=== PATIENT | female | born 1935 | race Caucasian/White ===

== ENCOUNTER → 2017-11-18 13:31 | Outpatient (REF) | payer MEDICARE, SELFPAY ==
[2017-11-18 14:19] LABS: Add Manual Diff / Slide Review NO; Basophils Percent Auto 0.7 % (0-2); Eosinophils Percent Auto 0.6 % (2-4); Hematocrit 21.8 % (36-46); Hemoglobin 7.2 g/dL (12.0-16.0); Lymphocytes Percent Auto 26.5 % (25-40); Mean Corpuscular HGB Conc 32.8 % (30-36); Mean Corpuscular Hemoglobin 29.2 PG (26-34); Mean Corpuscular Volume 88.9 fL (80-100); Monocytes Percent Auto 6.4 % (3-14); Neutrophils Absolute Auto 4500 /uL (3000-5900); Neutrophils Percent Auto 65.8 % (50-75); Platelet Count 77 X10^3/uL (150-400); Red Blood Cell Count 2.45 X10^6/uL (4.0-5.2); Red Cell Distribution Width 20.8 % (11.6-14.8); White Blood Cell Count 6.9 X10^3/uL (4.5-11.0)
[2017-11-18 14:30] LABS: Alanine Aminotransferase 24 IU/L (9-52); Albumin 3.4 g/dL (3.5-5.0); Albumin Globulin Ratio 0.8 (1.0-2.8); Alkaline Phosphatase 89 U/L (38-126); Aspartate Aminotransferase 26 IU/L (14-36); BUN Creatinine Ratio 32.9 (6-22); Bilirubin Total 0.5 mg/dL (0.2-1.3); Calcium 8.7 mg/dL (8.4-10.2); Cholesterol 60 mg/dL (140-199); Estimated Glomerular Filt Rate > 60.0 mL/min (>60); Globulin 4.1 g/dL (1.7-4.1); Glucose 119 mg/dL (80-110); HDL Cholesterol 20 mg/dL (40-60); HEMOLYSIS < 15 (0-50); LDL Cholesterol Calculated 14 mg/dL (<100); Potassium 3.7 mmol/L (3.4-5.1); Sodium 137 mmol/L (137-145); Total Protein 7.5 g/dL (6.3-8.2); Triglycerides 132 mg/dL (35-150)
[2017-11-18 14:59] LABS: Thyroid Stimulating Hormone 0.46 uIU/mL (0.47-4.68)
[2017-11-18 15:54] LABS: Anisocytosis 3+; Macrocytosis 1+; Polychromasia 1+
[2017-11-18 15:55] LABS: Stomatocytes 1+
[2017-11-18 16:17] LABS: Vitamin D 25 Hydroxy (D3) 15.2 ng/mL (30.0-100.0)
== END ==
LOC: LAB 13:31
PROVIDERS: PCP Nurse Practitioner Family; Visit Provider Physician Assistant
DX: R42 Dizziness and giddiness (principal); E03.9 Hypothyroidism, unspecified; R53.83 Other fatigue
CPT/HCPCS: 80053; 80061; 82306; 84443; 85025

== ENCOUNTER → 2017-11-24 13:42 | Outpatient (CLI) | payer MEDICARE, SELFPAY | PROVIDERS: Visit Provider Physician Assistant | DX: R29.6 Repeated falls (principal) | CPT/HCPCS: 87077; 87086; 87186 ==

== ENCOUNTER 2017-11-25 12:10 | Observation (INO) | payer MEDICARE, SELFPAY ==
[2017-11-25] VITALS (13 sets, daily range): BP systolic 125–171; BP diastolic 58–73; PULSE 70–88; RESP 14–20; TEMP 36.8–37.5; O2SAT 97–100; BMI 144.3
--- NOTE | 2017-11-25 12:56 | ED.RECABL ---
HPI - Recheck/Abnormal Lab/Rx <Marjan Alanis PA-C - Last Filed: 11/25/17 16:11> General Chief Complaint: Recheck/Abnormal Lab/Rx Stated Complaint: 'BLOOD TRANSFUSION' Time Seen by Provider: 11/25/17 12:13 Source: patient and family Mode of arrival: ambulatory Limitations: no limitations History of Present Illness HPI narrative: This 82-year-old female states that she was sent in by her PCP and home health for blood transfusion. She states ?I feel fine?, however apparently she had progressive anemia which had worsened on her 11/18 labs and she was messaged today that she should come to the ED. She states that she has had no increased weakness or fatigue over daughter notes that she does have significant ongoing weakness which she believes is worsening. She denies any chest pain or dyspnea. She denies any new bleeding such as hematuria or rectal bleeding. She states that she has had guaiac x3 done at the office which were negative (apparently she had been taking a fair amount of [id number] NSAIDs prior to this and there was concern for GI bleed). She has discontinued those since. In speaking with her PCP, states that patient has a history of positive occult blood tests and 1/3 were positive when tested recently. All the NSAIDs were stopped and she has been on PPI. She was referred to GI but has not been yet. She also had been referred to Hematology some time ago for her chronic anemia, which did not appear to be related to iron deficiency, and states she did not go to that appointment. Related Data Home Medications Medication Instructions Recorded Confirmed hydrochlorothiazide 25 mg PO QAM #0 05/10/12 11/25/17 hydrocodone-acetaminophen 1 tab PO Q12H PRN #0 05/10/12 11/25/17 albuterol sulfate 2 puff INHALATION Q4H 11/25/17 11/25/17 bimatoprost [Lumigan] 1 drp OPHTHALMIC (EYE) QPM 11/25/17 11/25/17 brimonidine-timolol [Combigan] 1 drp OPHTHALMIC (EYE) BID 11/25/17 11/25/17 calcium phosphate-vitamin D3 1 tab PO DAILY 11/25/17 11/25/17 [Citracal + D3 (calcium phos)] cholecalciferol (vitamin D3) 2 cap PO DAILY 11/25/17 11/25/17 [Vitamin D3] cholecalciferol (vitamin D3) 2 tab PO DAILY 11/25/17 11/25/17 [Vitamin D3] fluticasone [Flovent HFA] 3 puff INHALATION BID PRN 11/25/17 11/25/17 levothyroxine 1 tab PO DAILY 11/25/17 11/25/17 levothyroxine 1 tab PO DAILY 11/25/17 11/25/17 lisinopril 40 mg PO QPM 11/25/17 11/25/17 meloxicam 15 mg PO DAILY 11/25/17 11/25/17 omeprazole 40 mg PO DAILY 11/25/17 11/25/17 rosuvastatin 11/25/17 rosuvastatin 10 mg PO DAILY 11/25/17 11/25/17 venlafaxine 1 cap PO QPM 11/25/17 11/25/17 zolpidem 5 - 10 mg PO BEDTIME PRN 11/25/17 11/25/17 Allergies Allergy/AdvReac Type Severity Reaction Status Date / Time meperidine Allergy Unknown Unverified 10/05/17 12:57 Sulfa (Sulfonamide Allergy Unknown Unverified 10/05/17 12:57 Antibiotics) Review of Systems <Marjan Alanis PA-C - Last Filed: 11/25/17 16:11> Review of Systems All systems reviewed & are unremarkable except as noted in HPI and below Exam <Marjan Alanis PA-C - Last Filed: 11/25/17 16:11> Narrative Exam Narrative: GENERAL APPEARANCE: Patient sitting comfortably, in no distress. HEENT: PERRL, EOMI, no scleral icterus NECK: Supple LUNGS: Clear to auscultation bilaterally. HEART: Rate and rhythm regular, normal S1 and S2, no S3 or S4. ABDOMEN: Soft, nontender, nondistended, bowel sounds present x 4 quadrants, no masses palpable, no hepatosplenomegaly. EXTREMITIES: No edema, no cyanosis DERMATOLOGIC: No jaundice or exanthem NEUROLOGIC: Alert and oriented with normal speech and coordination RECTAL: No palpable masses. Guaiac is negative x1, there is minimal brown stool in the vault to test Initial Vital Signs Initial Vital Signs: Vital Signs Temperature 98.5 F 11/25/17 12:37 Pulse Rate 88 11/25/17 12:37 Respiratory Rate 16 11/25/17 12:37 Blood Pressure 170/63 H 11/25/17 12:37 Pulse Oximetry 99 11/25/17 12:37 <Robbie Mercedes MD - Last Filed: 11/25/17 17:01> Initial Vital Signs Initial Vital Signs: Vital Signs Temperature 98.5 F 11/25/17 12:37 Pulse Rate 88 11/25/17 12:37 Respiratory Rate 16 11/25/17 12:37 Blood Pressure 170/63 H 11/25/17 12:37 Pulse Oximetry 99 11/25/17 12:37 Course <Marjan Alanis PA-C - Last Filed: 11/25/17 16:11> Hospital Course: Spoke with Dr. Segovia regarding patient's history of chronic anemia as well as recent iron deficiency after NSAID use, and sharp decline in her H&H in the last week. He is agreeable with observation admission for transfusion. Blood has already been ordered Orders Ordered: ED Orders 11/25/17 12:48 CMP [Comprehensive Metabolic Panel] Stat Complete Blood Count AUTO DIFF Stat Ferritin Stat Iron Profile (w/ % Saturation) Stat Packed Cells Stat Partial Thromboplastin Time Stat Prothrombin Time INR Stat Type and Screen Stat 11/26/17 05:00 CBC [Complete Blood Count AUTO DIFF] Routine Vital Signs - 8 hr 11/25/17 12:37 11/25/17 13:40 11/25/17 14:00 Temperature 98.5 F 98.7 F Pulse Rate 88 72 78 Respiratory Rate 16 16 18 Blood Pressure 170/63 H 171/73 H Blood Pressure [Left Arm] 150/71 H Pulse Oximetry 99 100 99 11/25/17 14:55 11/25/17 15:51 Temperature Pulse Rate 75 76 Respiratory Rate 16 20 Blood Pressure 143/65 H Blood Pressure [Left Arm] 145/64 H Pulse Oximetry 100 98 <Robbie Mercedes MD - Last Filed: 11/25/17 17:01> Orders Ordered: ED Orders 11/25/17 12:48 CMP [Comprehensive Metabolic Panel] Stat Complete Blood Count AUTO DIFF Stat Ferritin Stat Iron Profile (w/ % Saturation) Stat Packed Cells Stat Partial Thromboplastin Time Stat Prothrombin Time INR Stat Type and Screen Stat 11/26/17 05:00 CBC [Complete Blood Count AUTO DIFF] Routine Vital Signs - 8 hr 11/25/17 12:37 11/25/17 13:40 11/25/17 14:00 Temperature 98.5 F 98.7 F Pulse Rate 88 72 78 Respiratory Rate 16 16 18 Blood Pressure 170/63 H 171/73 H Blood Pressure [Left Arm] 150/71 H Pulse Oximetry 99 100 99 11/25/17 14:55 11/25/17 15:51 Temperature Pulse Rate 75 76 Respiratory Rate 16 20 Blood Pressure 143/65 H Blood Pressure [Left Arm] 145/64 H Pulse Oximetry 100 98 MDM - Recheck/Abnormal Lab/Rx <Marjan Alanis PA-C - Last Filed: 11/25/17 16:11> Lab Data Attestation: I reviewed the patient's lab results. Outside lab results: 10/26: Ferritin 45.2, iron 98, transferrin 304.23, TIBC 367, iron saturation 27%, hemoglobin 7.2, hematocrit 21.8, platelets 77. 4/24 hemoglobin 9, hematocrit 27.2, platelets 92 Result diagrams: 11/25/17 12:48 11/25/17 12:48 Lab Results 11/25/17 11/25/17 11/25/17 Range/Units 12:48 12:48 12:48 WBC 6.0 (4.5-11.0) X10^3/uL RBC 2.31 L (4.0-5.2) X10^6/uL Hgb 6.7 L* (12.0-16.0) g/dL Hct 20.0 L* (36-46) % MCV 86.5 (80-100) fL MCH 29.0 (26-34) PG MCHC 33.5 (30-36) % RDW 20.1 H (11.6-14.8) % Plt Count 128 L (150-400) X10^3/uL Neut % (Auto) 65.0 (50-75) % Lymph % (Auto) 26.6 (25-40) % [place] % (Auto) 6.4 (3-14) % Eos % (Auto) 0.9 L (2-4) % Baso % (Auto) 1.1 (0-2) % Neut # (Auto) 3900 (6028-0197) /uL RBC Morphology Not Reportable Polychromasia 1+ H Hypochromasia 2+ H Anisocytosis 3+ H PT 13.6 H (10.1-12.7) SECONDS INR 1.3 (0.9-1.3) APTT 33 (26.4-36.2) SECONDS Sodium 137 (137-145) mmol/L Potassium 3.5 (3.4-5.1) mmol/L Chloride 105 (98-107) mmol/L Carbon Dioxide 18 L (22-32) mmol/L BUN 17 (7-17) mg/dL Creatinine 0.70 (0.52-1.04) mg/dL Estimated GFR > 60.0 (>60) mL/min BUN/Creatinine Ratio 24.3 H (6-22) Glucose 128 H (80-110) mg/dL Calcium 8.6 (8.4-10.2) mg/dL Iron (37-170) ug/dL TIBC (265-497) ug/mL % Saturation (15-50) % Transferrin (206-381) mg/dL Ferritin (11.1-264) ng/mL Total Bilirubin 0.7 (0.2-1.3) mg/dL AST 26 (14-36) IU/L ALT 26 (9-52) IU/L Alkaline Phosphatase 80 (38-126) U/L Total Protein 7.3 (6.3-8.2) g/dL Albumin 3.2 L (3.5-5.0) g/dL Globulin 4.1 (1.7-4.1) g/dL Albumin/Globulin Ratio 0.8 L (1.0-2.8) Blood Type Crossmatch (AHG) 11/25/17 11/25/17 11/25/17 Range/Units 12:48 12:48 12:48 WBC (4.5-11.0) X10^3/uL RBC (4.0-5.2) X10^6/uL Hgb (12.0-16.0) g/dL Hct (36-46) % MCV (80-100) fL MCH (26-34) PG MCHC (30-36) % RDW (11.6-14.8) % Plt Count (150-400) X10^3/uL Neut % (Auto) (50-75) % Lymph % (Auto) (25-40) % [place] % (Auto) (3-14) % Eos % (Auto) (2-4) % Baso % (Auto) (0-2) % Neut # (Auto) (4974-4796) /uL RBC Morphology Polychromasia Hypochromasia Anisocytosis PT (10.1-12.7) SECONDS INR (0.9-1.3) APTT (26.4-36.2) SECONDS Sodium (137-145) mmol/L Potassium (3.4-5.1) mmol/L Chloride (98-107) mmol/L Carbon Dioxide (22-32) mmol/L BUN (7-17) mg/dL Creatinine (0.52-1.04) mg/dL Estimated GFR (>60) mL/min BUN/Creatinine Ratio (6-22) Glucose (80-110) mg/dL Calcium (8.4-10.2) mg/dL Iron 61 (37-170) ug/dL TIBC 258 L (265-497) ug/mL % Saturation 24 (15-50) % Transferrin 191 L (206-381) mg/dL Ferritin 630.0 H (11.1-264) ng/mL Total Bilirubin (0.2-1.3) mg/dL AST (14-36) IU/L ALT (9-52) IU/L Alkaline Phosphatase (38-126) U/L Total Protein (6.3-8.2) g/dL Albumin (3.5-5.0) g/dL Globulin (1.7-4.1) g/dL Albumin/Globulin Ratio (1.0-2.8) Blood Type A Negative Crossmatch (AHG) See Detail <Robbie Mercedes MD - Last Filed: 11/25/17 17:01> Lab Data Lab Results 11/25/17 11/25/17 11/25/17 Range/Units 12:48 12:48 12:48 WBC 6.0 (4.5-11.0) X10^3/uL RBC 2.31 L (4.0-5.2) X10^6/uL Hgb 6.7 L* (12.0-16.0) g/dL Hct 20.0 L* (36-46) % MCV 86.5 (80-100) fL MCH 29.0 (26-34) PG MCHC 33.5 (30-36) % RDW 20.1 H (11.6-14.8) % Plt Count 128 L (150-400) X10^3/uL Neut % (Auto) 65.0 (50-75) % Lymph % (Auto) 26.6 (25-40) % Dorado % (Auto) 6.4 (3-14) % Eos % (Auto) 0.9 L (2-4) % Baso % (Auto) 1.1 (0-2) % Neut # (Auto) 3900 (2998-5029) /uL RBC Morphology Not Reportable Polychromasia 1+ H Hypochromasia 2+ H Anisocytosis 3+ H PT 13.6 H (10.1-12.7) SECONDS INR 1.3 (0.9-1.3) APTT 33 (26.4-36.2) SECONDS Sodium 137 (137-145) mmol/L Potassium 3.5 (3.4-5.1) mmol/L Chloride 105 (98-107) mmol/L Carbon Dioxide 18 L (22-32) mmol/L BUN 17 (7-17) mg/dL Creatinine 0.70 (0.52-1.04) mg/dL Estimated GFR > 60.0 (>60) mL/min BUN/Creatinine Ratio 24.3 H (6-22) Glucose 128 H (80-110) mg/dL Calcium 8.6 (8.4-10.2) mg/dL Iron (37-170) ug/dL TIBC (265-497) ug/mL % Saturation (15-50) % Transferrin (206-381) mg/dL Ferritin (11.1-264) ng/mL Total Bilirubin 0.7 (0.2-1.3) mg/dL AST 26 (14-36) IU/L ALT 26 (9-52) IU/L Alkaline Phosphatase 80 (38-126) U/L Total Protein 7.3 (6.3-8.2) g/dL Albumin 3.2 L (3.5-5.0) g/dL Globulin 4.1 (1.7-4.1) g/dL Albumin/Globulin Ratio 0.8 L (1.0-2.8) Blood Type Crossmatch (AHG) 11/25/17 11/25/17 11/25/17 Range/Units 12:48 12:48 12:48 WBC (4.5-11.0) X10^3/uL RBC (4.0-5.2) X10^6/uL Hgb (12.0-16.0) g/dL Hct (36-46) % MCV (80-100) fL MCH (26-34) PG MCHC (30-36) % RDW (11.6-14.8) % Plt Count (150-400) X10^3/uL Neut % (Auto) (50-75) % Lymph % (Auto) (25-40) % Dorado % (Auto) (3-14) % Eos % (Auto) (2-4) % Baso % (Auto) (0-2) % Neut # (Auto) (1692-8667) /uL RBC Morphology Polychromasia Hypochromasia Anisocytosis PT (10.1-12.7) SECONDS INR (0.9-1.3) APTT (26.4-36.2) SECONDS Sodium (137-145) mmol/L Potassium (3.4-5.1) mmol/L Chloride (98-107) mmol/L Carbon Dioxide (22-32) mmol/L BUN (7-17) mg/dL Creatinine (0.52-1.04) mg/dL Estimated GFR (>60) mL/min BUN/Creatinine Ratio (6-22) Glucose (80-110) mg/dL Calcium (8.4-10.2) mg/dL Iron 61 (37-170) ug/dL TIBC 258 L (265-497) ug/mL % Saturation 24 (15-50) % Transferrin 191 L (206-381) mg/dL Ferritin 630.0 H (11.1-264) ng/mL Total Bilirubin (0.2-1.3) mg/dL AST (14-36) IU/L ALT (9-52) IU/L Alkaline Phosphatase (38-126) U/L Total Protein (6.3-8.2) g/dL Albumin (3.5-5.0) g/dL Globulin (1.7-4.1) g/dL Albumin/Globulin Ratio (1.0-2.8) Blood Type A Negative Crossmatch (G) See Detail Discharge Plan Departure Patient Disposition: Admitted as Observation Clinical Impression: Acute anemia Discharge Date/Time: 11/25/17 15:56 Interventions: ED Discharge Assessment Last Done: 11/25/17 15:51 Admit Date/Time: 11/25/17 15:52 Admit Provider: Carlos Segovia <Robbie Mercedes MD - Last Filed: 11/25/17 17:01> Cosign ED Attending Cosignature Attestation: The PA/LIGHTING ENGINEER functioned independently for the care of this pt, I was available, but not asked to participate in care. I am unable to determine appropriateness of management without personally examining the pt.
--- NOTE | 2017-11-25 12:59 | ED_ITS ---
HPI - Recheck/Abnormal Lab/Rx <Marjan Alanis PA-C - Last Filed: 11/25/17 16:11> General Chief Complaint: Recheck/Abnormal Lab/Rx Stated Complaint: 'BLOOD TRANSFUSION' Time Seen by Provider: 11/25/17 12:13 Source: patient and family Mode of arrival: ambulatory Limitations: no limitations History of Present Illness HPI narrative: This 82-year-old female states that she was sent in by her PCP and home health for blood transfusion. She states ?I feel fine?, however apparently she had progressive anemia which had worsened on her 11/18 labs and she was messaged today that she should come to the ED. She states that she has had no increased weakness or fatigue over daughter notes that she does have significant ongoing weakness which she believes is worsening. She denies any chest pain or dyspnea. She denies any new bleeding such as hematuria or rectal bleeding. She states that she has had guaiac x3 done at the office which were negative (apparently she had been taking a fair amount of [id number] NSAIDs prior to this and there was concern for GI bleed). She has discontinued those since. In speaking with her PCP, states that patient has a history of positive occult blood tests and 1/3 were positive when tested recently. All the NSAIDs were stopped and she has been on PPI. She was referred to GI but has not been yet. She also had been referred to Hematology some time ago for her chronic anemia, which did not appear to be related to iron deficiency, and states she did not go to that appointment. Related Data Home Medications Medication Instructions Recorded Confirmed hydrochlorothiazide 25 mg PO QAM #0 05/10/12 11/25/17 hydrocodone-acetaminophen 1 tab PO Q12H PRN #0 05/10/12 11/25/17 albuterol sulfate 2 puff INHALATION Q4H 11/25/17 11/25/17 bimatoprost [Lumigan] 1 drp OPHTHALMIC (EYE) QPM 11/25/17 11/25/17 brimonidine-timolol [Combigan] 1 drp OPHTHALMIC (EYE) BID 11/25/17 11/25/17 calcium phosphate-vitamin D3 1 tab PO DAILY 11/25/17 11/25/17 [Citracal + D3 (calcium phos)] cholecalciferol (vitamin D3) 2 cap PO DAILY 11/25/17 11/25/17 [Vitamin D3] cholecalciferol (vitamin D3) 2 tab PO DAILY 11/25/17 11/25/17 [Vitamin D3] fluticasone [Flovent HFA] 3 puff INHALATION BID PRN 11/25/17 11/25/17 levothyroxine 1 tab PO DAILY 11/25/17 11/25/17 levothyroxine 1 tab PO DAILY 11/25/17 11/25/17 lisinopril 40 mg PO QPM 11/25/17 11/25/17 meloxicam 15 mg PO DAILY 11/25/17 11/25/17 omeprazole 40 mg PO DAILY 11/25/17 11/25/17 rosuvastatin 11/25/17 rosuvastatin 10 mg PO DAILY 11/25/17 11/25/17 venlafaxine 1 cap PO QPM 11/25/17 11/25/17 zolpidem 5 - 10 mg PO BEDTIME PRN 11/25/17 11/25/17 Allergies Allergy/AdvReac Type Severity Reaction Status Date / Time meperidine Allergy Unknown Unverified 10/05/17 12:57 Sulfa (Sulfonamide Allergy Unknown Unverified 10/05/17 12:57 Antibiotics) Review of Systems <Marjan Alanis PA-C - Last Filed: 11/25/17 16:11> Review of Systems All systems reviewed & are unremarkable except as noted in HPI and below Exam <Marjan Alanis PA-C - Last Filed: 11/25/17 16:11> Narrative Exam Narrative: GENERAL APPEARANCE: Patient sitting comfortably, in no distress. HEENT: PERRL, EOMI, no scleral icterus NECK: Supple LUNGS: Clear to auscultation bilaterally. HEART: Rate and rhythm regular, normal S1 and S2, no S3 or S4. ABDOMEN: Soft, nontender, nondistended, bowel sounds present x 4 quadrants, no masses palpable, no hepatosplenomegaly. EXTREMITIES: No edema, no cyanosis DERMATOLOGIC: No jaundice or exanthem NEUROLOGIC: Alert and oriented with normal speech and coordination RECTAL: No palpable masses. Guaiac is negative x1, there is minimal brown stool in the vault to test Initial Vital Signs Initial Vital Signs: Vital Signs Temperature 98.5 F 11/25/17 12:37 Pulse Rate 88 11/25/17 12:37 Respiratory Rate 16 11/25/17 12:37 Blood Pressure 170/63 H 11/25/17 12:37 Pulse Oximetry 99 11/25/17 12:37 <Robbie Mercedes MD - Last Filed: 11/25/17 17:01> Initial Vital Signs Initial Vital Signs: Vital Signs Temperature 98.5 F 11/25/17 12:37 Pulse Rate 88 11/25/17 12:37 Respiratory Rate 16 11/25/17 12:37 Blood Pressure 170/63 H 11/25/17 12:37 Pulse Oximetry 99 11/25/17 12:37 Course <Marjan Alanis PA-C - Last Filed: 11/25/17 16:11> Hospital Course: Spoke with Dr. Segovia regarding patient's history of chronic anemia as well as recent iron deficiency after NSAID use, and sharp decline in her H&H in the last week. He is agreeable with observation admission for transfusion. Blood has already been ordered Orders Ordered: ED Orders 11/25/17 12:48 CMP [Comprehensive Metabolic Panel] Stat Complete Blood Count AUTO DIFF Stat Ferritin Stat Iron Profile (w/ % Saturation) Stat Packed Cells Stat Partial Thromboplastin Time Stat Prothrombin Time INR Stat Type and Screen Stat 11/26/17 05:00 CBC [Complete Blood Count AUTO DIFF] Routine Vital Signs - 8 hr 11/25/17 12:37 11/25/17 13:40 11/25/17 14:00 Temperature 98.5 F 98.7 F Pulse Rate 88 72 78 Respiratory Rate 16 16 18 Blood Pressure 170/63 H 171/73 H Blood Pressure [Left Arm] 150/71 H Pulse Oximetry 99 100 99 11/25/17 14:55 11/25/17 15:51 Temperature Pulse Rate 75 76 Respiratory Rate 16 20 Blood Pressure 143/65 H Blood Pressure [Left Arm] 145/64 H Pulse Oximetry 100 98 <Robbie Mercedes MD - Last Filed: 11/25/17 17:01> Orders Ordered: ED Orders 11/25/17 12:48 CMP [Comprehensive Metabolic Panel] Stat Complete Blood Count AUTO DIFF Stat Ferritin Stat Iron Profile (w/ % Saturation) Stat Packed Cells Stat Partial Thromboplastin Time Stat Prothrombin Time INR Stat Type and Screen Stat 11/26/17 05:00 CBC [Complete Blood Count AUTO DIFF] Routine Vital Signs - 8 hr 11/25/17 12:37 11/25/17 13:40 11/25/17 14:00 Temperature 98.5 F 98.7 F Pulse Rate 88 72 78 Respiratory Rate 16 16 18 Blood Pressure 170/63 H 171/73 H Blood Pressure [Left Arm] 150/71 H Pulse Oximetry 99 100 99 11/25/17 14:55 11/25/17 15:51 Temperature Pulse Rate 75 76 Respiratory Rate 16 20 Blood Pressure 143/65 H Blood Pressure [Left Arm] 145/64 H Pulse Oximetry 100 98 MDM - Recheck/Abnormal Lab/Rx <Marjan Alanis PA-C - Last Filed: 11/25/17 16:11> Lab Data Attestation: I reviewed the patient's lab results. Outside lab results: 10/26: Ferritin 45.2, iron 98, transferrin 304.23, TIBC 367 , iron saturation 27%, hemoglobin 7.2, hematocrit 21.8, platelets 77. 4/24 hemoglobin 9, hematocrit 27.2, platelets 92 Result diagrams: 11/25/17 12:48 11/25/17 12:48 Lab Results 11/25/17 11/25/17 11/25/17 Range/Units 12:48 12:48 12:48 WBC 6.0 (4.5-11.0) X10^3/uL RBC 2.31 L (4.0-5.2) X10^6/uL Hgb 6.7 L* (12.0-16.0) g/dL Hct 20.0 L* (36-46) % MCV 86.5 (80-100) fL MCH 29.0 (26-34) PG MCHC 33.5 (30-36) % RDW 20.1 H (11.6-14.8) % Plt Count 128 L (150-400) X10^3/uL Neut % (Auto) 65.0 (50-75) % Lymph % (Auto) 26.6 (25-40) % [place]zel % (Auto) 6.4 (3-14) % Eos % (Auto) 0.9 L (2-4) % Baso % (Auto) 1.1 (0-2) % Neut # (Auto) 3900 (2798-8904) /uL RBC Morphology Not Reportable Polychromasia 1+ H Hypochromasia 2+ H Anisocytosis 3+ H PT 13.6 H (10.1-12.7) SECONDS INR 1.3 (0.9-1.3) APTT 33 (26.4-36.2) SECONDS Sodium 137 (137-145) mmol/L Potassium 3.5 (3.4-5.1) mmol/L Chloride 105 (98-107) mmol/L Carbon Dioxide 18 L (22-32) mmol/L BUN 17 (7-17) mg/dL Creatinine 0.70 (0.52-1.04) mg/dL Estimated GFR > 60.0 (>60) mL/min BUN/Creatinine Ratio 24.3 H (6-22) Glucose 128 H (80-110) mg/dL Calcium 8.6 (8.4-10.2) mg/dL Iron (37-170) ug/dL TIBC (265-497) ug/mL % Saturation (15-50) % Transferrin (206-381) mg/dL Ferritin (11.1-264) ng/mL Total Bilirubin 0.7 (0.2-1.3) mg/dL AST 26 (14-36) IU/L ALT 26 (9-52) IU/L Alkaline Phosphatase 80 (38-126) U/L Total Protein 7.3 (6.3-8.2) g/dL Albumin 3.2 L (3.5-5.0) g/dL Globulin 4.1 (1.7-4.1) g/dL Albumin/Globulin Ratio 0.8 L (1.0-2.8) Blood Type Crossmatch (AHG) 11/25/17 11/25/17 11/25/17 Range/Units 12:48 12:48 12:48 WBC (4.5-11.0) X10^3/uL RBC (4.0-5.2) X10^6/uL Hgb (12.0-16.0) g/dL Hct (36-46) % MCV (80-100) fL MCH (26-34) PG MCHC (30-36) % RDW (11.6-14.8) % Plt Count (150-400) X10^3/uL Neut % (Auto) (50-75) % Lymph % (Auto) (25-40) % [place] % (Auto) (3-14) % Eos % (Auto) (2-4) % Baso % (Auto) (0-2) % Neut # (Auto) (7571-4631) /uL RBC Morphology Polychromasia Hypochromasia Anisocytosis PT (10.1-12.7) SECONDS INR (0.9-1.3) APTT (26.4-36.2) SECONDS Sodium (137-145) mmol/L Potassium (3.4-5.1) mmol/L Chloride (98-107) mmol/L Carbon Dioxide (22-32) mmol/L BUN (7-17) mg/dL Creatinine (0.52-1.04) mg/dL Estimated GFR (>60) mL/min BUN/Creatinine Ratio (6-22) Glucose (80-110) mg/dL Calcium (8.4-10.2) mg/dL Iron 61 (37-170) ug/dL TIBC 258 L (265-497) ug/mL % Saturation 24 (15-50) % Transferrin 191 L (206-381) mg/dL Ferritin 630.0 H (11.1-264) ng/mL Total Bilirubin (0.2-1.3) mg/dL AST (14-36) IU/L ALT (9-52) IU/L Alkaline Phosphatase (38-126) U/L Total Protein (6.3-8.2) g/dL Albumin (3.5-5.0) g/dL Globulin (1.7-4.1) g/dL Albumin/Globulin Ratio (1.0-2.8) Blood Type A Negative Crossmatch (AHG) See Detail <Robbie Mercedes MD - Last Filed: 11/25/17 17:01> Lab Data Lab Results 11/25/17 11/25/17 11/25/17 Range/Units 12:48 12:48 12:48 WBC 6.0 (4.5-11.0) X10^3/uL RBC 2.31 L (4.0-5.2) X10^6/uL Hgb 6.7 L* (12.0-16.0) g/dL Hct 20.0 L* (36-46) % MCV 86.5 (80-100) fL MCH 29.0 (26-34) PG MCHC 33.5 (30-36) % RDW 20.1 H (11.6-14.8) % Plt Count 128 L (150-400) X10^3/uL Neut % (Auto) 65.0 (50-75) % Lymph % (Auto) 26.6 (25-40) % [place]zel % (Auto) 6.4 (3-14) % Eos % (Auto) 0.9 L (2-4) % Baso % (Auto) 1.1 (0-2) % Neut # (Auto) 3900 (2332-4709) /uL RBC Morphology Not Reportable Polychromasia 1+ H Hypochromasia 2+ H Anisocytosis 3+ H PT 13.6 H (10.1-12.7) SECONDS INR 1.3 (0.9-1.3) APTT 33 (26.4-36.2) SECONDS Sodium 137 (137-145) mmol/L Potassium 3.5 (3.4-5.1) mmol/L Chloride 105 (98-107) mmol/L Carbon Dioxide 18 L (22-32) mmol/L BUN 17 (7-17) mg/dL Creatinine 0.70 (0.52-1.04) mg/dL Estimated GFR > 60.0 (>60) mL/min BUN/Creatinine Ratio 24.3 H (6-22) Glucose 128 H (80-110) mg/dL Calcium 8.6 (8.4-10.2) mg/dL Iron (37-170) ug/dL TIBC (265-497) ug/mL % Saturation (15-50) % Transferrin (206-381) mg/dL Ferritin (11.1-264) ng/mL Total Bilirubin 0.7 (0.2-1.3) mg/dL AST 26 (14-36) IU/L ALT 26 (9-52) IU/L Alkaline Phosphatase 80 (38-126) U/L Total Protein 7.3 (6.3-8.2) g/dL Albumin 3.2 L (3.5-5.0) g/dL Globulin 4.1 (1.7-4.1) g/dL Albumin/Globulin Ratio 0.8 L (1.0-2.8) Blood Type Crossmatch (AHG) 11/25/17 11/25/17 11/25/17 Range/Units 12:48 12:48 12:48 WBC (4.5-11.0) X10^3/uL RBC (4.0-5.2) X10^6/uL Hgb (12.0-16.0) g/dL Hct (36-46) % MCV (80-100) fL MCH (26-34) PG MCHC (30-36) % RDW (11.6-14.8) % Plt Count (150-400) X10^3/uL Neut % (Auto) (50-75) % Lymph % (Auto) (25-40) % Wetzel % (Auto) (3-14) % Eos % (Auto) (2-4) % Baso % (Auto) (0-2) % Neut # (Auto) (6022-2512) /uL RBC Morphology Polychromasia Hypochromasia Anisocytosis PT (10.1-12.7) SECONDS INR (0.9-1.3) APTT (26.4-36.2) SECONDS Sodium (137-145) mmol/L Potassium (3.4-5.1) mmol/L Chloride (98-107) mmol/L Carbon Dioxide (22-32) mmol/L BUN (7-17) mg/dL Creatinine (0.52-1.04) mg/dL Estimated GFR (>60) mL/min BUN/Creatinine Ratio (6-22) Glucose (80-110) mg/dL Calcium (8.4-10.2) mg/dL Iron 61 (37-170) ug/dL TIBC 258 L (265-497) ug/mL % Saturation 24 (15-50) % Transferrin 191 L (206-381) mg/dL Ferritin 630.0 H (11.1-264) ng/mL Total Bilirubin (0.2-1.3) mg/dL AST (14-36) IU/L ALT (9-52) IU/L Alkaline Phosphatase (38-126) U/L Total Protein (6.3-8.2) g/dL Albumin (3.5-5.0) g/dL Globulin (1.7-4.1) g/dL Albumin/Globulin Ratio (1.0-2.8) Blood Type A Negative Crossmatch (G) See Detail Discharge Plan Departure Patient Disposition: Admitted as Observation Clinical Impression: Acute anemia Discharge Date/Time: 11/25/17 15:56 Interventions: ED Discharge Assessment Last Done: 11/25/17 15:51 Admit Date/Time: 11/25/17 15:52 Admit Provider: Carlos Segovia <Robbie Mercedes MD - Last Filed: 11/25/17 17:01> Cosign ED Attending Cosignature Attestation: The PA/RESEARCH ASSISTANT PROFESSOR functioned independently for the care of this pt, I was available, but not asked to participate in care. I am unable to determine appropriateness of management without personally examining the pt.
[2017-11-25 13:16] LABS: Add Manual Diff / Slide Review NO; Basophils Percent Auto 1.1 % (0-2); Eosinophils Percent Auto 0.9 % (2-4); Lymphocytes Percent Auto 26.6 % (25-40); Mean Corpuscular HGB Conc 33.5 % (30-36); Mean Corpuscular Volume 86.5 fL (80-100); Monocytes Percent Auto 6.4 % (3-14); Neutrophils Absolute Auto 3900 /uL (3000-5900); Platelet Count 128 X10^3/uL (150-400); Red Blood Cell Count 2.31 X10^6/uL (4.0-5.2); Red Cell Distribution Width 20.1 % (11.6-14.8)
[2017-11-25 13:18] LABS: Hemoglobin 6.7 g/dL (12.0-16.0)
[2017-11-25 13:22] LABS: Alanine Aminotransferase 26 IU/L (9-52); Albumin 3.2 g/dL (3.5-5.0); Albumin Globulin Ratio 0.8 (1.0-2.8); Alkaline Phosphatase 80 U/L (38-126); Aspartate Aminotransferase 26 IU/L (14-36); BUN Creatinine Ratio 24.3 (6-22); Bilirubin Total 0.7 mg/dL (0.2-1.3); Blood Urea Nitrogen 17 mg/dL (7-17); Calcium 8.6 mg/dL (8.4-10.2); Carbon Dioxide 18 mmol/L (22-32); Chloride 105 mmol/L (98-107); Estimated Glomerular Filt Rate > 60.0 mL/min (>60); Globulin 4.1 g/dL (1.7-4.1); Glucose 128 mg/dL (80-110); HEMOLYSIS < 15 (0-50); Potassium 3.5 mmol/L (3.4-5.1); Sodium 137 mmol/L (137-145); Total Protein 7.3 g/dL (6.3-8.2)
[2017-11-25 13:38] LABS: Anisocytosis 3+
[2017-11-25 13:39] LABS: Polychromasia 1+
[2017-11-25 13:40] LABS: Hypochromasia 2+
[2017-11-25 13:57] LABS: HEMOLYSIS < 15 (0-50); Iron 61 ug/dL (37-170)
[2017-11-25 14:01] LABS: INR 1.3 (0.9-1.3); Prothrombin Time 13.6 SECONDS (10.1-12.7)
[2017-11-25 14:04] LABS: PTT Partial Thromboplastin Tim 33 SECONDS (26.4-36.2)
[2017-11-25 14:07] LABS: Percent Iron Saturation 24 % (15-50); Total Iron Binding Capacity 258 ug/mL (265-497); Transferrin 191 mg/dL (206-381)
[2017-11-25] MEDS: BRIMONIDINE/TIMOLOL 0.2%/0.5% OPHTH 5 ML 1 DROPS EYE-BOTH (21:08)
[2017-11-25] MEDS: BIMATOPROST 0.01% OPHTH 2.5 ML 1 DROPS EYE-BOTH (21:08)
[2017-11-25] MEDS: LISINOPRIL 20 MG TABLET 40 MG PO (21:08)
[2017-11-25] MEDS: PANTOPRAZOLE 40 MG TABLET PO (21:10)
[2017-11-25] MEDS: HYDROCODONE/ACET 5/325 TABLET 1 TAB PO (21:18)
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
[2017-11-25 22:56] LABS: TSH w/ Reflex to FT4 0.56 uIU/mL (0.47-4.68)
[2017-11-25] MEDS: VENLAFAXINE ER 75 MG CAP PO (23:00)
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
--- NOTE | 2017-11-26 00:31 | PC.NURSE ---
Addendum entered by Vanessa Melo R.N. 11/26/17 06:08: Transfusion completed at 0140 at which time patient assisted up to BSC and then back to bed. Has slept rest of shift. This morning lab here to draw blood for hgb/hct recheck. Patient denies pain. Original Note: Alert and oriented to place, year, age, birthdate but identified month as January and not sure why she is in the hospital. Breath sounds CTA with RA sat of 97%. HRR. Denies nausea. BT present and passing flatus. Denies dysuria, frequency, urgency or incontinence. Independent with bed mobility. Reportedly has balance issues when up and has hx of multiple falls. Fall risk score is high and bed alarm is activated. 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 2nd unit of blood currently infusing without apparent problem.
[2017-11-26 01:40] VITALS: BP 139/64; PULSE 70; RESP 16; TEMP 36.6
[2017-11-26] MEDS: SODIUM CHLORIDE 0.9% FLUSH 10 ML IV ×2 (01:40→09:11)
[2017-11-26 01:51] VITALS: BP 139/64; PULSE 70; RESP 16; TEMP 36.6; O2SAT 97
[2017-11-26] MEDS: LEVOTHYROXINE 112 MCG TABLET PO (06:04)
[2017-11-26 06:21] LABS: Basophils Percent Auto 0.5 % (0-2); Eosinophils Percent Auto 0.9 % (2-4); Hematocrit 24.9 % (36-46); Hemoglobin 8.5 g/dL (12.0-16.0); Lymphocytes Percent Auto 29.4 % (25-40); Mean Corpuscular HGB Conc 34.2 % (30-36); Mean Corpuscular Hemoglobin 28.4 PG (26-34); Mean Corpuscular Volume 83.1 fL (80-100); Monocytes Percent Auto 8.4 % (3-14); Neutrophils Absolute Auto 4000 /uL (3000-5900); Neutrophils Percent Auto 60.8 % (50-75); Platelet Count 103 X10^3/uL (150-400); Red Cell Distribution Width 20.7 % (11.6-14.8); White Blood Cell Count 6.6 X10^3/uL (4.5-11.0)
[2017-11-26 06:33] LABS: Add Manual Diff / Slide Review SLIDE REVIEW
[2017-11-26 06:46] LABS: Anisocytosis 2+
[2017-11-26 06:47] LABS: Hypochromasia 1+; Polychromasia 1+
[2017-11-26 07:00] VITALS: BP 145/72; PULSE 82; RESP 20; TEMP 36.8; O2SAT 96
[2017-11-26] MEDS: CALCIUM CARB/VIT D3 500/200 TABLET 1 EACH PO (09:10)
[2017-11-26] MEDS: BRIMONIDINE/TIMOLOL 0.2%/0.5% OPHTH 5 ML 1 DROPS EYE-BOTH (09:11)
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
--- NOTE | 2017-11-26 11:48 | PC.NURSE ---
Day shift: Left unit at approx 1130 with daughter. Has all personal belongings. Paperwork signed and questions answered. Went over d/c instructions and stressed taking meds as directed and going to all MD appointments.
--- NOTE | 2017-11-26 12:49 | CM.DPC ---
DCP Initial Assessment: Chart review performed and all pertinent EMR notes reviewed. DCP unable to meet with patient, as she was discharged prior to DCP Intake Assmt. The following notes were obtained from her attending nurse Eva. Pt is a 82 yo female admitted in OBSERVATION status for low hematocrit/blood transfusion per advice of her PCP and care. PCP: Liana Kirby Primary payor is: Medicare/secondary is [employer] Contacted: Nurse Eva who stated patient discharged early r/t family being here and wanting to get her home [place], so he expedited this for them. He states she went home under the care of her family. He did teaching on fall prevention, anemia mgmt., and medications. He advised her to take her meds as ordered, to keep all follow-up appts with her doctors, and to drink plenty of fluids r/t dehydration. She did receive 2 units PRBC while here. Plan: Home with family care. Discharged earlier today. Jaye Campa RN
== END 2017-11-26 11:54 | disposition home or self-care (01) ==
LOC: ED 14:53 → AC 15:53
PROVIDERS: Admitting Provider Internal Medicine; Emergency Provider Internal Medicine; PCP Physician Assistant; Visit Provider Internal Medicine
DX: R53.1 Weakness (principal); Z91.81 History of falling; J45.909 Unspecified asthma, uncomplicated; M51.36 Other intervertebral disc degeneration, lumbar region; I34.0 Nonrheumatic mitral (valve) insufficiency; D64.9 Anemia, unspecified; I10 Essential (primary) hypertension; E03.9 Hypothyroidism, unspecified
CPT/HCPCS: 36415; 36430; 36591; 80053; 82728; 83540; 83550; 84443; 85025; 85610; 85730; 86850; 86870; 86900; 86901; 86902; 86906; 99283; G0378; P9016

== ENCOUNTER → 2017-12-09 12:34 | Outpatient (CLI) | payer MEDICARE, SELFPAY ==
[2017-11-25 16:14] VITALS: BMI 144.3
[2017-12-09 13:37] LABS: Add Manual Diff / Slide Review NO; Basophils Percent Auto 1.5 % (0-2); Eosinophils Percent Auto 0.6 % (2-4); Hematocrit 28.9 % (36-46); Hemoglobin 9.4 g/dL (12.0-16.0); Lymphocytes Percent Auto 24.2 % (25-40); Mean Corpuscular HGB Conc 32.5 % (30-36); Monocytes Percent Auto 6.5 % (3-14); Neutrophils Absolute Auto 5000 /uL (3000-5900); Neutrophils Percent Auto 67.2 % (50-75); Platelet Count 140 X10^3/uL (150-400); Red Blood Cell Count 3.36 X10^6/uL (4.0-5.2); Red Cell Distribution Width 20.6 % (11.6-14.8); White Blood Cell Count 7.4 X10^3/uL (4.5-11.0)
[2017-12-09 13:50] LABS: Chloride 97 mmol/L (98-107); HEMOLYSIS < 15 (0-50); Potassium 4.4 mmol/L (3.4-5.1); Sodium 129 mmol/L (137-145)
[2017-12-09 14:23] LABS: Alanine Aminotransferase 27 IU/L (9-52); Albumin 3.7 g/dL (3.5-5.0); Albumin Globulin Ratio 0.9 (1.0-2.8); Alkaline Phosphatase 92 U/L (38-126); Aspartate Aminotransferase 30 IU/L (14-36); BUN Creatinine Ratio 23.3 (6-22); Bilirubin Total 0.7 mg/dL (0.2-1.3); Blood Urea Nitrogen 21 mg/dL (7-17); Calcium 8.8 mg/dL (8.4-10.2); Carbon Dioxide 18 mmol/L (22-32); Carcinoembryonic Antigen 4.7 ng/mL (0.1-3.0); Estimated Glomerular Filt Rate > 60.0 mL/min (>60); Globulin 4.1 g/dL (1.7-4.1); Glucose 111 mg/dL (80-110); Lactate Dehydrogenase 357 U/L (313-618); Total Protein 7.8 g/dL (6.3-8.2)
--- NOTE | 2017-12-09 14:46 | DI.CT.S_ITS ---
PROCEDURE: CT CHEST ABD PEL W CON INDICATIONS: 82 year-old female with anemia and bloody stools. TECHNIQUE: After the administration of oral and intravenous contrast, 5 mm thick sections acquired from the lung apices to the symphysis. 5 mm coronal and sagittal reformats were performed, with additional 7 mm coronal MIP reformats through the lungs. For radiation dose reduction, the following was used: automated exposure control, adjustment of mA and/or kV according to patient size. COMPARISON: None. FINDINGS: Image quality: Excellent. CHEST: Lungs and pleura: No acute airspace opacities. No pleural effusions or pneumothorax. On axial image 19, 1.6 cm pleural-based nodule is present in the posterior right upper thorax. Central and peripheral airways appear patent and normal in caliber. Mediastinum: Heart size is normal. No pericardial effusion. No mediastinal or hilar adenopathy by size criteria. Thoracic aorta and central pulmonary arteries are normal in size. Esophagus is normal in caliber. No hiatal hernia. Chest wall: Patient is status post right breast lumpectomy and axillary lymph node dissection. No axillary or supraclavicular adenopathy by size criteria. Thyroid gland is small or surgically absent. ABDOMEN: Solid organs: Liver is normal in size. 10 mm left hepatic lobe hypodense lesion measures 47 Hounsfield units in density, too dense to represent a simple cyst. There is irregular 2.1 cm hypodense lesion adjacent to the falciform ligament as well. Gallbladder wall thickness is normal. Biliary system is non dilated. Pancreas enhances normally. Spleen is normal in size and enhancement. No adrenal nodules. Kidneys demonstrate normal size and enhancement, without hydronephrosis. 1.5 cm posterior right renal cortical simple cyst is present. Peritoneum and bowel: Bowel loops demonstrate normal wall thickness and caliber. There is sigmoid colon diverticulosis. No discrete colon mass lesions identified. The appendix is not seen. No free fluid or air. Nodes and vessels: No retroperitoneal or mesenteric adenopathy by size criteria. Aorta and inferior vena cava are normal in size, with moderate aortoiliac atherosclerosis. Miscellaneous: No ventral hernias. PELVIS: Genitourinary: Bladder wall thickness is normal. Uterus and ovaries are normal in size, with several small calcified uterine fibroids. Miscellaneous: No inguinal hernias or adenopathy. Bones: No suspicious bony lesions. No vertebral body compression fractures. There is lower lumbar and thoracic spine disc degeneration. There is grade one L4-L5 spondylolisthesis from facet joint degeneration. IMPRESSION: 1. Moderate sigmoid colon diverticulosis may be a cause of lower gastrointestinal bleeding. A discrete colon neoplasm is not identified. Colonoscopy or double contrast barium enema would have higher sensitivity for detecting small colon cancer. 2. Indeterminate 10 mm left hepatic lobe hypodense lesion is too dense to represent a simple cyst. Additional 2.1 cm hypodense lesion adjacent to the falciform ligament is also indeterminate, possibly atypical manifestation of focal fatty infiltration. In the setting of remote right breast cancer, consider further characterization with liver protocol pre- and post contrast abdominal MRI with conventional gadolinium contrast. 3. 1.6 cm posterior right thoracic pleural-based nodule is of uncertain etiology, and may represent small benign fibrous tumor of the pleura, versus pleural metastasis of uncertain primary. If no remote outside institution chest CTs are available for comparison, further imaging workup may include PET/CT scan to evaluate malignant potential, or CT-guided biopsy. Dictated by: Carlos Lambert M.D. on 12/09/2017 at 16:44 Approved by: Carlos Lambert M.D. on 12/09/2017 at 17:01
[2017-12-09 14:47] LABS: Anisocytosis 2+
== END ==
LOC: ONC 12:34 → CT 01-25 14:43
PROVIDERS: PCP Physician Assistant; Visit Provider Internal Medicine Hematology & Oncology
DX: D64.9 Anemia, unspecified (principal); C50.919 Malignant neoplasm of unspecified site of unspecified female breast
CPT/HCPCS: 71260; 74177; 80053; 82378; 83615; 85025; Q9967

== ENCOUNTER → 2017-12-23 11:50 | Outpatient (REF) | payer MEDICARE, SELFPAY ==
[2017-11-25 16:14] VITALS: BMI 144.3
[2017-12-23 12:02] LABS: Hematocrit 24.7 % (36-46); Mean Corpuscular HGB Conc 32.3 % (30-36); Mean Corpuscular Hemoglobin 28.7 PG (26-34); Platelet Count 114 X10^3/uL (150-400); Red Blood Cell Count 2.77 X10^6/uL (4.0-5.2); Red Cell Distribution Width 21.5 % (11.6-14.8)
[2017-12-23 12:25] LABS: Anisocytosis 2+
[2017-12-23 12:26] LABS: Polychromasia 1+
== END ==
LOC: LAB 11:50
PROVIDERS: PCP Physician Assistant; Visit Provider Internal Medicine
DX: D64.9 Anemia, unspecified (principal)
CPT/HCPCS: 85027

== ENCOUNTER → 2018-01-31 14:30 | Outpatient (REF) | payer MEDICARE, SELFPAY ==
[2017-11-25 16:14] VITALS: BMI 144.3
[2018-01-31 14:37] LABS: Hematocrit 26.8 % (36-46); Hemoglobin 9.1 g/dL (12.0-16.0); Mean Corpuscular Hemoglobin 32.1 PG (26-34); Mean Corpuscular Volume 94.6 fL (80-100); Red Blood Cell Count 2.83 X10^6/uL (4.0-5.2); White Blood Cell Count 7.3 X10^3/uL (4.5-11.0)
[2018-01-31 14:38] LABS: Add Manual Diff / Slide Review SLIDE REVIEW; Basophils Percent Auto 0.5 % (0-2); Eosinophils Percent Auto 1.8 % (2-4); Lymphocytes Percent Auto 33.7 % (25-40); Monocytes Percent Auto 7.8 % (3-14); Neutrophils Absolute Auto 4100 /uL (3000-5900); Neutrophils Percent Auto 56.2 % (50-75); Platelet Count 115 X10^3/uL (150-400); Red Cell Distribution Width 21.3 % (11.6-14.8)
[2018-01-31 14:39] LABS: Anisocytosis 3+
== END ==
LOC: LAB 14:30
PROVIDERS: PCP Physician Assistant; Visit Provider Physician Assistant
DX: D64.9 Anemia, unspecified (principal)
CPT/HCPCS: 85025

== ENCOUNTER → 2018-02-07 12:10 | Outpatient (REF) | payer MEDICARE, SELFPAY ==
[2017-11-25 16:14] VITALS: BMI 144.3
[2018-02-07 12:26] LABS: Add Manual Diff / Slide Review NO; Basophils Percent Auto 0.3 % (0-2); Eosinophils Percent Auto 1.3 % (2-4); Hemoglobin 9.3 g/dL (12.0-16.0); Lymphocytes Percent Auto 30.4 % (25-40); Mean Corpuscular HGB Conc 33.3 % (30-36); Mean Corpuscular Hemoglobin 32.2 PG (26-34); Mean Corpuscular Volume 96.9 fL (80-100); Monocytes Percent Auto 5.6 % (3-14); Neutrophils Absolute Auto 6300 /uL (3000-5900); Neutrophils Percent Auto 62.4 % (50-75); Platelet Count 126 X10^3/uL (150-400); Red Blood Cell Count 2.89 X10^6/uL (4.0-5.2); Red Cell Distribution Width 22.1 % (11.6-14.8); White Blood Cell Count 10.1 X10^3/uL (4.5-11.0)
[2018-02-07 12:44] LABS: Anisocytosis 2+; Poikilocytosis 1+
== END ==
LOC: LAB 12:10
PROVIDERS: PCP Physician Assistant; Visit Provider Physician Assistant
DX: D64.9 Anemia, unspecified (principal)
CPT/HCPCS: 85025

== ENCOUNTER → 2018-02-14 12:20 | Outpatient (REF) | payer MEDICARE, MEDICAID, SELFPAY ==
[2017-11-25 16:14] VITALS: BMI 144.3
[2018-02-14 12:53] LABS: Add Manual Diff / Slide Review NO; Basophils Percent Auto 0.4 % (0-2); Eosinophils Percent Auto 0.6 % (2-4); Hematocrit 22.4 % (36-46); Hemoglobin 7.5 g/dL (12.0-16.0); Lymphocytes Percent Auto 29.7 % (25-40); Mean Corpuscular HGB Conc 33.6 % (30-36); Mean Corpuscular Hemoglobin 33.3 PG (26-34); Mean Corpuscular Volume 99.3 fL (80-100); Monocytes Percent Auto 7.8 % (3-14); Neutrophils Absolute Auto 5100 /uL (3000-5900); Neutrophils Percent Auto 61.5 % (50-75); Platelet Count 120 X10^3/uL (150-400); Red Blood Cell Count 2.26 X10^6/uL (4.0-5.2); Red Cell Distribution Width 21.9 % (11.6-14.8); White Blood Cell Count 8.3 X10^3/uL (4.5-11.0)
[2018-02-14 13:15] LABS: Anisocytosis 2+; Polychromasia 2+
== END ==
LOC: LAB 12:20
PROVIDERS: PCP Physician Assistant; Visit Provider Physician Assistant
DX: D64.9 Anemia, unspecified (principal)
CPT/HCPCS: 85025

== ENCOUNTER → 2018-02-28 11:55 | Outpatient (REF) | payer MEDICARE, MEDICAID, SELFPAY ==
[2017-11-25 16:14] VITALS: BMI 144.3
[2018-02-28 12:22] LABS: Add Manual Diff / Slide Review NO; Basophils Percent Auto 0.5 % (0-2); Eosinophils Percent Auto 0.9 % (2-4); Hematocrit 24.4 % (36-46); Hemoglobin 7.9 g/dL (12.0-16.0); Lymphocytes Percent Auto 29.3 % (25-40); Mean Corpuscular HGB Conc 32.5 % (30-36); Mean Corpuscular Hemoglobin 32.4 PG (26-34); Mean Corpuscular Volume 99.8 fL (80-100); Monocytes Percent Auto 6.7 % (3-14); Neutrophils Absolute Auto 4900 /uL (3000-5900); Neutrophils Percent Auto 62.6 % (50-75); Platelet Count 118 X10^3/uL (150-400); Red Blood Cell Count 2.44 X10^6/uL (4.0-5.2); Red Cell Distribution Width 22.7 % (11.6-14.8); White Blood Cell Count 7.9 X10^3/uL (4.5-11.0)
[2018-02-28 12:23] LABS: Reticulocyte Count, Percent 5.2 % (1.06-2.63)
[2018-02-28 12:57] LABS: Anisocytosis 2+; Polychromasia 1+
== END ==
LOC: LAB 11:55
PROVIDERS: PCP Physician Assistant; Visit Provider Physician Assistant
DX: D59.9 Acquired hemolytic anemia, unspecified (principal)
CPT/HCPCS: 85025; 85045

== ENCOUNTER 2018-03-21 11:00 | Oncology outpatient (ONC) | payer MEDICARE, MEDICAID, SELFPAY ==
[2017-11-25 16:14] VITALS: BMI 144.3
[2018-01-20 12:24] VITALS: BP 103/53; PULSE 84; RESP 20; TEMP 36.7; O2SAT 99
--- NOTE | 2018-01-20 14:30 | PC.NURSE ---
Pt informed on blood's estimated arrival time, pt prefers to come in tomorrow at 9am to nursing floor for transfusion. Pt's daughter with her and agrees to return to hospital at 9am. IV left in per pt's request, secured and clamped;CDI. Informed pt & daughter that if s/s of acute distress present, chest pain, SOB etc, to seek medical attention immediately. Pt's daughter verbalizes understanding.
[2018-01-21] VITALS (7 sets, daily range): BP systolic 129–151; BP diastolic 56–61; PULSE 70–85; RESP 16–18; TEMP 36.6–36.9; O2SAT 98
[2018-01-21] MEDS: SODIUM CHLORIDE 0.9% 250 ML 21 ML IV (09:15)
--- NOTE | 2018-01-21 09:39 | PC.NURSE ---
pt arrived for blood transfusion at 0900 with daughter, VASILIY, NAD, IV patent, pt oriented to hospital routine and room, states understanding that she is a fall risk and should call staff for assistance to get out of bed, call light and personal belongings within reach
[2018-02-21 11:37] LABS: Add Manual Diff / Slide Review NO; Basophils Percent Auto 1.2 % (0-2); Eosinophils Percent Auto 0.9 % (2-4); Lymphocytes Percent Auto 34.3 % (25-40); Mean Corpuscular HGB Conc 33.4 % (30-36); Mean Corpuscular Hemoglobin 33.7 PG (26-34); Mean Corpuscular Volume 100.9 fL (80-100); Monocytes Percent Auto 7.1 % (3-14); Neutrophils Absolute Auto 5100 /uL (3000-5900); Neutrophils Percent Auto 56.5 % (50-75); Platelet Count 152 X10^3/uL (150-400); Red Cell Distribution Width 21.2 % (11.6-14.8); White Blood Cell Count 8.9 X10^3/uL (4.5-11.0)
[2018-02-21 11:38] LABS: Hemoglobin 6.7 g/dL (12.0-16.0)
[2018-02-21 11:39] LABS: Hematocrit 20.2 % (36-46)
[2018-02-21 11:58] LABS: Anisocytosis 3+; Polychromasia 2+
[2018-02-21] MEDS: SODIUM CHLORIDE 0.9% 250 ML 21 ML IV (14:10)
[2018-02-21 14:11] VITALS: BP 153/89; PULSE 73; RESP 16; TEMP 36.6
[2018-02-21 14:27] VITALS: BP 163/65; PULSE 75; RESP 16; TEMP 36.7
[2018-02-22 11:33] VITALS: BP 123/64; PULSE 80; RESP 99; TEMP 36.8
[2018-02-22 11:50] VITALS: BP 114/69; PULSE 81; RESP 18; TEMP 36.8
[2018-02-22 13:50] VITALS: BP 139/62; PULSE 82; RESP 16; TEMP 36.9
[2018-03-02 15:18] LABS: Add Manual Diff / Slide Review NO; Basophils Percent Auto 0.5 % (0-2); Eosinophils Percent Auto 0.5 % (2-4); Hematocrit 23.3 % (36-46); Hemoglobin 7.8 g/dL (12.0-16.0); Lymphocytes Percent Auto 26.9 % (25-40); Mean Corpuscular HGB Conc 33.3 % (30-36); Mean Corpuscular Hemoglobin 32.7 PG (26-34); Monocytes Percent Auto 7.7 % (3-14); Neutrophils Absolute Auto 6600 /uL (3000-5900); Neutrophils Percent Auto 64.4 % (50-75); Platelet Count 148 X10^3/uL (150-400); Red Blood Cell Count 2.38 X10^6/uL (4.0-5.2); White Blood Cell Count 10.2 X10^3/uL (4.5-11.0)
[2018-03-02 15:49] LABS: Anisocytosis 3+; Poikilocytosis 1+
[2018-03-02 15:51] LABS: Polychromasia 2+
[2018-03-03] VITALS (7 sets, daily range): BP systolic 112–155; BP diastolic 57–77; PULSE 76–88; RESP 16–18; TEMP 36.5–36.9
[2018-03-03] MEDS: ACETAMINOPHEN 325 MG TABLET 650 MG PO (11:43)
[2018-03-03] MEDS: SODIUM CHLORIDE 0.9% 250 ML 21 ML IV (11:44)
[2018-03-21 11:26] LABS: Add Manual Diff / Slide Review NO; Basophils Percent Auto 0.6 % (0-2); Hematocrit 25.3 % (36-46); Hemoglobin 8.4 g/dL (12.0-16.0); Lymphocytes Percent Auto 29.5 % (25-40); Mean Corpuscular HGB Conc 33.2 % (30-36); Mean Corpuscular Hemoglobin 32.7 PG (26-34); Mean Corpuscular Volume 98.4 fL (80-100); Monocytes Percent Auto 6.7 % (3-14); Neutrophils Absolute Auto 5200 /uL (3000-5900); Neutrophils Percent Auto 62.2 % (50-75); Platelet Count 152 X10^3/uL (150-400); Red Blood Cell Count 2.57 X10^6/uL (4.0-5.2); Red Cell Distribution Width 20.7 % (11.6-14.8); White Blood Cell Count 8.3 X10^3/uL (4.5-11.0)
[2018-03-21 12:20] LABS: Anisocytosis 1+; Polychromasia 1+
== END 2018-03-28 15:50 | disposition home or self-care (01) ==
PROVIDERS: PCP Physician Assistant; Visit Provider Nurse Practitioner Gerontology
DX: D64.9 Anemia, unspecified (principal)
CPT/HCPCS: 36415; 36430; 85025; 86850; 86870; 86900; 86901; 86902; 86906; P9016

== ENCOUNTER → 2018-03-28 11:20 | Outpatient (CLI) | payer MEDICARE, MEDICAID, SELFPAY ==
[2017-11-25 16:14] VITALS: BMI 144.3
[2018-03-28 11:34] LABS: Add Manual Diff / Slide Review NO; Basophils Percent Auto 0.6 % (0-2); Eosinophils Percent Auto 1.1 % (2-4); Hematocrit 24.4 % (36-46); Hemoglobin 8.1 g/dL (12.0-16.0); Lymphocytes Percent Auto 36.3 % (25-40); Mean Corpuscular HGB Conc 33.3 % (30-36); Mean Corpuscular Hemoglobin 33.5 PG (26-34); Mean Corpuscular Volume 100.6 fL (80-100); Monocytes Percent Auto 8.1 % (3-14); Neutrophils Absolute Auto 5000 /uL (3000-5900); Neutrophils Percent Auto 53.9 % (50-75); Platelet Count 174 X10^3/uL (150-400); Red Blood Cell Count 2.42 X10^6/uL (4.0-5.2); Red Cell Distribution Width 21.2 % (11.6-14.8); White Blood Cell Count 9.2 X10^3/uL (4.5-11.0)
[2018-03-28 12:03] LABS: Macrocytosis 1+; Polychromasia 2+
[2018-03-28 13:55] VITALS: BP 127/71; PULSE 84; RESP 16; TEMP 36.9
[2018-03-28 14:15] VITALS: BP 119/68; PULSE 82; RESP 16; TEMP 36.9
--- NOTE | 2018-04-11 15:08 | ONC.NAV ---
Description: T/C re: transportation Activity: Called pt per referral to this [employer] that she was asking about resources for transportation to visits. She did not know what I was talking about, and denied any needs at this time. Encouraged her to call in the future should she need this assistance.
== END ==
PROVIDERS: PCP Physician Assistant
DX: C50.919 Malignant neoplasm of unspecified site of unspecified female breast (principal)
CPT/HCPCS: 36415; 36430; 85025; 86850; 86870; 86900; 86901; P9016

== ENCOUNTER → 2018-04-17 09:43 | Outpatient (CLI) | payer MEDICARE, MEDICAID, SELFPAY ==
[2017-11-25 16:14] VITALS: BMI 144.3
--- NOTE | 2018-04-17 09:45 | DI.NM.S_ITS ---
PROCEDURE: [place] BONE SCAN WHOLE BODY RADIOPHARMACEUTICAL: 20.0 mCi Tc-99m MDP IV. INDICATIONS: ANEMIA TECHNIQUE: Delayed whole-body scintigrams were obtained approximately 3-4 hours after intravenous injection of radiotracer. Anterior and posterior views were acquired from vertex to feet. Additional left and right oblique views of the spine were obtained. COMPARISON: [facility], CT, CT CHEST ABD PEL W CON, 12/09/2017, 14:42. [facility], [place], BONE SCAN WHOLE BODY, 04/29/2009, 12:14. FINDINGS: Increased physiologic uptake is noted within the kidneys and bladder. There is uptake are noted within the sternum, first MCP joints bilaterally, knees as well as small bones of the feet most prominent in the left first MTP joint. Uptake is also noted at the acromioclavicular joints. Multifocal levels are present within the thoracic and lumbar spine, unchanged. IMPRESSION: Multifocal areas of increased uptake as above most consistent with degenerative change. No significant change compared to prior exam. Dictated by: Nancy Gibson M.D. on 04/17/2018 at 16:36 Approved by: Nancy Gibson M.D. on 04/17/2018 at 16:38
== END ==
PROVIDERS: PCP Physician Assistant
DX: D64.9 Anemia, unspecified (principal); C50.919 Malignant neoplasm of unspecified site of unspecified female breast; C79.51 Secondary malignant neoplasm of bone
CPT/HCPCS: 78306; A9503

== ENCOUNTER → 2018-06-26 10:36 | Outpatient (CLI) | payer MEDICARE, MEDICAID, SELFPAY ==
[2017-11-25 16:14] VITALS: BMI 144.3
[2018-06-26 10:55] LABS: Add Manual Diff / Slide Review NO; Basophils Percent Auto 0.9 % (0-2); Eosinophils Percent Auto 4.6 % (2-4); Hematocrit 31.3 % (36-46); Hemoglobin 10.5 g/dL (12.0-16.0); Lymphocytes Percent Auto 31.3 % (25-40); Mean Corpuscular HGB Conc 33.5 % (30-36); Mean Corpuscular Hemoglobin 33.8 PG (26-34); Monocytes Percent Auto 9.9 % (3-14); Neutrophils Absolute Auto 3600 /uL (1500-7000); Neutrophils Percent Auto 53.3 % (50-75); Platelet Count 286 X10^3/uL (150-400); Red Cell Distribution Width 15.7 % (11.6-14.8); White Blood Cell Count 6.8 X10^3/uL (4.5-11.0)
[2018-12-05 12:05] LABS: Alanine Aminotransferase 13 IU/L (9-52); Albumin 4.4 g/dL (3.5-5.0); Alkaline Phosphatase 91 U/L (38-126); Aspartate Aminotransferase 22 IU/L (14-36); BUN Creatinine Ratio 36.3 (6-22); Bilirubin Total 0.4 mg/dL (0.2-1.3); Blood Urea Nitrogen 29 mg/dL (7-17); Calcium 9.6 mg/dL (8.4-10.2); Carbon Dioxide 26 mmol/L (22-32); Chloride 96 mmol/L (98-107); Estimated Glomerular Filt Rate > 60.0 mL/min (>60); Globulin 4.3 g/dL (1.7-4.1); Glucose 102 mg/dL (80-110); HEMOLYSIS < 15 (0-50); Potassium 4.3 mmol/L (3.4-5.1); Sodium 133 mmol/L (137-145); Total Protein 8.7 g/dL (6.3-8.2)
== END ==
PROVIDERS: PCP Physician Assistant
DX: C50.919 Malignant neoplasm of unspecified site of unspecified female breast (principal); C79.52 Secondary malignant neoplasm of bone marrow; D64.9 Anemia, unspecified; Z17.0 Estrogen receptor positive status [ER+]; Z79.811 Long term (current) use of aromatase inhibitors
CPT/HCPCS: 36415; 80053; 85025

== ENCOUNTER → 2018-08-21 15:51 | Outpatient (CLI) | payer MEDICARE, MEDICAID, SELFPAY ==
[2017-11-25 16:14] VITALS: BMI 144.3
[2018-01-03 15:23] LABS: Cancer (Carbohydrate) Ag 19-9 3 U/mL (< 34)
== END ==
PROVIDERS: PCP Physician Assistant; Visit Provider Nurse Practitioner Gerontology
DX: D64.9 Anemia, unspecified (principal); R63.4 Abnormal weight loss
CPT/HCPCS: 86301

== ENCOUNTER → 2018-12-18 17:02 | Outpatient (CLI) | payer MEDICARE, MEDICAID, SELFPAY ==
[2017-11-25 16:14] VITALS: BMI 144.3
--- NOTE | 2018-12-18 17:07 | DI.RAD.S_ITS ---
PROCEDURE: XR CHEST 2V INDICATIONS: COUGH TECHNIQUE: 2 views of the chest were acquired. COMPARISON: [facility], CR, THORACIC SPINE 3 VIEWS, 04/29/2009, 14:09. [facility], CR, L-SPINE 2-3 VIEWS, 04/29/2009, 9:02. [facility], CT, CT CHEST ABD PEL W CON, 12/09/2017, 14:42. [facility], RG, XR CXR 2 VIEW, 09/13/2003, 11:01. FINDINGS: Surgical changes and devices: None. Lungs and pleura: Lungs are clear, aside from streaky opacity left lung base.. Right upper lobe pleural-based mass seen on CT not definitively identified by plain film. There is prominent first anterior right rib costochondral calcification. No pleural effusions or pneumothorax. Mediastinum: Mediastinal contours are normal. Heart size is normal. Bones and chest wall: Moderate T11 and T12 compression fractures are present of indeterminate acuity but are new from prior CT scan dated 12/09/17. No suspicious bony abnormalities. Soft tissues appear unremarkable. IMPRESSION: 1. Left basilar atelectasis versus aspiration or pneumonia. Correlate clinically. 2. Right upper lobe pleural-based mass seen by CT not definitively visualized radiographically. If indicated, repeat CT could be performed for further assessment. 3. T11-T12 compression fractures of indeterminate age but are new from prior CT scan. Recommend clinical correlation and if indicated, MRI could be performed for further characterization. Dictated by: Dg Lyon RRA Interpreted: Dariana Best MD on 12/18/2018 at 17:22 Approved by: Dariana Best MD, PhD on 12/18/2018 at 18:21
== END ==
PROVIDERS: PCP Physician Assistant; Visit Provider Physician Assistant
DX: R05 Cough (principal); R91.8 Other nonspecific abnormal finding of lung field; M48.54XA Collapsed vertebra, not elsewhere classified, thoracic region, initial encounter for fracture
CPT/HCPCS: 71046

== ENCOUNTER → 2019-01-03 09:09 | Outpatient (CLI) | payer MEDICARE, MEDICAID, SELFPAY ==
[2017-11-25 16:14] VITALS: BMI 144.3
--- NOTE | 2019-01-03 09:10 | DI.MRI.S_ITS ---
PROCEDURE: MR HEAD/BRAIN WO/W CON INDICATIONS: breast cancer TECHNIQUE: Noncontrast axial T1 spin echo, axial T2 fast spin echo, sagittal and axial FLAIR, coronal T2 fast spin echo, axial gradient echo, axial diffusion and ADC through the brain. After the administration of contrast, axial and coronal T1 spin echo with fat saturation through the brain. COMPARISON: None. FINDINGS: Image quality: Partially degraded by motion artifact. CSF spaces: Basal cisterns are patent. No extra-axial fluid collections. Ventricles are normal in size and shape. Brain: No midline shift. No intracranial bleeds or masses. No abnormal intracranial enhancement. There is cerebral volume loss for age. There is periventricular white matter chronic small vessel ischemic change. The brainstem appears normal. Diffusion-weighted images demonstrate no acute ischemic insults. No chronic ischemic insults. Normal intravascular flow voids are present. Skull and face: Calvarial marrow is normal in signal. Orbits appear normal. Sinuses: Sinuses and mastoids appear clear. IMPRESSION: 1. Volume loss and small vessel ischemic disease. 2. No evidence of metastatic disease. Dictated by: Saravanan Fox M.D. on 01/03/2019 at 10:12 Approved by: Saravanan Fox M.D. on 01/03/2019 at 10:14
== END ==
PROVIDERS: PCP Physician Assistant
DX: C50.919 Malignant neoplasm of unspecified site of unspecified female breast (principal); C79.51 Secondary malignant neoplasm of bone; R45.89 Other symptoms and signs involving emotional state; D63.0 Anemia in neoplastic disease; F39 Unspecified mood [affective] disorder; Z17.0 Estrogen receptor positive status [ER+]; Z79.811 Long term (current) use of aromatase inhibitors
CPT/HCPCS: 70553; A9579

== ENCOUNTER → 2019-02-22 16:26 | Outpatient (CLI) | payer MEDICARE, MEDICAID, SELFPAY ==
[2017-11-25 16:14] VITALS: BMI 144.3
[2019-02-22 16:44] LABS: Add Manual Diff / Slide Review NO; Basophils Absolute Auto 100 /uL (0-100); Basophils Percent Auto 1.3 % (0-2); Eosinophils Absolute Auto 500 /uL (0-450); Eosinophils Percent Auto 4.6 % (2-4); Hematocrit 36.9 % (36-46); Hemoglobin 12.2 g/dL (12.0-16.0); Lymphocytes Absolute Auto 3400 /uL (1100-4500); Lymphocytes Percent Auto 30.8 % (25-40); Mean Corpuscular HGB Conc 33.2 % (30-36); Mean Corpuscular Hemoglobin 30.4 PG (26-34); Mean Corpuscular Volume 91.8 fL (80-100); Monocytes Absolute Auto 1200 /uL (0-900); Monocytes Percent Auto 10.8 % (3-14); Neutrophils Absolute Auto 5800 /uL (1500-7000); Neutrophils Percent Auto 52.5 % (50-75); Platelet Count 284 X10^3/uL (150-400); Red Blood Cell Count 4.02 X10^6/uL (4.0-5.2); Red Cell Distribution Width 17.3 % (11.6-14.8); White Blood Cell Count 11.1 X10^3/uL (4.5-11.0)
[2019-02-22 17:23] LABS: Alanine Aminotransferase 16 IU/L (9-52); Albumin 4.4 g/dL (3.5-5.0); Alkaline Phosphatase 81 U/L (38-126); Aspartate Aminotransferase 20 IU/L (14-36); BUN Creatinine Ratio 34.3 (6-22); Bilirubin Total 0.4 mg/dL (0.2-1.3); Blood Urea Nitrogen 24 mg/dL (7-17); Calcium 9.4 mg/dL (8.4-10.2); Carbon Dioxide 23 mmol/L (22-32); Chloride 102 mmol/L (98-107); Estimated Glomerular Filt Rate > 60.0 mL/min (>60); Globulin 4.3 g/dL (1.7-4.1); Glucose 100 mg/dL (80-110); HEMOLYSIS < 15 (0-50); Potassium 4.5 mmol/L (3.4-5.1); Sodium 137 mmol/L (137-145); Total Protein 8.7 g/dL (6.3-8.2)
[2019-02-24 16:39] LABS: CA 15-3 31 U/mL (< 32)
== END ==
PROVIDERS: PCP Physician Assistant
DX: C50.919 Malignant neoplasm of unspecified site of unspecified female breast (principal); C79.51 Secondary malignant neoplasm of bone
CPT/HCPCS: 36415; 80053; 85025; 86300

== ENCOUNTER → 2019-04-25 10:06 | Outpatient (CLI) | payer MEDICARE, OTHER, MEDICAID, SELFPAY ==
[2017-11-25 16:14] VITALS: BMI 144.3
[2019-04-25 10:30] LABS: Add Manual Diff / Slide Review NO; Basophils Absolute Auto 100 /uL (0-100); Basophils Percent Auto 1.4 % (0-2); Eosinophils Absolute Auto 600 /uL (0-450); Eosinophils Percent Auto 6.6 % (2-4); Hematocrit 39.8 % (36-46); Hemoglobin 13.6 g/dL (12.0-16.0); Lymphocytes Absolute Auto 3000 /uL (1100-4500); Lymphocytes Percent Auto 32.3 % (25-40); Mean Corpuscular HGB Conc 34.2 % (30-36); Mean Corpuscular Hemoglobin 31.4 PG (26-34); Mean Corpuscular Volume 91.7 fL (80-100); Monocytes Absolute Auto 1200 /uL (0-900); Monocytes Percent Auto 13.1 % (3-14); Neutrophils Absolute Auto 4300 /uL (1500-7000); Neutrophils Percent Auto 46.6 % (50-75); Platelet Count 315 X10^3/uL (150-400); Red Blood Cell Count 4.34 X10^6/uL (4.0-5.2); Red Cell Distribution Width 15.1 % (11.6-14.8); White Blood Cell Count 9.3 X10^3/uL (4.5-11.0)
[2019-04-25 10:39] LABS: Alanine Aminotransferase 16 IU/L (9-52); Albumin 4.9 g/dL (3.5-5.0); Albumin Globulin Ratio 1.1 (1.0-2.8); Alkaline Phosphatase 91 U/L (38-126); Aspartate Aminotransferase 28 IU/L (14-36); BUN Creatinine Ratio 31.1 (6-22); Bilirubin Total 0.6 mg/dL (0.2-1.3); Blood Urea Nitrogen 28 mg/dL (7-17); Calcium 9.8 mg/dL (8.4-10.2); Carbon Dioxide 26 mmol/L (22-32); Chloride 99 mmol/L (98-107); Estimated Glomerular Filt Rate > 60.0 mL/min (>60); Globulin 4.3 g/dL (1.7-4.1); Glucose 117 mg/dL (80-110); HEMOLYSIS < 15 (0-50); Sodium 136 mmol/L (137-145); Total Protein 9.2 g/dL (6.3-8.2)
[2019-04-28 11:29] LABS: CA 15-3 32 U/mL (< 32)
== END ==
PROVIDERS: PCP Physician Assistant
DX: C50.919 Malignant neoplasm of unspecified site of unspecified female breast (principal); C79.51 Secondary malignant neoplasm of bone
CPT/HCPCS: 36415; 80053; 85025; 86300

== ENCOUNTER → 2019-05-15 12:38 | Outpatient (CLI) | payer MEDICARE, OTHER, MEDICAID, SELFPAY ==
[2017-11-25 16:14] VITALS: BMI 144.3
--- NOTE | 2019-05-15 12:40 | DI.MRI.S_ITS ---
PROCEDURE: MR HEAD/BRAIN WO/W CON INDICATIONS: breast cancer TECHNIQUE: Noncontrast axial T1 spin echo, axial T2 fast spin echo, sagittal and axial FLAIR, coronal T2 fast spin echo, axial gradient echo, axial diffusion and ADC through the brain. After the administration of contrast, axial and coronal T1 spin echo with fat saturation through the brain. COMPARISON: [facility], MR, MR HEAD/BRAIN WO/W CON, 01/03/2019, 9:23. [facility], CT, HEAD WITHOUT CONTRAST, 10/20/2017, 13:31. FINDINGS: Image quality: Diagnostic, with note made of motion artifact. CSF spaces: Basal cisterns are patent. No extra-axial fluid collections. Ventricles are normal in size and shape. Brain: No midline shift. No intracranial bleeds or masses. No abnormal intracranial enhancement. There is cerebral volume loss for age. There is periventricular white matter chronic small vessel ischemic change. The brainstem appears normal. Diffusion-weighted images demonstrate no acute ischemic insults. No chronic ischemic insults. Normal intravascular flow voids are present. Skull and face: Calvarial marrow is normal in signal. Orbits appear normal. Sinuses: Mucosal thickening can be seen within the maxillary sinuses and milder mucosal thickening can be seen elsewhere within the maxillary sinuses. There is focal mucosal thickening seen within the right raven bullosa. No abnormal fluid is seen within the mastoid air cells. IMPRESSION: No masses or abnormal enhancement can be seen to suggest intracranial metastasis. Paranasal sinus disease is incidentally noted. Dictated by: Twin Aj M.D. on 05/15/2019 at 12:29 Approved by: Twin Aj M.D. on 05/15/2019 at 12:31
== END ==
PROVIDERS: PCP Physician Assistant
DX: C79.52 Secondary malignant neoplasm of bone marrow (principal); C50.919 Malignant neoplasm of unspecified site of unspecified female breast; J32.8 Other chronic sinusitis
CPT/HCPCS: 70553

== ENCOUNTER → 2019-05-22 10:02 | Outpatient (CLI) | payer MEDICARE, OTHER, MEDICAID, SELFPAY ==
[2017-11-25 16:14] VITALS: BMI 144.3
--- NOTE | 2019-05-22 10:07 | DI.NM.S_ITS ---
PROCEDURE: NE BONE SCAN WHOLE BODY RADIOPHARMACEUTICAL: 21.1 mCi Tc-99m MDP IV. INDICATIONS: f/u breast cancer TECHNIQUE: Delayed whole-body scintigrams were obtained approximately 3-4 hours after intravenous injection of radiotracer. Anterior and posterior views were acquired from vertex to feet. COMPARISON: [facility], CT, CT CHEST ABD PEL W CON, 12/09/2017, 14:42. [facility], CT, CT CHEST ABD PEL W CON, 05/22/2019, 11:37. [place], [place] BONE SCAN WHOLE BODY, 04/17/2018, 12:59. [place], [place], BONE SCAN WHOLE BODY, 04/29/2009, 12:14. FINDINGS: No areas of relative intense radiotracer uptake identified in the osseous skeleton that would be consistent with osseous metastatic disease. Increased radiotracer uptake identified in the shoulders bilaterally, the sternoclavicular joints bilaterally, the cervical spine, thoracic spine, lumbar spine, wrists bilaterally, and knees compatible with osteoarthritis. No abnormal soft tissue uptake identified. Activity in the kidneys is normal and symmetric. IMPRESSION: 1. No evidence of osseous metastatic disease. 2. Osteoarthritis. Dictated by: Dariana Best MD, PhD on 05/22/2019 at 15:09 Approved by: Dariana Best MD, PhD on 05/22/2019 at 15:13
[2019-05-22 11:00] LABS: Add Manual Diff / Slide Review NO; Basophils Absolute Auto 100 /uL (0-100); Basophils Percent Auto 1.3 % (0-2); Eosinophils Absolute Auto 600 /uL (0-450); Eosinophils Percent Auto 6.3 % (2-4); Hematocrit 40.3 % (36-46); Hemoglobin 13.9 g/dL (12.0-16.0); Lymphocytes Absolute Auto 2700 /uL (1100-4500); Lymphocytes Percent Auto 26.8 % (25-40); Mean Corpuscular HGB Conc 34.3 % (30-36); Mean Corpuscular Hemoglobin 31.2 PG (26-34); Monocytes Absolute Auto 1100 /uL (0-900); Monocytes Percent Auto 10.6 % (3-14); Neutrophils Absolute Auto 5500 /uL (1500-7000); Platelet Count 333 X10^3/uL (150-400); Red Blood Cell Count 4.43 X10^6/uL (4.0-5.2); Red Cell Distribution Width 14.2 % (11.6-14.8)
[2019-05-22 11:12] LABS: Alanine Aminotransferase 16 IU/L (<35); Albumin 4.8 g/dL (3.5-5.0); Alkaline Phosphatase 79 U/L (38-126); Aspartate Aminotransferase 28 IU/L (14-36); BUN Creatinine Ratio 26.3 (6-22); Bilirubin Total 0.8 mg/dL (0.2-1.3); Blood Urea Nitrogen 21 mg/dL (7-17); Calcium 9.4 mg/dL (8.4-10.2); Carbon Dioxide 25 mmol/L (22-32); Chloride 101 mmol/L (98-107); Estimated Glomerular Filt Rate > 60.0 mL/min (>60); Globulin 4.6 g/dL (1.7-4.1); Glucose 111 mg/dL (80-110); HEMOLYSIS 27 (0-50); Potassium 4.4 mmol/L (3.4-5.1); Sodium 137 mmol/L (137-145); Total Protein 9.4 g/dL (6.3-8.2)
--- NOTE | 2019-05-22 11:31 | DI.CT.S_ITS ---
PROCEDURE: CT CHEST ABD PEL W CON INDICATIONS: f/u breast cancer TECHNIQUE: After the administration of oral and intravenous contrast, 5 mm thick sections acquired from the lung apices to the symphysis. 5 mm coronal and sagittal reformats were performed, with additional 7 mm coronal MIP reformats through the lungs. For radiation dose reduction, the following was used: automated exposure control, adjustment of mA and/or kV according to patient size. COMPARISON: [facility], CR, XR CHEST 2V, 12/18/2018, 17:10. [facility], CT, CT CHEST ABD PEL W CON, 12/09/2017, 14:42. FINDINGS: Image quality: Excellent. CHEST: Lungs and pleura: No acute consolidation. Pleural based posterior right upper lobe mass unchanged since 12/09/17 measuring 1.6 x 1.2 cm cross-sectionally on axial image 100. Unchanged appearance of ill-defined 1.4 cm ground glass nodular focus on image 137 series 3. No pleural effusions or pneumothorax. Central and peripheral airways appear patent and normal in caliber. Mediastinum: Heart size is normal. No pericardial effusion. No mediastinal or hilar adenopathy by size criteria. Thoracic aorta and central pulmonary arteries are normal in size. Esophagus is normal in caliber. No hiatal hernia. Right posterior fat containing diaphragmatic hernia. Chest wall: No axillary or supraclavicular adenopathy by size criteria. ABDOMEN: Solid organs: Hepatic steatosis. Small presumed cyst in the left lobe of liver on image 49 series 2. Gallbladder contracted otherwise unremarkable. Biliary system is non dilated. Pancreas enhances normally. Spleen is normal in size and enhancement. No adrenal nodules. Kidneys demonstrate normal size and enhancement, without hydronephrosis. Peritoneum and bowel: Bowel loops demonstrate normal wall thickness and caliber. No free fluid or air. Appendix is not clearly identified however no suspicious pericecal inflammatory changes are seen. Incidental colonic diverticulosis Nodes and vessels: No retroperitoneal or mesenteric adenopathy by size criteria. Aorta and inferior vena cava are normal in size. Miscellaneous: No ventral hernias. PELVIS: Genitourinary: Bladder wall thickness is normal. Miscellaneous: Fat containing left inguinal hernia. Trace right fat containing inguinal hernia. No pelvic adenopathy. Bones: No suspicious bony lesions. Chronic appearing T11 and T12 compression fracture which is probably unchanged since 12/18/18 Chronic left rib fracture with callus formation. Mild scoliosis and discogenic changes. IMPRESSION: Overall, stable examination without evidence of recurrent or residual active tumor. Unchanged posterior right upper lobe pleural based mass since 12/09/17 Hepatic cyst Hepatic steatosis Fat-containing bilateral inguinal hernias, left larger than right. Additional chronic and incidental findings as above. Dictated by: Heriberto Patel M.D. on 05/22/2019 at 14:24 Approved by: Heriberto Patel M.D. on 05/22/2019 at 14:35
[2019-05-25 16:17] LABS: CA 15-3 39 U/mL (< 32)
== END ==
PROVIDERS: Family Provider Physician Assistant; PCP Physician Assistant
DX: C50.919 Malignant neoplasm of unspecified site of unspecified female breast (principal); R91.8 Other nonspecific abnormal finding of lung field; M89.49 Other hypertrophic osteoarthropathy, multiple sites; K76.0 Fatty (change of) liver, not elsewhere classified; K76.89 Other specified diseases of liver; K44.9 Diaphragmatic hernia without obstruction or gangrene; K57.90 Diverticulosis of intestine, part unspecified, without perforation or abscess without bleeding; K40.20 Bilateral inguinal hernia, without obstruction or gangrene, not specified as recurrent
CPT/HCPCS: 36415; 71260; 74177; 78306; 80053; 85025; 86300; A9503; Q9967

== ENCOUNTER → 2019-07-03 10:37 | Outpatient (CLI) | payer MEDICARE, OTHER, MEDICAID, SELFPAY ==
[2017-11-25 16:14] VITALS: BMI 144.3
[2019-07-03 10:51] LABS: Add Manual Diff / Slide Review NO; Basophils Absolute Auto 100 /uL (0-100); Basophils Percent Auto 1.4 % (0-2); Eosinophils Absolute Auto 600 /uL (0-450); Hematocrit 37.6 % (36-46); Lymphocytes Absolute Auto 2800 /uL (1100-4500); Lymphocytes Percent Auto 27.8 % (25-40); Mean Corpuscular HGB Conc 34.5 % (30-36); Mean Corpuscular Volume 92.7 fL (80-100); Monocytes Absolute Auto 1200 /uL (0-900); Monocytes Percent Auto 11.8 % (3-14); Neutrophils Absolute Auto 5400 /uL (1500-7000); Platelet Count 292 X10^3/uL (150-400); Red Blood Cell Count 4.05 X10^6/uL (4.0-5.2); Red Cell Distribution Width 13.9 % (11.6-14.8); White Blood Cell Count 10.1 X10^3/uL (4.5-11.0)
[2019-07-03 11:06] LABS: Alanine Aminotransferase 16 IU/L (<35); Albumin 4.5 g/dL (3.5-5.0); Albumin Globulin Ratio 1.1 (1.0-2.8); Alkaline Phosphatase 68 U/L (38-126); Aspartate Aminotransferase 24 IU/L (14-36); BUN Creatinine Ratio 26.3 (6-22); Bilirubin Total 0.6 mg/dL (0.2-1.3); Blood Urea Nitrogen 21 mg/dL (7-17); Calcium 9.3 mg/dL (8.4-10.2); Carbon Dioxide 25 mmol/L (22-32); Chloride 101 mmol/L (98-107); Estimated Glomerular Filt Rate > 60.0 mL/min (>60); Globulin 4.1 g/dL (1.7-4.1); Glucose 116 mg/dL (80-110); HEMOLYSIS < 15 (0-50); Potassium 4.2 mmol/L (3.4-5.1); Sodium 136 mmol/L (137-145); Total Protein 8.6 g/dL (6.3-8.2)
[2019-07-07 13:08] LABS: CA 15-3 44 U/mL (< 32)
== END ==
PROVIDERS: PCP Physician Assistant
DX: C50.919 Malignant neoplasm of unspecified site of unspecified female breast (principal); C79.51 Secondary malignant neoplasm of bone
CPT/HCPCS: 36415; 80053; 85025; 86300

== ENCOUNTER → 2019-12-04 10:50 | Outpatient (CLI) | payer MEDICARE, OTHER, MEDICAID, SELFPAY ==
[2017-11-25 16:14] VITALS: BMI 144.3
[2019-12-04 11:21] LABS: Add Manual Diff / Slide Review NO; Basophils Absolute Auto 100 /uL (0-100); Basophils Percent Auto 0.6 % (0-2); Eosinophils Absolute Auto 200 /uL (0-450); Eosinophils Percent Auto 1.9 % (2-4); Hematocrit 33.8 % (36-46); Hemoglobin 11.1 g/dL (12.0-16.0); Lymphocytes Absolute Auto 3100 /uL (1100-4500); Lymphocytes Percent Auto 31.3 % (25-40); Mean Corpuscular HGB Conc 32.8 % (30-36); Mean Corpuscular Hemoglobin 29.2 PG (26-34); Mean Corpuscular Volume 89.1 fL (80-100); Monocytes Absolute Auto 1000 /uL (0-900); Monocytes Percent Auto 10.2 % (3-14); Neutrophils Absolute Auto 5500 /uL (1500-7000); Platelet Count 351 X10^3/uL (150-400); Red Blood Cell Count 3.79 X10^6/uL (4.0-5.2); Red Cell Distribution Width 16.9 % (11.6-14.8); White Blood Cell Count 9.9 X10^3/uL (4.5-11.0)
[2019-12-04 11:34] LABS: Alanine Aminotransferase 13 IU/L (<35); Albumin 4.2 g/dL (3.5-5.0); Alkaline Phosphatase 73 U/L (38-126); Aspartate Aminotransferase 20 IU/L (14-36); BUN Creatinine Ratio 29.1 (6-22); Bilirubin Total 0.5 mg/dL (0.2-1.3); Blood Urea Nitrogen 25 mg/dL (7-17); Calcium 9.1 mg/dL (8.4-10.2); Carbon Dioxide 25 mmol/L (22-32); Chloride 102 mmol/L (98-107); Estimated Glomerular Filt Rate > 60.0 mL/min (>60); Globulin 4.3 g/dL (1.7-4.1); Glucose 124 mg/dL (80-110); HEMOLYSIS < 15 (0-50); Potassium 4.4 mmol/L (3.4-5.1); Sodium 136 mmol/L (137-145); Total Protein 8.5 g/dL (6.3-8.2)
== END ==
PROVIDERS: PCP Physician Assistant; Referring Provider Internal Medicine Hematology & Oncology; Visit Provider Internal Medicine Hematology & Oncology
DX: C50.919 Malignant neoplasm of unspecified site of unspecified female breast (principal); C79.51 Secondary malignant neoplasm of bone
CPT/HCPCS: 36415; 80053; 85025

== ENCOUNTER → 2019-12-18 09:48 | Outpatient (CLI) | payer MEDICARE, OTHER, MEDICAID, SELFPAY ==
[2017-11-25 16:14] VITALS: BMI 144.3
--- NOTE | 2019-12-18 | DI.US.S_ITS ---
PROCEDURE: US PELVIC COMPLETE INDICATIONS: POSTMENOPAUSAL BLEEDING TECHNIQUE: Real-time scanning was performed of the pelvic organs, with image documentation. Additional endovaginal scanning was necessary due to incomplete visualization of the adnexal and endometrial structures by transabdominal scanning. COMPARISON: [facility], CT, CT CHEST ABD PEL W CON, 05/22/2019, 11:37. [facility], CT, CT CHEST ABD PEL W CON, 12/09/2017, 14:42. FINDINGS: Transabdominal scanning: Limited scanning through the kidneys shows no hydronephrosis. No pathologic free abdominal or pelvic fluid. Endovaginal scanning: Uterus: Uterus is normal in size at 6.5 x 3.8 x 4.4 cm. The endometrium measures 12 mm in combined thickness. Multiple calcified intramural fibroids largest measuring 12 mm. Ovaries: Right ovary not visualized. Complex cyst with wall irregularity involves the left ovary measuring 4.1 x 3.2 x 3.0 cm. IMPRESSION: 1. Thickened endometrial complex measuring up to 12 mm. Endometrial biopsy is recommended for pathologic diagnosis. 2. Complex, irregular walled left ovarian cyst measuring up to 4.1 cm. Gynecologic consultation is recommended as cystic ovarian neoplasm cannot be excluded. If indicated, pre and post contrast gynecologic protocol MRI could be performed for further assessment. Dictated by: Dg CERON Interpreted: Narinder De La Cruz MD on 12/18/2019 at 12:10 Approved by: Narinder De La Cruz M.D. on 12/18/2019 at 13:08
== END ==
PROVIDERS: PCP Physician Assistant; Referring Provider Physician Assistant; Visit Provider Physician Assistant
DX: N95.0 Postmenopausal bleeding (principal); R93.89 Abnormal findings on diagnostic imaging of other specified body structures; N83.292 Other ovarian cyst, left side; D25.1 Intramural leiomyoma of uterus
CPT/HCPCS: 76830; 76856

== ENCOUNTER → 2020-01-03 11:07 | Outpatient (CLI) | payer MEDICARE, OTHER, MEDICAID, SELFPAY ==
[2017-11-25 16:14] VITALS: BMI 144.3
[2020-01-03 11:34] LABS: Add Manual Diff / Slide Review NO; Basophils Absolute Auto 100 /uL (0-100); Basophils Percent Auto 0.8 % (0-2); Eosinophils Absolute Auto 300 /uL (0-450); Eosinophils Percent Auto 2.7 % (2-4); Hematocrit 34.2 % (36-46); Hemoglobin 11.3 g/dL (12.0-16.0); Lymphocytes Absolute Auto 3000 /uL (1100-4500); Lymphocytes Percent Auto 31.7 % (25-40); Mean Corpuscular HGB Conc 33.2 % (30-36); Mean Corpuscular Hemoglobin 29.4 PG (26-34); Mean Corpuscular Volume 88.5 fL (80-100); Monocytes Absolute Auto 1100 /uL (0-900); Monocytes Percent Auto 11.5 % (3-14); Neutrophils Absolute Auto 5000 /uL (1500-7000); Neutrophils Percent Auto 53.3 % (50-75); Platelet Count 298 X10^3/uL (150-400); Red Blood Cell Count 3.86 X10^6/uL (4.0-5.2); Red Cell Distribution Width 15.5 % (11.6-14.8); White Blood Cell Count 9.4 X10^3/uL (4.5-11.0)
[2020-01-03 11:46] LABS: Alanine Aminotransferase 15 IU/L (<35); Albumin 4.1 g/dL (3.5-5.0); Alkaline Phosphatase 81 U/L (38-126); Aspartate Aminotransferase 22 IU/L (14-36); Bilirubin Total 0.5 mg/dL (0.2-1.3); Blood Urea Nitrogen 24 mg/dL (7-17); Calcium 9.1 mg/dL (8.4-10.2); Carbon Dioxide 24 mmol/L (22-32); Chloride 101 mmol/L (98-107); Estimated Glomerular Filt Rate > 60.0 mL/min (>60); Globulin 4.3 g/dL (1.7-4.1); Glucose 106 mg/dL (80-110); HEMOLYSIS < 15 (0-50); Potassium 4.4 mmol/L (3.4-5.1); Sodium 134 mmol/L (137-145); Total Protein 8.4 g/dL (6.3-8.2)
== END ==
PROVIDERS: PCP Physician Assistant; Referring Provider Internal Medicine Hematology & Oncology; Visit Provider Internal Medicine Hematology & Oncology
DX: C50.919 Malignant neoplasm of unspecified site of unspecified female breast (principal); C79.51 Secondary malignant neoplasm of bone
CPT/HCPCS: 36415; 80053; 85025

== ENCOUNTER → 2020-05-20 10:33 | Outpatient (CLI) | payer MEDICARE, OTHER, MEDICAID, SELFPAY ==
[2017-11-25 16:14] VITALS: BMI 144.3
[2020-05-20 10:59] LABS: Add Manual Diff / Slide Review NO; Basophils Absolute Auto 0 /uL (0-100); Basophils Percent Auto 0.2 % (0-2); Eosinophils Absolute Auto 0 /uL (0-450); Hematocrit 42.4 % (36-46); Hemoglobin 13.9 g/dL (12.0-16.0); Lymphocytes Absolute Auto 1500 /uL (1100-4500); Lymphocytes Percent Auto 9.9 % (25-40); Mean Corpuscular HGB Conc 32.8 % (30-36); Mean Corpuscular Hemoglobin 27.8 PG (26-34); Mean Corpuscular Volume 84.6 fL (80-100); Monocytes Absolute Auto 1000 /uL (0-900); Monocytes Percent Auto 6.5 % (3-14); Neutrophils Absolute Auto 12700 /uL (1500-7000); Neutrophils Percent Auto 83.4 % (50-75); Platelet Count 401 X10^3/uL (150-400); Red Blood Cell Count 5.01 X10^6/uL (4.0-5.2); Red Cell Distribution Width 14.3 % (11.6-14.8); White Blood Cell Count 15.3 X10^3/uL (4.5-11.0)
[2020-05-20 11:08] LABS: Alanine Aminotransferase 21 IU/L (<35); Albumin 4.4 g/dL (3.5-5.0); Alkaline Phosphatase 130 U/L (38-126); Aspartate Aminotransferase 33 IU/L (14-36); BUN Creatinine Ratio 53.2 (6-22); Bilirubin Total 1.1 mg/dL (0.2-1.3); Blood Urea Nitrogen 67 mg/dL (7-17); Calcium 8.5 mg/dL (8.4-10.2); Carbon Dioxide 21 mmol/L (22-32); Chloride 111 mmol/L (98-107); Estimated Glomerular Filt Rate 40.7 mL/min (>60); Glucose 160 mg/dL (80-110); HEMOLYSIS < 15 (0-50); Potassium 3.4 mmol/L (3.4-5.1); Sodium 148 mmol/L (137-145)
[2020-05-20 11:17] LABS: Albumin Globulin Ratio 0.8 (1.0-2.8); Globulin 5.3 g/dL (1.7-4.1); Total Protein 9.7 g/dL (6.3-8.2)
== END ==
PROVIDERS: Internal Medicine Hematology & Oncology; PCP Physician Assistant; Referring Provider Physician Assistant; Visit Provider Physician Assistant
DX: C50.919 Malignant neoplasm of unspecified site of unspecified female breast (principal); C79.51 Secondary malignant neoplasm of bone
CPT/HCPCS: 36415; 80053; 85025

== ENCOUNTER → 2020-05-21 13:00 | Oncology outpatient (ONC) | payer MEDICARE, OTHER, MEDICAID, SELFPAY ==
[2017-11-25 16:14] VITALS: BMI 144.3
[2017-12-06 15:11] VITALS: BP 119/49; PULSE 91; RESP 16; TEMP 37.2; O2SAT 99
--- NOTE | 2017-12-06 16:40 | ONC.GENERIC ---
Diagnosis (1) Anemia Diagnosis: 12/06/17 16:41 Mrs. Vidal is a very pleasant, slightly confused 82-year-old female from [place], [place]. She is accompanied today by her daughter Mireya. She has been kindly referred by Ms. Kirby for triage of recently observed anemia, modest thrombocytopenia, anorexia and recent weight loss of approximately 30 lb. History of Present Illness History Of Present Illness: 12/06/17 16:44 This kind woman apparently was noted to have a hemoglobin level of only 9.2 back in mid July of this year. A previous CBC dated 11/09/2016, confirmed a hemoglobin level of 11.7. When initially triaged in July, the patient was recommended for a Hematology referral. This apparently was turned down by the patient. More recently, this woman presented with a hemoglobin level of 6.7 on November 25. That led to the transfusion of 2 units of packed cells. A recent stool Hemoccult was reportedly positive. The patient has been referred for a GI consultation in [place]. That appointment apparently is sometime in December. The patient also reports the recent onset of unequivocal anorexia. Her weight has dropped from 150 lb to 121 lb over the past couple of months. This woman last had a colonoscopy in 2004. The patient's daughter felt that her mom was perhaps a little bit stronger after receiving the 2 units of blood. She clearly however has seen an equivocal decline in her mom's overall performance status the past couple of months. Home Medications and Allergies Home Medications Medication Instructions Recorded Confirmed Type hydrocodone-acetaminophen 1 tab PO Q12H PRN #0 05/10/12 12/06/17 History albuterol sulfate 2 puff INHALATION Q4H 11/25/17 12/06/17 History bimatoprost 1 drp OPHTHALMIC (EYE) QPM 11/25/17 12/06/17 History brimonidine-timolol [Combigan] 1 drp OPHTHALMIC (EYE) BID 11/25/17 12/06/17 History calcium phosphate-vitamin D3 1 tab PO DAILY 11/25/17 12/06/17 History [Citracal + D3 (calcium phos)] cholecalciferol (vitamin D3) 2 cap PO DAILY 11/25/17 12/06/17 History cholecalciferol (vitamin D3) 2 tab PO DAILY 11/25/17 12/06/17 History fluticasone [Flovent HFA] 3 puff INHALATION BID PRN 11/25/17 12/06/17 History levothyroxine 1 tab PO DAILY 11/25/17 12/06/17 History omeprazole 40 mg PO DAILY 11/25/17 12/06/17 History venlafaxine 1 cap PO QPM 11/25/17 12/06/17 History zolpidem 5 - 10 mg PO BEDTIME PRN 11/25/17 12/06/17 History lisinopril 20 mg PO QPM #30 tab 11/26/17 12/06/17 Rx multivitamin [Multiple Vitamins] 1 tab PO DAILY 12/06/17 12/06/17 History rosuvastatin 10 mg PO DAILY 12/06/17 12/06/17 History Allergies Allergy/AdvReac Type Severity Reaction Status Date / Time meperidine Allergy Unknown Verified 11/25/17 18:09 Sulfa (Sulfonamide Allergy Unknown Verified 11/25/17 18:09 Antibiotics) Past History Past Medical History: Previous nasal septoplasty in 1986. Fibroid removal in 1998. Diagnosis of right breast cancer in 1999. She had a lumpectomy and sentinel lymph node biopsy, followed by chemotherapy, followed by radiation therapy, followed by tamoxifen. History of asthma/COPD. Dyslipidemia. Hypothyroidism, under treatment. Hypertension. 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 Reported prior history of iron deficiency anemia. Glaucoma involving the right eye. Her last colonoscopy was in 2004. Known mitral regurgitation and tricuspid regurgitation. Social History: Mrs. Vidal is and lives with her and [place]. She has 3 children. She is accompanied today by her daughter Mireya, who lives south of [place]. The patient stopped smoking in 1994. She normally averages 2 alcoholic beverages per day. Family History: Both parents are . Her father from heart attack at age 70. Her mother recently at age 86. She also had coronary artery disease. One brother is . Another brother survives. Review of Systems Review of Systems: 1. General. Recent anorexia and weight loss of nearly 30 lb, over the past several months. Significant decrease recently in her overall energy level. The patient denies recent fever, chills or night sweats. 2. HEENT. History of glaucoma, involving the right eye. 3. Lungs. The patient is reporting dyspnea on exertion. 4. Heart. Unremarkable. 5. GI. Last colonoscopy in 2004. No prior history of peptic ulcer disease, gallbladder disease or hepatitis. Recently noted Hemoccult-positive stool. 6. . Unremarkable 7. Rheumatologic. 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 She was taken off of her Mobic in mid October. 8. Endocrine. Hypothyroidism, under treatment. No history of diabetes. 9. Scan. Unremarkable. 10. Neurologic. No prior history of seizure activity or stroke. She has noted recent issues with imbalance. Her daughter states that she has had 4 or 5 falls within the past several months. Exam Vital Signs: Vital Signs - 24 hr 12/06/17 15:11 Temperature 99.0 F Pulse Rate 91 H Respiratory Rate 16 Blood Pressure 119/49 L Pulse Oximetry 99 Exam: Blood pressure 119/49. Temperature 99.4?. Pulse rate 91. Weight 122 lb (normal 150 lb). This patient appeared to be confused at times today. She was quite weak. She required assistance from both myself and her daughter to get up to an off of the examination table. There was no scleral icterus. The oropharynx was clear. Teeth were in excellent repair. She displayed no direct percussible spinal tenderness. There was no palpable rib cage tenderness. Both lungs were clear to auscultation and percussion. No pathologic lymphadenopathy was noted today in the pre or postauricular, neck, chin, supraclavicular, axillary, epitrochlear or inguinal areas. Breast examination was unremarkable bilaterally. Heart sounds were fine. Her abdomen was soft, nontender, without palpable mass effect and without palpable hepatomegaly. There was no pretibial edema. Her skin examination did not show any nontraumatic bruises or petechiae. Results - Labs The most recent blood work from November 25 showed a normal creatinine. Iron saturation was normal at 24%. The ferritin level was increased at 630. The transaminases and alkaline phosphatase were normal. Her albumin was depressed at 3.2. TSH level was 0.56. White count was 6000 with an ANC of 3900. Hemoglobin level pre transfusion was 6.7 (8.5 post transfusion). Her MCV has remained in the mid 80s. Her last platelet count on November 26 was depressed at 103,000. Impression Mrs. Lewis's triage today confirms a number of red flags. I am very concerned about her recent anorexia and weight loss of nearly 30 lb. She certainly could have a cryptic malignancy. We know that one of her recent stool exams was Hemoccult positive. Her hematologic picture is more confusing. She does not have some of the features typical for iron deficiency anemia. I do not have an explanation for her mild/modest thrombocytopenia. I have requested follow-up laboratory today, including a CBC, CMP, LDH and CEA level. I will also schedule this patient for a screening CT scan of her chest, abdomen and pelvis. Her daughter will re-contact me regarding the name of the GI physician scheduled to see her in December. I will contact that physician to see if we might move up her GI triage. I will be back in touch with this kind woman when the above data is available for review and discussion.
[2017-12-30 15:17] LABS: Basophils Percent Auto 0.6 % (0-2); Eosinophils Percent Auto 0.3 % (2-4); Hemoglobin 7.1 g/dL (12.0-16.0); Lymphocytes Percent Auto 26.9 % (25-40); Mean Corpuscular HGB Conc 32.6 % (30-36); Mean Corpuscular Hemoglobin 29.4 PG (26-34); Mean Corpuscular Volume 90.5 fL (80-100); Monocytes Percent Auto 8.1 % (3-14); Neutrophils Absolute Auto 5900 /uL (3000-5900); Neutrophils Percent Auto 64.1 % (50-75); Platelet Count 151 X10^3/uL (150-400); Red Blood Cell Count 2.41 X10^6/uL (4.0-5.2); Red Cell Distribution Width 21.9 % (11.6-14.8); White Blood Cell Count 9.1 X10^3/uL (4.5-11.0)
[2017-12-30 15:19] LABS: Reticulocyte Count, Percent 3.8 % (1.06-2.63)
[2017-12-30 15:24] LABS: Lactate Dehydrogenase 300 U/L (313-618)
[2017-12-30 15:25] LABS: Add Manual Diff / Slide Review SLIDE REVIEW; Hematocrit 21.8 % (36-46)
[2017-12-30 15:55] LABS: Anisocytosis 2+
[2017-12-30 16:01] LABS: HEMOLYSIS < 15 (0-50); Iron 42 ug/dL (37-170)
[2017-12-30 16:12] LABS: Percent Iron Saturation 17 % (15-50); Total Iron Binding Capacity 247 ug/dL (265-497); Transferrin 177 mg/dL (206-381)
[2017-12-30 16:14] VITALS: BP 127/63; PULSE 95; RESP 16; TEMP 36.6; O2SAT 98
--- NOTE | 2017-12-30 16:39 | ONC.APRN.PN ---
Assessment and Plan (1) Acute anemia Current visit: No Status: Acute 12/30/17 16:48 Teressa is an 82-year-old female who was sent to us by her primary care provider for unintentional/unexplained weight loss also acute anemia. No clear etiology on exam today. She is once again acutely anemic with hemoglobin 7.1 hematocrit 21.8. We will order blood transfusion. Additionally, in review of blood work December 09 her CEA was 4.7 today on December 30 it is 5.0. Recent CT scan December 09, 2017 no clear findings aside from indeterminate left hepatic lobe, hypodense, 2 dense to represent a simple cyst. An additional 2.1 cm hypodense lesion. Also identified was a 1.6 cm posterior right thoracic pleural based nodule of uncertain etiology. Patient's all GI TuesdayDecember 26 for colonoscopy also EGD both were reportedly ?normal?. Patient with acute anemia, unexplained weight loss, anorexia with no clear etiology still at this point. Elevated CEA does indicate intestinal malignancy however colonoscopy EGD unremarkable. I will add a CA 19-19 noting that pancreatic cancers can be insidious and difficult to diagnose. It is reassuring pancreas did appear normal on CT. Noting CEA has been climbing we will repeat next week. Also at that time we will make an appointment with the medical oncologist January [address] Gayle. I have informed the patient and her family is still no clear etiology recommendation may be bone marrow biopsy however that is certainly based on family preference and what type of treatment if any patient would wish to receive. RTC January [address] Elisha Doran CBC, CMP, CEA. - Time Spent with Patient 45 minutes PN -Subjective Interval history: Teressa is a 82-year-old female originally referred from [facility] Liana Kirby PA-C primarily for unexplained weight loss as well as acute anemia. Patient was evaluated by Dr. Salazra in this clinic December 06, 2017. He did identify a number of red flags however no clear etiology for weight loss nor acute anemia. Since her visit with Dr. Salazar she had EGD also [facility] [place] [facility] she was told ?everything was okay?. Per Dr. Esqueda order she did have a CT scan of chest abdomen pelvis with no clear abnormalities aside from indeterminate 10 mm left hepatic lobe, hypodense. Two dense to represent a simple cyst. Additionally a 2.1 cm hypodense lesion was also identified. Also a 1.6 cm posterior right thoracic pleural nodule of uncertain etiology was identified, maybe a benign fibrous tumor of the pleura however could not rule out pleural metastases of uncertain primary. Patient presents today with her son also caregiver. Collectively they report ongoing weight loss with decreased appetite. No unexplained bleeding or bruising. Spirits are quite good. Activity tolerance is surprisingly good however the patient reports she tires easily. She is also short of breath. She is using a wheelchair more and more to get around. She is not having any pain. No headaches. No new bony pain or muscle pain. No new lumps or bumps. CBC today demonstrates again low hemoglobin 7.1 hematocrit 21.8 previously on December 09 hemoglobin 9.4 hematocrit 28.9. Platelets have remained normal white counts have also remained normal. Interestingly, December 09 CEA was 4.7 today on December 30 it was 5.0. Teressa does have a past medical history of recent anorexia with weight loss of more than 30 lb over the last several months. No associated fever chills or night sweats. She had right breast cancer in 1999 subsequently underwent lumpectomy with sentinel node biopsy followed by chemotherapy followed by radiation. She did receive tamoxifen. 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 Prior history of iron deficiency anemia. - Patient Self-Reported Symptoms SR Constitution: Fatigue/Malaise Results - Labs 12/30/17 14:54 Laboratory Last Values WBC 9.1 X10^3/uL (4.5-11.0) 12/30/17 14:54 RBC 2.41 X10^6/uL (4.0-5.2) L 12/30/17 14:54 Hgb 7.1 g/dL (12.0-16.0) L 12/30/17 14:54 Hct 21.8 % (36-46) L 12/30/17 14:54 MCV 90.5 fL (80-100) 12/30/17 14:54 MCH 29.4 PG (26-34) 12/30/17 14:54 MCHC 32.6 % (30-36) 12/30/17 14:54 RDW 21.9 % (11.6-14.8) H 12/30/17 14:54 Plt Count 151 X10^3/uL (150-400) 12/30/17 14:54 Neut % (Auto) 64.1 % (50-75) 12/30/17 14:54 Lymph % (Auto) 26.9 % (25-40) 12/30/17 14:54 Hill % (Auto) 8.1 % (3-14) 12/30/17 14:54 Eos % (Auto) 0.3 % (2-4) L 12/30/17 14:54 Baso % (Auto) 0.6 % (0-2) 12/30/17 14:54 Neut # (Auto) 5900 /uL (7675-9282) 12/30/17 14:54 RBC Morphology Not Reportable 12/30/17 14:54 Anisocytosis 2+ H 12/30/17 14:54 Percent Retic 3.8 % (1.06-2.63) H 12/30/17 14:54 Iron 42 ug/dL (37-170) 12/30/17 14:54 TIBC 247 ug/dL (265-497) L 12/30/17 14:54 % Saturation 17 % (15-50) 12/30/17 14:54 Transferrin 177 mg/dL (206-381) L 12/30/17 14:54 Ferritin 745.0 ng/mL (11.1-264) H 12/30/17 14:54 Lactate Dehydrogenase 300 U/L (313-618) L 12/30/17 14:54 Carcinoembryonic Ag 5.0 ng/mL (0.1-3.0) H 12/30/17 14:54 Home Medications and Allergies Home Medications Medication Instructions Recorded Confirmed Type hydrocodone-acetaminophen 1 tab PO Q12H PRN #0 05/10/12 12/30/17 History albuterol sulfate 2 puff INHALATION Q4H 11/25/17 12/30/17 History bimatoprost 1 drp OPHTHALMIC (EYE) QPM 11/25/17 12/30/17 History brimonidine-timolol [Combigan] 1 drp OPHTHALMIC (EYE) BID 11/25/17 12/30/17 History calcium phosphate-vitamin D3 1 tab PO DAILY 11/25/17 12/30/17 History [Citracal + D3 (calcium phos)] cholecalciferol (vitamin D3) 2 cap PO DAILY 11/25/17 12/30/17 History cholecalciferol (vitamin D3) 2 tab PO DAILY 11/25/17 12/30/17 History fluticasone [Flovent HFA] 3 puff INHALATION BID PRN 11/25/17 12/30/17 History levothyroxine 1 tab PO DAILY 11/25/17 12/30/17 History omeprazole 40 mg PO DAILY 11/25/17 12/30/17 History venlafaxine 1 cap PO QPM 11/25/17 12/30/17 History zolpidem 5 - 10 mg PO BEDTIME PRN 11/25/17 12/30/17 History lisinopril 20 mg PO QPM #30 tab 11/26/17 12/30/17 Rx multivitamin [Multiple Vitamins] 1 tab PO DAILY 12/06/17 12/30/17 History rosuvastatin 10 mg PO DAILY 12/06/17 12/30/17 History Allergies Allergy/AdvReac Type Severity Reaction Status Date / Time meperidine Allergy Unknown Verified 11/25/17 18:09 Sulfa (Sulfonamide Allergy Unknown Verified 11/25/17 18:09 Antibiotics) Exam Vital signs: Last Vital Signs Temp 97.9 F 12/30/17 16:14 Pulse 95 H 12/30/17 16:14 Resp 16 12/30/17 16:14 BP 127/63 H 12/30/17 16:14 Pulse Ox 98 12/30/17 16:14 Narrative: quite thin and frail appearing - Constitutional positive no acute distress - Routine HEENT Exam Head: Absent: scalp tenderness Eye: Present: EOMI, PERRL, normal accommodation. Absent: conjunctival icterus, scleral injection ENT: Present: mucous membranes moist - Routine Neck Exam Present: supple. Absent: lymphadenopathy - Routine Chest/Breast/Axilla Exam Axillae: Absent: lymphadenopathy, mass, tenderness - Routine Respiratory Exam Present: Clear to auscultation bilaterally, decreased breath sounds. Absent: rales, rhonchi, wheezes - Routine Cardiovascular Exam Present: RRR, S1, S2, murmur. Absent: JVD - Routine Abdominal Exam Present: soft, normoactive bowel sounds. Absent: tenderness, distended, organomegaly Palpation/Percussion: Absent: hepatomegaly, splenomegaly Comments: scaphoid abdomen - Routine Extremities Exam Absent: edema, calf tenderness - Routine Skin Exam Present: intact, normal turgor. Absent: petechiae, rash - Routine Neurological Exam Present: alert, oriented X3, vision grossly intact, hearing grossly intact - Routine Psychiatric Exam Present: normal affect, normal thought process. Absent: good insight, good judgment
[2017-12-31] VITALS (7 sets, daily range): BP systolic 105–142; BP diastolic 49–66; PULSE 77–90; RESP 16–20; TEMP 36.6–37.6; O2SAT 98
[2017-12-31] MEDS: SODIUM CHLORIDE 0.9% 250 ML 21 ML IV (10:20)
--- NOTE | 2017-12-31 10:21 | PC.NURSE ---
Addendum entered by Sandra Hinton R.N. 12/31/17 13:22: First unit PRBC's complete and patient tolerated well. Second unit infusing now. Denies needs at this time. Call light in reach. Original Note: Infusion: Arrived awake and alert, oriented X3. Denies lightheadedness, dizziness or shortness of breath or other complaints. 22 gauge peripheral IV started in L AC. Obtained consent for blood admin and placed consent with orders. First unit PRBC's started at 1008. Vitals stable at 15 min check, patient denies any new symptoms. Oriented to room and call light, encouraged to call with needs/concerns. Call light in reach.
--- NOTE | 2017-12-31 13:42 | PC.NURSE ---
second unit prbc's infusing. vss, no sob. ra sat 100%. tolerating well w/ rate 125cc/hr.
--- NOTE | 2017-12-31 16:24 | PC.NURSE ---
Second unit infused. Vitals stable. Pt denies any adverse effects. IV removed. Son accompanied to car via wheelchair.
[2018-01-05 14:34] LABS: Hematocrit 27.8 % (36-46); Hemoglobin 9.3 g/dL (12.0-16.0); Mean Corpuscular HGB Conc 33.3 % (30-36); Mean Corpuscular Hemoglobin 29.5 PG (26-34); Mean Corpuscular Volume 88.5 fL (80-100); Platelet Count 107 X10^3/uL (150-400); Red Blood Cell Count 3.15 X10^6/uL (4.0-5.2); Red Cell Distribution Width 18.7 % (11.6-14.8); White Blood Cell Count 8.9 X10^3/uL (4.5-11.0)
[2018-01-05 14:47] LABS: Alanine Aminotransferase 23 IU/L (9-52); Albumin 3.4 g/dL (3.5-5.0); Albumin Globulin Ratio 0.9 (1.0-2.8); Alkaline Phosphatase 68 U/L (38-126); Aspartate Aminotransferase 30 IU/L (14-36); BUN Creatinine Ratio 33.3 (6-22); Bilirubin Total 0.7 mg/dL (0.2-1.3); Blood Urea Nitrogen 20 mg/dL (7-17); Calcium 8.8 mg/dL (8.4-10.2); Carbon Dioxide 22 mmol/L (22-32); Chloride 103 mmol/L (98-107); Estimated Glomerular Filt Rate > 60.0 mL/min (>60); Globulin 3.6 g/dL (1.7-4.1); Glucose 137 mg/dL (80-110); HEMOLYSIS < 15 (0-50); Potassium 3.3 mmol/L (3.4-5.1); Sodium 136 mmol/L (137-145)
[2018-01-05 15:12] LABS: Anisocytosis 2+; Neutrophils Absolute Manual 5963 /uL (3000-5900); Nucleated Red Blood Cells 1 #/Diff; Total Cells Counted 100
[2018-01-05 15:17] LABS: Carcinoembryonic Antigen 4.9 ng/mL (0.1-3.0)
[2018-01-05 15:22] VITALS: BP 140/70; PULSE 73; RESP 20; TEMP 37.1
--- NOTE | 2018-01-05 15:53 | P.PNONC_ITS ---
Assessment and Plan (1) Anemia Current visit: Yes Status: Acute Anemia: This is an 82-year-old female who was sent to us by her primary care provider for unintentional/unexplained weight loss and severe anemia anemia. No clear etiology on exam. She was transfused last week after presenting with severe anemia with hemoglobin 7.1 hematocrit 21.8. Additionally, in review of blood work December 09 her CEA was 4.7 today on December 30 it was 5.0. Recent CT scan December 09, 2017 no clear findings aside from indeterminate left hepatic lobe cystic lesions, of unclear etiology. Patient's colonoscopy and EGD both were reportedly ?normal? this month. Patient with acute anemia, unexplained weight loss, anorexia with no clear etiology still at this point. Mildly elevated CEA could indicate malignancy, but could also indicate a chronic inflammatory disease. Colonoscopy EGD unremarkable. Elevated reticulocyte count of 3.8% since is suggestive of rapid red cell turnover, consistent with hemolysis. Obtain additional testing, including repeat reticulocyte count, haptoglobin, sed rate, rheumatoid factor, and direct Jann testing. Return to clinic in about 2 weeks for additional evaluation. Check CBC differential platelets reticulocyte B12, and folate at that time. If she is experiencing significant hemolysis, she could respond to steroid treatment, although I would use the lowest effective dose in this older patient. Consider bone marrow studies if no clear etiology is discovered. Mildly elevated CEA is not overly concerning, although significant weight loss could indicate occult malignancy. Continue to monitor closely. 01/05/18 16:30 01/05/18 16:32 PN -Subjective Interval history: Teressa Orr is an 82-year-old female originally referred from [facility] Liana Kirby PA-C primarily for unexplained weight loss and anemia. Patient was evaluated by Dr. Salazar in this clinic December 06, 2017. He identified a number of red flags, but no clear etiology for weight loss nor acute anemia. Since her visit with Dr. Salazar she had an EGD and colonoscopy in [place] at [facility] she was told ?everything was okay?. Per Dr. Esqueda order she did have a CT scan of chest abdomen pelvis with no clear abnormalities aside from an indeterminate 10 mm left hepatic lobe, hypodense, too dense to represent a simple cyst. Additionally a 2.1 cm hypodense lesion was also identified. Also a 1.6 cm posterior right thoracic pleural nodule of uncertain etiology was identified, maybe a benign fibrous tumor of the pleura however could not rule out pleural metastases of uncertain primary. Patient presents today with her daughter. They report ongoing weight loss with decreased appetite. No unexplained bleeding or bruising. Spirits are quite good. Activity tolerance is surprisingly good, however the patient reports she tires easily. She was transfused with 2 units packed red blood cells last week after hemoglobin was 7.1 with hematocrit 21.8%. She is using a wheelchair more and more to get around. She is not having any pain. No headaches. No new bony pain or muscle pain. No new lumps or bumps. Interestingly, December 09 CEA was 4.7 and on December 30 it was 5.0. Teressa does have a past medical history of recent anorexia with weight loss of more than 30 lb over the last several months. No associated fever chills or night sweats. She had right breast cancer in 1999 subsequently underwent lumpectomy with sentinel node biopsy followed by chemotherapy followed by radiation. She received adjuvant tamoxifen. 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 Prior history of iron deficiency anemia. - Patient Self-Reported Symptoms SR Constitution: Weight loss/gain, Fatigue/Malaise SR Musculoskeletal issues: Muscle weakness, Muscle pain or cramps, Back or neck pain, Difficulty walking, Bone pain SR Neuro issues: Difficulty balancing Results - Labs 01/05/18 14:22 01/05/18 14:22 Laboratory Last Values WBC 8.9 X10^3/uL (4.5-11.0) 01/05/18 14: RBC 3.15 X10^6/uL (4.0-5.2) L 01/05/18 14:22 Hgb 9.3 g/dL (12.0-16.0) L 01/05/18 14:22 Hct 27.8 % (36-46) L 01/05/18 14:22 MCV 88.5 fL (80-100) 01/05/18 14:22 MCH 29.5 PG (26-34) 01/05/18 14:22 MCHC 33.3 % (30-36) 01/05/18 14: RDW 18.7 % (11.6-14.8) H 01/05/18 14:22 Plt Count 107 X10^3/uL (150-400) L 01/05/18 14:22 Neut % (Auto) 64.1 % (50-75) 12/30/17 14:54 Lymph % (Auto) 26.9 % (25-40) 12/30/17 14:54 [place] % (Auto) 8.1 % (3-14) 12/30/17 14:54 Eos % (Auto) 0.3 % (2-4) L 12/30/17 14:54 Baso % (Auto) 0.6 % (0-2) 12/30/17 14:54 Neut # (Auto) 5900 /uL (0757-1176) 12/30/17 14:54 Total Counted 100 01/05/18 14:22 Seg Neutrophils % 67.0 % (38-70) 01/05/18 14:22 Lymphocytes % (Manual) 21.0 % (25-45) L 01/05/18 14:22 Monocytes % (Manual) 12.0 % (2-11) H 01/05/18 14:22 Neutrophils # (Manual) 5963 /uL (2621-6761) H 01/05/18 14:22 Nucleated RBCs 1 #/Diff (-0) H 01/05/18 14:22 RBC Morphology Not Reportable 01/05/18 14:22 Anisocytosis 2+ H 01/05/18 14:22 Percent Retic 3.8 % (1.06-2.63) H 12/30/17 14:54 Sodium 136 mmol/L (137-145) L 01/05/18 14:22 Potassium 3.3 mmol/L (3.4-5.1) L 01/05/18 14:22 Chloride 103 mmol/L (98-107) 01/05/18 14:22 Carbon Dioxide 22 mmol/L (22-32) 01/05/18 14:22 BUN 20 mg/dL (7-17) H 01/05/18 14:22 Creatinine 0.60 mg/dL (0.52-1.04) 01/05/18 14:22 Estimated GFR > 60.0 mL/min (>60) 01/05/18 14:22 BUN/Creatinine Ratio 33.3 (6-22) H 01/05/18 14:22 Glucose 137 mg/dL (80-110) H 01/05/18 14:22 Calcium 8.8 mg/dL (8.4-10.2) 01/05/18 14:22 Iron 42 ug/dL (37-170) 12/30/17 14:54 TIBC 247 ug/dL (265-497) L 12/30/17 14:54 % Saturation 17 % (15-50) 12/30/17 14:54 Transferrin 177 mg/dL (206-381) L 12/30/17 14:54 Ferritin 745.0 ng/mL (11.1-264) H 12/30/17 14:54 Total Bilirubin 0.7 mg/dL (0.2-1.3) 01/05/18 14:22 AST 30 IU/L (14-36) 01/05/18 14:22 ALT 23 IU/L (9-52) 01/05/18 14:22 Alkaline Phosphatase 68 U/L (38-126) 01/05/18 14:22 Lactate Dehydrogenase 300 U/L (313-618) L 12/30/17 14:54 Total Protein 7.0 g/dL (6.3-8.2) 01/05/18 14:22 Albumin 3.4 g/dL (3.5-5.0) L 01/05/18 14:22 Globulin 3.6 g/dL (1.7-4.1) 01/05/18 14:22 Albumin/Globulin Ratio 0.9 (1.0-2.8) L 01/05/18 14:22 Carcinoembryonic Ag 4.9 ng/mL (0.1-3.0) H 01/05/18 14:22 Blood Type A Negative 12/30/17 16:45 Antibody Screen Positive 12/30/17 16:45 Antibody Identification Anti-K 12/30/17 16:45 Antigen Identification Cancelled 12/30/17 16:45 Crossmatch See Detail 12/30/17 16:45 Home Medications and Allergies Home Medications Medication Instructions Recorded Confirmed Type hydrocodone-acetaminophen 1 tab PO Q12H PRN #0 05/10/12 12/30/17 History albuterol sulfate 2 puff INHALATION Q4H 11/25/17 12/30/17 History bimatoprost 1 drp OPHTHALMIC (EYE) QPM 11/25/17 12/30/17 History brimonidine-timolol [Combigan] 1 drp OPHTHALMIC (EYE) BID 11/25/17 12/30/17 History calcium phosphate-vitamin D3 1 tab PO DAILY 11/25/17 12/30/17 History [Citracal + D3 (calcium phos)] cholecalciferol (vitamin D3) 2 cap PO DAILY 11/25/17 12/30/17 History cholecalciferol (vitamin D3) 2 tab PO DAILY 11/25/17 12/30/17 History fluticasone [Flovent HFA] 3 puff INHALATION BID PRN 11/25/17 12/30/17 History levothyroxine 1 tab PO DAILY 11/25/17 12/30/17 History omeprazole 40 mg PO DAILY 11/25/17 12/30/17 History venlafaxine 1 cap PO QPM 11/25/17 12/30/17 History zolpidem 5 - 10 mg PO BEDTIME PRN 11/25/17 12/30/17 History lisinopril 20 mg PO QPM #30 tab 11/26/17 12/30/17 Rx multivitamin [Multiple Vitamins] 1 tab PO DAILY 12/06/17 12/30/17 History rosuvastatin 10 mg PO DAILY 12/06/17 12/30/17 History Allergies Allergy/AdvReac Type Severity Reaction Status Date / Time meperidine Allergy Unknown Verified 11/25/17 18:09 Sulfa (Sulfonamide Allergy Unknown Verified 11/25/17 18:09 Antibiotics) Exam Vital signs: Last Vital Signs Temp 98.8 F 01/05/18 15:22 Pulse 73 01/05/18 15:22 Resp 20 01/05/18 15:22 BP 140/70 H 01/05/18 15:22 Pulse Ox 98 12/31/17 09:20 Narrative: HEENT: Conjunctiva pale mucous membranes moist no oral lesions Nodes shotty lymphadenopathy in the neck no axillary lymphadenopathy Chest: Clear throughout no wheezes or crackles Cardiac: Regular rate and rhythm with occasional ectopic beat normal S1-S2 no murmurs rubs or gallops appreciated Abdomen: Soft and nontender with active bowel tones no splenomegaly or masses Extremities: No edema 2+ distal pulses no calf tenderness Neuro: Alert and cooperative generalized weakness but no focal deficits.
[2018-01-05 16:50] LABS: Rheumatoid Factor 17.8 IU/mL (<12.0)
[2018-01-05 17:09] LABS: Erythrocyte Sedimentation Rate 66 MM/HR (0-20)
[2018-01-08 13:24] LABS: Haptoglobin 251 mg/dL (43-212)
[2018-01-20 11:16] LABS: Hematocrit 24.4 % (36-46); Mean Corpuscular HGB Conc 32.7 % (30-36); Mean Corpuscular Hemoglobin 31.3 PG (26-34); Mean Corpuscular Volume 95.7 fL (80-100); Platelet Count 132 X10^3/uL (150-400); Red Blood Cell Count 2.55 X10^6/uL (4.0-5.2); Red Cell Distribution Width 24.1 % (11.6-14.8); White Blood Cell Count 10.2 X10^3/uL (4.5-11.0)
[2018-01-20 11:20] LABS: Reticulocyte Count, Percent 5.8 % (1.06-2.63)
[2018-01-20 11:54] LABS: Neutrophils Absolute Manual 7446 /uL (3000-5900); Total Cells Counted 100
[2018-01-20 11:55] LABS: Anisocytosis 2+; Macrocytosis 2+
[2018-01-20 11:56] LABS: Smudge Cells 1+
[2018-01-20 12:33] LABS: Folate > 20.0 ng/mL (2.76-20.0); Vitamin B12 964 pg/mL (239-931)
--- NOTE | 2018-01-25 10:15 | ONC.PN ---
Assessment and Plan (1) Anemia Current visit: Yes Status: Acute - Time Spent with Patient IMPRESSION: 1. Anemia, normocytic. 2. Thrombocytopenia. 3. Weight loss secondary to protein calorie malnutrition. 4. Generalized fatigue. 5. Diverticulosis. 6. Arthritis. 7. History of carcinoma of the breast. She is a new patient to me and is scheduled in a routine follow up slot. I reviewed her clinic notes, lab results and imaging. Etiology for her anemia remains enigmatic. Recent labs from January 05 show elevated reticulocyte count which suggests an appropriate marrow proliferative response and would argue against a hypoproliferative anemia or bone marrow failure syndrome. This could be consistent with hemolytic anemia, however recent lab work is also notable for normal total bili and LDH as well as a mildly elevated haptoglobin of 251 which would all argue against active hemolysis. Additionally, ANA is negative on January 05, 2018. Additional lab work shows normal B12 964, folate greater than 20, ferritin 745. Repeat retic count January 20 up to 5.8% suggesting increased erythrocytosis possibly related to marrow recovery versus hemolysis versus other. Suspect ferritin is elevated as an acute phase reactant, possibly related to rheumatologic or collagen vascular disease. Rheumatoid factor mildly elevated at 17.8 on January 05. No reported fever and suspicion is otherwise low for hemophagocytic syndrome. Weight loss from 142 lb August 17, 2017 down to 114 lb January 10 and 115 lb January 25, 2018. She denies any pain with eating, odynophagia, dysphagia, nausea or vomiting. I strongly encouraged her to increase her nutritional intake unless she has pain or nausea. Otherwise, she will need to increase intake and I encouraged her to divide this up into more frequent, smaller meals and portions. We reviewed nutritional guidelines and strategies to maximize calories as well as adequate intake of proteins and fat. Recent CT chest/abdomen/pelvis December 09, 2017 showed relatively nonspecific findings including sigmoid colon diverticulosis, indeterminate 10 mm left hepatic lobe hypodensity, 2.1 cm hypodensity adjacent to the falciform ligament, 1.6 cm posterior right thoracic pleural base nodule. Cannot exclude possible occult malignancy including possible recurrence of breast cancer however it would unusual, at least, to be provoking such significant symptomatology without more evidence of active disease. One additional possibility would be a bone marrow recurrence of her breast cancer presenting with cytopenias. Her brisk reticulocytosis however would seem to argue against this. I discussed a bone marrow biopsy with her today but she says clearly she does not want to have this done. PLAN: 1. Lab work today to include CBC, CMP, LDH, retic count, direct antiglobulin test, LEYDA, peripheral smear evaluation and pre-albumin. 2. Prescription for folic acid 1 mg daily (#90). 3. Follow up with other providers as planned. 4. Referral to screen making supervisor if needed. Currently supported by her daughters and family members living with her and helping to prepare meals for her and her . 5. Return appointment in 1-2 weeks. 6. CBC weekly with home health nurse. Additional labs per findings and clinical course. DICTATED BY LISA CAREY MD MEDICAL ONCOLOGY AND HEMATOLOGY PN -Subjective Interval history: IDENTIFICATION: This is an 82-year-old woman who was initially seen in consultation by Dr. Salazar December 06, 2017 for evaluation of anemia and weight loss. INTERVAL HISTORY: She returns to clinic today with her daughter Pam. Teressa Orr is an 82-year-old female originally referred from [facility] Liana Kirby PA-C primarily for unexplained weight loss and anemia. Patient was evaluated by Dr. Salazar in this clinic December 06, 2017. He identified a number of red flags, but no clear etiology for weight loss nor acute anemia. Since her visit with Dr. Salazar she had an EGD and colonoscopy in [place] at [facility] she was told ?everything was okay?. Per Dr. Esqueda order she did have a CT scan of chest abdomen pelvis with no clear abnormalities aside from an indeterminate 10 mm left hepatic lobe, hypodense, too dense to represent a simple cyst. Additionally a 2.1 cm hypodense lesion was also identified. Also a 1.6 cm posterior right thoracic pleural nodule of uncertain etiology was identified, maybe a benign fibrous tumor of the pleura however could not rule out pleural metastases of uncertain primary. Patient presents today with her daughter. They report ongoing weight loss with decreased appetite. No unexplained bleeding or bruising. Spirits are quite good. Activity tolerance is surprisingly good, however the patient reports she tires easily. She was transfused with 2 units packed red blood cells last week after hemoglobin was 7.1 with hematocrit 21.8%. She is using a wheelchair more and more to get around. She is not having any pain. No headaches. No new bony pain or muscle pain. No new lumps or bumps. Interestingly, December 09 CEA was 4.7 and on December 30 it was 5.0. Teressa does have a past medical history of recent anorexia with weight loss of more than 30 lb over the last several months. No associated fever chills or night sweats. She had right breast cancer in 1999 subsequently underwent lumpectomy with sentinel node biopsy followed by chemotherapy followed by radiation. She received adjuvant tamoxifen. 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 Prior history of iron deficiency anemia. - Patient Self-Reported Symptoms SR Constitution: Weight loss/gain, Fatigue/Malaise SR Musculoskeletal issues: Muscle weakness, Muscle pain or cramps, Back or neck pain, Difficulty walking, Bone pain SR Neuro issues: Difficulty balancing - Additional ROS Additional ROS: Review of systems: General: No fever, night sweats or weight loss. HEENT: No headaches, vision change or dysphagia. Respiratory: No cough or dyspnea. Cardiac: No chest pain, PND or orthopnea. GI: Denies nausea, vomiting or abdominal distention. Appetite remains reduced. : No flank pain or hematuria. Musculoskeletal: Negative. Neurologic: Negative. Results - Labs 01/25/18 10:12 01/25/18 11:30 Laboratory Last Values WBC 10.2 X10^3/uL (4.5-11.0) 01/20/18 11:02 RBC 2.55 X10^6/uL (4.0-5.2) L 01/20/18 11:02 Hgb 8.0 g/dL (12.0-16.0) L 01/20/18 11:02 Hct 24.4 % (36-46) L 01/20/18 11:02 MCV 95.7 fL (80-100) 01/20/18 11:02 MCH 31.3 PG (26-34) 01/20/18 11:02 MCHC 32.7 % (30-36) 01/20/18 11:02 RDW 24.1 % (11.6-14.8) H 01/20/18 11:02 Plt Count 132 X10^3/uL (150-400) L 01/20/18 11:02 Neut % (Auto) 64.1 % (50-75) 12/30/17 14:54 Lymph % (Auto) 26.9 % (25-40) 12/30/17 14:54 [place] % (Auto) 8.1 % (3-14) 12/30/17 14:54 Eos % (Auto) 0.3 % (2-4) L 12/30/17 14:54 Baso % (Auto) 0.6 % (0-2) 12/30/17 14:54 Neut # (Auto) 5900 /uL (7543-8157) 12/30/17 14:54 Total Counted 100 01/20/18 11:02 Seg Neutrophils % 73.0 % (38-70) H 01/20/18 11:02 Lymphocytes % (Manual) 23.0 % (25-45) L 01/20/18 11:02 Monocytes % (Manual) 4.0 % (2-11) 01/20/18 11:02 Neutrophils # (Manual) 7446 /uL (9269-4492) H 01/20/18 11:02 Nucleated RBCs 1 #/Diff (-0) H 01/05/18 14:22 Smudge Cells 1+ H 01/20/18 11:02 RBC Morphology Not Reportable 01/20/18 11:02 Anisocytosis 2+ H 01/20/18 11:02 Macrocytosis 2+ H 01/20/18 11:02 ESR 66 MM/HR (0-20) H 01/05/18 14:22 Percent Retic 5.8 % (1.06-2.63) H 01/20/18 11:02 Haptoglobin 251 mg/dL (43-212) H 01/05/18 14:22 Sodium 136 mmol/L (137-145) L 01/05/18 14:22 Potassium 3.3 mmol/L (3.4-5.1) L 01/05/18 14:22 Chloride 103 mmol/L (98-107) 01/05/18 14:22 Carbon Dioxide 22 mmol/L (22-32) 01/05/18 14:22 BUN 20 mg/dL (7-17) H 01/05/18 14:22 Creatinine 0.60 mg/dL (0.52-1.04) 01/05/18 14:22 Estimated GFR > 60.0 mL/min (>60) 01/05/18 14:22 BUN/Creatinine Ratio 33.3 (6-22) H 01/05/18 14:22 Glucose 137 mg/dL (80-110) H 01/05/18 14:22 Calcium 8.8 mg/dL (8.4-10.2) 01/05/18 14:22 Iron 42 ug/dL (37-170) 12/30/17 14:54 TIBC 247 ug/dL (265-497) L 12/30/17 14:54 % Saturation 17 % (15-50) 12/30/17 14:54 Transferrin 177 mg/dL (206-381) L 12/30/17 14:54 Ferritin 745.0 ng/mL (11.1-264) H 12/30/17 14:54 Total Bilirubin 0.7 mg/dL (0.2-1.3) 01/05/18 14:22 AST 30 IU/L (14-36) 01/05/18 14:22 ALT 23 IU/L (9-52) 01/05/18 14:22 Alkaline Phosphatase 68 U/L (38-126) 01/05/18 14:22 Lactate Dehydrogenase 300 U/L (313-618) L 12/30/17 14:54 Total Protein 7.0 g/dL (6.3-8.2) 01/05/18 14:22 Albumin 3.4 g/dL (3.5-5.0) L 01/05/18 14:22 Globulin 3.6 g/dL (1.7-4.1) 01/05/18 14:22 Albumin/Globulin Ratio 0.9 (1.0-2.8) L 01/05/18 14:22 Carcinoembryonic Ag 4.9 ng/mL (0.1-3.0) H 01/05/18 14:22 Vitamin B12 964 pg/mL (239-931) H 01/20/18 11:02 Folate > 20.0 ng/mL (2.76-20.0) H 01/20/18 11:02 Rheumatoid Factor 17.8 IU/mL (<12.0) H 01/05/18 14:22 Blood Type A Negative 12/30/17 16:45 Antibody Screen Positive 12/30/17 16:45 Antibody Identification Anti-K 12/30/17 16:45 Antigen Identification Cancelled 12/30/17 16:45 Direct Antiglob Test Negative 01/05/18 16:06 Crossmatch See Detail 12/30/17 16:45 Home Medications and Allergies Home Medications Medication Instructions Recorded Confirmed Type hydrocodone-acetaminophen 1 tab PO Q12H PRN #0 05/10/12 12/30/17 History albuterol sulfate 2 puff INHALATION Q4H 11/25/17 12/30/17 History bimatoprost 1 drp OPHTHALMIC (EYE) QPM 11/25/17 12/30/17 History brimonidine-timolol [Combigan] 1 drp OPHTHALMIC (EYE) BID 11/25/17 12/30/17 History calcium phosphate-vitamin D3 1 tab PO DAILY 11/25/17 12/30/17 History [Citracal + D3 (calcium phos)] cholecalciferol (vitamin D3) 2 cap PO DAILY 11/25/17 12/30/17 History cholecalciferol (vitamin D3) 2 tab PO DAILY 11/25/17 12/30/17 History fluticasone [Flovent HFA] 3 puff INHALATION BID PRN 11/25/17 12/30/17 History levothyroxine 1 tab PO DAILY 11/25/17 12/30/17 History omeprazole 40 mg PO DAILY 11/25/17 12/30/17 History venlafaxine 1 cap PO QPM 11/25/17 12/30/17 History zolpidem 5 - 10 mg PO BEDTIME PRN 11/25/17 12/30/17 History lisinopril 20 mg PO QPM #30 tab 11/26/17 12/30/17 Rx multivitamin [Multiple Vitamins] 1 tab PO DAILY 12/06/17 12/30/17 History rosuvastatin 10 mg PO DAILY 12/06/17 12/30/17 History Allergies Allergy/AdvReac Type Severity Reaction Status Date / Time meperidine Allergy Unknown Verified 11/25/17 18:09 Sulfa (Sulfonamide Allergy Unknown Verified 11/25/17 18:09 Antibiotics) Exam Vital signs: Last Vital Signs Temp 98.8 F 01/05/18 15:22 Pulse 73 01/05/18 15:22 Resp 20 01/05/18 15:22 BP 140/70 H 01/05/18 15:22 Pulse Ox 98 12/31/17 09:20 - Constitutional positive no acute distress, positive thin, positive chronically ill appearing, positive cooperative - Routine HEENT Exam Head: Present: normocephalic, atraumatic. Absent: facial swelling Eye: Present: EOMI, PERRL. Absent: conjunctival icterus, scleral injection, periorbital ecchymosis, periorbital swelling ENT: Present: mucous membranes moist, oropharynx clear - Routine Neck Exam Present: supple. Absent: JVD, lymphadenopathy - Routine Chest/Breast/Axilla Exam Axillae: Absent: lymphadenopathy, tenderness - Routine Respiratory Exam Present: Clear to auscultation bilaterally. Absent: accessory muscle use, rales, respiratory distress, stridor, wheezes - Routine Cardiovascular Exam Present: RRR, S1, S2, murmur. Absent: S3 Comments: Soft 1/6 systolic murmur. - Routine Abdominal Exam Present: soft, normoactive bowel sounds. Absent: tenderness, distended, mass Palpation/Percussion: Present: splenomegaly. Absent: hepatomegaly - Routine Extremities Exam Absent: cyanosis, clubbing, edema, joint swelling - Routine Back/Spine Exam Back/Spine: Absent: CVA tenderness, vertebral tenderness - Routine Skin Exam Present: intact. Absent: cyanosis, erythema, petechiae, jaundice, rash, ecchymosis - Routine Neurological Exam Present: alert, oriented X3, moving all extremities, normal speech. Absent: altered mental status, abnormal gait - Routine Psychiatric Exam Present: normal affect, normal thought process, cooperative, good judgment
[2018-01-25 10:26] LABS: Add Manual Diff / Slide Review NO; Basophils Percent Auto 0.6 % (0-2); Hematocrit 31.5 % (36-46); Hemoglobin 10.6 g/dL (12.0-16.0); Lymphocytes Percent Auto 36.7 % (25-40); Mean Corpuscular HGB Conc 33.8 % (30-36); Mean Corpuscular Hemoglobin 31.2 PG (26-34); Mean Corpuscular Volume 92.3 fL (80-100); Monocytes Percent Auto 7.2 % (3-14); Neutrophils Absolute Auto 3700 /uL (3000-5900); Neutrophils Percent Auto 54.5 % (50-75); Platelet Count 72 X10^3/uL (150-400); Red Blood Cell Count 3.42 X10^6/uL (4.0-5.2); Red Cell Distribution Width 20.8 % (11.6-14.8); White Blood Cell Count 6.8 X10^3/uL (4.5-11.0)
[2018-01-25 10:48] LABS: Anisocytosis 2+; Poikilocytosis 1+
[2018-01-25 11:45] LABS: Reticulocyte Count, Percent 3.4 % (1.06-2.63)
[2018-01-25 11:52] LABS: Alanine Aminotransferase 21 IU/L (9-52); Albumin 3.6 g/dL (3.5-5.0); Albumin Globulin Ratio 0.9 (1.0-2.8); Alkaline Phosphatase 71 U/L (38-126); Aspartate Aminotransferase 30 IU/L (14-36); BUN Creatinine Ratio 34.3 (6-22); Bilirubin Total 0.8 mg/dL (0.2-1.3); Blood Urea Nitrogen 24 mg/dL (7-17); Calcium 9.1 mg/dL (8.4-10.2); Carbon Dioxide 21 mmol/L (22-32); Chloride 101 mmol/L (98-107); Estimated Glomerular Filt Rate > 60.0 mL/min (>60); Globulin 3.8 g/dL (1.7-4.1); Glucose 100 mg/dL (80-110); HEMOLYSIS < 15 (0-50); Lactate Dehydrogenase 344 U/L (313-618); Potassium 4.3 mmol/L (3.4-5.1); Sodium 134 mmol/L (137-145); Total Protein 7.4 g/dL (6.3-8.2)
[2018-01-25 12:00] LABS: Prealbumin 17.8 mg/dL (17.6-36.0)
[2018-01-30 15:19] LABS: ANA Screen NEGATIVE
[2018-01-30 15:20] LABS: DNA Antibody Crithidia IFA <1.0 NEG; Rheumatoid Factor 19; Sjogren Antiboday SS-A <1.0 NEG; Sjogren Antiboday SS-B <1.0 NEG; Sm Antibody <1.0 NEG; Sm/RNP Antibody <1.0 NEG
[2018-02-07 14:19] VITALS: BP 132/64; PULSE 97; RESP 16; TEMP 37; O2SAT 100
--- NOTE | 2018-02-07 14:38 | ONC.PN ---
Assessment and Plan (1) Anemia Problem details: An 82-year-old woman with some relatively acute onset of anemia with some mild to moderate thrombocytopenia without obvious etiology. There is no obvious bleeding and a GI workup was negative. She does not clearly have iron deficiency. There is no evidence of B12 or folate deficiency. She has had a CT scan that has not shown any obvious some malignancy. Her reticulocyte count has been fair although perhaps not as high as 1 would expect given her degree of anemia. Never the less her bilirubin has been normal and haptoglobin was normal making hemolysis is unlikely. Her degree of anemia is somewhat higher than 1 might expect with anemia of chronic disease or renal insufficiency. We have not evaluated for any underlying marrow pathology. It is possible that she could have an underlying myelodysplasia or other inherent marrow pathology. The patient feels like she is beginning to improve and her hemoglobin hematocrit are actually a little better this week than last week in her platelet count is slightly better as well. Will continue to follow her CBC weekly. If it does continue to improve, then I think she may be able to avoid further intervention. However, if it falls and she needs additional transfusions and I think come will need to pursue a bone marrow biopsy. She will return to clinic in about 4 weeks or so for follow-up. Current visit: Yes Status: Acute PN -Subjective Interval history: IDENTIFICATION: This is an 82-year-old woman who was initially seen in consultation by Dr. Salazar December 06, 2017 for evaluation of anemia and weight loss. INTERVAL HISTORY: Since her last visit here, she has been feeling about the same. She notes ongoing poor appetite but has been eating more. She tells me that her weight loss has stopped and that she has actually gained a few lb. She has been working with the home health and nutrition as well as physical and occupational therapy. They apparently have been happy with her progress. She denies any nausea or vomiting. She is not having any abdominal pain. She did have an upper and lower endoscopy in November with no apparent abnormalities found. She feels like her strength and energy level have been stable. She has not been aware of any unusual bleeding. She denies any shortness of breath or cough. She does have some headaches which have been chronic. She has also had a little bit of dizziness which has been stable as well. She had stopped her thyroid replacement for several months and has since restarted. Since resuming the thyroid replacement, her daughter notes that her thinking and memory have improved although not quite back to baseline. She had a transfusion most recently about 2 and half weeks ago. She has been checking weekly CBCs in the interim. She denies any changes in her medications although she did recently start taking folic acid. She had right breast cancer in 1999 subsequently underwent lumpectomy with sentinel node biopsy followed by chemotherapy followed by radiation. She received adjuvant tamoxifen. 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 Prior history of iron deficiency anemia. - Patient Self-Reported Symptoms SR Constitution: Weight loss/gain, Fatigue/Malaise SR Musculoskeletal issues: Muscle weakness SR Neuro issues: Difficulty balancing - Additional ROS All systems PM: reviewed and no additional remarkable complaints except as stated (As noted in the HPI.) Results - Labs Laboratory Last Values WBC 6.8 X10^3/uL (4.5-11.0) 01/25/18 10:12 RBC 3.42 X10^6/uL (4.0-5.2) L 01/25/18 10:12 Hgb 10.6 g/dL (12.0-16.0) L 01/25/18 10:12 Hct 31.5 % (36-46) L 01/25/18 10:12 MCV 92.3 fL (80-100) D 01/25/18 10:12 MCH 31.2 PG (26-34) 01/25/18 10:12 MCHC 33.8 % (30-36) 01/25/18 10:12 RDW 20.8 % (11.6-14.8) H 01/25/18 10:12 Plt Count 72 X10^3/uL (150-400) L 01/25/18 10:12 Neut % (Auto) 54.5 % (50-75) 01/25/18 10:12 Lymph % (Auto) 36.7 % (25-40) 01/25/18 10:12 [place] % (Auto) 7.2 % (3-14) 01/25/18 10:12 Eos % (Auto) 1.0 % (2-4) L 01/25/18 10:12 Baso % (Auto) 0.6 % (0-2) 01/25/18 10:12 Neut # (Auto) 3700 /uL (7843-3550) 01/25/18 10:12 Total Counted 100 01/20/18 11:02 Seg Neutrophils % 73.0 % (38-70) H 01/20/18 11:02 Lymphocytes % (Manual) 23.0 % (25-45) L 01/20/18 11:02 Monocytes % (Manual) 4.0 % (2-11) 01/20/18 11:02 Neutrophils # (Manual) 7446 /uL (3254-6167) H 01/20/18 11:02 Nucleated RBCs 1 #/Diff (-0) H 01/05/18 14:22 Hypersegmented Neuts Cancelled 01/31/18 11:53 Hypogranular Neuts Cancelled 01/31/18 11:53 Reactive Lymphocytes Cancelled 01/31/18 11:53 Smudge Cells 1+ H 01/20/18 11:02 Other Cell Type Cancelled 01/31/18 11:53 Toxic Granulation Cancelled 01/31/18 11:53 Toxic Vacuolation Cancelled 01/31/18 11:53 Dohle Bodies Cancelled 01/31/18 11:53 Keyonna Rods Cancelled 01/31/18 11:53 WBC Morphology Comment Cancelled 01/31/18 11:53 Platelet Estimate Cancelled 01/31/18 11:53 Clumped Platelets Cancelled 01/31/18 11:53 Plt Morphology Comment Cancelled 01/31/18 11:53 RBC Morphology Not Reportable 01/25/18 10:12 Dimorphic RBCs Cancelled 01/31/18 11:53 Polychromasia Cancelled 01/31/18 11:53 Hypochromasia Cancelled 01/31/18 11:53 Poikilocytosis 1+ H 01/25/18 10:12 Basophilic Stippling Cancelled 01/31/18 11:53 Anisocytosis 2+ H 01/25/18 10:12 Microcytosis Cancelled 01/31/18 11:53 Macrocytosis 2+ H 01/20/18 11:02 Spherocytes Cancelled 01/31/18 11:53 Pappenheimer Bodies Cancelled 01/31/18 11:53 Sickle Cells Cancelled 01/31/18 11:53 Target Cells Cancelled 01/31/18 11:53 Tear Drop Cells Cancelled 01/31/18 11:53 Ovalocytes Cancelled 01/31/18 11:53 Stomatocytes Cancelled 01/31/18 11:53 Helmet Cells Cancelled 01/31/18 11:53 [place] Bodies Cancelled 01/31/18 11:53 [place] Rings Cancelled 01/31/18 11:53 T[place] Cells Cancelled 01/31/18 11:53 Acanthocytes (Spur) Cancelled 01/31/18 11:53 Rouleaux Cancelled 01/31/18 11:53 Schistocytes Cancelled 01/31/18 11:53 Smear Path Review 01/25/18 11:30 ESR 66 MM/HR (0-20) H 01/05/18 14:22 Percent Retic 3.4 % (1.06-2.63) H 01/25/18 11:30 Haptoglobin 251 mg/dL (43-212) H 01/05/18 14:22 Sodium 134 mmol/L (137-145) L 01/25/18 11:30 Potassium 4.3 mmol/L (3.4-5.1) 01/25/18 11:30 Chloride 101 mmol/L (98-107) 01/25/18 11:30 Carbon Dioxide 21 mmol/L (22-32) L 01/25/18 11:30 BUN 24 mg/dL (7-17) H 01/25/18 11:30 Creatinine 0.70 mg/dL (0.52-1.04) 01/25/18 11:30 Estimated GFR > 60.0 mL/min (>60) 01/25/18 11:30 BUN/Creatinine Ratio 34.3 (6-22) H 01/25/18 11:30 Glucose 100 mg/dL (80-110) 01/25/18 11:30 Calcium 9.1 mg/dL (8.4-10.2) 01/25/18 11:30 Iron 42 ug/dL (37-170) 12/30/17 14:54 TIBC 247 ug/dL (265-497) L 12/30/17 14:54 % Saturation 17 % (15-50) 12/30/17 14:54 Transferrin 177 mg/dL (206-381) L 12/30/17 14:54 Ferritin 745.0 ng/mL (11.1-264) H 12/30/17 14:54 Total Bilirubin 0.8 mg/dL (0.2-1.3) 01/25/18 11:30 AST 30 IU/L (14-36) 01/25/18 11:30 ALT 21 IU/L (9-52) 01/25/18 11:30 Alkaline Phosphatase 71 U/L (38-126) 01/25/18 11:30 Lactate Dehydrogenase 344 U/L (313-618) 01/25/18 11:30 Total Protein 7.4 g/dL (6.3-8.2) 01/25/18 11:30 Albumin 3.6 g/dL (3.5-5.0) 01/25/18 11:30 Globulin 3.8 g/dL (1.7-4.1) 01/25/18 11:30 Albumin/Globulin Ratio 0.9 (1.0-2.8) L 01/25/18 11:30 Prealbumin 17.8 mg/dL (17.6-36.0) 01/25/18 11:30 Carcinoembryonic Ag 4.9 ng/mL (0.1-3.0) H 01/05/18 14:22 Vitamin B12 964 pg/mL (239-931) H 01/20/18 11:02 Folate > 20.0 ng/mL (2.76-20.0) H 01/20/18 11:02 Rheumatoid Factor 19 01/25/18 11:30 LEYDA Screen Negative 01/25/18 11:30 SS-A Antibody <1.0 neg 01/25/18 11:30 SS-B Antibody <1.0 neg 01/25/18 11:30 SM/MUSIC VIDEO PRODUCER Antibody <1.0 neg 01/25/18 11:30 Scl-70 Scleroderma Ab <1.0 neg 01/25/18 11:30 Anti-ds DNA (Crithidia) <1.0 neg 01/25/18 11:30 Anti-Smooth Muscle Ab <1.0 neg 01/25/18 11:30 Blood Type A Negative 12/30/17 16:45 Antibody Screen Positive 12/30/17 16:45 Antibody Identification Anti-K 12/30/17 16:45 Antigen Identification Cancelled 12/30/17 16:45 Direct Antiglob Test Negative 01/25/18 11:30 Crossmatch See Detail 12/30/17 16:45 Home Medications and Allergies Home Medications Medication Instructions Recorded Confirmed Type hydrocodone-acetaminophen 1 tab PO Q12H PRN #0 05/10/12 12/30/17 History albuterol sulfate 2 puff INHALATION Q4H 11/25/17 12/30/17 History bimatoprost 1 drp OPHTHALMIC (EYE) QPM 11/25/17 12/30/17 History brimonidine-timolol [Combigan] 1 drp OPHTHALMIC (EYE) BID 11/25/17 12/30/17 History calcium phosphate-vitamin D3 1 tab PO DAILY 11/25/17 12/30/17 History [Citracal + D3 (calcium phos)] cholecalciferol (vitamin D3) 2 cap PO DAILY 11/25/17 12/30/17 History cholecalciferol (vitamin D3) 2 tab PO DAILY 11/25/17 12/30/17 History fluticasone [Flovent HFA] 3 puff INHALATION BID PRN 11/25/17 12/30/17 History levothyroxine 1 tab PO DAILY 11/25/17 12/30/17 History omeprazole 40 mg PO DAILY 11/25/17 12/30/17 History venlafaxine 1 cap PO QPM 11/25/17 12/30/17 History zolpidem 5 - 10 mg PO BEDTIME PRN 11/25/17 12/30/17 History lisinopril 20 mg PO QPM #30 tab 11/26/17 12/30/17 Rx multivitamin [Multiple Vitamins] 1 tab PO DAILY 12/06/17 12/30/17 History rosuvastatin 10 mg PO DAILY 12/06/17 12/30/17 History Allergies Allergy/AdvReac Type Severity Reaction Status Date / Time meperidine Allergy Unknown Verified 11/25/17 18:09 Sulfa (Sulfonamide Allergy Unknown Verified 11/25/17 18:09 Antibiotics) Exam Vital signs: Last Vital Signs Temp 98.6 F 02/07/18 14:19 Pulse 97 H 02/07/18 14:19 Resp 16 02/07/18 14:19 BP 132/64 H 02/07/18 14:19 Pulse Ox 100 02/07/18 14:19 - Constitutional positive no acute distress, positive thin Comments: She is in a wheelchair. - Routine HEENT Exam Head: Present: normocephalic, atraumatic Eye: Present: EOMI, PERRL. Absent: conjunctival icterus, scleral injection ENT: Present: mucous membranes moist - Routine Neck Exam Present: supple. Absent: lymphadenopathy, thyromegaly - Routine Chest/Breast/Axilla Exam Axillae: Absent: lymphadenopathy - Routine Respiratory Exam Present: Clear to auscultation bilaterally. Absent: rales, respiratory distress, wheezes - Routine Cardiovascular Exam Present: RRR. Absent: murmur - Routine Abdominal Exam Present: soft, normoactive bowel sounds. Absent: organomegaly, mass Palpation/Percussion: Absent: hepatomegaly, splenomegaly - Routine Extremities Exam Absent: cyanosis, clubbing, edema - Routine Skin Exam Absent: rash Comments: She does have some venous stasis changes. - Routine Neurological Exam Present: alert, moving all extremities Her gait is somewhat unsteady. - Routine Psychiatric Exam Present: normal affect Comments: She does have some apparent difficulty with the recent memory
--- NOTE | 2018-03-07 | PATH_ITS ---
[facility] Accession Number: [id number] . 01 Material submitted: . PART A: BONE MARROW BIOPSY PART B: BONE MARROW ASPIRATION . 01 Clinical history: . ANEMIA . 01 Diagnosis: BONE MARROW, CORE BIOPSY, ASPIRATE, AND CLOT SECTION: 1. Marrow involvement by metastatic carcinoma of breast origin (see Comments) 2. Reduced background trilineage hematopoiesis 3. Marked marrow reticulin fibrosis associated with the metastatic carcinoma (MF 3+ out of 3) . PERIPHERAL BLOOD: 1. Mild normocytic normochromic anemia with mild anisocytosis 2. Mild thrombocytopenia 3. Essentially normal WBC and platelet morphology . FLOW CYTOMETRIC ANALYSIS ([id number]): Bone marrow, aspirate: 1. Markedly hemodilute sample with decreased CD33 and an otherwise normal immunophenotype among the myeloid cell populations (see Flow Comment 1) 2. No abnormal B-cell population identified 3. T-cells with a normal CD4:CD8 ratio and antigenic changes favored to be reactive (see Flow Comment 2) . 03/09/2018 . 01 Comment: The core biopsy exhibits a metastatic infiltrate of carcinoma with an immunohistochemical phenotype indicative of breast origin, which comprises an estimated 80% of the cells present. The neoplastic cells express uniform broad-spectrum SWAPNIL keratins and mammaglobin (both with strong intensity); uniform estrogen receptor (ER); variable to uniform GATA3 and GCDFP; variable E-cadherin (with weak intensity); and CD15 (Anselmo X) on a large subset (with strong intensity). A few foci of background trilineage hematopoiesis are present in the core biopsy that lack obvious cytologic atypia. The aspirate smears and touch preparation of the core biopsy are too hemodilute to allow adequate evaluation of potential myelodysplastic features on the hematopoietic elements. . As requested, routine cytogenetic karyotyping and an MDS FISH panel are also being performed on the marrow aspirate, and will be reported separately in [id number] when complete. . These findings were discussed with Dr. Velasquez on 03/09/2018 at 2:00 pm PST. . FLOW CYTOMETRY COMMENTS: . 1. No convincing immunophenotypic evidence of a myeloid stem cell neoplasm is identified, as decreased CD33 can be seen in benign marrow aspirate specimens, and the remaining immunophenotypic features of the granulocytes, monocytes, and rare myeloid blasts are essentially normal. However, since this is a markedly hemodilute marrow sample and a low-grade myelodysplastic process or chronic myeloproliferative neoplasm cannot be entirely excluded by flow cytometry, correlation with the concurrent marrow morphology, as well as the pending cytogenetic analysis and MDS FISH panel, is required to definitively evaluate for a myeloid stem cell neoplasm. . 2. The T-cells have a normal CD4:CD8 ratio, and exhibit mild antigenic alterations that are favored to be reactive expansions of normal T-cell subsets, including a subset of T-cells with coexpression of CD56, suggesting immune activation; and a probable large granular lymphocyte (LGL)-like subset with coexpression of CD4, low CD8, and CD57, with appropriate retention of surface CD3, CD5, CD2, and CD7 expression. This dual CD4+/low CD8+ LGL-like population comprises 34% of the T-cells, 25.5% of the lymphocytes, and 9.2% of the total viable leukocytes in this study, and is favored to reflect an expanded reactive proliferation of cytotoxic cells with coexpression of CD4 and CD8. Expansions of cytotoxic and LGL-like T-cell populations may be present in a variety of inflammatory and infectious conditions. . Flow cytometric analysis after lysis of the erythroid elements indicates that the viable leukocytes include 36% lymphocytes, 10% monocytes, 53% granulocytes, and 0.03% CD34+ myeloid blasts. The lymphocytes include 2.5% B-cells, 75% T-cells, and 20% NK-cells. The mature B-cells have a normal surface kappa:lambda ratio of 1.4 and a normal cytoplasmic kappa:lambda ratio of 2.2. The T-cells have a normal CD4:CD8 ratio of 1.1. The granulocytes exhibit normal expression of CD10, CD11b, CD13, CD16 and CD15; the monocytes exhibit normal expression of CD13, CD14, and CD64; and the rare CD34+ myeloid blasts have no significant immunophenotypic abnormalities. . . 01 Electronically signed: . Sulma Martinez MD, Pathologist NPI- [id number] . 01 Gross description: . Received two formalin-filled containers both labeled with the patient's name. No sources are labeled on containers. . A. In a container arbitrarily designated A, the specimen consists of a 0.3 cm in diameter x 0.7 cm in length portion of possible core and blood. Entirely submitted in cassette A. Will be placed in decal for softening. B. In a container arbitrarily designated B, the specimen consists of approximately a 6 cc aggregate of blood, which is filtered and entirely submitted in cassettes B1 and B2. ([facility]:[id number]) /[facility] . 01 Microscopic: . CORE BIOPSY AND CLOT SECTION: . H/E-stained sections of the bone marrow core biopsy (block A1) reveal a core of trabecular bone and marrow with moderate disruption. The majority of the marrow present exhibits a neoplastic infiltrate comprised of large, epithelioid cells with abundant eosinophilic cytoplasm and prominent nucleoli. The neoplastic infiltrate is partially-crushed, but in the most intact foci the cells exhibit areas with formation of small nests, with other areas exhibiting a more discohesive pattern. A few residual marrow foci with trilineage hematopoietic elements are present, and in these trilineage areas the myeloid, erythroid, and megakaryocytic forms appear present in relatively normal proportion. The overall volume of trilineage elements is reduced due to the metastatic infiltrate. In a couple foci, small lymphoid collections of mature-appearing, small lymphocytes are seen in association with the neoplastic cells. H/E-stained sections of the clot (blocks B1 and B2) reveal blood clot only, with no embedded cellular marrow particles. . ASPIRATE SMEARS AND TOUCH PREPARATION: . The aspirate smears are aparticulate and markedly hemodilute. A touch preparation of the core biopsy is also markedly hemodilute. A small cluster of atypical cohesive epithelioid cells is seen on the core touch prep and on one of the aspirate smears. Very rare megakaryocytes are also seen on the aspirate smears, which have normal cytomorphology. Too few erythroid and myeloid precursors are present on the aspirate smears and touch imprint to evaluate for potential myelodysplastic features. Lymphocytes are present in increased numbers, at least partially due to hemodilution, but they lack significant cytologic atypia. A differential count of hematopoietic cells is not performed. . SPECIAL STAIN: . A reticulin stain performed on the biopsy (A1) reveals marked reticulin fibrosis in association with the neoplastic infiltrate (WHO fibrosis grade 3 out of 3). . IMMUNOHISTOCHEMISTRY*: . Select immunohistochemical studies were performed on the core biopsy (A1), with appropriate positive and negative controls, to help characterize the neoplastic infiltrate and enumerate the cell populations. The neoplastic cells comprise an estimated 80% of the total cells present in the core biopsy, and they express uniform broad-spectrum SWAPNIL keratins and mammaglobin (both with strong intensity); uniform estrogen receptor (ER); variable to uniform GATA3 and GCDFP; variable E-cadherin (with weak intensity); and CD15 (Anselmo X) on a large subset (with strong intensity in a membranous and cytoplasmic pattern). Background trilineage elements comprise the remaining 20% of the marrow cells. CD15+ myelomonocytic precursors and erythroid precursors with high-intensity CD71 reactivity comprise about 12% and 8% of the total marrow cells, respectively. An immunostain for vWF highlights the megakaryocytes. . PERIPHERAL BLOOD: . A Garcia-stained peripheral blood smear reveals the leukocytes to be normal in number, and a differential count of 300 cells reveals 58.7% neutrophils, 32.3% lymphocytes, 8% monocytes, and 1% eosinophils. The circulating neutrophils have appropriate nuclear segmentation and cytoplasmic granularity. Per the CBC indices, the erythrocytes are mildly decreased in number and volume. There is mild polychromasia and mild erythrocyte anisocytosis, with minimal poikilocytosis. Platelets are mildly decreased in number, but those present are generally well-granulated. . * Technical note: These tests and their performance characteristics have been determined by [employer]. They have not been cleared or approved by the U.S. Food and Drug Administration. The FDA has determined that such clearance or approval is not necessary. These tests are used for clinical purposes, and should not be regarded as investigational or for research. . . 01 Pathologist provided ICD-10: C79.51, Z85.3, D69.6, D64.9 . 01 CPT . 559450, 032629, 900883, 642236, 436756, 434261, [id number], [id number] Performed at: 01 [facility] [address], [place], [place] [id number] MD Edwardo Pollock MD Phone: [phone]
[2018-03-07 12:50] LABS: Add Manual Diff / Slide Review NO; Basophils Percent Auto 0.7 % (0-2); Eosinophils Percent Auto 1.1 % (2-4); Hematocrit 30.7 % (36-46); Hemoglobin 10.6 g/dL (12.0-16.0); Lymphocytes Percent Auto 30.1 % (25-40); Mean Corpuscular HGB Conc 34.4 % (30-36); Mean Corpuscular Hemoglobin 32.1 PG (26-34); Mean Corpuscular Volume 93.1 fL (80-100); Monocytes Percent Auto 9.7 % (3-14); Neutrophils Absolute Auto 4300 /uL (3000-5900); Neutrophils Percent Auto 58.4 % (50-75); Platelet Count 110 X10^3/uL (150-400); Red Blood Cell Count 3.29 X10^6/uL (4.0-5.2); Red Cell Distribution Width 20.1 % (11.6-14.8); White Blood Cell Count 7.4 X10^3/uL (4.5-11.0)
[2018-03-07 13:16] LABS: Anisocytosis 2+; Poikilocytosis 1+; Polychromasia 1+
--- NOTE | 2018-03-07 13:38 | ONC.PROCEDUR ---
Date of procedure: 03/07/18 Diagnosis: Transfusion-dependent anemia Onc Bone Marrow: bone marrow biopsy and aspiration Procedure: Diagnosis: Anemia with mild thrombocytopenia. Prior treatment: Transfusions. Her last was on Tuesday. Interval history: The patient returns today for follow-up. Since her last visit here, she has continued to require transfusions every few weeks. She feels like she is tolerating them without any problems. She does have some ongoing weakness and fatigue. She is unaware of any bleeding. She has not noted any unusual bruising. She did have a fall day or 2 ago but did not injure herself. Appetite has been stable. Her weight has been stable as well. On exam, she is alert and oriented she is chronically ill-appearing in a wheelchair but in no acute distress. She is not further examined. Assessment plan: Persistent anemia with intermittent mild thrombocytopenia without obvious etiology. There does not appear to be any evidence of ongoing hemolysis or bleeding. There is no evidence of B12 folate or iron deficiencies. She is requiring transfusions which would be unusual for anemia of chronic disease. I a.m. concerned that she may have an underlying myelodysplasia or other intrinsic marrow pathology and recommended pursuing a bone marrow biopsy to try to make a diagnosis. I explained the procedure to her and her daughter and she is willing to proceed today. Procedure note: Patient gave informed consent. She was placed in a prone position. Her left posterior iliac crest was prepped with Betadine and then anesthetized with approximately 6 cc of 1% lidocaine. A small skin incision was made with a scalpel blade. Jamshidi needle was used to obtain a bone marrow aspirate and core biopsy. The patient tolerated the procedure well without any complications. Samples were sent for routine histology as well as flow cytometry, cytogenetics and an MDS fish panel. She will return to clinic here in about 2 weeks for follow-up to review results. She will continue with weekly CBCs from home health. She will continue with transfusions as needed.
[2018-03-07 14:30] VITALS: BP 147/86; PULSE 66; RESP 18; TEMP 36.2; O2SAT 98
--- NOTE | 2018-03-14 15:31 | PC.NURSE ---
Per Laquita at home health, they are discharging the pt from their service so pt will need to be scheduled for weekly labs. Tiff notified and took care of it.
--- NOTE | 2018-03-14 16:08 | PC.NURSE ---
Lab results that were drawn today by [facility] were placed in Dr Correia's box; he reviewed and initialed that he saw them.
[2018-03-22 11:05] VITALS: BP 133/72; PULSE 83; RESP 17; TEMP 37.1; O2SAT 96
--- NOTE | 2018-03-22 11:30 | P.PNONC_ITS ---
PN -Subjective Interval history: IDENTIFICATION: This is an 82-year-old woman who was initially seen in consultation by Dr. Salazar December 06, 2017 for evaluation of anemia and weight loss. INTERVAL HISTORY: Since her last visit here, she has been feeling about the same. She did undergo bone marrow biopsy about 2 weeks ago. She tolerated the procedure without any difficulty and has not had any pain at the site. She denies any unusual bleeding or bruising. Her strength and energy level have been low but stable. She does not feel like she needs a transfusion at this time. She denies any fevers or chills. She has not noted any adenopathy. She denies any new aches or pains. No GI complaints. Her last transfusion was about 2 weeks ago. She denies any changes in her medications. She has been taking some hydrocodone about 1 or 2 tablets a day. She has been getting prescriptions from her primary care physician but would prefer to get them here. She had right breast cancer in 1999 subsequently underwent lumpectomy with sentinel node biopsy followed by chemotherapy followed by radiation. She received adjuvant tamoxifen. 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 Prior history of iron deficiency anemia. - Patient Self-Reported Symptoms SR Constitution: Weight loss/gain, Fatigue/Malaise SR Musculoskeletal issues: Muscle weakness SR Neuro issues: Difficulty balancing Home Medications and Allergies Home Medications Medication Instructions Recorded Confirmed Type hydrocodone-acetaminophen 1 tab PO Q12H PRN #0 05/10/12 02/07/18 History albuterol sulfate 2 puff INHALATION Q4H 11/25/17 02/07/18 History bimatoprost 1 drp OPHTHALMIC (EYE) QPM 11/25/17 02/07/18 History brimonidine-timolol [Combigan] 1 drp OPHTHALMIC (EYE) BID 11/25/17 02/07/18 History calcium phosphate-vitamin D3 1 tab PO DAILY 11/25/17 02/07/18 History [Citracal + D3 (calcium phos)] cholecalciferol (vitamin D3) 2 cap PO DAILY 11/25/17 02/07/18 History cholecalciferol (vitamin D3) 2 tab PO DAILY 11/25/17 02/07/18 History fluticasone [Flovent HFA] 3 puff INHALATION BID PRN 11/25/17 02/07/18 History levothyroxine 1 tab PO DAILY 11/25/17 02/07/18 History omeprazole 40 mg PO DAILY 11/25/17 02/07/18 History venlafaxine 1 cap PO QPM 11/25/17 02/07/18 History zolpidem 5 - 10 mg PO BEDTIME PRN 11/25/17 02/07/18 History lisinopril 20 mg PO QPM #30 tab 11/26/17 02/07/18 Rx multivitamin [Multiple Vitamins] 1 tab PO DAILY 12/06/17 02/07/18 History rosuvastatin 10 mg PO DAILY 12/06/17 02/07/18 History Allergies Allergy/AdvReac Type Severity Reaction Status Date / Time meperidine Allergy Unknown Verified 11/25/17 18:09 Sulfa (Sulfonamide Allergy Unknown Verified 11/25/17 18:09 Antibiotics) Exam Vital signs: Last Vital Signs Temp 98.7 F 03/22/18 11:05 Pulse 83 03/22/18 11:05 Resp 17 03/22/18 11:05 BP 133/72 03/22/18 11:05 Pulse Ox 96 03/22/18 11:05 - Constitutional positive no acute distress, positive thin Comments: She is in a wheelchair. Results - Labs Laboratory Last Values WBC 7.4 X10^3/uL (4.5-11.0) 03/07/18 12:41 RBC 3.29 X10^6/uL (4.0-5.2) L 03/07/18 12:41 Hgb 10.6 g/dL (12.0-16.0) L 03/07/18 12:41 Hct 30.7 % (36-46) L 03/07/18 12:41 MCV 93.1 fL (80-100) D 03/07/18 12:41 MCH 32.1 PG (26-34) 03/07/18 12:41 MCHC 34.4 % (30-36) 03/07/18 12:41 RDW 20.1 % (11.6-14.8) H 03/07/18 12:41 Plt Count 110 X10^3/uL (150-400) L 03/07/18 12:41 Neut % (Auto) 58.4 % (50-75) 03/07/18 12:41 Lymph % (Auto) 30.1 % (25-40) 03/07/18 12:41 Bent % (Auto) 9.7 % (3-14) 03/07/18 12:41 Eos % (Auto) 1.1 % (2-4) L 03/07/18 12:41 Baso % (Auto) 0.7 % (0-2) 03/07/18 12:41 Neut # (Auto) 4300 /uL (0751-3030) 03/07/18 12:41 Total Counted 100 01/20/18 11:02 Seg Neutrophils % 73.0 % (38-70) H 01/20/18 11:02 Lymphocytes % (Manual) 23.0 % (25-45) L 01/20/18 11:02 Monocytes % (Manual) 4.0 % (2-11) 01/20/18 11:02 Neutrophils # (Manual) 7446 /uL (3804-5780) H 01/20/18 11:02 Nucleated RBCs 1 #/Diff (-0) H 01/05/18 14:22 Hypersegmented Neuts Cancelled 01/31/18 11:53 Hypogranular Neuts Cancelled 01/31/18 11:53 Reactive Lymphocytes Cancelled 01/31/18 11:53 Smudge Cells 1+ H 01/20/18 11:02 Other Cell Type Cancelled 01/31/18 11:53 Toxic Granulation Cancelled 01/31/18 11:53 Toxic Vacuolation Cancelled 01/31/18 11:53 Dohle Bodies Cancelled 01/31/18 11:53 Keyonna Rods Cancelled 01/31/18 11:53 WBC Morphology Comment Cancelled 01/31/18 11:53 Platelet Estimate Cancelled 01/31/18 11:53 Clumped Platelets Cancelled 01/31/18 11:53 Plt Morphology Comment Cancelled 01/31/18 11:53 RBC Morphology Not Reportable 03/07/18 12:41 Dimorphic RBCs Cancelled 01/31/18 11:53 Polychromasia 1+ H 03/07/18 12:41 Hypochromasia Cancelled 01/31/18 11:53 Poikilocytosis 1+ H 03/07/18 12:41 Basophilic Stippling Cancelled 01/31/18 11:53 Anisocytosis 2+ H 03/07/18 12:41 Microcytosis Cancelled 01/31/18 11:53 Macrocytosis 2+ H 01/20/18 11:02 Spherocytes Cancelled 01/31/18 11:53 Pappenheimer Bodies Cancelled 01/31/18 11:53 Sickle Cells Cancelled 01/31/18 11:53 Target Cells Cancelled 01/31/18 11:53 Tear Drop Cells Cancelled 01/31/18 11:53 Ovalocytes Cancelled 01/31/18 11:53 Stomatocytes Cancelled 01/31/18 11:53 Helmet Cells Cancelled 01/31/18 11:53 [place] Bodies Cancelled 01/31/18 11:53 [place] Rings Cancelled 01/31/18 11:53 [place] Cells Cancelled 01/31/18 11:53 Acanthocytes (Spur) Cancelled 01/31/18 11:53 Rouleaux Cancelled 01/31/18 11:53 Schistocytes Cancelled 01/31/18 11:53 Smear Path Review 01/25/18 11:30 ESR 66 MM/HR (0-20) H 01/05/18 14:22 Percent Retic 3.4 % (1.06-2.63) H 01/25/18 11:30 Haptoglobin 251 mg/dL (43-212) H 01/05/18 14:22 Sodium 134 mmol/L (137-145) L 01/25/18 11:30 Potassium 4.3 mmol/L (3.4-5.1) 01/25/18 11:30 Chloride 101 mmol/L (98-107) 01/25/18 11:30 Carbon Dioxide 21 mmol/L (22-32) L 01/25/18 11:30 BUN 24 mg/dL (7-17) H 01/25/18 11:30 Creatinine 0.70 mg/dL (0.52-1.04) 01/25/18 11:30 Estimated GFR > 60.0 mL/min (>60) 01/25/18 11:30 BUN/Creatinine Ratio 34.3 (6-22) H 01/25/18 11:30 Glucose 100 mg/dL (80-110) 01/25/18 11:30 Calcium 9.1 mg/dL (8.4-10.2) 01/25/18 11:30 Iron 42 ug/dL (37-170) 12/30/17 14:54 TIBC 247 ug/dL (265-497) L 12/30/17 14:54 % Saturation 17 % (15-50) 12/30/17 14:54 Transferrin 177 mg/dL (206-381) L 12/30/17 14:54 Ferritin 745.0 ng/mL (11.1-264) H 12/30/17 14:54 Total Bilirubin 0.8 mg/dL (0.2-1.3) 01/25/18 11:30 AST 30 IU/L (14-36) 01/25/18 11:30 ALT 21 IU/L (9-52) 01/25/18 11:30 Alkaline Phosphatase 71 U/L (38-126) 01/25/18 11:30 Lactate Dehydrogenase 344 U/L (313-618) 01/25/18 11:30 Total Protein 7.4 g/dL (6.3-8.2) 01/25/18 11:30 Albumin 3.6 g/dL (3.5-5.0) 01/25/18 11:30 Globulin 3.8 g/dL (1.7-4.1) 01/25/18 11:30 Albumin/Globulin Ratio 0.9 (1.0-2.8) L 01/25/18 11:30 Prealbumin 17.8 mg/dL (17.6-36.0) 01/25/18 11:30 Carcinoembryonic Ag 4.9 ng/mL (0.1-3.0) H 01/05/18 14:22 Vitamin B12 964 pg/mL (239-931) H 01/20/18 11:02 Folate > 20.0 ng/mL (2.76-20.0) H 01/20/18 11:02 Rheumatoid Factor 19 01/25/18 11:30 LEYDA Screen Negative 01/25/18 11:30 SS-A Antibody <1.0 neg 01/25/18 11:30 SS-B Antibody <1.0 neg 01/25/18 11:30 SM/ALLOCATION ANALYST Antibody <1.0 neg 01/25/18 11:30 Scl-70 Scleroderma Ab <1.0 neg 01/25/18 11:30 Anti-ds DNA (Crithidia) <1.0 neg 01/25/18 11:30 Anti-Smooth Muscle Ab <1.0 neg 01/25/18 11:30 Blood Type A Negative 12/30/17 16:45 Antibody Screen Positive 12/30/17 16:45 Antibody Identification Anti-K 12/30/17 16:45 Antigen Identification Cancelled 12/30/17 16:45 Direct Antiglob Test Negative 01/25/18 11:30 Crossmatch See Detail 12/30/17 16:45 Assessment and Plan (1) Anemia Problem details: An 82-year-old woman with some relatively acute onset of anemia with some mild to moderate thrombocytopenia without obvious etiology. Surprisingly, her bone marrow biopsy showed metastatic breast cancer. About 80 % of the cellularity in the marrow was adenocarcinoma. It was strongly ER positive. Her 2 is pending. Background hematopoiesis was diminished but present. There was some fibrosis in the marrow as well. Interestingly, she did have a CT scan of the chest and pelvis done in November with no evidence of metastatic disease seen. I explained that metastatic breast cancer was treatable although not curable. In general, patients are treated with hormone therapy. This provides a higher response rate with fewer side effects than chemotherapy. Response rates on the order of about 40-50%. Often times, I breaths is added. This leads to high response rate longer time to progression but with significant cytopenias at this main side effect. Given her current level of a transfusion requirement, I doubt that she would tolerate this immediately. If she does respond to hormone therapy though we could perhaps added later. I did give her prescription for letrozole. Side effects including hot flashes irritability mood changes musculoskeletal complaints and risk for thinning of the bone reviewed. She does have evidence of bone involvement based on the biopsy. We will plan to get a bone scan to see if there is any other disease that is detectable. She will need to start on Xgeva. I would like her to follow up with her dentist prior to initiating that therapy. She will continue with weekly CBCs and transfusions as needed. I expect that if we can get a good response in her breast cancer that her transfusion requirement will diminish in that her counts will improve. She will return to clinic with me in about 4 weeks or so for follow-up. Current visit: Yes Status: Acute
--- NOTE | 2018-03-22 11:59 | ONC.SCHED ---
ARACELY [id number] [facility]
--- NOTE | 2018-03-28 16:44 | PC.NURSE ---
Unable to access TAR; ending vitals are as follows: temp 98.8 hr 84 resp 16 and bp 147/76. Transfusion concluded at 1700. No signs/symptoms of reaction noted. Tolerated well.
[2018-03-28 17:00] VITALS: BP 147/76; PULSE 84; RESP 16; TEMP 37.1
[2018-03-29 11:43] VITALS: BP 141/68; PULSE 78; RESP 18; TEMP 36.8
[2018-03-29 12:05] VITALS: BP 145/64; PULSE 83; RESP 18; TEMP 36.8
[2018-03-29 14:15] VITALS: BP 136/66; PULSE 78; RESP 16; TEMP 36.8
[2018-04-04 12:52] LABS: Add Manual Diff / Slide Review NO; Basophils Percent Auto 0.8 % (0-2); Eosinophils Percent Auto 0.8 % (2-4); Hematocrit 28.6 % (36-46); Hemoglobin 9.5 g/dL (12.0-16.0); Lymphocytes Percent Auto 27.7 % (25-40); Mean Corpuscular HGB Conc 33.1 % (30-36); Mean Corpuscular Hemoglobin 31.8 PG (26-34); Monocytes Percent Auto 8.6 % (3-14); Neutrophils Absolute Auto 4700 /uL (3000-5900); Neutrophils Percent Auto 62.1 % (50-75); Platelet Count 150 X10^3/uL (150-400); Red Blood Cell Count 2.98 X10^6/uL (4.0-5.2); White Blood Cell Count 7.6 X10^3/uL (4.5-11.0)
[2018-04-04 13:22] LABS: Anisocytosis 2+; Poikilocytosis 1+
[2018-04-10 11:29] LABS: Add Manual Diff / Slide Review NO; Basophils Percent Auto 1.3 % (0-2); Eosinophils Percent Auto 1.8 % (2-4); Hemoglobin 8.7 g/dL (12.0-16.0); Mean Corpuscular HGB Conc 33.3 % (30-36); Mean Corpuscular Hemoglobin 32.6 PG (26-34); Mean Corpuscular Volume 98.1 fL (80-100); Monocytes Percent Auto 8.1 % (3-14); Neutrophils Absolute Auto 4400 /uL (3000-5900); Neutrophils Percent Auto 56.8 % (50-75); Platelet Count 184 X10^3/uL (150-400); Red Blood Cell Count 2.66 X10^6/uL (4.0-5.2); Red Cell Distribution Width 21.5 % (11.6-14.8); White Blood Cell Count 7.8 X10^3/uL (4.5-11.0)
[2018-04-10 11:53] LABS: Anisocytosis 2+; Hypochromasia 1+
--- NOTE | 2018-04-10 12:40 | PC.NURSE ---
Pt here for weekly CBC reported at 8.2/26.0. Pt denies SOB, tiredness, or increase in HR. While we have nor parameters for transfusion this pt, I encouraged her to call if any of those sx listed above developed.
[2018-04-17 10:54] LABS: Add Manual Diff / Slide Review NO; Basophils Percent Auto 0.7 % (0-2); Eosinophils Percent Auto 1.3 % (2-4); Lymphocytes Percent Auto 25.7 % (25-40); Mean Corpuscular HGB Conc 32.9 % (30-36); Mean Corpuscular Volume 103.4 fL (80-100); Neutrophils Absolute Auto 5200 /uL (3000-5900); Neutrophils Percent Auto 63.3 % (50-75); Platelet Count 157 X10^3/uL (150-400); Red Blood Cell Count 2.13 X10^6/uL (4.0-5.2); Red Cell Distribution Width 23.4 % (11.6-14.8); White Blood Cell Count 8.1 X10^3/uL (4.5-11.0)
[2018-04-17 11:05] LABS: Alanine Aminotransferase 21 IU/L (9-52); Albumin 3.8 g/dL (3.5-5.0); Albumin Globulin Ratio 0.9 (1.0-2.8); Alkaline Phosphatase 81 U/L (38-126); Aspartate Aminotransferase 22 IU/L (14-36); BUN Creatinine Ratio 32.5 (6-22); Blood Urea Nitrogen 26 mg/dL (7-17); Calcium 9.2 mg/dL (8.4-10.2); Carbon Dioxide 20 mmol/L (22-32); Chloride 103 mmol/L (98-107); Estimated Glomerular Filt Rate > 60.0 mL/min (>60); Globulin 4.2 g/dL (1.7-4.1); Glucose 141 mg/dL (80-110); HEMOLYSIS < 15 (0-50); Potassium 4.2 mmol/L (3.4-5.1); Sodium 137 mmol/L (137-145)
[2018-04-17 11:10] LABS: Hemoglobin 7.2 g/dL (12.0-16.0)
[2018-04-17 11:30] LABS: Anisocytosis 3+
[2018-04-17 11:31] LABS: Hypochromasia 1+; Polychromasia 2+
[2018-04-17 11:32] LABS: Macrocytosis 1+
[2018-04-18 11:59] VITALS: BP 160/73; PULSE 75; RESP 14; TEMP 36.8
[2018-04-18 12:21] VITALS: BP 141/71; PULSE 76; RESP 16; TEMP 37.1
[2018-04-18 14:09] VITALS: BP 124/57; PULSE 76; RESP 16; TEMP 36.7
[2018-04-18 14:45] VITALS: BP 120/64; PULSE 77; RESP 16; TEMP 36.8
[2018-04-18 16:02] LABS: CA 15-3 33 U/mL (< 32)
[2018-04-19 11:04] VITALS: BP 151/69; PULSE 72; RESP 14; TEMP 36.9
[2018-04-19 11:31] VITALS: BP 155/69; PULSE 68; RESP 14; TEMP 36.9
[2018-04-19 13:37] VITALS: BP 164/80; PULSE 74; RESP 14; TEMP 36.9
[2018-04-19 14:28] VITALS: BP 145/67; PULSE 75; RESP 18; TEMP 36.7; O2SAT 99
--- NOTE | 2018-04-19 14:39 | P.PNONC_ITS ---
PN -Subjective Interval history: Diagnosis: Metastatic breast cancer Previous treatment: 1. Lumpectomy with sentinel node biopsy in 1999 followed by adjuvant chemotherapy and radiation. She had tamoxifen for 5 years. 2. Metastatic disease identified on a bone marrow biopsy done because of anemia in February 2018. She has been on letrozole now for about a month. INTERVAL HISTORY: The patient is an 82-year-old woman who returns today for follow-up of metastatic breast cancer. She was seen initially because of anemia. No obvious etiology was found but she was requiring transfusions. A bone marrow biopsy was performed that showed ER positive metastatic breast cancer. She started letrozole about a month ago. She has been tolerating it well to this point. She is not having any hot flashes. She denies any new musculoskeletal aches or pains. Her strength and energy level have been low. She did get a transfusion earlier this week. She has not had any unusual bleeding or bruising. She is not currently having any shortness of breath. Her appetite is good. She denies any unusual pain. She denies any changes in her medications. She has been taking some hydrocodone about 1 or 2 tablets a day. She has been getting prescriptions from her primary care physician but would prefer to get them here. - Patient Self-Reported Symptoms SR Constitution: Weight loss/gain, Fatigue/Malaise SR Musculoskeletal issues: Joint pain or swelling, Muscle weakness, Muscle pain or cramps, Bone pain SR Neuro issues: Difficulty balancing SR Hematologic issues: Bleeding/bruising Home Medications and Allergies Home Medications Medication Instructions Recorded Confirmed Type albuterol sulfate 2 puff INHALATION Q4H PRN 11/25/17 02/07/18 History bimatoprost 1 drp OPHTHALMIC (EYE) QPM PRN 11/25/17 02/07/18 History brimonidine-timolol [Combigan] 1 drp OPHTHALMIC (EYE) BID 11/25/17 02/07/18 History cholecalciferol (vitamin D3) 2 cap PO DAILY 11/25/17 02/07/18 History fluticasone [Flovent HFA] 3 puff INHALATION BID PRN 11/25/17 02/07/18 History levothyroxine 1 tab PO DAILY 11/25/17 02/07/18 History venlafaxine 75 mg PO QPM 11/25/17 04/19/18 History zolpidem 5 - 10 mg PO BEDTIME PRN 11/25/17 02/07/18 History lisinopril 20 mg PO QPM #30 tab 11/26/17 02/07/18 Rx multivitamin [Multiple Vitamins] 1 tab PO DAILY 12/06/17 02/07/18 History hydrocodone-acetaminophen 1 tab PO Q12H PRN #60 tab 03/22/18 Rx letrozole 2.5 mg PO DAILY 30 Days #30 tab 03/22/18 Rx Allergies Allergy/AdvReac Type Severity Reaction Status Date / Time meperidine Allergy Unknown Verified 11/25/17 18:09 Sulfa (Sulfonamide Allergy Unknown Verified 11/25/17 18:09 Antibiotics) Exam - Constitutional positive no acute distress, positive average body habitus - Routine HEENT Exam Head: Present: normocephalic, atraumatic Eye: Present: EOMI, PERRL. Absent: conjunctival icterus, scleral injection ENT: Present: mucous membranes moist, oropharynx clear - Routine Neck Exam Present: supple. Absent: lymphadenopathy, thyromegaly - Routine Respiratory Exam Present: Clear to auscultation bilaterally. Absent: rales, wheezes - Routine Cardiovascular Exam Present: RRR, S1, S2, murmur Comments: She does have a 2/6 systolic murmur. - Routine Abdominal Exam Present: soft, normoactive bowel sounds. Absent: tenderness, mass - Routine Extremities Exam Absent: cyanosis, clubbing, edema - Routine Back/Spine Exam Back/Spine: Absent: paraspinal tenderness, vertebral tenderness - Routine Skin Exam Present: intact. Absent: petechiae, rash - Routine Neurological Exam Present: alert, oriented X3 - Routine Psychiatric Exam Present: normal affect, normal thought process Results - Labs Laboratory Last Values WBC 8.1 X10^3/uL (4.5-11.0) 04/17/18 10:29 RBC 2.13 X10^6/uL (4.0-5.2) L 04/17/18 10:29 Hgb 7.2 g/dL (12.0-16.0) L 04/17/18 10:29 Hct 22.0 % (36-46) L 04/17/18 10:29 MCV 103.4 fL (80-100) H D 04/17/18 10:29 MCH 34.0 PG (26-34) 04/17/18 10:29 MCHC 32.9 % (30-36) 04/17/18 10:29 RDW 23.4 % (11.6-14.8) H 04/17/18 10:29 Plt Count 157 X10^3/uL (150-400) 04/17/18 10:29 Neut % (Auto) 63.3 % (50-75) 04/17/18 10:29 Lymph % (Auto) 25.7 % (25-40) 04/17/18 10:29 [place] % (Auto) 9.0 % (3-14) 04/17/18 10:29 Eos % (Auto) 1.3 % (2-4) L 04/17/18 10:29 Baso % (Auto) 0.7 % (0-2) 04/17/18 10:29 Neut # (Auto) 5200 /uL (8361-8123) 04/17/18 10:29 Total Counted 100 01/20/18 11:02 Seg Neutrophils % 73.0 % (38-70) H 01/20/18 11:02 Lymphocytes % (Manual) 23.0 % (25-45) L 01/20/18 11:02 Monocytes % (Manual) 4.0 % (2-11) 01/20/18 11:02 Neutrophils # (Manual) 7446 /uL (5463-0380) H 01/20/18 11:02 Nucleated RBCs 1 #/Diff (-0) H 01/05/18 14:22 Hypersegmented Neuts Cancelled 01/31/18 11:53 Hypogranular Neuts Cancelled 01/31/18 11:53 Reactive Lymphocytes Cancelled 01/31/18 11:53 Smudge Cells 1+ H 01/20/18 11:02 Other Cell Type Cancelled 01/31/18 11:53 Toxic Granulation Cancelled 01/31/18 11:53 Toxic Vacuolation Cancelled 01/31/18 11:53 Dohle Bodies Cancelled 01/31/18 11:53 Keyonna Rods Cancelled 01/31/18 11:53 WBC Morphology Comment Cancelled 01/31/18 11:53 Platelet Estimate Cancelled 01/31/18 11:53 Clumped Platelets Cancelled 01/31/18 11:53 Plt Morphology Comment Cancelled 01/31/18 11:53 RBC Morphology See below 04/17/18 10:29 Dimorphic RBCs Cancelled 01/31/18 11:53 Polychromasia 2+ H 04/17/18 10:29 Hypochromasia 1+ H 04/17/18 10:29 Poikilocytosis 1+ H 04/04/18 12:40 Basophilic Stippling Cancelled 01/31/18 11:53 Anisocytosis 3+ H 04/17/18 10:29 Microcytosis Cancelled 01/31/18 11:53 Macrocytosis 1+ H 04/17/18 10:29 Spherocytes Cancelled 01/31/18 11:53 Pappenheimer Bodies Cancelled 01/31/18 11:53 Sickle Cells Cancelled 01/31/18 11:53 Target Cells Cancelled 01/31/18 11:53 Tear Drop Cells Cancelled 01/31/18 11:53 Ovalocytes Cancelled 01/31/18 11:53 Stomatocytes Cancelled 01/31/18 11:53 Helmet Cells Cancelled 01/31/18 11:53 [place] Bodies Cancelled 01/31/18 11:53 [place] Rings Cancelled 01/31/18 11:53 [place] Cells Cancelled 01/31/18 11:53 Acanthocytes (Spur) Cancelled 01/31/18 11:53 Rouleaux Cancelled 01/31/18 11:53 Schistocytes Cancelled 01/31/18 11:53 Smear Path Review 01/25/18 11:30 ESR 66 MM/HR (0-20) H 01/05/18 14:22 Percent Retic 3.4 % (1.06-2.63) H 01/25/18 11:30 Haptoglobin 251 mg/dL (43-212) H 01/05/18 14:22 Sodium 137 mmol/L (137-145) 04/17/18 10:29 Potassium 4.2 mmol/L (3.4-5.1) 04/17/18 10:29 Chloride 103 mmol/L (98-107) 04/17/18 10:29 Carbon Dioxide 20 mmol/L (22-32) L 04/17/18 10:29 BUN 26 mg/dL (7-17) H 04/17/18 10:29 Creatinine 0.80 mg/dL (0.52-1.04) 04/17/18 10:29 Estimated GFR > 60.0 mL/min (>60) 04/17/18 10:29 BUN/Creatinine Ratio 32.5 (6-22) H 04/17/18 10:29 Glucose 141 mg/dL (80-110) H 04/17/18 10:29 Calcium 9.2 mg/dL (8.4-10.2) 04/17/18 10:29 Iron 42 ug/dL (37-170) 12/30/17 14:54 TIBC 247 ug/dL (265-497) L 12/30/17 14:54 % Saturation 17 % (15-50) 12/30/17 14:54 Transferrin 177 mg/dL (206-381) L 12/30/17 14:54 Ferritin 745.0 ng/mL (11.1-264) H 12/30/17 14:54 Total Bilirubin 1.0 mg/dL (0.2-1.3) 04/17/18 10:29 AST 22 IU/L (14-36) 04/17/18 10:29 ALT 21 IU/L (9-52) 04/17/18 10:29 Alkaline Phosphatase 81 U/L (38-126) 04/17/18 10:29 Lactate Dehydrogenase 344 U/L (313-618) 01/25/18 11:30 Total Protein 8.0 g/dL (6.3-8.2) 04/17/18 10:29 Albumin 3.8 g/dL (3.5-5.0) 04/17/18 10:29 Globulin 4.2 g/dL (1.7-4.1) H 04/17/18 10:29 Albumin/Globulin Ratio 0.9 (1.0-2.8) L 04/17/18 10:29 Prealbumin 17.8 mg/dL (17.6-36.0) 01/25/18 11:30 Carcinoembryonic Ag 4.9 ng/mL (0.1-3.0) H 01/05/18 14:22 Breast Carcino Assoc Ag 33 U/mL (< 32) H 04/17/18 10:29 Vitamin B12 964 pg/mL (239-931) H 01/20/18 11:02 Folate > 20.0 ng/mL (2.76-20.0) H 01/20/18 11:02 Rheumatoid Factor 19 01/25/18 11:30 LEYDA Screen Negative 01/25/18 11:30 SS-A Antibody <1.0 neg 01/25/18 11:30 SS-B Antibody <1.0 neg 01/25/18 11:30 SM/DAT INSTRUCTOR Antibody <1.0 neg 01/25/18 11:30 Scl-70 Scleroderma Ab <1.0 neg 01/25/18 11:30 Anti-ds DNA (Crithidia) <1.0 neg 01/25/18 11:30 Anti-Smooth Muscle Ab <1.0 neg 01/25/18 11:30 Blood Type A Negative 04/17/18 10:35 Antibody Screen Positive 04/17/18 10:35 Antibody Identification Anti-K 04/17/18 10:35 Antigen Identification Cancelled 12/30/17 16:45 Direct Antiglob Test Negative 01/25/18 11:30 Crossmatch See Detail 04/17/18 10:35 Assessment and Plan (1) Anemia Problem details: An 82-year-old woman with 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 She continues to require transfusions. Hopefully as we get her breast cancer treated, her transfusion requirement will diminish or and completely. Current visit: Yes Status: Acute (2) Breast cancer metastasized to bone Current visit: Yes Status: Acute She does have metastatic breast cancer. She has been on letrozole for about 1 month. It is too soon yet to tell whether she is responding or not. CT scan and bone scan did not show any obvious measurable or evaluable disease. I think will only be able to follow her disease progress by her red cell count and possibly her CA 15 3. She seems to be tolerating hormone therapy well and will continue. She did see her dentist and had no significant abnormalities. She is ready to start Xgeva today. She will also have a flu shot today. She will return to clinic in about 4 weeks for follow-up and continue with weekly CBC.
[2018-04-19] MEDS: DENOSUMAB 120 MG/1.7 ML VIAL SUBCUT (14:43)
[2018-04-19] MEDS: INFLUENZA VACCINE 0.5 ML SYRINGE IM (14:44)
[2018-04-25 11:18] LABS: Add Manual Diff / Slide Review NO; Basophils Percent Auto 0.6 % (0-2); Eosinophils Percent Auto 1.3 % (2-4); Hematocrit 25.9 % (36-46); Hemoglobin 8.6 g/dL (12.0-16.0); Lymphocytes Percent Auto 32.1 % (25-40); Mean Corpuscular HGB Conc 33.1 % (30-36); Mean Corpuscular Hemoglobin 33.5 PG (26-34); Mean Corpuscular Volume 101.3 fL (80-100); Monocytes Percent Auto 11.9 % (3-14); Neutrophils Absolute Auto 3500 /uL (3000-5900); Neutrophils Percent Auto 54.1 % (50-75); Platelet Count 173 X10^3/uL (150-400); Red Blood Cell Count 2.56 X10^6/uL (4.0-5.2); Red Cell Distribution Width 20.5 % (11.6-14.8); White Blood Cell Count 6.4 X10^3/uL (4.5-11.0)
[2018-04-25 11:46] LABS: Anisocytosis 2+; Rouleaux 1+
--- NOTE | 2018-04-25 11:56 | PC.NURSE ---
pts labs stable, will rtn next week for CBC with possible transfusion at that time
[2018-05-02 11:33] LABS: Add Manual Diff / Slide Review NO; Basophils Percent Auto 0.7 % (0-2); Eosinophils Percent Auto 1.5 % (2-4); Hematocrit 24.3 % (36-46); Hemoglobin 8.2 g/dL (12.0-16.0); Lymphocytes Percent Auto 30.4 % (25-40); Mean Corpuscular HGB Conc 33.6 % (30-36); Mean Corpuscular Hemoglobin 35.5 PG (26-34); Mean Corpuscular Volume 105.4 fL (80-100); Monocytes Percent Auto 11.6 % (3-14); Neutrophils Absolute Auto 3900 /uL (3000-5900); Neutrophils Percent Auto 55.8 % (50-75); Platelet Count 197 X10^3/uL (150-400); Red Cell Distribution Width 21.3 % (11.6-14.8); White Blood Cell Count 7.1 X10^3/uL (4.5-11.0)
[2018-05-02 11:55] LABS: Anisocytosis 3+; Hypochromasia 2+; Poikilocytosis 1+; Polychromasia 1+
[2018-05-09 11:38] LABS: Add Manual Diff / Slide Review NO; Basophils Percent Auto 0.8 % (0-2); Hematocrit 23.7 % (36-46); Hemoglobin 7.7 g/dL (12.0-16.0); Mean Corpuscular HGB Conc 32.5 % (30-36); Mean Corpuscular Hemoglobin 34.5 PG (26-34); Monocytes Percent Auto 11.3 % (3-14); Neutrophils Absolute Auto 3600 /uL (3000-5900); Neutrophils Percent Auto 54.9 % (50-75); Platelet Count 274 X10^3/uL (150-400); Red Blood Cell Count 2.23 X10^6/uL (4.0-5.2); Red Cell Distribution Width 20.4 % (11.6-14.8); White Blood Cell Count 6.6 X10^3/uL (4.5-11.0)
[2018-05-09 11:59] LABS: Anisocytosis 3+; Hypochromasia 1+; Polychromasia 1+
[2018-05-09 11:59] LABS: Alanine Aminotransferase 19 IU/L (9-52); Alkaline Phosphatase 97 U/L (38-126); Aspartate Aminotransferase 22 IU/L (14-36); BUN Creatinine Ratio 35.7 (6-22); Bilirubin Total 0.5 mg/dL (0.2-1.3); Blood Urea Nitrogen 25 mg/dL (7-17); Calcium 8.2 mg/dL (8.4-10.2); Carbon Dioxide 20 mmol/L (22-32); Chloride 106 mmol/L (98-107); Cholesterol 125 mg/dL (140-199); Estimated Glomerular Filt Rate > 60.0 mL/min (>60); Globulin 4.1 g/dL (1.7-4.1); Glucose 108 mg/dL (80-110); HDL Cholesterol 38 mg/dL (40-60); HEMOLYSIS < 15 (0-50); LDL Cholesterol Calculated 67 mg/dL (<100); Potassium 4.5 mmol/L (3.4-5.1); Sodium 137 mmol/L (137-145); Total Protein 8.1 g/dL (6.3-8.2); Triglycerides 100 mg/dL (35-150)
[2018-05-09 13:51] LABS: Thyroid Stimulating Hormone 1.22 uIU/mL (0.47-4.68)
[2018-05-10 12:06] VITALS: BP 168/76; PULSE 82; RESP 16; TEMP 36.8
[2018-05-10 12:23] VITALS: BP 129/63; PULSE 76; RESP 16; TEMP 36.8
[2018-05-10 14:14] VITALS: BP 141/70; PULSE 76; RESP 18; TEMP 36.8
[2018-05-11 11:44] VITALS: BP 158/71; PULSE 73; RESP 18; TEMP 36.8
[2018-05-11] MEDS: SODIUM CHLORIDE 0.9% 250 ML 21 ML IV (11:46)
[2018-05-11 11:59] VITALS: BP 156/66; PULSE 76; RESP 18; TEMP 37.1
[2018-05-17 11:24] LABS: Add Manual Diff / Slide Review NO; Eosinophils Percent Auto 1.4 % (2-4); Hematocrit 32.3 % (36-46); Hemoglobin 10.7 g/dL (12.0-16.0); Lymphocytes Percent Auto 26.8 % (25-40); Mean Corpuscular HGB Conc 33.1 % (30-36); Mean Corpuscular Hemoglobin 32.7 PG (26-34); Mean Corpuscular Volume 98.8 fL (80-100); Monocytes Percent Auto 12.3 % (3-14); Neutrophils Absolute Auto 3700 /uL (3000-5900); Neutrophils Percent Auto 58.5 % (50-75); Platelet Count 193 X10^3/uL (150-400); Red Blood Cell Count 3.27 X10^6/uL (4.0-5.2); White Blood Cell Count 6.4 X10^3/uL (4.5-11.0)
[2018-05-17 11:35] VITALS: BP 148/73; PULSE 74; RESP 18; TEMP 36.8; O2SAT 100
[2018-05-17 11:39] LABS: Alanine Aminotransferase 21 IU/L (9-52); Albumin 3.9 g/dL (3.5-5.0); Alkaline Phosphatase 89 U/L (38-126); Aspartate Aminotransferase 20 IU/L (14-36); Bilirubin Total 0.6 mg/dL (0.2-1.3); Blood Urea Nitrogen 18 mg/dL (7-17); Calcium 8.1 mg/dL (8.4-10.2); Carbon Dioxide 22 mmol/L (22-32); Chloride 105 mmol/L (98-107); Estimated Glomerular Filt Rate > 60.0 mL/min (>60); Glucose 101 mg/dL (80-110); HEMOLYSIS < 15 (0-50); Potassium 4.4 mmol/L (3.4-5.1); Sodium 139 mmol/L (137-145); Total Protein 7.9 g/dL (6.3-8.2)
--- NOTE | 2018-05-17 11:45 | P.PNONC_ITS ---
PN -Subjective Interval history: Diagnosis: Metastatic breast cancer Previous treatment: 1. Lumpectomy with sentinel node biopsy in 1999 followed by adjuvant chemotherapy and radiation. She had tamoxifen for 5 years. 2. Metastatic disease identified on a bone marrow biopsy done because of anemia in February 2018. She has been on letrozole since February 2018. INTERVAL HISTORY: The patient is an 82-year-old woman who returns today for follow-up of metastatic breast cancer. She was seen initially because of anemia. No obvious etiology was found but she was requiring transfusions. A bone marrow biopsy was performed that showed ER positive metastatic breast cancer. She started letrozole in February. She has been tolerating it fairly well. She denies any hot flashes but has had some achiness in the joints particularly in the back and to a lesser extent in the hands. It is not bad enough that she takes any pain medication for it. She feels like her strength and energy level have been stable although compared to 3 or 4 months ago it is definitely improved. She denies any shortness of breath or cough. She has had some mild dizziness. She denies any unusual bleeding or bruising. Her appetite has been stable as has her weight. She has not noted any adenopathy. No GI complaints. She continues to need transfusions about once a month. Her most recent was about a week ago. She states that she does not really feel much different after the transfusion. She denies any other changes in her health. - Patient Self-Reported Symptoms SR Constitution: Weight loss/gain, Fatigue/Malaise SR Musculoskeletal issues: Joint pain or swelling, Muscle weakness, Muscle pain or cramps, Bone pain SR Neuro issues: Difficulty balancing SR Hematologic issues: Bleeding/bruising Home Medications and Allergies Home Medications Medication Instructions Recorded Confirmed Type albuterol sulfate 2 puff INHALATION Q4H PRN 11/25/17 02/07/18 History bimatoprost 1 drp OPHTHALMIC (EYE) QPM PRN 11/25/17 02/07/18 History brimonidine-timolol [Combigan] 1 drp OPHTHALMIC (EYE) BID 11/25/17 02/07/18 History cholecalciferol (vitamin D3) 2 cap PO DAILY 11/25/17 02/07/18 History fluticasone [Flovent HFA] 3 puff INHALATION BID PRN 11/25/17 02/07/18 History levothyroxine 1 tab PO DAILY 11/25/17 02/07/18 History venlafaxine 75 mg PO QPM 11/25/17 04/19/18 History zolpidem 5 - 10 mg PO BEDTIME PRN 11/25/17 02/07/18 History lisinopril 20 mg PO QPM #30 tab 11/26/17 02/07/18 Rx multivitamin [Multiple Vitamins] 1 tab PO DAILY 12/06/17 02/07/18 History hydrocodone-acetaminophen 1 tab PO Q12H PRN #60 tab 03/22/18 Rx letrozole 2.5 mg PO DAILY 30 Days #30 tab 03/22/18 Rx cholecalciferol (vitamin D3) 2,000 unit PO DAILY 90 Days #90 cap 04/19/18 Rx letrozole 2.5 mg PO DAILY 90 Days #90 tab 04/19/18 Rx lisinopril 20 mg PO DAILY 90 Days #90 tab 04/19/18 Rx Allergies Allergy/AdvReac Type Severity Reaction Status Date / Time meperidine Allergy Unknown Verified 11/25/17 18:09 Sulfa (Sulfonamide Allergy Unknown Verified 11/25/17 18:09 Antibiotics) Exam - Constitutional positive no acute distress, positive average body habitus Comments: She is in a wheelchair. - Routine HEENT Exam Head: Present: normocephalic, atraumatic Eye: Present: EOMI, PERRL. Absent: conjunctival icterus, scleral injection ENT: Present: mucous membranes moist, oropharynx clear - Routine Neck Exam Present: supple. Absent: lymphadenopathy, thyromegaly - Routine Chest/Breast/Axilla Exam Chest wall exam standard: Absent: tenderness - Routine Respiratory Exam Present: Clear to auscultation bilaterally. Absent: rales, wheezes - Routine Cardiovascular Exam Present: RRR, S1, S2, murmur Comments: She has a 2/6 systolic murmur. - Routine Abdominal Exam Present: soft, normoactive bowel sounds. Absent: tenderness, organomegaly, mass - Routine Extremities Exam Absent: cyanosis, clubbing, edema - Routine Back/Spine Exam Back/Spine: Absent: paraspinal tenderness, vertebral tenderness - Routine Skin Exam Present: intact. Absent: petechiae, rash - Routine Neurological Exam Present: alert, oriented X3 - Routine Psychiatric Exam Present: normal affect, normal thought process Results - Labs Laboratory Last Values WBC 6.4 X10^3/uL (4.5-11.0) 05/17/18 11:15 RBC 3.27 X10^6/uL (4.0-5.2) L 05/17/18 11:15 Hgb 10.7 g/dL (12.0-16.0) L 05/17/18 11:15 Hct 32.3 % (36-46) L 05/17/18 11:15 MCV 98.8 fL (80-100) D 05/17/18 11:15 MCH 32.7 PG (26-34) 05/17/18 11:15 MCHC 33.1 % (30-36) 05/17/18 11:15 RDW 20.0 % (11.6-14.8) H 05/17/18 11:15 Plt Count 193 X10^3/uL (150-400) 05/17/18 11:15 Neut % (Auto) 58.5 % (50-75) 05/17/18 11:15 Lymph % (Auto) 26.8 % (25-40) 05/17/18 11:15 Andrew % (Auto) 12.3 % (3-14) 05/17/18 11:15 Eos % (Auto) 1.4 % (2-4) L 05/17/18 11:15 Baso % (Auto) 1.0 % (0-2) 05/17/18 11:15 Neut # (Auto) 3700 /uL (1287-1091) 05/17/18 11:15 Total Counted 100 01/20/18 11:02 Seg Neutrophils % 73.0 % (38-70) H 01/20/18 11:02 Lymphocytes % (Manual) 23.0 % (25-45) L 01/20/18 11:02 Monocytes % (Manual) 4.0 % (2-11) 01/20/18 11:02 Neutrophils # (Manual) 7446 /uL (9312-2032) H 01/20/18 11:02 Nucleated RBCs 1 #/Diff (-0) H 01/05/18 14:22 Hypersegmented Neuts Cancelled 01/31/18 11:53 Hypogranular Neuts Cancelled 01/31/18 11:53 Reactive Lymphocytes Cancelled 01/31/18 11:53 Smudge Cells 1+ H 01/20/18 11:02 Other Cell Type Cancelled 01/31/18 11:53 Toxic Granulation Cancelled 01/31/18 11:53 Toxic Vacuolation Cancelled 01/31/18 11:53 Dohle Bodies Cancelled 01/31/18 11:53 Keyonna Rods Cancelled 01/31/18 11:53 WBC Morphology Comment Cancelled 01/31/18 11:53 Platelet Estimate Cancelled 01/31/18 11:53 Clumped Platelets Cancelled 01/31/18 11:53 Plt Morphology Comment Cancelled 01/31/18 11:53 RBC Morphology Not Reportable 05/09/18 11:16 Dimorphic RBCs Cancelled 01/31/18 11:53 Polychromasia 1+ H 05/09/18 11:16 Hypochromasia 1+ H 05/09/18 11:16 Poikilocytosis 1+ H 05/02/18 11:21 Basophilic Stippling Cancelled 01/31/18 11:53 Anisocytosis 3+ H 05/09/18 11:16 Microcytosis Cancelled 01/31/18 11:53 Macrocytosis 1+ H 04/17/18 10:29 Spherocytes Cancelled 01/31/18 11:53 Pappenheimer Bodies Cancelled 01/31/18 11:53 Sickle Cells Cancelled 01/31/18 11:53 Target Cells Cancelled 01/31/18 11:53 Tear Drop Cells Cancelled 01/31/18 11:53 Ovalocytes Cancelled 01/31/18 11:53 Stomatocytes Cancelled 01/31/18 11:53 Helmet Cells Cancelled 01/31/18 11:53 [place] Bodies Cancelled 01/31/18 11:53 [place] Rings Cancelled 01/31/18 11:53 [place] Cells Cancelled 01/31/18 11:53 Acanthocytes (Spur) Cancelled 01/31/18 11:53 Rouleaux 1+ H 04/25/18 11:02 Schistocytes Cancelled 01/31/18 11:53 Smear Path Review 01/25/18 11:30 ESR 66 MM/HR (0-20) H 01/05/18 14:22 Percent Retic 3.4 % (1.06-2.63) H 01/25/18 11:30 Haptoglobin 251 mg/dL (43-212) H 01/05/18 14:22 Sodium 137 mmol/L (137-145) 05/09/18 11:20 Potassium 4.5 mmol/L (3.4-5.1) 05/09/18 11:20 Chloride 106 mmol/L (98-107) 05/09/18 11:20 Carbon Dioxide 20 mmol/L (22-32) L 05/09/18 11:20 BUN 25 mg/dL (7-17) H 05/09/18 11:20 Creatinine 0.70 mg/dL (0.52-1.04) 05/09/18 11:20 Estimated GFR > 60.0 mL/min (>60) 05/09/18 11:20 BUN/Creatinine Ratio 35.7 (6-22) H 05/09/18 11:20 Glucose 108 mg/dL (80-110) 05/09/18 11:20 Calcium 8.2 mg/dL (8.4-10.2) L 05/09/18 11:20 Iron 42 ug/dL (37-170) 12/30/17 14:54 TIBC 247 ug/dL (265-497) L 12/30/17 14:54 % Saturation 17 % (15-50) 12/30/17 14:54 Transferrin 177 mg/dL (206-381) L 12/30/17 14:54 Ferritin 745.0 ng/mL (11.1-264) H 12/30/17 14:54 Total Bilirubin 0.5 mg/dL (0.2-1.3) 05/09/18 11:20 AST 22 IU/L (14-36) 05/09/18 11:20 ALT 19 IU/L (9-52) 05/09/18 11:20 Alkaline Phosphatase 97 U/L (38-126) 05/09/18 11:20 Lactate Dehydrogenase 344 U/L (313-618) 01/25/18 11:30 Total Protein 8.1 g/dL (6.3-8.2) 05/09/18 11:20 Albumin 4.0 g/dL (3.5-5.0) 05/09/18 11:20 Globulin 4.1 g/dL (1.7-4.1) 05/09/18 11:20 Albumin/Globulin Ratio 1.0 (1.0-2.8) 05/09/18 11:20 Prealbumin 17.8 mg/dL (17.6-36.0) 01/25/18 11:30 Triglycerides 100 mg/dL (35-150) 05/09/18 11:20 Cholesterol 125 mg/dL (140-199) L 05/09/18 11:20 LDL Cholesterol, Calc 67 mg/dL (<100) 05/09/18 11:20 HDL Cholesterol 38 mg/dL (40-60) L 05/09/18 11:20 Carcinoembryonic Ag 4.9 ng/mL (0.1-3.0) H 01/05/18 14:22 Breast Carcino Assoc Ag 33 U/mL (< 32) H 04/17/18 10:29 Vitamin B12 964 pg/mL (239-931) H 01/20/18 11:02 Folate > 20.0 ng/mL (2.76-20.0) H 01/20/18 11:02 TSH 1.22 uIU/mL (0.47-4.68) 05/09/18 11:20 Rheumatoid Factor 19 01/25/18 11:30 LEYDA Screen Negative 01/25/18 11:30 SS-A Antibody <1.0 neg 01/25/18 11:30 SS-B Antibody <1.0 neg 01/25/18 11:30 SM/ASSISTANT LIBRARIAN Antibody <1.0 neg 01/25/18 11:30 Scl-70 Scleroderma Ab <1.0 neg 01/25/18 11:30 Anti-ds DNA (Crithidia) <1.0 neg 01/25/18 11:30 Anti-Smooth Muscle Ab <1.0 neg 01/25/18 11:30 Blood Type A Negative 05/09/18 11:16 Antibody Screen Positive 05/09/18 11:16 Antibody Identification Anti-K 05/09/18 11:16 Antigen Identification Cancelled 12/30/17 16:45 Direct Antiglob Test Negative 01/25/18 11:30 Crossmatch See Detail 05/09/18 11:16 Assessment and Plan (1) Anemia Problem details: An 82-year-old woman with 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 She continues to require transfusions. She still requiring the monthly. Hopefully, as her cancer response, her transfusion requirement will diminish. She will continue with Xgeva monthly. She will return to clinic in 1 month for follow-up. We did discuss the possibility of adding ibrance to her regimen. However, the most common side effect is anemia. If her counts improve, we may consider adding it in the future. Current visit: Yes Status: Acute (2) Breast cancer metastasized to bone Current visit: Yes Status: Acute She does have metastatic breast cancer. She has been on letrozole for about 2 month. She has not yet had any improvement in her transfusion requirement. CT scan and bone scan did not show any obvious measurable or evaluable disease. I think will only be able to follow her disease progress by her red cell count and possibly her CA 15 3. She seems to be tolerating hormone therapy well and will continue. We could perhaps consider adding ibrance to her regimen in the future if her counts improve.
--- NOTE | 2018-05-17 11:50 | PC.NURSE ---
Calcium level 8.1 today, discussed results with Dr. Ramos with regards to order for denosumab [address] Correia wants to continue with denosumab 120 mg today and instruct patient to take OTC Calcium three times daily. Amy Barrow RP
[2018-05-17] MEDS: DENOSUMAB 120 MG/1.7 ML VIAL SUBCUT (11:56)
--- NOTE | 2018-05-17 12:17 | PC.NURSE ---
After seeing , Teressa received Xgeva injection. Insturceted by pharmacist to take calcium 500 or 600 mg 3x a day. D/C per w/c .RTC in1 week.
[2018-05-19 15:54] LABS: CA 15-3 30 U/mL (< 32)
--- NOTE | 2018-05-22 10:50 | ONC.SCHED ---
PATIENT STATED THAT SHE ALWAYS NEEDS A 11:00 APT. FOR HER WEEKLY LABS
[2018-05-23 11:16] LABS: Add Manual Diff / Slide Review NO; Basophils Percent Auto 1.2 % (0-2); Eosinophils Percent Auto 3.6 % (2-4); Hematocrit 30.8 % (36-46); Hemoglobin 10.4 g/dL (12.0-16.0); Lymphocytes Percent Auto 32.6 % (25-40); Mean Corpuscular HGB Conc 33.7 % (30-36); Mean Corpuscular Hemoglobin 33.3 PG (26-34); Neutrophils Absolute Auto 3100 /uL (3000-5900); Neutrophils Percent Auto 52.6 % (50-75); Platelet Count 247 X10^3/uL (150-400); Red Blood Cell Count 3.11 X10^6/uL (4.0-5.2); Red Cell Distribution Width 19.5 % (11.6-14.8); White Blood Cell Count 5.8 X10^3/uL (4.5-11.0)
[2018-05-30 11:40] LABS: Add Manual Diff / Slide Review NO; Eosinophils Percent Auto 3.6 % (2-4); Hematocrit 29.5 % (36-46); Hemoglobin 9.7 g/dL (12.0-16.0); Lymphocytes Percent Auto 30.7 % (25-40); Mean Corpuscular HGB Conc 32.8 % (30-36); Mean Corpuscular Volume 100.8 fL (80-100); Monocytes Percent Auto 14.5 % (3-14); Neutrophils Absolute Auto 3200 /uL (3000-5900); Neutrophils Percent Auto 50.2 % (50-75); Platelet Count 270 X10^3/uL (150-400); Red Blood Cell Count 2.93 X10^6/uL (4.0-5.2); Red Cell Distribution Width 18.8 % (11.6-14.8); White Blood Cell Count 6.3 X10^3/uL (4.5-11.0)
[2018-06-06 11:04] LABS: Add Manual Diff / Slide Review NO; Basophils Percent Auto 0.8 % (0-2); Eosinophils Percent Auto 3.3 % (2-4); Hematocrit 29.8 % (36-46); Mean Corpuscular HGB Conc 33.6 % (30-36); Mean Corpuscular Hemoglobin 33.6 PG (26-34); Mean Corpuscular Volume 99.8 fL (80-100); Monocytes Percent Auto 12.5 % (3-14); Neutrophils Absolute Auto 3000 /uL (3000-5900); Neutrophils Percent Auto 49.4 % (50-75); Platelet Count 257 X10^3/uL (150-400); Red Blood Cell Count 2.98 X10^6/uL (4.0-5.2); Red Cell Distribution Width 17.2 % (11.6-14.8)
[2018-06-06 11:17] LABS: Alanine Aminotransferase 15 IU/L (9-52); Albumin 4.2 g/dL (3.5-5.0); Alkaline Phosphatase 75 U/L (38-126); Aspartate Aminotransferase 19 IU/L (14-36); Bilirubin Total 0.5 mg/dL (0.2-1.3); Blood Urea Nitrogen 21 mg/dL (7-17); Calcium 8.7 mg/dL (8.4-10.2); Carbon Dioxide 23 mmol/L (22-32); Chloride 104 mmol/L (98-107); Estimated Glomerular Filt Rate > 60.0 mL/min (>60); Globulin 4.2 g/dL (1.7-4.1); Glucose 93 mg/dL (80-110); HEMOLYSIS < 15 (0-50); Potassium 4.4 mmol/L (3.4-5.1); Sodium 138 mmol/L (137-145); Total Protein 8.4 g/dL (6.3-8.2)
[2018-06-07 16:18] LABS: CA 15-3 42 U/mL (< 32)
[2018-06-13 14:00] VITALS: BP 157/65; PULSE 75; RESP 18; TEMP 36.9; O2SAT 99
--- NOTE | 2018-06-13 14:24 | ONC.PN ---
PN -Subjective Interval history: Diagnosis: Metastatic breast cancer Previous treatment: 1. Lumpectomy with sentinel node biopsy in 1999 followed by adjuvant chemotherapy and radiation. She had tamoxifen for 5 years. 2. Metastatic disease identified on a bone marrow biopsy done because of anemia in February 2018. She has been on letrozole since February 2018. INTERVAL HISTORY: The patient is an 82-year-old woman who returns today for follow-up of metastatic breast cancer. She was seen initially because of anemia. No obvious etiology was found but she was requiring transfusions. A bone marrow biopsy was performed that showed ER positive metastatic breast cancer. She started letrozole in February. Since her last visit, she has been feeling a little bit stronger. She still has some dyspnea on exertion but it seems to be less than previously. She is able to walk around her house without too much difficulty but is not leaving the house very frequently. She denies any new aches or pains. Her appetite has been stable. No nausea or vomiting. She has not noted any hot flashes. No muscle aches or joint pains. No fevers chills or sweats. She denies any unusual bleeding or bruising. She has not required a transfusion in about a month now. She denies any other changes in her health. - Patient Self-Reported Symptoms SR Constitution: Weight loss/gain, Fatigue/Malaise SR Musculoskeletal issues: Joint pain or swelling, Muscle weakness, Muscle pain or cramps, Bone pain SR Neuro issues: Difficulty balancing SR Hematologic issues: Bleeding/bruising Home Medications and Allergies Home Medications Medication Instructions Recorded Confirmed Type albuterol sulfate 2 puff INHALATION Q4H PRN 11/25/17 06/13/18 History bimatoprost 1 drp OPHTHALMIC (EYE) QPM PRN 11/25/17 06/13/18 History brimonidine-timolol [Combigan] 1 drp OPHTHALMIC (EYE) BID 11/25/17 06/13/18 History cholecalciferol (vitamin D3) 2 cap PO DAILY 11/25/17 06/13/18 History fluticasone [Flovent HFA] 3 puff INHALATION BID PRN 11/25/17 06/13/18 History levothyroxine 1 tab PO DAILY 11/25/17 06/13/18 History venlafaxine 75 mg PO QPM 11/25/17 06/13/18 History zolpidem 5 - 10 mg PO BEDTIME PRN 11/25/17 06/13/18 History lisinopril 20 mg PO QPM #30 tab 11/26/17 06/13/18 Rx multivitamin [Multiple Vitamins] 1 tab PO DAILY 12/06/17 06/13/18 History hydrocodone-acetaminophen 1 tab PO Q12H PRN #60 tab 03/22/18 06/13/18 Rx letrozole 2.5 mg PO DAILY 30 Days #30 tab 03/22/18 06/13/18 Rx cholecalciferol (vitamin D3) 2,000 unit PO DAILY 90 Days #90 cap 04/19/18 06/13/18 Rx letrozole 2.5 mg PO DAILY 90 Days #90 tab 04/19/18 06/13/18 Rx lisinopril 20 mg PO DAILY 90 Days #90 tab 04/19/18 06/13/18 Rx Allergies Allergy/AdvReac Type Severity Reaction Status Date / Time meperidine Allergy Unknown Verified 11/25/17 18:09 Sulfa (Sulfonamide Allergy Unknown Verified 11/25/17 18:09 Antibiotics) Exam - Constitutional positive no acute distress, positive thin, positive chronically ill appearing Comments: She is in a wheelchair. - Routine HEENT Exam Head: Present: normocephalic, atraumatic Eye: Present: EOMI, PERRL. Absent: conjunctival icterus, scleral injection ENT: Present: mucous membranes moist, oropharynx clear - Routine Neck Exam Present: supple. Absent: lymphadenopathy, thyromegaly - Routine Respiratory Exam Present: Clear to auscultation bilaterally. Absent: rales, wheezes - Routine Cardiovascular Exam Present: RRR, S1, S2. Absent: murmur - Routine Abdominal Exam Present: soft, normoactive bowel sounds. Absent: tenderness, organomegaly, mass - Routine Extremities Exam Absent: cyanosis, clubbing, edema - Routine Back/Spine Exam Back/Spine: Absent: paraspinal tenderness, vertebral tenderness - Routine Skin Exam Present: intact. Absent: petechiae, rash - Routine Neurological Exam Present: alert, oriented X3 - Routine Psychiatric Exam Present: normal affect, normal thought process Results - Labs Laboratory Last Values WBC 6.0 X10^3/uL (4.5-11.0) 06/06/18 10:48 RBC 2.98 X10^6/uL (4.0-5.2) L 06/06/18 10:48 Hgb 10.0 g/dL (12.0-16.0) L 06/06/18 10:48 Hct 29.8 % (36-46) L 06/06/18 10:48 MCV 99.8 fL (80-100) 06/06/18 10:48 MCH 33.6 PG (26-34) 06/06/18 10:48 MCHC 33.6 % (30-36) 06/06/18 10:48 RDW 17.2 % (11.6-14.8) H 06/06/18 10:48 Plt Count 257 X10^3/uL (150-400) 06/06/18 10:48 Neut % (Auto) 49.4 % (50-75) L 06/06/18 10:48 Lymph % (Auto) 34.0 % (25-40) 06/06/18 10:48 [place] % (Auto) 12.5 % (3-14) 06/06/18 10:48 Eos % (Auto) 3.3 % (2-4) 06/06/18 10:48 Baso % (Auto) 0.8 % (0-2) 06/06/18 10:48 Neut # (Auto) 3000 /uL (7432-4643) 06/06/18 10:48 Total Counted 100 01/20/18 11:02 Seg Neutrophils % 73.0 % (38-70) H 01/20/18 11:02 Lymphocytes % (Manual) 23.0 % (25-45) L 01/20/18 11:02 Monocytes % (Manual) 4.0 % (2-11) 01/20/18 11:02 Neutrophils # (Manual) 7446 /uL (7879-5573) H 01/20/18 11:02 Nucleated RBCs 1 #/Diff (-0) H 01/05/18 14:22 Hypersegmented Neuts Cancelled 01/31/18 11:53 Hypogranular Neuts Cancelled 01/31/18 11:53 Reactive Lymphocytes Cancelled 01/31/18 11:53 Smudge Cells 1+ H 01/20/18 11:02 Other Cell Type Cancelled 01/31/18 11:53 Toxic Granulation Cancelled 01/31/18 11:53 Toxic Vacuolation Cancelled 01/31/18 11:53 Dohle Bodies Cancelled 01/31/18 11:53 Keyonna Rods Cancelled 01/31/18 11:53 WBC Morphology Comment Cancelled 01/31/18 11:53 Platelet Estimate Cancelled 01/31/18 11:53 Clumped Platelets Cancelled 01/31/18 11:53 Plt Morphology Comment Cancelled 01/31/18 11:53 RBC Morphology Not Reportable 05/09/18 11:16 Dimorphic RBCs Cancelled 01/31/18 11:53 Polychromasia 1+ H 05/09/18 11:16 Hypochromasia 1+ H 05/09/18 11:16 Poikilocytosis 1+ H 05/02/18 11:21 Basophilic Stippling Cancelled 01/31/18 11:53 Anisocytosis 3+ H 05/09/18 11:16 Microcytosis Cancelled 01/31/18 11:53 Macrocytosis 1+ H 04/17/18 10:29 Spherocytes Cancelled 01/31/18 11:53 Pappenheimer Bodies Cancelled 01/31/18 11:53 Sickle Cells Cancelled 01/31/18 11:53 Target Cells Cancelled 01/31/18 11:53 Tear Drop Cells Cancelled 01/31/18 11:53 Ovalocytes Cancelled 01/31/18 11:53 Stomatocytes Cancelled 01/31/18 11:53 Helmet Cells Cancelled 01/31/18 11:53 [place] Bodies Cancelled 01/31/18 11:53 [place] Rings Cancelled 01/31/18 11:53 [place] Cells Cancelled 01/31/18 11:53 Acanthocytes (Spur) Cancelled 01/31/18 11:53 Rouleaux 1+ H 04/25/18 11:02 Schistocytes Cancelled 01/31/18 11:53 Smear Path Review 01/25/18 11:30 ESR 66 MM/HR (0-20) H 01/05/18 14:22 Percent Retic 3.4 % (1.06-2.63) H 01/25/18 11:30 Haptoglobin 251 mg/dL (43-212) H 01/05/18 14:22 Sodium 138 mmol/L (137-145) 06/06/18 10:48 Potassium 4.4 mmol/L (3.4-5.1) 06/06/18 10:48 Chloride 104 mmol/L (98-107) 06/06/18 10:48 Carbon Dioxide 23 mmol/L (22-32) 06/06/18 10:48 BUN 21 mg/dL (7-17) H 06/06/18 10:48 Creatinine 0.60 mg/dL (0.52-1.04) 06/06/18 10:48 Estimated GFR > 60.0 mL/min (>60) 06/06/18 10:48 BUN/Creatinine Ratio 35.0 (6-22) H 06/06/18 10:48 Glucose 93 mg/dL (80-110) 06/06/18 10:48 Calcium 8.7 mg/dL (8.4-10.2) 06/06/18 10:48 Iron 42 ug/dL (37-170) 12/30/17 14:54 TIBC 247 ug/dL (265-497) L 12/30/17 14:54 % Saturation 17 % (15-50) 12/30/17 14:54 Transferrin 177 mg/dL (206-381) L 12/30/17 14:54 Ferritin 745.0 ng/mL (11.1-264) H 12/30/17 14:54 Total Bilirubin 0.5 mg/dL (0.2-1.3) 06/06/18 10:48 AST 19 IU/L (14-36) 06/06/18 10:48 ALT 15 IU/L (9-52) 06/06/18 10:48 Alkaline Phosphatase 75 U/L (38-126) 06/06/18 10:48 Lactate Dehydrogenase 344 U/L (313-618) 01/25/18 11:30 Total Protein 8.4 g/dL (6.3-8.2) H 06/06/18 10:48 Albumin 4.2 g/dL (3.5-5.0) 06/06/18 10:48 Globulin 4.2 g/dL (1.7-4.1) H 06/06/18 10:48 Albumin/Globulin Ratio 1.0 (1.0-2.8) 06/06/18 10:48 Prealbumin 17.8 mg/dL (17.6-36.0) 01/25/18 11:30 Triglycerides 100 mg/dL (35-150) 05/09/18 11:20 Cholesterol 125 mg/dL (140-199) L 05/09/18 11:20 LDL Cholesterol, Calc 67 mg/dL (<100) 05/09/18 11:20 HDL Cholesterol 38 mg/dL (40-60) L 05/09/18 11:20 Carcinoembryonic Ag 4.9 ng/mL (0.1-3.0) H 01/05/18 14:22 Breast [employer] Ag 42 U/mL (< 32) H 06/06/18 10:48 Vitamin B12 964 pg/mL (239-931) H 01/20/18 11:02 Folate > 20.0 ng/mL (2.76-20.0) H 01/20/18 11:02 TSH 1.22 uIU/mL (0.47-4.68) 05/09/18 11:20 Rheumatoid Factor 19 01/25/18 11:30 LEYDA Screen Negative 01/25/18 11:30 SS-A Antibody <1.0 neg 01/25/18 11:30 SS-B Antibody <1.0 neg 01/25/18 11:30 SM/LINOTYPIST Antibody <1.0 neg 01/25/18 11:30 Scl-70 Scleroderma Ab <1.0 neg 01/25/18 11:30 Anti-ds DNA (Crithidia) <1.0 neg 01/25/18 11:30 Anti-Smooth Muscle Ab <1.0 neg 01/25/18 11:30 Blood Type A Negative 05/09/18 11:16 Antibody Screen Positive 05/09/18 11:16 Antibody Identification Anti-K 05/09/18 11:16 Antigen Identification Cancelled 12/30/17 16:45 Direct Antiglob Test Negative 01/25/18 11:30 Crossmatch See Detail 05/09/18 11:16 Assessment and Plan (1) Anemia Problem details: An 82-year-old woman with 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 Her seems to have improved. Her hemoglobin has been holding steady over the last month and is currently near 10. Her CA 15 3 is up very slightly. Overall though, it appears as though she is clinically improving with improvement in her blood counts and her feeling of well being. She will continue with her current regimen for now and return to clinic in 1 month for follow-up. She is due for Xgeva injection today. If her blood counts continue to improve, I think we may be able to add ibrance to her regimen after the 1st of the year. Current visit: Yes Status: Acute (2) Breast cancer metastasized to bone Current visit: Yes Status: Acute She does have metastatic breast cancer. She has been on letrozole for about 2 month. She has not yet had any improvement in her transfusion requirement. CT scan and bone scan did not show any obvious measurable or evaluable disease. I think will only be able to follow her disease progress by her red cell count and possibly her CA 15 3. She seems to be tolerating hormone therapy well and will continue. We could perhaps consider adding ibrance to her regimen in the future if her counts improve.
[2018-06-13] MEDS: DENOSUMAB 120 MG/1.7 ML VIAL SUBCUT (14:56)
[2018-07-11 10:38] LABS: Add Manual Diff / Slide Review NO; Basophils Absolute Auto 100 /uL (0-100); Basophils Percent Auto 1.2 % (0-2); Eosinophils Absolute Auto 400 /uL (0-450); Eosinophils Percent Auto 5.4 % (2-4); Hemoglobin 11.4 g/dL (12.0-16.0); Lymphocytes Absolute Auto 2100 /uL (1100-4500); Lymphocytes Percent Auto 30.6 % (25-40); Mean Corpuscular HGB Conc 32.7 % (30-36); Mean Corpuscular Hemoglobin 32.3 PG (26-34); Monocytes Absolute Auto 800 /uL (0-900); Neutrophils Absolute Auto 3600 /uL (1500-7000); Neutrophils Percent Auto 51.8 % (50-75); Platelet Count 308 X10^3/uL (150-400); Red Blood Cell Count 3.54 X10^6/uL (4.0-5.2); Red Cell Distribution Width 15.1 % (11.6-14.8)
[2018-07-11 10:42] VITALS: BP 153/64; PULSE 76; RESP 16; TEMP 37.3; O2SAT 99
--- NOTE | 2018-07-11 10:56 | ONC.PN ---
PN -Subjective Interval history: Diagnosis: Metastatic breast cancer Previous treatment: 1. Lumpectomy with sentinel node biopsy in 1999 followed by adjuvant chemotherapy and radiation. She had tamoxifen for 5 years. 2. Metastatic disease identified on a bone marrow biopsy done because of anemia in February 2018. She has been on letrozole since February 2018. INTERVAL HISTORY: The patient is an 82-year-old woman who returns today for follow-up of metastatic breast cancer. She was seen initially because of anemia. No obvious etiology was found but she was requiring transfusions. A bone marrow biopsy was performed that showed ER positive metastatic breast cancer. She started letrozole in February. Since her last visit here, she has been feeling about the same. She still has some weakness as well as some dizziness when standing. Overall she feels like her strength is stable. Her appetite has been good. She denies any nausea or vomiting. Bowels have been moving normally. She denies any new aches or pains. No fevers chills or sweats. She has been tolerating the letrozole without any hot flashes. She denies any new musculoskeletal aches or pains. She denies any unusual bleeding or bruising. She has not required a transfusion now for about 2 months. She denies any other changes in her health. - Patient Self-Reported Symptoms SR Constitution: Weight loss/gain, Fatigue/Malaise SR Musculoskeletal issues: Joint pain or swelling, Muscle weakness, Muscle pain or cramps, Bone pain SR Neuro issues: Difficulty balancing SR Hematologic issues: Bleeding/bruising Home Medications and Allergies Home Medications Medication Instructions Recorded Confirmed Type albuterol sulfate 2 puff INHALATION Q4H PRN 11/25/17 06/13/18 History bimatoprost 1 drp OPHTHALMIC (EYE) QPM PRN 11/25/17 06/13/18 History brimonidine-timolol [Combigan] 1 drp OPHTHALMIC (EYE) BID 11/25/17 06/13/18 History cholecalciferol (vitamin D3) 2 cap PO DAILY 11/25/17 06/13/18 History fluticasone [Flovent HFA] 3 puff INHALATION BID PRN 11/25/17 06/13/18 History levothyroxine 1 tab PO DAILY 11/25/17 06/13/18 History venlafaxine 75 mg PO QPM 11/25/17 06/13/18 History zolpidem 5 - 10 mg PO BEDTIME PRN 11/25/17 06/13/18 History lisinopril 20 mg PO QPM #30 tab 11/26/17 06/13/18 Rx multivitamin [Multiple Vitamins] 1 tab PO DAILY 12/06/17 06/13/18 History hydrocodone-acetaminophen 1 tab PO Q12H PRN #60 tab 03/22/18 06/13/18 Rx letrozole 2.5 mg PO DAILY 30 Days #30 tab 03/22/18 06/13/18 Rx cholecalciferol (vitamin D3) 2,000 unit PO DAILY 90 Days #90 cap 04/19/18 06/13/18 Rx letrozole 2.5 mg PO DAILY 90 Days #90 tab 04/19/18 06/13/18 Rx lisinopril 20 mg PO DAILY 90 Days #90 tab 04/19/18 06/13/18 Rx Allergies Allergy/AdvReac Type Severity Reaction Status Date / Time meperidine Allergy Unknown Verified 11/25/17 18:09 Sulfa (Sulfonamide Allergy Unknown Verified 11/25/17 18:09 Antibiotics) Exam - Constitutional positive no acute distress, positive average body habitus Comments: She is in a wheelchair. - Routine HEENT Exam Head: Present: normocephalic, atraumatic Eye: Present: EOMI, PERRL. Absent: conjunctival icterus, scleral injection ENT: Present: mucous membranes moist, oropharynx clear - Routine Neck Exam Present: supple. Absent: lymphadenopathy, thyromegaly - Routine Respiratory Exam Present: Clear to auscultation bilaterally. Absent: rales, wheezes - Routine Cardiovascular Exam Present: RRR, S1, S2. Absent: murmur - Routine Abdominal Exam Present: soft, normoactive bowel sounds. Absent: tenderness, organomegaly, mass - Routine Extremities Exam Absent: cyanosis, clubbing, edema - Routine Back/Spine Exam Back/Spine: Absent: paraspinal tenderness, vertebral tenderness - Routine Skin Exam Present: intact. Absent: petechiae, rash - Routine Neurological Exam Present: alert, oriented X3 - Routine Psychiatric Exam Present: normal affect, normal thought process Results - Labs Laboratory Last Values WBC 7.0 X10^3/uL (4.5-11.0) 07/11/18 10:10 RBC 3.54 X10^6/uL (4.0-5.2) L 07/11/18 10:10 Hgb 11.4 g/dL (12.0-16.0) L 07/11/18 10:10 Hct 35.0 % (36-46) L 07/11/18 10:10 MCV 99.0 fL (80-100) 07/11/18 10:10 MCH 32.3 PG (26-34) 07/11/18 10:10 MCHC 32.7 % (30-36) 07/11/18 10:10 RDW 15.1 % (11.6-14.8) H 07/11/18 10:10 Plt Count 308 X10^3/uL (150-400) 07/11/18 10:10 Neut % (Auto) 51.8 % (50-75) 07/11/18 10:10 Lymph % (Auto) 30.6 % (25-40) 07/11/18 10:10 [place] % (Auto) 11.0 % (3-14) 07/11/18 10:10 Eos % (Auto) 5.4 % (2-4) H 07/11/18 10:10 Baso % (Auto) 1.2 % (0-2) 07/11/18 10:10 Neut # (Auto) 3600 /uL (5344-8799) 07/11/18 10:10 Lymph # (Auto) 2100 /uL (7628-6655) 07/11/18 10:10 [place] # (Auto) 800 /uL (0-900) 07/11/18 10:10 Eos # (Auto) 400 /uL (0-450) 07/11/18 10:10 Baso # (Auto) 100 /uL (0-100) 07/11/18 10:10 Total Counted 100 01/20/18 11:02 Seg Neutrophils % 73.0 % (38-70) H 01/20/18 11:02 Lymphocytes % (Manual) 23.0 % (25-45) L 01/20/18 11:02 Monocytes % (Manual) 4.0 % (2-11) 01/20/18 11:02 Neutrophils # (Manual) 7446 /uL (3565-5055) H 01/20/18 11:02 Nucleated RBCs 1 #/Diff (-0) H 01/05/18 14:22 Hypersegmented Neuts Cancelled 01/31/18 11:53 Hypogranular Neuts Cancelled 01/31/18 11:53 Reactive Lymphocytes Cancelled 01/31/18 11:53 Smudge Cells 1+ H 01/20/18 11:02 Other Cell Type Cancelled 01/31/18 11:53 Toxic Granulation Cancelled 01/31/18 11:53 Toxic Vacuolation Cancelled 01/31/18 11:53 Dohle Bodies Cancelled 01/31/18 11:53 Keyonna Rods Cancelled 01/31/18 11:53 WBC Morphology Comment Cancelled 01/31/18 11:53 Platelet Estimate Cancelled 01/31/18 11:53 Clumped Platelets Cancelled 01/31/18 11:53 Plt Morphology Comment Cancelled 01/31/18 11:53 RBC Morphology Not Reportable 05/09/18 11:16 Dimorphic RBCs Cancelled 01/31/18 11:53 Polychromasia 1+ H 05/09/18 11:16 Hypochromasia 1+ H 05/09/18 11:16 Poikilocytosis 1+ H 05/02/18 11:21 Basophilic Stippling Cancelled 01/31/18 11:53 Anisocytosis 3+ H 05/09/18 11:16 Microcytosis Cancelled 01/31/18 11:53 Macrocytosis 1+ H 04/17/18 10:29 Spherocytes Cancelled 01/31/18 11:53 Pappenheimer Bodies Cancelled 01/31/18 11:53 Sickle Cells Cancelled 01/31/18 11:53 Target Cells Cancelled 01/31/18 11:53 Tear Drop Cells Cancelled 01/31/18 11:53 Ovalocytes Cancelled 01/31/18 11:53 Stomatocytes Cancelled 01/31/18 11:53 Helmet Cells Cancelled 01/31/18 11:53 [place] Bodies Cancelled 01/31/18 11:53 [place] Rings Cancelled 01/31/18 11:53 [place] Cells Cancelled 01/31/18 11:53 Acanthocytes (Spur) Cancelled 01/31/18 11:53 Rouleaux 1+ H 04/25/18 11:02 Schistocytes Cancelled 01/31/18 11:53 Smear Path Review 01/25/18 11:30 ESR 66 MM/HR (0-20) H 01/05/18 14:22 Percent Retic 3.4 % (1.06-2.63) H 01/25/18 11:30 Haptoglobin 251 mg/dL (43-212) H 01/05/18 14:22 Sodium 138 mmol/L (137-145) 06/06/18 10:48 Potassium 4.4 mmol/L (3.4-5.1) 06/06/18 10:48 Chloride 104 mmol/L (98-107) 06/06/18 10:48 Carbon Dioxide 23 mmol/L (22-32) 06/06/18 10:48 BUN 21 mg/dL (7-17) H 06/06/18 10:48 Creatinine 0.60 mg/dL (0.52-1.04) 06/06/18 10:48 Estimated GFR > 60.0 mL/min (>60) 06/06/18 10:48 BUN/Creatinine Ratio 35.0 (6-22) H 06/06/18 10:48 Glucose 93 mg/dL (80-110) 06/06/18 10:48 Calcium 8.7 mg/dL (8.4-10.2) 06/06/18 10:48 Iron 42 ug/dL (37-170) 12/30/17 14:54 TIBC 247 ug/dL (265-497) L 12/30/17 14:54 % Saturation 17 % (15-50) 12/30/17 14:54 Transferrin 177 mg/dL (206-381) L 12/30/17 14:54 Ferritin 745.0 ng/mL (11.1-264) H 12/30/17 14:54 Total Bilirubin 0.5 mg/dL (0.2-1.3) 06/06/18 10:48 AST 19 IU/L (14-36) 06/06/18 10:48 ALT 15 IU/L (9-52) 06/06/18 10:48 Alkaline Phosphatase 75 U/L (38-126) 06/06/18 10:48 Lactate Dehydrogenase 344 U/L (313-618) 01/25/18 11:30 Total Protein 8.4 g/dL (6.3-8.2) H 06/06/18 10:48 Albumin 4.2 g/dL (3.5-5.0) 06/06/18 10:48 Globulin 4.2 g/dL (1.7-4.1) H 06/06/18 10:48 Albumin/Globulin Ratio 1.0 (1.0-2.8) 06/06/18 10:48 Prealbumin 17.8 mg/dL (17.6-36.0) 01/25/18 11:30 Triglycerides 100 mg/dL (35-150) 05/09/18 11:20 Cholesterol 125 mg/dL (140-199) L 05/09/18 11:20 LDL Cholesterol, Calc 67 mg/dL (<100) 05/09/18 11:20 HDL Cholesterol 38 mg/dL (40-60) L 05/09/18 11:20 Carcinoembryonic Ag 4.9 ng/mL (0.1-3.0) H 01/05/18 14:22 Breast [facility] [employer]oc Ag 42 U/mL (< 32) H 06/06/18 10:48 Vitamin B12 964 pg/mL (239-931) H 01/20/18 11:02 Folate > 20.0 ng/mL (2.76-20.0) H 01/20/18 11:02 TSH 1.22 uIU/mL (0.47-4.68) 05/09/18 11:20 Rheumatoid Factor 19 01/25/18 11:30 LEYDA Screen Negative 01/25/18 11:30 SS-A Antibody <1.0 neg 01/25/18 11:30 SS-B Antibody <1.0 neg 01/25/18 11:30 SM/RV TECHNICIAN Antibody <1.0 neg 01/25/18 11:30 Scl-70 Scleroderma Ab <1.0 neg 01/25/18 11:30 Anti-ds DNA (Crithidia) <1.0 neg 01/25/18 11:30 Anti-Smooth Muscle Ab <1.0 neg 01/25/18 11:30 Blood Type A Negative 05/09/18 11:16 Antibody Screen Positive 05/09/18 11:16 Antibody Identification Anti-K 05/09/18 11:16 Antigen Identification Cancelled 12/30/17 16:45 Direct Antiglob Test Negative 01/25/18 11:30 Crossmatch See Detail 05/09/18 11:16 Assessment and Plan (1) Anemia Problem details: An 82-year-old woman with 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 She appears to be responding with improvement in her blood counts and resolution of her need for transfusions. She will continue with her letrozole. She will return to clinic in 1 month for follow-up. We again discussed the possibility of adding ibrance to her regimen. Side effects would include primarily cytopenias. Because she is doing well and appears to be responding, we will continue just with single agent therapy for now. She will return to clinic in 1 month for follow-up. Current visit: Yes Status: Acute
[2018-07-11 10:58] LABS: Alanine Aminotransferase 18 IU/L (9-52); Albumin 4.5 g/dL (3.5-5.0); Alkaline Phosphatase 75 U/L (38-126); Aspartate Aminotransferase 20 IU/L (14-36); BUN Creatinine Ratio 27.1 (6-22); Bilirubin Total 0.5 mg/dL (0.2-1.3); Blood Urea Nitrogen 19 mg/dL (7-17); Calcium 8.9 mg/dL (8.4-10.2); Carbon Dioxide 23 mmol/L (22-32); Chloride 101 mmol/L (98-107); Estimated Glomerular Filt Rate > 60.0 mL/min (>60); Globulin 4.4 g/dL (1.7-4.1); Glucose 119 mg/dL (80-110); HEMOLYSIS < 15 (0-50); Potassium 4.4 mmol/L (3.4-5.1); Sodium 136 mmol/L (137-145); Total Protein 8.9 g/dL (6.3-8.2)
[2018-07-14 19:56] LABS: CA 15-3 31 U/mL (< 32)
[2018-08-03 11:53] LABS: Add Manual Diff / Slide Review NO; Basophils Absolute Auto 100 /uL (0-100); Basophils Percent Auto 1.1 % (0-2); Eosinophils Absolute Auto 500 /uL (0-450); Hematocrit 32.4 % (36-46); Hemoglobin 10.7 g/dL (12.0-16.0); Lymphocytes Absolute Auto 2100 /uL (1100-4500); Lymphocytes Percent Auto 27.9 % (25-40); Mean Corpuscular Hemoglobin 31.8 PG (26-34); Mean Corpuscular Volume 96.4 fL (80-100); Monocytes Absolute Auto 900 /uL (0-900); Monocytes Percent Auto 11.4 % (3-14); Neutrophils Absolute Auto 4100 /uL (1500-7000); Neutrophils Percent Auto 53.6 % (50-75); Platelet Count 329 X10^3/uL (150-400); Red Blood Cell Count 3.36 X10^6/uL (4.0-5.2); Red Cell Distribution Width 14.1 % (11.6-14.8); White Blood Cell Count 7.7 X10^3/uL (4.5-11.0)
[2018-08-03 12:13] LABS: Alanine Aminotransferase 18 IU/L (9-52); Albumin 4.2 g/dL (3.5-5.0); Alkaline Phosphatase 67 U/L (38-126); Aspartate Aminotransferase 21 IU/L (14-36); Bilirubin Total 0.4 mg/dL (0.2-1.3); Blood Urea Nitrogen 31 mg/dL (7-17); Calcium 8.8 mg/dL (8.4-10.2); Carbon Dioxide 23 mmol/L (22-32); Chloride 101 mmol/L (98-107); Estimated Glomerular Filt Rate 53.3 mL/min (>60); Globulin 4.3 g/dL (1.7-4.1); Glucose 92 mg/dL (80-110); HEMOLYSIS < 15 (0-50); Potassium 4.6 mmol/L (3.4-5.1); Sodium 135 mmol/L (137-145); Total Protein 8.5 g/dL (6.3-8.2)
[2018-08-04 14:59] LABS: CA 15-3 22 U/mL (< 32)
--- NOTE | 2018-08-15 09:37 | P.PNONC_ITS ---
PN -Subjective Interval history: Diagnosis: Metastatic breast cancer Previous treatment: 1. Lumpectomy with sentinel node biopsy in 1999 followed by adjuvant chemotherapy and radiation. She had tamoxifen for 5 years. 2. Metastatic disease identified on a bone marrow biopsy done because of anemia in February 2018. She has been on letrozole since February 2018. INTERVAL HISTORY: The patient is an 82-year-old woman who returns today for follow-up of metastatic breast cancer. She was seen initially because of anemia. No obvious etiology was found but she was requiring transfusions. A bone marrow biopsy was performed that showed ER positive metastatic breast cancer. She started letrozole in February. Since her last visit here, she is reporting I am still tired, is there a different medicine I can take? Pt states she has enough energy to do the things she needs to do also wants to do however sometimes I have to force myself. Reports she sleeps well at night, she is not taking naps during the day. No chest pain, shortness of breath. No dizziness or lightheadedness. No cough, fever, chills. No new pain. No new lumps or bumps. No nausea. No unexplained bleeding or bruising. No hot flashes. No change in bowel or bladder habits. - Patient Self-Reported Symptoms SR Constitution: Weight loss/gain, Fatigue/Malaise SR Musculoskeletal issues: Joint pain or swelling, Muscle weakness, Muscle pain or cramps, Bone pain SR Neuro issues: Difficulty balancing SR Hematologic issues: Bleeding/bruising Home Medications and Allergies Home Medications Medication Instructions Recorded Confirmed Type albuterol sulfate 2 puff INHALATION Q4H PRN 11/25/17 06/13/18 History bimatoprost 1 drp OPHTHALMIC (EYE) QPM PRN 11/25/17 06/13/18 History brimonidine-timolol [Combigan] 1 drp OPHTHALMIC (EYE) BID 11/25/17 06/13/18 History cholecalciferol (vitamin D3) 2 cap PO DAILY 11/25/17 06/13/18 History fluticasone [Flovent HFA] 3 puff INHALATION BID PRN 11/25/17 06/13/18 History levothyroxine 1 tab PO DAILY 11/25/17 06/13/18 History venlafaxine 75 mg PO QPM 11/25/17 06/13/18 History zolpidem 5 - 10 mg PO BEDTIME PRN 11/25/17 06/13/18 History lisinopril 20 mg PO QPM #30 tab 11/26/17 06/13/18 Rx multivitamin [Multiple Vitamins] 1 tab PO DAILY 12/06/17 06/13/18 History hydrocodone-acetaminophen 1 tab PO Q12H PRN #60 tab 03/22/18 06/13/18 Rx letrozole 2.5 mg PO DAILY 30 Days #30 tab 03/22/18 06/13/18 Rx cholecalciferol (vitamin D3) 2,000 unit PO DAILY 90 Days #90 cap 04/19/18 06/13/18 Rx letrozole 2.5 mg PO DAILY 90 Days #90 tab 04/19/18 06/13/18 Rx lisinopril 20 mg PO DAILY 90 Days #90 tab 04/19/18 06/13/18 Rx Allergies Allergy/AdvReac Type Severity Reaction Status Date / Time meperidine Allergy Unknown Verified 11/25/17 18:09 Sulfa (Sulfonamide Allergy Unknown Verified 11/25/17 18:09 Antibiotics) Exam - Constitutional positive no acute distress - Routine HEENT Exam Eye: Present: conjunctivae pink. Absent: conjunctival icterus, scleral injection ENT: Present: mucous membranes moist, oropharynx clear - Routine Neck Exam Present: supple. Absent: lymphadenopathy - Routine Chest/Breast/Axilla Exam Axillae: Absent: lymphadenopathy, mass, tenderness - Routine Respiratory Exam Present: Clear to auscultation bilaterally. Absent: rales, rhonchi, wheezes - Routine Cardiovascular Exam Present: RRR, S1, S2. Absent: murmur, gallop, rubs, JVD - Routine Abdominal Exam Present: soft, normoactive bowel sounds. Absent: tenderness, distended, organomegaly - Routine Extremities Exam Absent: edema, calf tenderness - Routine Skin Exam Present: intact, normal turgor. Absent: petechiae, rash - Routine Neurological Exam Present: alert, oriented X3 - Routine Psychiatric Exam Present: normal affect Results - Labs Laboratory Last Values WBC 7.7 X10^3/uL (4.5-11.0) 08/03/18 11:45 RBC 3.36 X10^6/uL (4.0-5.2) L 08/03/18 11:45 Hgb 10.7 g/dL (12.0-16.0) L 08/03/18 11:45 Hct 32.4 % (36-46) L 08/03/18 11:45 MCV 96.4 fL (80-100) 08/03/18 11:45 MCH 31.8 PG (26-34) 08/03/18 11:45 MCHC 33.0 % (30-36) 08/03/18 11:45 RDW 14.1 % (11.6-14.8) 08/03/18 11:45 Plt Count 329 X10^3/uL (150-400) 08/03/18 11:45 Neut % (Auto) 53.6 % (50-75) 08/03/18 11:45 Lymph % (Auto) 27.9 % (25-40) 08/03/18 11:45 [place] % (Auto) 11.4 % (3-14) 08/03/18 11:45 Eos % (Auto) 6.0 % (2-4) H 08/03/18 11:45 Baso % (Auto) 1.1 % (0-2) 08/03/18 11:45 Neut # (Auto) 4100 /uL (6216-6517) 08/03/18 11:45 Lymph # (Auto) 2100 /uL (6877-5335) 08/03/18 11:45 [place] # (Auto) 900 /uL (0-900) 08/03/18 11:45 Eos # (Auto) 500 /uL (0-450) H 08/03/18 11:45 Baso # (Auto) 100 /uL (0-100) 08/03/18 11:45 Total Counted 100 01/20/18 11:02 Seg Neutrophils % 73.0 % (38-70) H 01/20/18 11:02 Lymphocytes % (Manual) 23.0 % (25-45) L 01/20/18 11:02 Monocytes % (Manual) 4.0 % (2-11) 01/20/18 11:02 Neutrophils # (Manual) 7446 /uL (0908-8900) H 01/20/18 11:02 Nucleated RBCs 1 #/Diff (-0) H 01/05/18 14:22 Hypersegmented Neuts Cancelled 01/31/18 11:53 Hypogranular Neuts Cancelled 01/31/18 11:53 Reactive Lymphocytes Cancelled 01/31/18 11:53 Smudge Cells 1+ H 01/20/18 11:02 Other Cell Type Cancelled 01/31/18 11:53 Toxic Granulation Cancelled 01/31/18 11:53 Toxic Vacuolation Cancelled 01/31/18 11:53 Dohle Bodies Cancelled 01/31/18 11:53 Keyonna Rods Cancelled 01/31/18 11:53 WBC Morphology Comment Cancelled 01/31/18 11:53 Platelet Estimate Cancelled 01/31/18 11:53 Clumped Platelets Cancelled 01/31/18 11:53 Plt Morphology Comment Cancelled 01/31/18 11:53 RBC Morphology Not Reportable 05/09/18 11:16 Dimorphic RBCs Cancelled 01/31/18 11:53 Polychromasia 1+ H 05/09/18 11:16 Hypochromasia 1+ H 05/09/18 11:16 Poikilocytosis 1+ H 05/02/18 11:21 Basophilic Stippling Cancelled 01/31/18 11:53 Anisocytosis 3+ H 05/09/18 11:16 Microcytosis Cancelled 01/31/18 11:53 Macrocytosis 1+ H 04/17/18 10:29 Spherocytes Cancelled 01/31/18 11:53 Pappenheimer Bodies Cancelled 01/31/18 11:53 Sickle Cells Cancelled 01/31/18 11:53 Target Cells Cancelled 01/31/18 11:53 Tear Drop Cells Cancelled 01/31/18 11:53 Ovalocytes Cancelled 01/31/18 11:53 Stomatocytes Cancelled 01/31/18 11:53 Helmet Cells Cancelled 01/31/18 11:53 [place] Bodies Cancelled 01/31/18 11:53 [place] Rings Cancelled 01/31/18 11:53 [place] Cells Cancelled 01/31/18 11:53 Acanthocytes (Spur) Cancelled 01/31/18 11:53 Rouleaux 1+ H 04/25/18 11:02 Schistocytes Cancelled 01/31/18 11:53 Smear Path Review 01/25/18 11:30 ESR 66 MM/HR (0-20) H 01/05/18 14:22 Percent Retic 3.4 % (1.06-2.63) H 01/25/18 11:30 Haptoglobin 251 mg/dL (43-212) H 01/05/18 14:22 Sodium 135 mmol/L (137-145) L 08/03/18 11:45 Potassium 4.6 mmol/L (3.4-5.1) 08/03/18 11:45 Chloride 101 mmol/L (98-107) 08/03/18 11:45 Carbon Dioxide 23 mmol/L (22-32) 08/03/18 11:45 BUN 31 mg/dL (7-17) H 08/03/18 11:45 Creatinine 1.00 mg/dL (0.52-1.04) 08/03/18 11:45 Estimated GFR 53.3 mL/min (>60) L 08/03/18 11:45 BUN/Creatinine Ratio 31.0 (6-22) H 08/03/18 11:45 Glucose 92 mg/dL (80-110) 08/03/18 11:45 Calcium 8.8 mg/dL (8.4-10.2) 08/03/18 11:45 Iron 42 ug/dL (37-170) 12/30/17 14:54 TIBC 247 ug/dL (265-497) L 12/30/17 14:54 % Saturation 17 % (15-50) 12/30/17 14:54 Transferrin 177 mg/dL (206-381) L 12/30/17 14:54 Ferritin 745.0 ng/mL (11.1-264) H 12/30/17 14:54 Total Bilirubin 0.4 mg/dL (0.2-1.3) 08/03/18 11:45 AST 21 IU/L (14-36) 08/03/18 11:45 ALT 18 IU/L (9-52) 08/03/18 11:45 Alkaline Phosphatase 67 U/L (38-126) 08/03/18 11:45 Lactate Dehydrogenase 344 U/L (313-618) 01/25/18 11:30 Total Protein 8.5 g/dL (6.3-8.2) H 08/03/18 11:45 Albumin 4.2 g/dL (3.5-5.0) 08/03/18 11:45 Globulin 4.3 g/dL (1.7-4.1) H 08/03/18 11:45 Albumin/Globulin Ratio 1.0 (1.0-2.8) 08/03/18 11:45 Prealbumin 17.8 mg/dL (17.6-36.0) 01/25/18 11:30 Triglycerides 100 mg/dL (35-150) 05/09/18 11:20 Cholesterol 125 mg/dL (140-199) L 05/09/18 11:20 LDL Cholesterol, Calc 67 mg/dL (<100) 05/09/18 11:20 HDL Cholesterol 38 mg/dL (40-60) L 05/09/18 11:20 Carcinoembryonic Ag 4.9 ng/mL (0.1-3.0) H 01/05/18 14:22 Breast [facility] [employer] Ag 22 U/mL (< 32) 08/03/18 11:45 Vitamin B12 964 pg/mL (239-931) H 01/20/18 11:02 Folate > 20.0 ng/mL (2.76-20.0) H 01/20/18 11:02 TSH 1.22 uIU/mL (0.47-4.68) 05/09/18 11:20 Rheumatoid Factor 19 01/25/18 11:30 LEYDA Screen Negative 01/25/18 11:30 SS-A Antibody <1.0 neg 01/25/18 11:30 SS-B Antibody <1.0 neg 01/25/18 11:30 SM/ENVIRONMENTAL FIELD SERVICES TECHNICIAN Antibody <1.0 neg 01/25/18 11:30 Scl-70 Scleroderma Ab <1.0 neg 01/25/18 11:30 Anti-ds DNA (Crithidia) <1.0 neg 01/25/18 11:30 Anti-Smooth Muscle Ab <1.0 neg 01/25/18 11:30 Blood Type A Negative 05/09/18 11:16 Antibody Screen Positive 05/09/18 11:16 Antibody Identification Anti-K 05/09/18 11:16 Antigen Identification Cancelled 12/30/17 16:45 Direct Antiglob Test Negative 01/25/18 11:30 Crossmatch See Detail 05/09/18 11:16 Assessment and Plan (1) Anemia Problem details: An 82-year-old woman with 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 She appears to be responding with improvement in her blood counts and resolution of her need for transfusions. She will continue with her letrozole. She will return to clinic in 1 month for follow-up. We again discussed the possibility of adding ibrance to her regimen. Side effects would include primarily cytopenias. Because she is doing well and appears to be responding, we will continue just with single agent therapy for now. She will return to clinic in 1 month for follow-up. Current visit: No Status: Acute Due to metastatic breast cancer which was identified on a bone marrow biopsy in February of 2018. Anemia has improved since initiating treatment with letrozole also February of 2018. Hemoglobin 10.7 hematocrit 32.4. We will continue to monitor. (2) Breast cancer metastasized to bone Current visit: No Status: Acute 82-year-old female with a diagnosis of metastatic breast cancer which was identified on a bone marrow biopsy February of 2018. Letrozole initiated also February 2018. CT scan and bone scan did not show any obvious disease. Likely we will only be able to follow her disease progress by her red cell count and possibly her CA 15 3. She seems to be tolerating hormone therapy well aside from reported grade 1 fatigue however I suspect that is more multifactorial. We will continue letrozole. Dr Correia has discussed adding Ibrance to the pts regime. She has been receiving monthly Xgeva, she is due today however is late for another appointment and is unable to stay. We will order for her next visit which will be in 4 weeks at which time I will have her see oncologist Dr Correia.
[2018-08-15 14:25] VITALS: BP 126/68; PULSE 74; RESP 18; TEMP 36.2; O2SAT 97
[2018-10-04 11:30] VITALS: BP 143/69; PULSE 71; RESP 18; TEMP 36.2; O2SAT 99
--- NOTE | 2018-10-04 11:44 | ONC.PN ---
PN -Subjective Interval history: Diagnosis: Metastatic breast cancer Previous treatment: 1. Lumpectomy with sentinel node biopsy in 1999 followed by adjuvant chemotherapy and radiation. She had tamoxifen for 5 years. 2. Metastatic disease identified on a bone marrow biopsy done because of anemia in February 2018. She has been on letrozole and denosumab since February 2018. INTERVAL HISTORY: The patient is an 82-year-old woman who returns today for follow-up of metastatic breast cancer. She was seen initially because of anemia. No obvious etiology was found but she was requiring transfusions. A bone marrow biopsy was performed that showed ER positive metastatic breast cancer. She started letrozole in February. Since her last visit here, she has been feeling generally well. she has some ongoing fatigue that is been stable. She denies any shortness of breath though. No fevers or chills. She is not having hot flashes. She denies any unusual bleeding or bruising. Her appetite has been stable. She is not having any pain. she has noted a little bit of trouble with her memory. she denies any other changes in her health. - Patient Self-Reported Symptoms SR Constitution: Weight loss/gain, Fatigue/Malaise SR Musculoskeletal issues: Joint pain or swelling, Muscle weakness, Muscle pain or cramps, Bone pain SR Neuro issues: Difficulty balancing SR Hematologic issues: Bleeding/bruising Home Medications and Allergies Home Medications Medication Instructions Recorded Confirmed Type Combigan 1 drp OPHTHALMIC (EYE) BID 11/25/17 10/04/18 History Flovent HFA 3 puff INHALATION BID PRN 11/25/17 10/04/18 History albuterol sulfate 2 puff INHALATION Q4H PRN 11/25/17 10/04/18 History bimatoprost 1 drp OPHTHALMIC (EYE) QPM PRN 11/25/17 10/04/18 History cholecalciferol (vitamin D3) 2 cap PO DAILY 11/25/17 10/04/18 History levothyroxine 1 tab PO DAILY 11/25/17 10/04/18 History venlafaxine 75 mg PO QPM 11/25/17 10/04/18 History zolpidem 5 - 10 mg PO BEDTIME PRN 11/25/17 10/04/18 History lisinopril 20 mg PO QPM #30 tab 11/26/17 10/04/18 Rx multivitamin [Multiple Vitamins] 1 tab PO DAILY 12/06/17 10/04/18 History hydrocodone-acetaminophen 1 tab PO Q12H PRN #60 tab 03/22/18 10/04/18 Rx letrozole 2.5 mg PO DAILY 30 Days #30 tab 03/22/18 10/04/18 Rx cholecalciferol (vitamin D3) 2,000 unit PO DAILY 90 Days #90 cap 04/19/18 10/04/18 Rx lisinopril 20 mg PO DAILY 90 Days #90 tab 04/19/18 10/04/18 Rx Allergies Allergy/AdvReac Type Severity Reaction Status Date / Time meperidine Allergy Unknown Verified 11/25/17 18:09 Sulfa (Sulfonamide Allergy Unknown Verified 11/25/17 18:09 Antibiotics) Exam Vital signs: Vital Signs Temp Pulse Resp BP Pulse Ox 10/04/18 11:30 97.2 F L 71 18 143/69 H 99 Intake and Output 10/03/18 10/04/18 10/04/18 23:59 07:59 15:59 Other: Weight 56.5 kg Patient Weight 10/04/18 23:59 Weight 56.5 kg - Constitutional positive no acute distress, positive average body habitus - Routine HEENT Exam Head: Present: normocephalic, atraumatic Eye: Present: EOMI, PERRL. Absent: conjunctival icterus, scleral injection ENT: Present: mucous membranes moist, oropharynx clear - Routine Neck Exam Present: supple. Absent: lymphadenopathy, thyromegaly - Routine Respiratory Exam Present: Clear to auscultation bilaterally. Absent: rales, wheezes - Routine Cardiovascular Exam Present: RRR, S1, S2. Absent: murmur - Routine Abdominal Exam Present: soft, normoactive bowel sounds. Absent: tenderness, mass - Routine Extremities Exam Absent: cyanosis, clubbing, edema - Routine Back/Spine Exam Back/Spine: Absent: paraspinal tenderness, vertebral tenderness - Routine Skin Exam Present: intact. Absent: petechiae, rash - Routine Neurological Exam Present: alert, oriented X3 - Routine Psychiatric Exam Present: normal affect, normal thought process Results - Labs Laboratory Last Values WBC 7.7 X10^3/uL (4.5-11.0) 08/03/18 11:45 RBC 3.36 X10^6/uL (4.0-5.2) L 02/07/19 11:45 Hgb 10.7 g/dL (12.0-16.0) L 08/03/18 11:45 Hct 32.4 % (36-46) L 08/03/18 11:45 MCV 96.4 fL (80-100) 08/03/18 11:45 MCH 31.8 PG (26-34) 08/03/18 11:45 MCHC 33.0 % (30-36) 08/03/18 11:45 RDW 14.1 % (11.6-14.8) 08/03/18 11:45 Plt Count 329 X10^3/uL (150-400) 08/03/18 11:45 Neut % (Auto) 53.6 % (50-75) 08/03/18 11:45 Lymph % (Auto) 27.9 % (25-40) 08/03/18 11:45 [place] % (Auto) 11.4 % (3-14) 08/03/18 11:45 Eos % (Auto) 6.0 % (2-4) H 08/03/18 11:45 Baso % (Auto) 1.1 % (0-2) 08/03/18 11:45 Neut # (Auto) 4100 /uL (3653-6352) 08/03/18 11:45 Lymph # (Auto) 2100 /uL (1172-8028) 08/03/18 11:45 [place] # (Auto) 900 /uL (0-900) 08/03/18 11:45 Eos # (Auto) 500 /uL (0-450) H 08/03/18 11:45 Baso # (Auto) 100 /uL (0-100) 08/03/18 11:45 Total Counted 100 01/20/18 11:02 Seg Neutrophils % 73.0 % (38-70) H 01/20/18 11:02 Lymphocytes % (Manual) 23.0 % (25-45) L 01/20/18 11:02 Monocytes % (Manual) 4.0 % (2-11) 01/20/18 11:02 Neutrophils # (Manual) 7446 /uL (1375-8478) H 01/20/18 11:02 Nucleated RBCs 1 #/Diff (-0) H 01/05/18 14:22 Hypersegmented Neuts Cancelled 01/31/18 11:53 Hypogranular Neuts Cancelled 01/31/18 11:53 Reactive Lymphocytes Cancelled 01/31/18 11:53 Smudge Cells 1+ H 01/20/18 11:02 Other Cell Type Cancelled 01/31/18 11:53 Toxic Granulation Cancelled 01/31/18 11:53 Toxic Vacuolation Cancelled 01/31/18 11:53 Dohle Bodies Cancelled 01/31/18 11:53 [place] Rods Cancelled 01/31/18 11:53 WBC Morphology Comment Cancelled 01/31/18 11:53 Platelet Estimate Cancelled 01/31/18 11:53 Clumped Platelets Cancelled 01/31/18 11:53 Plt Morphology Comment Cancelled 01/31/18 11:53 RBC Morphology Not Reportable 05/09/18 11:16 Dimorphic RBCs Cancelled 01/31/18 11:53 Polychromasia 1+ H 05/09/18 11:16 Hypochromasia 1+ H 05/09/18 11:16 Poikilocytosis 1+ H 05/02/18 11:21 Basophilic Stippling Cancelled 01/31/18 11:53 Anisocytosis 3+ H 05/09/18 11:16 Microcytosis Cancelled 01/31/18 11:53 Macrocytosis 1+ H 04/17/18 10:29 Spherocytes Cancelled 01/31/18 11:53 Pappenheimer Bodies Cancelled 01/31/18 11:53 Sickle Cells Cancelled 01/31/18 11:53 Target Cells Cancelled 01/31/18 11:53 Tear Drop Cells Cancelled 01/31/18 11:53 Ovalocytes Cancelled 01/31/18 11:53 Stomatocytes Cancelled 01/31/18 11:53 Helmet Cells Cancelled 01/31/18 11:53 [place] Bodies Cancelled 01/31/18 11:53 [place] Rings Cancelled 01/31/18 11:53 [place] Cells Cancelled 01/31/18 11:53 Acanthocytes (Spur) Cancelled 01/31/18 11:53 Rouleaux 1+ H 04/25/18 11:02 Schistocytes Cancelled 01/31/18 11:53 Smear Path Review 01/25/18 11:30 ESR 66 MM/HR (0-20) H 01/05/18 14:22 Percent Retic 3.4 % (1.06-2.63) H 01/25/18 11:30 Haptoglobin 251 mg/dL (43-212) H 01/05/18 14:22 Sodium 135 mmol/L (137-145) L 08/03/18 11:45 Potassium 4.6 mmol/L (3.4-5.1) 08/03/18 11:45 Chloride 101 mmol/L (98-107) 08/03/18 11:45 Carbon Dioxide 23 mmol/L (22-32) 08/03/18 11:45 BUN 31 mg/dL (7-17) H 08/03/18 11:45 Creatinine 1.00 mg/dL (0.52-1.04) 08/03/18 11:45 Estimated GFR 53.3 mL/min (>60) L 08/03/18 11:45 BUN/Creatinine Ratio 31.0 (6-22) H 08/03/18 11:45 Glucose 92 mg/dL (80-110) 08/03/18 11:45 Calcium 8.8 mg/dL (8.4-10.2) 08/03/18 11:45 Iron 42 ug/dL (37-170) 12/30/17 14:54 TIBC 247 ug/dL (265-497) L 12/30/17 14:54 % Saturation 17 % (15-50) 12/30/17 14:54 Transferrin 177 mg/dL (206-381) L 12/30/17 14:54 Ferritin 745.0 ng/mL (11.1-264) H 12/30/17 14:54 Total Bilirubin 0.4 mg/dL (0.2-1.3) 08/03/18 11:45 AST 21 IU/L (14-36) 08/03/18 11:45 ALT 18 IU/L (9-52) 08/03/18 11:45 Alkaline Phosphatase 67 U/L (38-126) 08/03/18 11:45 Lactate Dehydrogenase 344 U/L (313-618) 01/25/18 11:30 Total Protein 8.5 g/dL (6.3-8.2) H 08/03/18 11:45 Albumin 4.2 g/dL (3.5-5.0) 08/03/18 11:45 Globulin 4.3 g/dL (1.7-4.1) H 08/03/18 11:45 Albumin/Globulin Ratio 1.0 (1.0-2.8) 08/03/18 11:45 Prealbumin 17.8 mg/dL (17.6-36.0) 01/25/18 11:30 Triglycerides 100 mg/dL (35-150) 05/09/18 11:20 Cholesterol 125 mg/dL (140-199) L 05/09/18 11:20 LDL Cholesterol, Calc 67 mg/dL (<100) 05/09/18 11:20 HDL Cholesterol 38 mg/dL (40-60) L 05/09/18 11:20 Carcinoembryonic Ag 4.9 ng/mL (0.1-3.0) H 01/05/18 14:22 Breast [facility] [employer] Ag 22 U/mL (< 32) 08/03/18 11:45 Vitamin B12 964 pg/mL (239-931) H 01/20/18 11:02 Folate > 20.0 ng/mL (2.76-20.0) H 01/20/18 11:02 TSH 1.22 uIU/mL (0.47-4.68) 05/09/18 11:20 Rheumatoid Factor 19 01/25/18 11:30 LEYDA Screen Negative 01/25/18 11:30 SS-A Antibody <1.0 neg 01/25/18 11:30 SS-B Antibody <1.0 neg 01/25/18 11:30 SM/LITHOGRAPHIC PRINTING MACHINIST Antibody <1.0 neg 01/25/18 11:30 Scl-70 Scleroderma Ab <1.0 neg 01/25/18 11:30 Anti-ds DNA (Crithidia) <1.0 neg 01/25/18 11:30 Anti-Smooth Muscle Ab <1.0 neg 01/25/18 11:30 Blood Type A Negative 05/09/18 11:16 Antibody Screen Positive 05/09/18 11:16 Antibody Identification Anti-K 05/09/18 11:16 Antigen Identification Cancelled 12/30/17 16:45 Direct Antiglob Test Negative 01/25/18 11:30 Crossmatch See Detail 05/09/18 11:16 Assessment and Plan (1) Anemia Problem details: An 82-year-old woman with 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 She appears to be responding with improvement in her blood counts and resolution of her need for transfusions. She will continue with her letrozole. She will return to clinic in 1 month for follow-up. Because she has been responding fairly well, I think will continue with just letrozole and not add ibrance to her regimen. She will continue with monthly denosumab. She will return to clinic in 1 month for follow-up. Current visit: No Status: Acute
[2018-10-04] MEDS: DENOSUMAB 120 MG/1.7 ML VIAL SUBCUT (11:53)
[2018-11-01 11:35] VITALS: BP 132/82; PULSE 82; RESP 16; TEMP 37; O2SAT 97
--- NOTE | 2018-11-01 11:45 | ONC.PN ---
PN -Subjective Interval history: Diagnosis: Metastatic breast cancer Previous treatment: 1. Lumpectomy with sentinel node biopsy in 1999 followed by adjuvant chemotherapy and radiation. She had tamoxifen for 5 years. 2. Metastatic disease identified on a bone marrow biopsy done because of anemia in February 2018. She has been on letrozole and denosumab since February 2018. INTERVAL HISTORY: The patient is an 82-year-old woman who returns today for follow-up of metastatic breast cancer. She was seen initially because of anemia. No obvious etiology was found but she was requiring transfusions. A bone marrow biopsy was performed that showed ER positive metastatic breast cancer. She started letrozole in February 2018. Since her last visit, she has been feeling generally well. She has no specific complaints today. She continues to tolerate the letrozole without any difficulty. She is not having any hot flashes, muscle aches or joint pains. She has not noted any fevers chills or sweats. She denies any shortness of breath or cough. Her strength and energy level have been stable. She is not having any pain. Appetite has been normal. Bowels have been moving normally. She has not noticed any adenopathy. She denies any other changes in her health. Her medications are unchanged and include lisinopril letrozole and vitamin-D. - Patient Self-Reported Symptoms SR Constitution: Weight loss/gain, Fatigue/Malaise SR Musculoskeletal issues: Joint pain or swelling, Muscle weakness, Muscle pain or cramps, Bone pain SR Neuro issues: Difficulty balancing SR Hematologic issues: Bleeding/bruising Home Medications and Allergies Home Medications Medication Instructions Recorded Confirmed Type Combigan 1 drp OPHTHALMIC (EYE) BID 11/25/17 10/04/18 History Flovent HFA 3 puff INHALATION BID PRN 11/25/17 10/04/18 History albuterol sulfate 2 puff INHALATION Q4H PRN 11/25/17 10/04/18 History bimatoprost 1 drp OPHTHALMIC (EYE) QPM PRN 11/25/17 10/04/18 History cholecalciferol (vitamin D3) 2 cap PO DAILY 11/25/17 10/04/18 History levothyroxine 1 tab PO DAILY 11/25/17 10/04/18 History venlafaxine 75 mg PO QPM 11/25/17 10/04/18 History zolpidem 5 - 10 mg PO BEDTIME PRN 11/25/17 10/04/18 History lisinopril 20 mg PO QPM #30 tab 11/26/17 10/04/18 Rx multivitamin [Multiple Vitamins] 1 tab PO DAILY 12/06/17 10/04/18 History hydrocodone-acetaminophen 1 tab PO Q12H PRN #60 tab 03/22/18 10/04/18 Rx letrozole 2.5 mg PO DAILY 30 Days #30 tab 03/22/18 10/04/18 Rx cholecalciferol (vitamin D3) 2,000 unit PO DAILY 90 Days #90 cap 04/19/18 10/04/18 Rx lisinopril 20 mg PO DAILY 90 Days #90 tab 04/19/18 10/04/18 Rx Allergies Allergy/AdvReac Type Severity Reaction Status Date / Time meperidine Allergy Unknown Verified 11/25/17 18:09 Sulfa (Sulfonamide Allergy Unknown Verified 11/25/17 18:09 Antibiotics) Exam Vital signs: Vital Signs Temp Pulse Resp BP Pulse Ox 11/01/18 11:35 98.6 F 82 16 132/82 97 Intake and Output 10/31/18 11/01/18 11/01/18 23:59 07:59 15:59 Other: Weight 56.2 kg Patient Weight 11/01/18 23:59 Weight 56.2 kg - Constitutional positive no acute distress, positive average body habitus - Routine HEENT Exam Head: Present: normocephalic, atraumatic Eye: Present: EOMI, PERRL. Absent: conjunctival icterus ENT: Present: mucous membranes moist, oropharynx clear - Routine Neck Exam Present: supple. Absent: lymphadenopathy, thyromegaly - Routine Respiratory Exam Present: Clear to auscultation bilaterally. Absent: rales, wheezes - Routine Cardiovascular Exam Present: RRR, S1, S2. Absent: murmur - Routine Abdominal Exam Present: soft, normoactive bowel sounds. Absent: tenderness, organomegaly, mass - Routine Extremities Exam Absent: cyanosis, clubbing, edema - Routine Back/Spine Exam Back/Spine: Absent: paraspinal tenderness, vertebral tenderness - Routine Skin Exam Present: intact. Absent: petechiae, rash - Routine Neurological Exam Present: alert, oriented X3 - Routine Psychiatric Exam Present: normal affect, normal thought process Results - Labs Laboratory Last Values WBC 7.7 X10^3/uL (4.5-11.0) 08/03/18 11:45 RBC 3.36 X10^6/uL (4.0-5.2) L 08/03/18 11:45 Hgb 10.7 g/dL (12.0-16.0) L 08/03/18 11:45 Hct 32.4 % (36-46) L 08/03/18 11:45 MCV 96.4 fL (80-100) 08/03/18 11:45 MCH 31.8 PG (26-34) 08/03/18 11:45 MCHC 33.0 % (30-36) 08/03/18 11:45 RDW 14.1 % (11.6-14.8) 08/03/18 11:45 Plt Count 329 X10^3/uL (150-400) 08/03/18 11:45 Neut % (Auto) 53.6 % (50-75) 08/03/18 11:45 Lymph % (Auto) 27.9 % (25-40) 08/03/18 11:45 [place] % (Auto) 11.4 % (3-14) 08/03/18 11:45 Eos % (Auto) 6.0 % (2-4) H 08/03/18 11:45 Baso % (Auto) 1.1 % (0-2) 08/03/18 11:45 Neut # (Auto) 4100 /uL (3612-4260) 08/03/18 11:45 Lymph # (Auto) 2100 /uL (7421-3836) 08/03/18 11:45 [place] # (Auto) 900 /uL (0-900) 08/03/18 11:45 Eos # (Auto) 500 /uL (0-450) H 08/03/18 11:45 Baso # (Auto) 100 /uL (0-100) 08/03/18 11:45 Total Counted 100 01/20/18 11:02 Seg Neutrophils % 73.0 % (38-70) H 01/20/18 11:02 Lymphocytes % (Manual) 23.0 % (25-45) L 01/20/18 11:02 Monocytes % (Manual) 4.0 % (2-11) 01/20/18 11:02 Neutrophils # (Manual) 7446 /uL (5404-3371) H 01/20/18 11:02 Nucleated RBCs 1 #/Diff (-0) H 01/05/18 14:22 Hypersegmented Neuts Cancelled 01/31/18 11:53 Hypogranular Neuts Cancelled 01/31/18 11:53 Reactive Lymphocytes Cancelled 01/31/18 11:53 Smudge Cells 1+ H 01/20/18 11:02 Other Cell Type Cancelled 01/31/18 11:53 Toxic Granulation Cancelled 01/31/18 11:53 Toxic Vacuolation Cancelled 01/31/18 11:53 Dohle Bodies Cancelled 01/31/18 11:53 Keyonna Rods Cancelled 01/31/18 11:53 WBC Morphology Comment Cancelled 01/31/18 11:53 Platelet Estimate Cancelled 01/31/18 11:53 Clumped Platelets Cancelled 01/31/18 11:53 Plt Morphology Comment Cancelled 01/31/18 11:53 RBC Morphology Not Reportable 05/09/18 11:16 Dimorphic RBCs Cancelled 01/31/18 11:53 Polychromasia 1+ H 05/09/18 11:16 Hypochromasia 1+ H 05/09/18 11:16 Poikilocytosis 1+ H 05/02/18 11:21 Basophilic Stippling Cancelled 01/31/18 11:53 Anisocytosis 3+ H 05/09/18 11:16 Microcytosis Cancelled 01/31/18 11:53 Macrocytosis 1+ H 04/17/18 10:29 Spherocytes Cancelled 01/31/18 11:53 Pappenheimer Bodies Cancelled 01/31/18 11:53 Sickle Cells Cancelled 01/31/18 11:53 Target Cells Cancelled 01/31/18 11:53 Tear Drop Cells Cancelled 01/31/18 11:53 Ovalocytes Cancelled 01/31/18 11:53 Stomatocytes Cancelled 01/31/18 11:53 Helmet Cells Cancelled 01/31/18 11:53 [place] Bodies Cancelled 01/31/18 11:53 [place] Rings Cancelled 01/31/18 11:53 [place] Cells Cancelled 01/31/18 11:53 Acanthocytes (Spur) Cancelled 01/31/18 11:53 Rouleaux 1+ H 04/25/18 11:02 Schistocytes Cancelled 01/31/18 11:53 Smear Path Review 01/25/18 11:30 ESR 66 MM/HR (0-20) H 01/05/18 14:22 Percent Retic 3.4 % (1.06-2.63) H 01/25/18 11:30 Haptoglobin 251 mg/dL (43-212) H 01/05/18 14:22 Sodium 135 mmol/L (137-145) L 08/03/18 11:45 Potassium 4.6 mmol/L (3.4-5.1) 08/03/18 11:45 Chloride 101 mmol/L (98-107) 08/03/18 11:45 Carbon Dioxide 23 mmol/L (22-32) 08/03/18 11:45 BUN 31 mg/dL (7-17) H 08/03/18 11:45 Creatinine 1.00 mg/dL (0.52-1.04) 08/03/18 11:45 Estimated GFR 53.3 mL/min (>60) L 08/03/18 11:45 BUN/Creatinine Ratio 31.0 (6-22) H 08/03/18 11:45 Glucose 92 mg/dL (80-110) 08/03/18 11:45 Calcium 8.8 mg/dL (8.4-10.2) 08/03/18 11:45 Iron 42 ug/dL (37-170) 12/30/17 14:54 TIBC 247 ug/dL (265-497) L 12/30/17 14:54 % Saturation 17 % (15-50) 12/30/17 14:54 Transferrin 177 mg/dL (206-381) L 12/30/17 14:54 Ferritin 745.0 ng/mL (11.1-264) H 12/30/17 14:54 Total Bilirubin 0.4 mg/dL (0.2-1.3) 08/03/18 11:45 AST 21 IU/L (14-36) 08/03/18 11:45 ALT 18 IU/L (9-52) 08/03/18 11:45 Alkaline Phosphatase 67 U/L (38-126) 08/03/18 11:45 Lactate Dehydrogenase 344 U/L (313-618) 01/25/18 11:30 Total Protein 8.5 g/dL (6.3-8.2) H 08/03/18 11:45 Albumin 4.2 g/dL (3.5-5.0) 08/03/18 11:45 Globulin 4.3 g/dL (1.7-4.1) H 08/03/18 11:45 Albumin/Globulin Ratio 1.0 (1.0-2.8) 08/03/18 11:45 Prealbumin 17.8 mg/dL (17.6-36.0) 01/25/18 11:30 Triglycerides 100 mg/dL (35-150) 05/09/18 11:20 Cholesterol 125 mg/dL (140-199) L 05/09/18 11:20 LDL Cholesterol, Calc 67 mg/dL (<100) 05/09/18 11:20 HDL Cholesterol 38 mg/dL (40-60) L 05/09/18 11:20 Carcinoembryonic Ag 4.9 ng/mL (0.1-3.0) H 01/05/18 14:22 Breast [facility] [employer] Ag 22 U/mL (< 32) 08/03/18 11:45 Vitamin B12 964 pg/mL (239-931) H 01/20/18 11:02 Folate > 20.0 ng/mL (2.76-20.0) H 01/20/18 11:02 TSH 1.22 uIU/mL (0.47-4.68) 05/09/18 11:20 Rheumatoid Factor 19 01/25/18 11:30 LEYDA Screen Negative 01/25/18 11:30 SS-A Antibody <1.0 neg 01/25/18 11:30 SS-B Antibody <1.0 neg 01/25/18 11:30 SM/DX BOARD OPERATOR Antibody <1.0 neg 01/25/18 11:30 Scl-70 Scleroderma Ab <1.0 neg 01/25/18 11:30 Anti-ds DNA (Crithidia) <1.0 neg 01/25/18 11:30 Anti-Smooth Muscle Ab <1.0 neg 01/25/18 11:30 Blood Type A Negative 05/09/18 11:16 Antibody Screen Positive 05/09/18 11:16 Antibody Identification Anti-K 05/09/18 11:16 Antigen Identification Cancelled 12/30/17 16:45 Direct Antiglob Test Negative 01/25/18 11:30 Crossmatch See Detail 05/09/18 11:16 Assessment and Plan (1) Anemia Problem details: An 82-year-old woman with 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 She appears to be responding with improvement in her blood counts and resolution of her need for transfusions. She will continue with her letrozole. She will return to clinic in 1 month for follow-up. Because she has been responding fairly well, I think will continue with just letrozole and not add ibrance to her regimen. She will continue with monthly denosumab. She will return to clinic in 1 month for follow-up. I would anticipate a bone scan and CT scan probably in the fall although she did not have any measurable disease at the time of her diagnosis. Current visit: No Status: Acute Due to metastatic breast cancer which was identified on a bone marrow biopsy in February of 2018. Anemia has improved since initiating treatment with letrozole also February of 2018. Hemoglobin 10.7 hematocrit 32.4. We will continue to monitor.
[2018-11-01 11:47] LABS: Alanine Aminotransferase 10 IU/L (9-52); Albumin 4.5 g/dL (3.5-5.0); Alkaline Phosphatase 71 U/L (38-126); Aspartate Aminotransferase 23 IU/L (14-36); BUN Creatinine Ratio 31.1 (6-22); Bilirubin Total 0.3 mg/dL (0.2-1.3); Blood Urea Nitrogen 28 mg/dL (7-17); Calcium 9.2 mg/dL (8.4-10.2); Carbon Dioxide 24 mmol/L (22-32); Chloride 98 mmol/L (98-107); Estimated Glomerular Filt Rate > 60.0 mL/min (>60); Globulin 4.3 g/dL (1.7-4.1); Glucose 142 mg/dL (80-110); HEMOLYSIS < 15 (0-50); Potassium 4.1 mmol/L (3.4-5.1); Sodium 134 mmol/L (137-145); Total Protein 8.8 g/dL (6.3-8.2)
[2018-11-01] MEDS: DENOSUMAB 120 MG/1.7 ML VIAL SUBCUT (12:08)
[2018-11-01 12:13] LABS: Add Manual Diff / Slide Review NO; Basophils Absolute Auto 100 /uL (0-100); Basophils Percent Auto 1.2 % (0-2); Eosinophils Absolute Auto 600 /uL (0-450); Hematocrit 38.1 % (36-46); Hemoglobin 12.5 g/dL (12.0-16.0); Lymphocytes Absolute Auto 2800 /uL (1100-4500); Lymphocytes Percent Auto 30.1 % (25-40); Mean Corpuscular HGB Conc 32.9 % (30-36); Mean Corpuscular Hemoglobin 30.6 PG (26-34); Mean Corpuscular Volume 93.1 fL (80-100); Monocytes Absolute Auto 1200 /uL (0-900); Monocytes Percent Auto 13.7 % (3-14); Neutrophils Absolute Auto 4400 /uL (1500-7000); Platelet Count 366 X10^3/uL (150-400); Red Blood Cell Count 4.09 X10^6/uL (4.0-5.2); Red Cell Distribution Width 14.3 % (11.6-14.8); White Blood Cell Count 9.1 X10^3/uL (4.5-11.0)
[2018-11-02 16:48] LABS: CA 15-3 25 U/mL (< 32)
[2018-12-05 11:06] VITALS: BP 130/71; PULSE 66; RESP 18; TEMP 36.8; O2SAT 99
--- NOTE | 2018-12-05 11:25 | P.PNONC_ITS ---
PN -Subjective Interval history: Diagnosis: Metastatic breast cancer Previous treatment: 1. Lumpectomy with sentinel node biopsy in 1999 followed by adjuvant chemotherapy and radiation. She had tamoxifen for 5 years. 2. Metastatic disease identified on a bone marrow biopsy done because of anemia in February 2018. She has been on letrozole and denosumab since February 2018. INTERVAL HISTORY: The patient is an 82-year-old woman who returns today for follow-up of metastatic breast cancer. She was seen initially because of anemia. No obvious etiology was found but she was requiring transfusions. A bone marrow biopsy was performed that showed ER positive metastatic breast cancer. She started letrozole in February 2018. Since her last visit, she has been feeling generally well. She has no specific complaints today. She continues to tolerate the letrozole without any difficulty. She is not having any hot flashes, muscle aches or joint pains. She has not noted any fevers chills or sweats. She denies any shortness of breath or cough. Her strength and energy level have been stable. She is not having any pain. Appetite has been normal. Bowels have been moving normally. She has not noticed any adenopathy. She denies any other changes in her health. She has been under some stress recently because her had a fall with a broken leg and has been in a rehab facility. Her family notes that she has been having a little bit more difficulty with her memory and been a little bit more irritable. Her medications are unchanged and include lisinopril letrozole and vitamin-D. - Patient Self-Reported Symptoms SR Constitution: Weight loss/gain, Fatigue/Malaise SR Musculoskeletal issues: Joint pain or swelling, Muscle weakness, Muscle pain or cramps, Bone pain SR Neuro issues: Difficulty balancing SR Hematologic issues: Bleeding/bruising Home Medications and Allergies Home Medications Medication Instructions Recorded Confirmed Type Combigan 1 drp OPHTHALMIC (EYE) BID 11/25/17 12/05/18 History Flovent HFA 3 puff INHALATION BID PRN 11/25/17 12/05/18 History albuterol sulfate 2 puff INHALATION Q4H PRN 11/25/17 12/05/18 History bimatoprost 1 drp OPHTHALMIC (EYE) QPM PRN 11/25/17 12/05/18 History cholecalciferol (vitamin D3) 2 cap PO DAILY 11/25/17 12/05/18 History levothyroxine 1 tab PO DAILY 11/25/17 12/05/18 History venlafaxine 75 mg PO QPM 11/25/17 12/05/18 History zolpidem 5 - 10 mg PO BEDTIME PRN 11/25/17 12/05/18 History lisinopril 20 mg PO QPM #30 tab 11/26/17 12/05/18 Rx multivitamin [Multiple Vitamins] 1 tab PO DAILY 12/06/17 12/05/18 History hydrocodone-acetaminophen 1 tab PO Q12H PRN #60 tab 03/22/18 12/05/18 Rx letrozole 2.5 mg PO DAILY 30 Days #30 tab 03/22/18 12/05/18 Rx cholecalciferol (vitamin D3) 2,000 unit PO DAILY 90 Days #90 cap 04/19/18 12/05/18 Rx lisinopril 20 mg PO DAILY 90 Days #90 tab 04/19/18 12/05/18 Rx Allergies Allergy/AdvReac Type Severity Reaction Status Date / Time meperidine Allergy Unknown Verified 11/25/17 18:09 Sulfa (Sulfonamide Allergy Unknown Verified 11/25/17 18:09 Antibiotics) Exam Vital signs: Vital Signs Temp Pulse Resp BP Pulse Ox 12/05/18 11:06 98.2 F 66 18 130/71 99 Intake and Output 12/04/18 12/05/18 12/05/18 23:59 07:59 15:59 Other: Weight 55.7 kg Patient Weight 12/05/18 23:59 Weight 55.7 kg - Constitutional positive no acute distress, positive average body habitus - Routine HEENT Exam Head: Present: normocephalic, atraumatic Eye: Present: EOMI, PERRL. Absent: conjunctival icterus, scleral injection ENT: Present: mucous membranes moist, oropharynx clear - Routine Neck Exam Present: supple. Absent: lymphadenopathy, thyromegaly - Routine Respiratory Exam Present: Clear to auscultation bilaterally. Absent: rales, wheezes - Routine Cardiovascular Exam Present: RRR, S1, S2. Absent: murmur - Routine Abdominal Exam Present: soft, normoactive bowel sounds. Absent: tenderness, organomegaly, mass - Routine Extremities Exam Absent: cyanosis, clubbing, edema - Routine Back/Spine Exam Back/Spine: Absent: vertebral tenderness - Routine Skin Exam Present: intact. Absent: petechiae, rash - Routine Neurological Exam Present: alert, oriented X3, moving all extremities, normal tone. Absent: sensory deficit, motor deficit - Routine Psychiatric Exam Present: normal affect, normal thought process Results - Labs Laboratory Last Values WBC 9.1 X10^3/uL (4.5-11.0) 11/01/18 12:06 RBC 4.09 X10^6/uL (4.0-5.2) 11/01/18 12:06 Hgb 12.5 g/dL (12.0-16.0) 11/01/18 12:06 Hct 38.1 % (36-46) 11/01/18 12:06 MCV 93.1 fL (80-100) 11/01/18 12:06 MCH 30.6 PG (26-34) 11/01/18 12:06 MCHC 32.9 % (30-36) 11/01/18 12:06 RDW 14.3 % (11.6-14.8) 11/01/18 12:06 Plt Count 366 X10^3/uL (150-400) 11/01/18 12:06 Neut % (Auto) 48.0 % (50-75) L 11/01/18 12:06 Lymph % (Auto) 30.1 % (25-40) 11/01/18 12:06 Maverick % (Auto) 13.7 % (3-14) 11/01/18 12:06 Eos % (Auto) 7.0 % (2-4) H 11/01/18 12:06 Baso % (Auto) 1.2 % (0-2) 11/01/18 12:06 Neut # (Auto) 4400 /uL (7282-1561) 11/01/18 12:06 Lymph # (Auto) 2800 /uL (4497-0393) 11/01/18 12:06 Maverick # (Auto) 1200 /uL (0-900) H 11/01/18 12:06 Eos # (Auto) 600 /uL (0-450) H 11/01/18 12:06 Baso # (Auto) 100 /uL (0-100) 11/01/18 12:06 Total Counted 100 01/20/18 11:02 Seg Neutrophils % 73.0 % (38-70) H 01/20/18 11:02 Lymphocytes % (Manual) 23.0 % (25-45) L 01/20/18 11:02 Monocytes % (Manual) 4.0 % (2-11) 01/20/18 11:02 Neutrophils # (Manual) 7446 /uL (8505-7275) H 01/20/18 11:02 Nucleated RBCs 1 #/Diff (-0) H 01/05/18 14:22 Hypersegmented Neuts Cancelled 01/31/18 11:53 Hypogranular Neuts Cancelled 01/31/18 11:53 Reactive Lymphocytes Cancelled 01/31/18 11:53 Smudge Cells 1+ H 01/20/18 11:02 Other Cell Type Cancelled 01/31/18 11:53 Toxic Granulation Cancelled 01/31/18 11:53 Toxic Vacuolation Cancelled 01/31/18 11:53 Dohle Bodies Cancelled 01/31/18 11:53 Keyonna Rods Cancelled 01/31/18 11:53 WBC Morphology Comment Cancelled 01/31/18 11:53 Platelet Estimate Cancelled 01/31/18 11:53 Clumped Platelets Cancelled 01/31/18 11:53 Plt Morphology Comment Cancelled 01/31/18 11:53 RBC Morphology Not Reportable 05/09/18 11:16 Dimorphic RBCs Cancelled 01/31/18 11:53 Polychromasia 1+ H 05/09/18 11:16 Hypochromasia 1+ H 05/09/18 11:16 Poikilocytosis 1+ H 05/02/18 11:21 Basophilic Stippling Cancelled 01/31/18 11:53 Anisocytosis 3+ H 05/09/18 11:16 Microcytosis Cancelled 01/31/18 11:53 Macrocytosis 1+ H 04/17/18 10:29 Spherocytes Cancelled 01/31/18 11:53 Pappenheimer Bodies Cancelled 01/31/18 11:53 Sickle Cells Cancelled 01/31/18 11:53 Target Cells Cancelled 01/31/18 11:53 Tear Drop Cells Cancelled 01/31/18 11:53 Ovalocytes Cancelled 01/31/18 11:53 Stomatocytes Cancelled 01/31/18 11:53 Helmet Cells Cancelled 01/31/18 11:53 Welch-Laplace Bodies Cancelled 01/31/18 11:53 [place] Rings Cancelled 01/31/18 11:53 Tiffanie Cells Cancelled 01/31/18 11:53 Acanthocytes (Spur) Cancelled 01/31/18 11:53 Rouleaux 1+ H 04/25/18 11:02 Schistocytes Cancelled 01/31/18 11:53 Smear Path Review 01/25/18 11:30 ESR 66 MM/HR (0-20) H 01/05/18 14:22 Percent Retic 3.4 % (1.06-2.63) H 01/25/18 11:30 Haptoglobin 251 mg/dL (43-212) H 01/05/18 14:22 Sodium 134 mmol/L (137-145) L 11/01/18 11:22 Potassium 4.1 mmol/L (3.4-5.1) 11/01/18 11:22 Chloride 98 mmol/L (98-107) 11/01/18 11:22 Carbon Dioxide 24 mmol/L (22-32) 11/01/18 11:22 BUN 28 mg/dL (7-17) H 11/01/18 11:22 Creatinine 0.90 mg/dL (0.52-1.04) 11/01/18 11:22 Estimated GFR > 60.0 mL/min (>60) 11/01/18 11:22 BUN/Creatinine Ratio 31.1 (6-22) H 11/01/18 11:22 Glucose 142 mg/dL (80-110) H 11/01/18 11:22 Calcium 9.2 mg/dL (8.4-10.2) 11/01/18 11:22 Iron 42 ug/dL (37-170) 12/30/17 14:54 TIBC 247 ug/dL (265-497) L 12/30/17 14:54 % Saturation 17 % (15-50) 12/30/17 14:54 Transferrin 177 mg/dL (206-381) L 12/30/17 14:54 Ferritin 745.0 ng/mL (11.1-264) H 12/30/17 14:54 Total Bilirubin 0.3 mg/dL (0.2-1.3) 11/01/18 11:22 AST 23 IU/L (14-36) 11/01/18 11:22 ALT 10 IU/L (9-52) 11/01/18 11:22 Alkaline Phosphatase 71 U/L (38-126) 11/01/18 11:22 Lactate Dehydrogenase 344 U/L (313-618) 01/25/18 11:30 Total Protein 8.8 g/dL (6.3-8.2) H 11/01/18 11:22 Albumin 4.5 g/dL (3.5-5.0) 11/01/18 11:22 Globulin 4.3 g/dL (1.7-4.1) H 11/01/18 11:22 Albumin/Globulin Ratio 1.0 (1.0-2.8) 11/01/18 11:22 Prealbumin 17.8 mg/dL (17.6-36.0) 01/25/18 11:30 Triglycerides 100 mg/dL (35-150) 05/09/18 11:20 Cholesterol 125 mg/dL (140-199) L 05/09/18 11:20 LDL Cholesterol, Calc 67 mg/dL (<100) 05/09/18 11:20 HDL Cholesterol 38 mg/dL (40-60) L 05/09/18 11:20 Carcinoembryonic Ag 4.9 ng/mL (0.1-3.0) H 01/05/18 14:22 Breast Carcino Assoc Ag 25 U/mL (< 32) 11/01/18 12:06 Vitamin B12 964 pg/mL (239-931) H 01/20/18 11:02 Folate > 20.0 ng/mL (2.76-20.0) H 01/20/18 11:02 TSH 1.22 uIU/mL (0.47-4.68) 05/09/18 11:20 Specimen Hemolysis Cancelled 11/01/18 12:06 Rheumatoid Factor 19 01/25/18 11:30 LEYDA Screen Negative 01/25/18 11:30 SS-A Antibody <1.0 neg 01/25/18 11:30 SS-B Antibody <1.0 neg 01/25/18 11:30 SM/MACHINE TOOL REBUILDER Antibody <1.0 neg 01/25/18 11:30 Scl-70 Scleroderma Ab <1.0 neg 01/25/18 11:30 Anti-ds DNA (Crithidia) <1.0 neg 01/25/18 11:30 Anti-Smooth Muscle Ab <1.0 neg 01/25/18 11:30 Blood Type A Negative 05/09/18 11:16 Antibody Screen Positive 05/09/18 11:16 Antibody Identification Anti-K 05/09/18 11:16 Antigen Identification Cancelled 12/30/17 16:45 Direct Antiglob Test Negative 01/25/18 11:30 Crossmatch See Detail 05/09/18 11:16 Assessment and Plan (1) Anemia Problem details: An 82-year-old woman with 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 She appears to be responding with improvement in her blood counts. She will continue with her letrozole. She will return to clinic in 1 month for follow-up. She will continue with monthly denosumab. She will return to clinic in 1 month for follow-up. I would anticipate a bone scan and CT scan probably in the fall although she did not have any measurable disease at the time of her diagnosis. Current visit: No Status: Acute Due to metastatic breast cancer which was identified on a bone marrow biopsy in February of 2018. Anemia has improved since initiating treatment with letrozole also February of 2018. Hemoglobin 10.7 hematocrit 32.4. We will continue to monitor.
[2018-12-05] MEDS: DENOSUMAB 120 MG/1.7 ML VIAL SUBCUT (11:56)
--- NOTE | 2018-12-21 13:22 | PC.NURSE ---
Pt's daughter Miranda, called this automobile service writer expressing concern My mother took 3 or 4 letrozole pills by mistake. Pt's daughter asking if she needed to seek emergency medical attention. Pt sees Dr. Correia. This automobile service writer spoke with Dr. Dodson because Dr. Correia is not in clinic today. Per Dr. Dodson it is not necessary to seek medical attention at this time, pt's daughter aware. Pt's daughter reports pt is doing fine, I just wasn't sure if I needed to do anything. Let Miranda know that if anything changes in pt's current status (chest pain, difficulty breathing N/V, increased pain of any kind, skin changes, mental status changes etc) to contact this clinic or seek immediate medical attention, Miranda verbalized understanding.
[2019-01-02 10:35] LABS: Alanine Aminotransferase 17 IU/L (9-52); Alkaline Phosphatase 88 U/L (38-126); Aspartate Aminotransferase 18 IU/L (14-36); BUN Creatinine Ratio 28.8 (6-22); Bilirubin Total 0.4 mg/dL (0.2-1.3); Blood Urea Nitrogen 23 mg/dL (7-17); Calcium 9.1 mg/dL (8.4-10.2); Carbon Dioxide 23 mmol/L (22-32); Chloride 103 mmol/L (98-107); Estimated Glomerular Filt Rate > 60.0 mL/min (>60); Globulin 4.2 g/dL (1.7-4.1); Glucose 151 mg/dL (80-110); HEMOLYSIS < 15 (0-50); Potassium 4.5 mmol/L (3.4-5.1); Sodium 136 mmol/L (137-145); Total Protein 8.2 g/dL (6.3-8.2)
[2019-01-17 15:39] VITALS: BP 132/67; PULSE 76; RESP 18; TEMP 37.2; O2SAT 99
--- NOTE | 2019-01-17 16:06 | ONC.PN ---
PN -Subjective Interval history: Diagnosis: Metastatic breast cancer Previous treatment: 1. Lumpectomy with sentinel node biopsy in 1999 followed by adjuvant chemotherapy and radiation. She had tamoxifen for 5 years. 2. Metastatic disease identified on a bone marrow biopsy done because of anemia in February 2018. She has been on letrozole and denosumab since February 2018. INTERVAL HISTORY: The patient is an 82-year-old woman who returns today for follow-up of metastatic breast cancer. She was seen initially because of anemia. No obvious etiology was found but she was requiring transfusions. A bone marrow biopsy was performed that showed ER positive metastatic breast cancer. She started letrozole in February 2018. Since her last visit, she has been feeling generally well. She has no specific complaints today. She continues to tolerate the letrozole without any difficulty. She is not having any hot flashes, muscle aches or joint pains. She has not noted any fevers chills or sweats. She denies any shortness of breath or cough. Her strength and energy level have been stable. She is not having any pain. Appetite has been normal. Bowels have been moving normally. She has not noticed any adenopathy. She denies any other changes in her health. Her medications are unchanged and include lisinopril letrozole and vitamin-D. - Patient Self-Reported Symptoms SR Constitution: Weight loss/gain, Fatigue/Malaise SR Musculoskeletal issues: Joint pain or swelling, Muscle weakness, Muscle pain or cramps, Bone pain SR Neuro issues: Difficulty balancing SR Hematologic issues: Bleeding/bruising Home Medications and Allergies Home Medications Medication Instructions Recorded Confirmed Type Combigan 1 drp OPHTHALMIC (EYE) BID 11/25/17 12/05/18 History Flovent HFA 3 puff INHALATION BID PRN 11/25/17 12/05/18 History albuterol sulfate 2 puff INHALATION Q4H PRN 11/25/17 12/05/18 History bimatoprost 1 drp OPHTHALMIC (EYE) QPM PRN 11/25/17 12/05/18 History levothyroxine 1 tab PO DAILY 11/25/17 12/05/18 History zolpidem 5 - 10 mg PO BEDTIME PRN 11/25/17 12/05/18 History multivitamin [Multiple Vitamins] 1 tab PO DAILY 12/06/17 12/05/18 History hydrocodone-acetaminophen 1 tab PO Q12H PRN #60 tab 03/22/18 12/05/18 Rx letrozole 2.5 mg PO DAILY 30 Days #30 tab 03/22/18 12/05/18 Rx cholecalciferol (vitamin D3) 2,000 unit PO DAILY 90 Days #90 cap 04/19/18 12/05/18 Rx lisinopril 20 mg PO DAILY 90 Days #90 tab 04/19/18 12/05/18 Rx citalopram 20 mg PO DAILY 01/17/19 01/17/19 History Allergies Allergy/AdvReac Type Severity Reaction Status Date / Time meperidine Allergy Unknown Verified 11/25/17 18:09 Sulfa (Sulfonamide Allergy Unknown Verified 11/25/17 18:09 Antibiotics) Exam Vital signs: Vital Signs Temp Pulse Resp BP Pulse Ox 01/17/19 15:39 99.0 F 76 18 132/67 99 Intake and Output 01/17/19 01/17/19 01/17/19 07:59 15:59 23:59 Other: Weight 55.1 kg Patient Weight 01/17/19 23:59 Weight 55.1 kg - Constitutional positive no acute distress, positive average body habitus - Routine HEENT Exam Head: Present: normocephalic, atraumatic Eye: Present: EOMI, PERRL. Absent: conjunctival icterus, scleral injection ENT: Present: mucous membranes moist, oropharynx clear - Routine Neck Exam Present: supple. Absent: lymphadenopathy, thyromegaly - Routine Chest/Breast/Axilla Exam Axillae: Absent: lymphadenopathy - Routine Respiratory Exam Present: Clear to auscultation bilaterally. Absent: rales, wheezes - Routine Cardiovascular Exam Present: RRR, S1, S2, murmur - Routine Abdominal Exam Present: soft, normoactive bowel sounds. Absent: tenderness, organomegaly, mass - Routine Extremities Exam Absent: cyanosis, clubbing, edema - Routine Back/Spine Exam Back/Spine: Absent: vertebral tenderness - Routine Skin Exam Present: intact. Absent: petechiae, rash - Routine Neurological Exam Present: alert, oriented X3 - Routine Psychiatric Exam Present: normal affect, normal thought process Results - Labs Laboratory Last Values WBC 9.1 X10^3/uL (4.5-11.0) 11/01/18 12:06 RBC 4.09 X10^6/uL (4.0-5.2) 11/01/18 12:06 Hgb 12.5 g/dL (12.0-16.0) 11/01/18 12:06 Hct 38.1 % (36-46) 11/01/18 12:06 MCV 93.1 fL (80-100) 11/01/18 12:06 MCH 30.6 PG (26-34) 11/01/18 12:06 MCHC 32.9 % (30-36) 11/01/18 12:06 RDW 14.3 % (11.6-14.8) 11/01/18 12:06 Plt Count 366 X10^3/uL (150-400) 11/01/18 12:06 Neut % (Auto) 48.0 % (50-75) L 11/01/18 12:06 Lymph % (Auto) 30.1 % (25-40) 11/01/18 12:06 Andrews % (Auto) 13.7 % (3-14) 11/01/18 12:06 Eos % (Auto) 7.0 % (2-4) H 11/01/18 12:06 Baso % (Auto) 1.2 % (0-2) 11/01/18 12:06 Neut # (Auto) 4400 /uL (9540-5618) 11/01/18 12:06 Lymph # (Auto) 2800 /uL (2151-6373) 11/01/18 12:06 Andrews # (Auto) 1200 /uL (0-900) H 11/01/18 12:06 Eos # (Auto) 600 /uL (0-450) H 11/01/18 12:06 Baso # (Auto) 100 /uL (0-100) 11/01/18 12:06 Total Counted 100 01/20/18 11:02 Seg Neutrophils % 73.0 % (38-70) H 01/20/18 11:02 Lymphocytes % (Manual) 23.0 % (25-45) L 01/20/18 11:02 Monocytes % (Manual) 4.0 % (2-11) 01/20/18 11:02 Neutrophils # (Manual) 7446 /uL (5954-8933) H 01/20/18 11:02 Nucleated RBCs 1 #/Diff (-0) H 01/05/18 14:22 Hypersegmented Neuts Cancelled 01/31/18 11:53 Hypogranular Neuts Cancelled 01/31/18 11:53 Reactive Lymphocytes Cancelled 01/31/18 11:53 Smudge Cells 1+ H 01/20/18 11:02 Other Cell Type Cancelled 01/31/18 11:53 Toxic Granulation Cancelled 01/31/18 11:53 Toxic Vacuolation Cancelled 01/31/18 11:53 Dohle Bodies Cancelled 01/31/18 11:53 Keyonna Rods Cancelled 01/31/18 11:53 WBC Morphology Comment Cancelled 01/31/18 11:53 Platelet Estimate Cancelled 01/31/18 11:53 Clumped Platelets Cancelled 01/31/18 11:53 Plt Morphology Comment Cancelled 01/31/18 11:53 RBC Morphology Not Reportable 05/09/18 11:16 Dimorphic RBCs Cancelled 01/31/18 11:53 Polychromasia 1+ H 05/09/18 11:16 Hypochromasia 1+ H 05/09/18 11:16 Poikilocytosis 1+ H 05/02/18 11:21 Basophilic Stippling Cancelled 01/31/18 11:53 Anisocytosis 3+ H 05/09/18 11:16 Microcytosis Cancelled 01/31/18 11:53 Macrocytosis 1+ H 04/17/18 10:29 Spherocytes Cancelled 01/31/18 11:53 Pappenheimer Bodies Cancelled 01/31/18 11:53 Sickle Cells Cancelled 01/31/18 11:53 Target Cells Cancelled 01/31/18 11:53 Tear Drop Cells Cancelled 01/31/18 11:53 Ovalocytes Cancelled 01/31/18 11:53 Stomatocytes Cancelled 01/31/18 11:53 Helmet Cells Cancelled 01/31/18 11:53 Welch-Townsend Bodies Cancelled 01/31/18 11:53 [place] Rings Cancelled 01/31/18 11:53 Tiffanie Cells Cancelled 01/31/18 11:53 Acanthocytes (Spur) Cancelled 01/31/18 11:53 Rouleaux 1+ H 04/25/18 11:02 Schistocytes Cancelled 01/31/18 11:53 Smear Path Review 01/25/18 11:30 ESR 66 MM/HR (0-20) H 01/05/18 14:22 Percent Retic 3.4 % (1.06-2.63) H 01/25/18 11:30 Haptoglobin 251 mg/dL (43-212) H 01/05/18 14:22 Sodium 136 mmol/L (137-145) L 01/02/19 10:13 Potassium 4.5 mmol/L (3.4-5.1) 01/02/19 10:13 Chloride 103 mmol/L (98-107) 01/02/19 10:13 Carbon Dioxide 23 mmol/L (22-32) 01/02/19 10:13 BUN 23 mg/dL (7-17) H 01/02/19 10:13 Creatinine 0.80 mg/dL (0.52-1.04) 01/02/19 10:13 Estimated GFR > 60.0 mL/min (>60) 01/02/19 10:13 BUN/Creatinine Ratio 28.8 (6-22) H 01/02/19 10:13 Glucose 151 mg/dL (80-110) H 01/02/19 10:13 Calcium 9.1 mg/dL (8.4-10.2) 01/02/19 10:13 Iron 42 ug/dL (37-170) 12/30/17 14:54 TIBC 247 ug/dL (265-497) L 12/30/17 14:54 % Saturation 17 % (15-50) 12/30/17 14:54 Transferrin 177 mg/dL (206-381) L 12/30/17 14:54 Ferritin 745.0 ng/mL (11.1-264) H 12/30/17 14:54 Total Bilirubin 0.4 mg/dL (0.2-1.3) 01/02/19 10:13 AST 18 IU/L (14-36) 01/02/19 10:13 ALT 17 IU/L (9-52) 01/02/19 10:13 Alkaline Phosphatase 88 U/L (38-126) 01/02/19 10:13 Lactate Dehydrogenase 344 U/L (313-618) 01/25/18 11:30 Total Protein 8.2 g/dL (6.3-8.2) 01/02/19 10:13 Albumin 4.0 g/dL (3.5-5.0) 01/02/19 10:13 Globulin 4.2 g/dL (1.7-4.1) H 01/02/19 10:13 Albumin/Globulin Ratio 1.0 (1.0-2.8) 01/02/19 10:13 Prealbumin 17.8 mg/dL (17.6-36.0) 01/25/18 11:30 Triglycerides 100 mg/dL (35-150) 05/09/18 11:20 Cholesterol 125 mg/dL (140-199) L 05/09/18 11:20 LDL Cholesterol, Calc 67 mg/dL (<100) 05/09/18 11:20 HDL Cholesterol 38 mg/dL (40-60) L 05/09/18 11:20 Carcinoembryonic Ag 4.9 ng/mL (0.1-3.0) H 01/05/18 14:22 Breast Carcino Assoc Ag 25 U/mL (< 32) 11/01/18 12:06 Vitamin B12 964 pg/mL (239-931) H 01/20/18 11:02 Folate > 20.0 ng/mL (2.76-20.0) H 01/20/18 11:02 TSH 1.22 uIU/mL (0.47-4.68) 05/09/18 11:20 Specimen Hemolysis Cancelled 11/01/18 12:06 Rheumatoid Factor 19 01/25/18 11:30 LEYDA Screen Negative 01/25/18 11:30 SS-A Antibody <1.0 neg 01/25/18 11:30 SS-B Antibody <1.0 neg 01/25/18 11:30 SM/INSTRUCTOR EXTENSION WORK Antibody <1.0 neg 01/25/18 11:30 Scl-70 Scleroderma Ab <1.0 neg 01/25/18 11:30 Anti-ds DNA (Crithidia) <1.0 neg 01/25/18 11:30 Anti-Smooth Muscle Ab <1.0 neg 01/25/18 11:30 Blood Type A Negative 05/09/18 11:16 Antibody Screen Positive 05/09/18 11:16 Antibody Identification Anti-K 05/09/18 11:16 Antigen Identification Cancelled 12/30/17 16:45 Direct Antiglob Test Negative 01/25/18 11:30 Crossmatch See Detail 05/09/18 11:16 - Imaging Additional studies: MRI of the brain did not show any metastasis. 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 She appears to be responding with improvement in her blood counts. She will continue with her letrozole. She will continue with monthly denosumab. She will return to clinic in 2 months for follow-up. I would anticipate a CT scan and bone scan sometime in the fall. Current visit: No Status: Acute Due to metastatic breast cancer which was identified on a bone marrow biopsy in February of 2018. Anemia has improved since initiating treatment with letrozole also February of 2018. Hemoglobin 10.7 hematocrit 32.4. We will continue to monitor.
[2019-01-17] MEDS: DENOSUMAB 120 MG/1.7 ML VIAL SUBCUT (16:24)
[2019-01-26 11:16] LABS: Alanine Aminotransferase 8 IU/L (9-52); Albumin 4.3 g/dL (3.5-5.0); Alkaline Phosphatase 83 U/L (38-126); Aspartate Aminotransferase 20 IU/L (14-36); Bilirubin Total 0.6 mg/dL (0.2-1.3); Blood Urea Nitrogen 24 mg/dL (7-17); Calcium 9.7 mg/dL (8.4-10.2); Carbon Dioxide 26 mmol/L (22-32); Chloride 102 mmol/L (98-107); Estimated Glomerular Filt Rate > 60.0 mL/min (>60); Globulin 4.5 g/dL (1.7-4.1); Glucose 98 mg/dL (80-110); HEMOLYSIS < 15 (0-50); Potassium 4.2 mmol/L (3.4-5.1); Sodium 137 mmol/L (137-145); Total Protein 8.8 g/dL (6.3-8.2)
--- NOTE | 2019-01-31 13:46 | ONC.SCHED ---
Gave message to Sondra to ask when to schedule this patient as she did not show yesterday, making her miss her January injection.
[2019-02-05 13:03] VITALS: BP 146/69; PULSE 79; RESP 20; TEMP 36.8; O2SAT 98
[2019-02-05] MEDS: DENOSUMAB 120 MG/1.7 ML VIAL SUBCUT (13:08)
--- NOTE | 2019-02-07 15:46 | PC.NURSE ---
Pt has not had CBC or tumor marker lab drawn since October. Mary RN informed pt that she would need to come in today for lab draw. Pt and pt's caregiver, Sumi, wanting to know if is was necessary to come in today or if lab draw could wait until the time of next visit. Spoke with Dr. Correia and he is okay with pt getting CBC and tumor marker at time of next visit, pt and caregiver aware and agreeable to plan.
[2019-02-28 13:04] VITALS: BP 133/69; PULSE 69; RESP 16; TEMP 36.5; O2SAT 99
--- NOTE | 2019-02-28 13:18 | P.PNONC_ITS ---
PN -Subjective Interval history: Diagnosis: Metastatic breast cancer Previous treatment: 1. Lumpectomy with sentinel node biopsy in 1999 followed by adjuvant chemotherapy and radiation. She had tamoxifen for 5 years. 2. Metastatic disease identified on a bone marrow biopsy done because of anemia in February 2018. She has been on letrozole and denosumab since February 2018. INTERVAL HISTORY: The patient is an 82-year-old woman who returns today for follow-up of metastatic breast cancer. She was seen initially because of anemia. No obvious etiology was found but she was requiring transfusions. A bone marrow biopsy was performed that showed ER positive metastatic breast cancer. She started letrozole in February 2018. Since her last visit, she has been feeling generally well. She has no specific complaints today. She continues to tolerate the letrozole without any difficulty. She is not having any hot flashes, muscle aches or joint pains. She has not noted any fevers chills or sweats. She denies any shortness of breath or cough. Her strength and energy level have been stable. She is not having any pain. Appetite has been normal. Bowels have been moving normally. She has not noticed any adenopathy. She denies any other changes in her health. Her medications are unchanged and include lisinopril letrozole and vitamin-D. - Patient Self-Reported Symptoms SR Constitution: Weight loss/gain, Fatigue/Malaise SR Musculoskeletal issues: Joint pain or swelling, Muscle weakness, Muscle pain or cramps, Bone pain SR Neuro issues: Difficulty balancing SR Hematologic issues: Bleeding/bruising Home Medications and Allergies Home Medications Medication Instructions Recorded Confirmed Type Combigan 1 drp OPHTHALMIC (EYE) BID 11/25/17 02/28/19 History Flovent HFA 3 puff INHALATION BID PRN 11/25/17 02/28/19 History albuterol sulfate 2 puff INHALATION Q4H PRN 11/25/17 02/28/19 History bimatoprost 1 drp OPHTHALMIC (EYE) QPM PRN 11/25/17 02/28/19 History levothyroxine 1 tab PO DAILY 11/25/17 02/28/19 History zolpidem 5 - 10 mg PO BEDTIME PRN 11/25/17 02/28/19 History multivitamin [Multiple Vitamins] 1 tab PO DAILY 12/06/17 02/28/19 History hydrocodone-acetaminophen 1 tab PO Q12H PRN #60 tab 03/22/18 02/28/19 Rx letrozole 2.5 mg PO DAILY 30 Days #30 tab 03/22/18 02/28/19 Rx cholecalciferol (vitamin D3) 2,000 unit PO DAILY 90 Days #90 cap 04/19/18 02/28/19 Rx lisinopril 20 mg PO DAILY 90 Days #90 tab 04/19/18 02/28/19 Rx citalopram 20 mg PO DAILY 01/17/19 02/28/19 History Allergies Allergy/AdvReac Type Severity Reaction Status Date / Time meperidine Allergy Unknown Verified 11/25/17 18:09 Sulfa (Sulfonamide Allergy Unknown Verified 11/25/17 18:09 Antibiotics) Exam Vital signs: Vital Signs Temp Pulse Resp BP Pulse Ox 02/28/19 13:04 97.7 F 69 16 133/69 99 Intake and Output 02/27/19 02/28/19 02/28/19 23:59 07:59 15:59 Other: Weight 57 kg Patient Weight 02/28/19 23:59 Weight 57 kg - Constitutional positive no acute distress, positive average body habitus - Routine HEENT Exam Head: Present: normocephalic, atraumatic Eye: Present: EOMI, PERRL. Absent: conjunctival icterus, scleral injection ENT: Present: mucous membranes moist, oropharynx clear - Routine Neck Exam Present: supple. Absent: lymphadenopathy, thyromegaly - Routine Respiratory Exam Present: Clear to auscultation bilaterally. Absent: rales, wheezes - Routine Cardiovascular Exam Present: RRR, S1, S2, murmur Comments: She has a soft systolic murmur. - Routine Abdominal Exam Present: soft, normoactive bowel sounds. Absent: tenderness, organomegaly, mass - Routine Extremities Exam Absent: cyanosis, clubbing, edema - Routine Back/Spine Exam Back/Spine: Absent: vertebral tenderness - Routine Skin Exam Present: intact. Absent: petechiae, rash - Routine Neurological Exam Present: alert, oriented X3 - Routine Psychiatric Exam Present: normal affect, normal thought process Results - Labs Laboratory Last Values WBC 9.1 X10^3/uL (4.5-11.0) 11/01/18 12:06 RBC 4.09 X10^6/uL (4.0-5.2) 11/01/18 12:06 Hgb 12.5 g/dL (12.0-16.0) 11/01/18 12:06 Hct 38.1 % (36-46) 11/01/18 12:06 MCV 93.1 fL (80-100) 11/01/18 12:06 MCH 30.6 PG (26-34) 11/01/18 12:06 MCHC 32.9 % (30-36) 11/01/18 12:06 RDW 14.3 % (11.6-14.8) 11/01/18 12:06 Plt Count 366 X10^3/uL (150-400) 11/01/18 12:06 Neut % (Auto) 48.0 % (50-75) L 11/01/18 12:06 Lymph % (Auto) 30.1 % (25-40) 11/01/18 12:06 [place] % (Auto) 13.7 % (3-14) 11/01/18 12:06 Eos % (Auto) 7.0 % (2-4) H 11/01/18 12:06 Baso % (Auto) 1.2 % (0-2) 11/01/18 12:06 Neut # (Auto) 4400 /uL (6096-6899) 11/01/18 12:06 Lymph # (Auto) 2800 /uL (4694-9421) 11/01/18 12:06 [place] # (Auto) 1200 /uL (0-900) H 11/01/18 12:06 Eos # (Auto) 600 /uL (0-450) H 11/01/18 12:06 Baso # (Auto) 100 /uL (0-100) 11/01/18 12:06 Total Counted 100 01/20/18 11:02 Seg Neutrophils % 73.0 % (38-70) H 01/20/18 11:02 Lymphocytes % (Manual) 23.0 % (25-45) L 01/20/18 11:02 Monocytes % (Manual) 4.0 % (2-11) 01/20/18 11:02 Neutrophils # (Manual) 7446 /uL (3763-0414) H 01/20/18 11:02 Nucleated RBCs Cancelled 01/31/18 11:53 Hypersegmented Neuts Cancelled 01/31/18 11:53 Hypogranular Neuts Cancelled 01/31/18 11:53 Reactive Lymphocytes Cancelled 01/31/18 11:53 Smudge Cells Cancelled 01/31/18 11:53 Other Cell Type Cancelled 01/31/18 11:53 Toxic Granulation Cancelled 01/31/18 11:53 Toxic Vacuolation Cancelled 01/31/18 11:53 Dohle Bodies Cancelled 01/31/18 11:53 Keyonna Rods Cancelled 01/31/18 11:53 WBC Morphology Comment Cancelled 01/31/18 11:53 Platelet Estimate Cancelled 01/31/18 11:53 Clumped Platelets Cancelled 01/31/18 11:53 Plt Morphology Comment Cancelled 01/31/18 11:53 RBC Morphology Not Reportable 05/09/18 11:16 Dimorphic RBCs Cancelled 01/31/18 11:53 Polychromasia 1+ H 05/09/18 11:16 Hypochromasia 1+ H 05/09/18 11:16 Poikilocytosis 1+ H 05/02/18 11:21 Basophilic Stippling Cancelled 01/31/18 11:53 Anisocytosis 3+ H 05/09/18 11:16 Microcytosis Cancelled 01/31/18 11:53 Macrocytosis 1+ H 04/17/18 10:29 Spherocytes Cancelled 01/31/18 11:53 Pappenheimer Bodies Cancelled 01/31/18 11:53 Sickle Cells Cancelled 01/31/18 11:53 Target Cells Cancelled 01/31/18 11:53 Tear Drop Cells Cancelled 01/31/18 11:53 Ovalocytes Cancelled 01/31/18 11:53 Stomatocytes Cancelled 01/31/18 11:53 Helmet Cells Cancelled 01/31/18 11:53 [place] Bodies Cancelled 01/31/18 11:53 [place] Rings Cancelled 01/31/18 11:53 Tiffanie Cells Cancelled 01/31/18 11:53 Acanthocytes (Spur) Cancelled 01/31/18 11:53 Rouleaux 1+ H 04/25/18 11:02 Schistocytes Cancelled 01/31/18 11:53 Smear Path Review 01/25/18 11:30 ESR 66 MM/HR (0-20) H 01/05/18 14:22 Percent Retic 3.4 % (1.06-2.63) H 01/25/18 11:30 Haptoglobin 251 mg/dL (43-212) H 01/05/18 14:22 Sodium 137 mmol/L (137-145) 01/26/19 10:33 Potassium 4.2 mmol/L (3.4-5.1) 01/26/19 10:33 Chloride 102 mmol/L (98-107) 01/26/19 10:33 Carbon Dioxide 26 mmol/L (22-32) 01/26/19 10:33 BUN 24 mg/dL (7-17) H 01/26/19 10:33 Creatinine 0.80 mg/dL (0.52-1.04) 01/26/19 10:33 Estimated GFR > 60.0 mL/min (>60) 01/26/19 10:33 BUN/Creatinine Ratio 30.0 (6-22) H 01/26/19 10:33 Glucose 98 mg/dL (80-110) 01/26/19 10:33 Calcium 9.7 mg/dL (8.4-10.2) 01/26/19 10:33 Iron 42 ug/dL (37-170) 12/30/17 14:54 TIBC 247 ug/dL (265-497) L 12/30/17 14:54 % Saturation 17 % (15-50) 12/30/17 14:54 Transferrin 177 mg/dL (206-381) L 12/30/17 14:54 Ferritin 745.0 ng/mL (11.1-264) H 12/30/17 14:54 Total Bilirubin 0.6 mg/dL (0.2-1.3) 01/26/19 10:33 AST 20 IU/L (14-36) 01/26/19 10:33 ALT 8 IU/L (9-52) L 01/26/19 10:33 Alkaline Phosphatase 83 U/L (38-126) 01/26/19 10:33 Lactate Dehydrogenase 344 U/L (313-618) 01/25/18 11:30 Total Protein 8.8 g/dL (6.3-8.2) H 01/26/19 10:33 Albumin 4.3 g/dL (3.5-5.0) 01/26/19 10:33 Globulin 4.5 g/dL (1.7-4.1) H 01/26/19 10:33 Albumin/Globulin Ratio 1.0 (1.0-2.8) 01/26/19 10:33 Prealbumin 17.8 mg/dL (17.6-36.0) 01/25/18 11:30 Triglycerides 100 mg/dL (35-150) 05/09/18 11:20 Cholesterol 125 mg/dL (140-199) L 05/09/18 11:20 LDL Cholesterol, Calc 67 mg/dL (<100) 05/09/18 11:20 HDL Cholesterol 38 mg/dL (40-60) L 05/09/18 11:20 Carcinoembryonic Ag 4.9 ng/mL (0.1-3.0) H 01/05/18 14:22 Breast Car[employer]oc Ag 25 U/mL (< 32) 11/01/18 12:06 Vitamin B12 964 pg/mL (239-931) H 01/20/18 11:02 Folate > 20.0 ng/mL (2.76-20.0) H 01/20/18 11:02 TSH 1.22 uIU/mL (0.47-4.68) 05/09/18 11:20 Specimen Hemolysis Cancelled 11/01/18 12:06 Rheumatoid Factor 19 01/25/18 11:30 LEYDA Screen Negative 01/25/18 11:30 SS-A Antibody <1.0 neg 01/25/18 11:30 SS-B Antibody <1.0 neg 01/25/18 11:30 SM/[employer]NER Antibody <1.0 neg 01/25/18 11:30 Scl-70 Scleroderma Ab <1.0 neg 01/25/18 11:30 Anti-ds DNA (Crithidia) <1.0 neg 01/25/18 11:30 Anti-Smooth Muscle Ab <1.0 neg 01/25/18 11:30 Blood Type A Negative 05/09/18 11:16 Antibody Screen Positive 05/09/18 11:16 Antibody Identification Anti-K 05/09/18 11:16 Antigen Identification Cancelled 12/30/17 16:45 Direct Antiglob Test Negative 01/25/18 11:30 Crossmatch See Detail 05/09/18 11:16 Assessment and Plan (1) Anemia Problem details: An 82-year-old woman with a 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 She has had normalization in her blood counts and is doing well with hormone therapy. She will continue with monthly denosumab in return to clinic in 2 months for follow-up. Her most recent CT in November showed no measurable disease. I would anticipate another CT scan in 6-12 months. Current visit: No Status: Acute
[2019-02-28] MEDS: DENOSUMAB 120 MG/1.7 ML VIAL SUBCUT (13:28)
[2019-04-04 13:24] LABS: Add Manual Diff / Slide Review NO; Basophils Absolute Auto 100 /uL (0-100); Basophils Percent Auto 1.4 % (0-2); Eosinophils Absolute Auto 600 /uL (0-450); Eosinophils Percent Auto 5.8 % (2-4); Hematocrit 38.3 % (36-46); Lymphocytes Absolute Auto 2900 /uL (1100-4500); Lymphocytes Percent Auto 27.8 % (25-40); Mean Corpuscular HGB Conc 33.8 % (30-36); Mean Corpuscular Volume 91.6 fL (80-100); Monocytes Absolute Auto 1300 /uL (0-900); Monocytes Percent Auto 12.4 % (3-14); Neutrophils Absolute Auto 5500 /uL (1500-7000); Neutrophils Percent Auto 52.6 % (50-75); Platelet Count 314 X10^3/uL (150-400); Red Blood Cell Count 4.18 X10^6/uL (4.0-5.2); Red Cell Distribution Width 15.6 % (11.6-14.8); White Blood Cell Count 10.4 X10^3/uL (4.5-11.0)
[2019-04-04 13:36] VITALS: BP 140/77; PULSE 73; RESP 16; TEMP 36.9; O2SAT 95
[2019-04-04 13:47] LABS: Alanine Aminotransferase 9 IU/L (9-52); Albumin 4.4 g/dL (3.5-5.0); Alkaline Phosphatase 81 U/L (38-126); Aspartate Aminotransferase 23 IU/L (14-36); BUN Creatinine Ratio 27.8 (6-22); Bilirubin Total 0.5 mg/dL (0.2-1.3); Blood Urea Nitrogen 25 mg/dL (7-17); Calcium 9.4 mg/dL (8.4-10.2); Carbon Dioxide 28 mmol/L (22-32); Chloride 98 mmol/L (98-107); Estimated Glomerular Filt Rate > 60.0 mL/min (>60); Globulin 4.5 g/dL (1.7-4.1); Glucose 112 mg/dL (80-110); HEMOLYSIS < 15 (0-50); Sodium 136 mmol/L (137-145); Total Protein 8.9 g/dL (6.3-8.2)
[2019-04-04] MEDS: DENOSUMAB 120 MG/1.7 ML VIAL SUBCUT (13:52)
[2019-04-06 18:41] LABS: CA 15-3 50 U/mL (< 32)
--- NOTE | 2019-04-18 08:55 | PC.NURSE ---
RX for Lisinipril faxed to [facility]
[2019-05-08 10:36] VITALS: BP 162/76; PULSE 69; RESP 16; TEMP 36.6; O2SAT 97
--- NOTE | 2019-05-08 10:51 | ONC.PN ---
PN -Subjective Interval history: Diagnosis: Metastatic breast cancer Previous treatment: 1. Lumpectomy with sentinel node biopsy in 1999 followed by adjuvant chemotherapy and radiation. She had tamoxifen for 5 years. 2. Metastatic disease identified on a bone marrow biopsy done because of anemia in February 2018. She has been on letrozole and denosumab since February 2018. INTERVAL HISTORY: The patient is an 82-year-old woman who returns today for follow-up of metastatic breast cancer. She was seen initially because of anemia. No obvious etiology was found but she was requiring transfusions. A bone marrow biopsy was performed that showed ER positive metastatic breast cancer. She started letrozole in February 2018. Since her last visit, she has been feeling generally well. She has had some generalized achiness that she attributes to her letrozole. She has been using some Aleve about once a day which usually takes care of it. If her pain is more severe, she does take hydrocodone. She has not noticed any increasing or worsening pain. She has not noticed any adenopathy. No shortness of breath or cough. Appetite and energy level have been stable. She is otherwise without complaint today. Her medications are unchanged and include lisinopril letrozole and vitamin-D. - Patient Self-Reported Symptoms SR Constitution: Weight loss/gain, Fatigue/Malaise SR Musculoskeletal issues: Joint pain or swelling, Muscle weakness, Muscle pain or cramps, Bone pain SR Neuro issues: Difficulty balancing SR Hematologic issues: Bleeding/bruising Home Medications and Allergies Home Medications Medication Instructions Recorded Confirmed Type Combigan 1 drp OPHTHALMIC (EYE) BID 11/25/17 05/08/19 History Flovent HFA 3 puff INHALATION BID PRN 11/25/17 05/08/19 History albuterol sulfate 2 puff INHALATION Q4H PRN 11/25/17 05/08/19 History bimatoprost 1 drp OPHTHALMIC (EYE) QPM PRN 11/25/17 05/08/19 History levothyroxine 1 tab PO DAILY 11/25/17 05/08/19 History zolpidem 5 - 10 mg PO BEDTIME PRN 11/25/17 05/08/19 History multivitamin [Multiple Vitamins] 1 tab PO DAILY 12/06/17 05/08/19 History citalopram 20 mg PO DAILY 01/17/19 05/08/19 History hydrocodone-acetaminophen 1 tab PO Q12H PRN #60 tab 05/08/19 Rx letrozole 2.5 mg PO DAILY #90 tab 05/08/19 Rx Allergies Allergy/AdvReac Type Severity Reaction Status Date / Time meperidine Allergy Unknown Verified 11/25/17 18:09 Sulfa (Sulfonamide Allergy Unknown Verified 11/25/17 18:09 Antibiotics) Exam Vital signs: Vital Signs Temp Pulse Resp BP Pulse Ox 05/08/19 10:36 97.9 F 69 16 162/76 H 97 Intake and Output 05/07/19 05/08/19 05/08/19 23:59 07:59 15:59 Other: Weight 59.1 kg Patient Weight 05/08/19 23:59 Weight 59.1 kg - Constitutional positive no acute distress, positive average body habitus - Routine HEENT Exam Head: Present: normocephalic, atraumatic Eye: Present: EOMI, PERRL. Absent: conjunctival icterus, scleral injection ENT: Present: mucous membranes moist, oropharynx clear - Routine Neck Exam Present: supple. Absent: lymphadenopathy - Routine Chest/Breast/Axilla Exam Axillae: Absent: lymphadenopathy - Routine Respiratory Exam Present: Clear to auscultation bilaterally. Absent: rales, wheezes - Routine Cardiovascular Exam Present: RRR, S1, S2. Absent: murmur - Routine Abdominal Exam Present: soft, normoactive bowel sounds. Absent: tenderness, organomegaly, mass - Routine Extremities Exam Absent: cyanosis, clubbing, edema - Routine Back/Spine Exam Back/Spine: Absent: vertebral tenderness - Routine Neurological Exam Present: alert, oriented X3 - Routine Psychiatric Exam Present: normal affect, normal thought process Results - Labs Laboratory Last Values WBC 10.4 X10^3/uL (4.5-11.0) 04/04/19 13:11 RBC 4.18 X10^6/uL (4.0-5.2) 04/04/19 13:11 Hgb 13.0 g/dL (12.0-16.0) 04/04/19 13:11 Hct 38.3 % (36-46) 04/04/19 13:11 MCV 91.6 fL (80-100) 04/04/19 13:11 MCH 31.0 PG (26-34) 04/04/19 13:11 MCHC 33.8 % (30-36) 04/04/19 13:11 RDW 15.6 % (11.6-14.8) H 04/04/19 13:11 Plt Count 314 X10^3/uL (150-400) 04/04/19 13:11 Neut % (Auto) 52.6 % (50-75) 04/04/19 13:11 Lymph % (Auto) 27.8 % (25-40) 04/04/19 13:11 [place] % (Auto) 12.4 % (3-14) 04/04/19 13:11 Eos % (Auto) 5.8 % (2-4) H 04/04/19 13:11 Baso % (Auto) 1.4 % (0-2) 04/04/19 13:11 Neut # (Auto) 5500 /uL (2953-0234) 04/04/19 13:11 Lymph # (Auto) 2900 /uL (3148-2526) 04/04/19 13:11 [place] # (Auto) 1300 /uL (0-900) H 04/04/19 13:11 Eos # (Auto) 600 /uL (0-450) H 04/04/19 13:11 Baso # (Auto) 100 /uL (0-100) 04/04/19 13:11 Total Counted 100 01/20/18 11:02 Seg Neutrophils % 73.0 % (38-70) H 01/20/18 11:02 Lymphocytes % (Manual) 23.0 % (25-45) L 01/20/18 11:02 Monocytes % (Manual) 4.0 % (2-11) 01/20/18 11:02 Neutrophils # (Manual) 7446 /uL (5247-8485) H 01/20/18 11:02 Nucleated RBCs Cancelled 01/31/18 11:53 Hypersegmented Neuts Cancelled 01/31/18 11:53 Hypogranular Neuts Cancelled 01/31/18 11:53 Reactive Lymphocytes Cancelled 01/31/18 11:53 Smudge Cells Cancelled 01/31/18 11:53 Other Cell Type Cancelled 01/31/18 11:53 Toxic Granulation Cancelled 01/31/18 11:53 Toxic Vacuolation Cancelled 01/31/18 11:53 Dohle Bodies Cancelled 01/31/18 11:53 Keyonna Rods Cancelled 01/31/18 11:53 WBC Morphology Comment Cancelled 01/31/18 11:53 Platelet Estimate Cancelled 01/31/18 11:53 Clumped Platelets Cancelled 01/31/18 11:53 Plt Morphology Comment Cancelled 01/31/18 11:53 RBC Morphology Not Reportable 05/09/18 11:16 Dimorphic RBCs Cancelled 01/31/18 11:53 Polychromasia 1+ H 05/09/18 11:16 Hypochromasia 1+ H 05/09/18 11:16 Poikilocytosis 1+ H 05/02/18 11:21 Basophilic Stippling Cancelled 01/31/18 11:53 Anisocytosis 3+ H 05/09/18 11:16 Microcytosis Cancelled 01/31/18 11:53 Macrocytosis 1+ H 04/17/18 10:29 Spherocytes Cancelled 01/31/18 11:53 Pappenheimer Bodies Cancelled 01/31/18 11:53 Sickle Cells Cancelled 01/31/18 11:53 Target Cells Cancelled 01/31/18 11:53 Tear Drop Cells Cancelled 01/31/18 11:53 Ovalocytes Cancelled 01/31/18 11:53 Stomatocytes Cancelled 01/31/18 11:53 Helmet Cells Cancelled 01/31/18 11:53 [place] Bodies Cancelled 01/31/18 11:53 [place] Rings Cancelled 01/31/18 11:53 Tiffanie Cells Cancelled 01/31/18 11:53 Acanthocytes (Spur) Cancelled 01/31/18 11:53 Rouleaux 1+ H 04/25/18 11:02 Schistocytes Cancelled 01/31/18 11:53 Smear Path Review 01/25/18 11:30 ESR 66 MM/HR (0-20) H 01/05/18 14:22 Percent Retic 3.4 % (1.06-2.63) H 01/25/18 11:30 Haptoglobin 251 mg/dL (43-212) H 01/05/18 14:22 Sodium 136 mmol/L (137-145) L 04/04/19 13:11 Potassium 4.0 mmol/L (3.4-5.1) 04/04/19 13:11 Chloride 98 mmol/L (98-107) 04/04/19 13:11 Carbon Dioxide 28 mmol/L (22-32) 04/04/19 13:11 BUN 25 mg/dL (7-17) H 04/04/19 13:11 Creatinine 0.90 mg/dL (0.52-1.04) 04/04/19 13:11 Estimated GFR > 60.0 mL/min (>60) 04/04/19 13:11 BUN/Creatinine Ratio 27.8 (6-22) H 04/04/19 13:11 Glucose 112 mg/dL (80-110) H 04/04/19 13:11 Calcium 9.4 mg/dL (8.4-10.2) 04/04/19 13:11 Iron 42 ug/dL (37-170) 12/30/17 14:54 TIBC 247 ug/dL (265-497) L 12/30/17 14:54 % Saturation 17 % (15-50) 12/30/17 14:54 Transferrin 177 mg/dL (206-381) L 12/30/17 14:54 Ferritin 745.0 ng/mL (11.1-264) H 12/30/17 14:54 Total Bilirubin 0.5 mg/dL (0.2-1.3) 04/04/19 13:11 AST 23 IU/L (14-36) 04/04/19 13:11 ALT 9 IU/L (9-52) 04/04/19 13:11 Alkaline Phosphatase 81 U/L (38-126) 04/04/19 13:11 Lactate Dehydrogenase 344 U/L (313-618) 01/25/18 11:30 Total Protein 8.9 g/dL (6.3-8.2) H 04/04/19 13:11 Albumin 4.4 g/dL (3.5-5.0) 04/04/19 13:11 Globulin 4.5 g/dL (1.7-4.1) H 04/04/19 13:11 Albumin/Globulin Ratio 1.0 (1.0-2.8) 04/04/19 13:11 Prealbumin 17.8 mg/dL (17.6-36.0) 01/25/18 11:30 Triglycerides 100 mg/dL (35-150) 05/09/18 11:20 Cholesterol 125 mg/dL (140-199) L 05/09/18 11:20 LDL Cholesterol, Calc 67 mg/dL (<100) 05/09/18 11:20 HDL Cholesterol 38 mg/dL (40-60) L 05/09/18 11:20 Carcinoembryonic Ag 4.9 ng/mL (0.1-3.0) H 01/05/18 14:22 Breast [employer] Ag 25 U/mL (< 32) 11/01/18 12:06 CA 15-3 Antigen 50 U/mL (< 32) H 04/04/19 13:11 Vitamin B12 964 pg/mL (239-931) H 01/20/18 11:02 Folate > 20.0 ng/mL (2.76-20.0) H 01/20/18 11:02 TSH 1.22 uIU/mL (0.47-4.68) 05/09/18 11:20 Specimen Hemolysis Cancelled 11/01/18 12:06 Rheumatoid Factor 01/25/18 11:30 LEYDA Screen Negative 01/25/18 11:30 SS-A Antibody <1.0 neg 01/25/18 11:30 SS-B Antibody <1.0 neg 01/25/18 11:30 SM/[employer]LE HOME INST[employer]ER Antibody <1.0 neg 01/25/18 11:30 Scl-70 Scleroderma Ab <1.0 neg 01/25/18 11:30 Anti-ds DNA (Crithidia) <1.0 neg 01/25/18 11:30 Anti-Smooth Muscle Ab <1.0 neg 01/25/18 11:30 Blood Type A Negative 05/09/18 11:16 Antibody Screen Positive 05/09/18 11:16 Antibody Identification Anti-K 05/09/18 11:16 Antigen Identification Cancelled 12/30/17 16:45 Direct Antiglob Test Negative 01/25/18 11:30 Crossmatch See Detail 05/09/18 11:16 Assessment and Plan (1) Anemia Problem details: An 83-year-old woman with a 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 She has had normalization in her blood counts and is doing well with hormone therapy. She will continue with monthly denosumab in return to clinic in about 1 month. She will be due for a bone scan and CT scan at that time. Current visit: No Status: Acute Due to metastatic breast cancer which was identified on a bone marrow biopsy in February of 2018. Anemia has improved since initiating treatment with letrozole also February of 2018. Hemoglobin 10.7 hematocrit 32.4. We will continue to monitor.
[2019-05-08] MEDS: DENOSUMAB 120 MG/1.7 ML VIAL SUBCUT (11:18)
[2019-06-06 10:55] VITALS: BP 154/77; PULSE 72; RESP 18; TEMP 37; O2SAT 96
--- NOTE | 2019-06-06 11:10 | ONC.PN ---
PN -Subjective Interval history: Diagnosis: Metastatic breast cancer Previous treatment: 1. Lumpectomy with sentinel node biopsy in 1999 followed by adjuvant chemotherapy and radiation. She had tamoxifen for 5 years. 2. Metastatic disease identified on a bone marrow biopsy done because of anemia in February 2018. She has been on letrozole and denosumab since February 2018. INTERVAL HISTORY: The patient is an 83-year-old woman who returns today for follow-up of metastatic breast cancer. She was seen initially because of anemia. No obvious etiology was found but she was requiring transfusions. A bone marrow biopsy was performed that showed ER positive metastatic breast cancer. She started letrozole in February 2018. Since her last visit, she has been feeling generally well. She has had some generalized achiness that she attributes to her letrozole. She has been using some Aleve about once a day which usually takes care of it. If her pain is more severe, she does take hydrocodone. She has not noticed any increasing or worsening pain. She has not noticed any adenopathy. No shortness of breath or cough. Appetite and energy level have been stable. She is otherwise without complaint today. Her medications are unchanged and include lisinopril letrozole and vitamin-D. - Patient Self-Reported Symptoms SR Constitution: Weight loss/gain, Fatigue/Malaise SR Cardiovascular issues: Dizzy/lightheaded SR Musculoskeletal issues: Joint pain or swelling, Muscle weakness, Bone pain SR Neuro issues: Difficulty balancing SR Hematologic issues: Bleeding/bruising SR Endocrine issues: Heat intolerance, Hot flashes Home Medications and Allergies Home Medications Medication Instructions Recorded Confirmed Type Combigan 1 drp OPHTHALMIC (EYE) BID 11/25/17 05/08/19 History Flovent HFA 3 puff INHALATION BID PRN 11/25/17 05/08/19 History albuterol sulfate 2 puff INHALATION Q4H PRN 11/25/17 05/08/19 History bimatoprost 1 drp OPHTHALMIC (EYE) QPM PRN 11/25/17 05/08/19 History levothyroxine 1 tab PO DAILY 11/25/17 05/08/19 History zolpidem 5 - 10 mg PO BEDTIME PRN 11/25/17 05/08/19 History multivitamin [Multiple Vitamins] 1 tab PO DAILY 12/06/17 05/08/19 History citalopram 20 mg PO DAILY 01/17/19 05/08/19 History letrozole 2.5 mg PO DAILY #90 tab 05/08/19 Rx hydrocodone-acetaminophen 1 tab PO Q12H PRN #60 tab 06/06/19 Rx Allergies Allergy/AdvReac Type Severity Reaction Status Date / Time meperidine Allergy Unknown Verified 11/25/17 18:09 Sulfa (Sulfonamide Allergy Unknown Verified 11/25/17 18:09 Antibiotics) Exam Vital signs: Vital Signs Temp Pulse Resp BP Pulse Ox 06/06/19 10:55 98.6 F 72 18 154/77 H 96 Intake and Output 06/05/19 06/06/19 06/06/19 23:59 07:59 15:59 Other: Weight 58.6 kg Patient Weight 06/06/19 23:59 Weight 58.6 kg - Constitutional positive no acute distress, positive average body habitus - Routine HEENT Exam Head: Present: normocephalic, atraumatic Eye: Present: EOMI, PERRL. Absent: conjunctival icterus, scleral injection ENT: Present: mucous membranes moist, oropharynx clear - Routine Neck Exam Present: supple. Absent: lymphadenopathy, thyromegaly - Routine Respiratory Exam Present: Clear to auscultation bilaterally. Absent: rales, wheezes - Routine Cardiovascular Exam Present: RRR, S1, S2. Absent: murmur - Routine Abdominal Exam Present: soft, normoactive bowel sounds. Absent: organomegaly, mass - Routine Extremities Exam Absent: cyanosis, clubbing, edema - Routine Back/Spine Exam Back/Spine: Absent: vertebral tenderness - Routine Skin Exam Present: intact. Absent: petechiae, rash - Routine Neurological Exam Present: alert, oriented X3 - Routine Psychiatric Exam Present: normal affect, normal thought process Results - Labs Laboratory Last Values WBC 10.4 X10^3/uL (4.5-11.0) 04/04/19 13:11 RBC 4.18 X10^6/uL (4.0-5.2) 04/04/19 13:11 Hgb 13.0 g/dL (12.0-16.0) 04/04/19 13:11 Hct 38.3 % (36-46) 04/04/19 13:11 MCV 91.6 fL (80-100) 04/04/19 13:11 MCH 31.0 PG (26-34) 04/04/19 13:11 MCHC 33.8 % (30-36) 04/04/19 13:11 RDW 15.6 % (11.6-14.8) H 04/04/19 13:11 Plt Count 314 X10^3/uL (150-400) 04/04/19 13:11 Neut % (Auto) 52.6 % (50-75) 04/04/19 13:11 Lymph % (Auto) 27.8 % (25-40) 04/04/19 13:11 [place] % (Auto) 12.4 % (3-14) 04/04/19 13:11 Eos % (Auto) 5.8 % (2-4) H 04/04/19 13:11 Baso % (Auto) 1.4 % (0-2) 04/04/19 13:11 Neut # (Auto) 5500 /uL (5310-8535) 04/04/19 13:11 Lymph # (Auto) 2900 /uL (4558-5560) 04/04/19 13:11 [place] # (Auto) 1300 /uL (0-900) H 04/04/19 13:11 Eos # (Auto) 600 /uL (0-450) H 04/04/19 13:11 Baso # (Auto) 100 /uL (0-100) 04/04/19 13:11 Total Counted 100 01/20/18 11:02 Seg Neutrophils % 73.0 % (38-70) H 01/20/18 11:02 Lymphocytes % (Manual) 23.0 % (25-45) L 01/20/18 11:02 Monocytes % (Manual) 4.0 % (2-11) 01/20/18 11:02 Neutrophils # (Manual) 7446 /uL (8158-8977) H 01/20/18 11:02 Nucleated RBCs Cancelled 01/31/18 11:53 Hypersegmented Neuts Cancelled 01/31/18 11:53 Hypogranular Neuts Cancelled 01/31/18 11:53 Reactive Lymphocytes Cancelled 01/31/18 11:53 Smudge Cells Cancelled 01/31/18 11:53 Other Cell Type Cancelled 01/31/18 11:53 Toxic Granulation Cancelled 01/31/18 11:53 Toxic Vacuolation Cancelled 01/31/18 11:53 Dohle Bodies Cancelled 01/31/18 11:53 Keyonna Rods Cancelled 01/31/18 11:53 WBC Morphology Comment Cancelled 01/31/18 11:53 Platelet Estimate Cancelled 01/31/18 11:53 Clumped Platelets Cancelled 01/31/18 11:53 Plt Morphology Comment Cancelled 01/31/18 11:53 RBC Morphology Not Reportable 05/09/18 11:16 Dimorphic RBCs Cancelled 01/31/18 11:53 Polychromasia 1+ H 05/09/18 11:16 Hypochromasia 1+ H 05/09/18 11:16 Poikilocytosis 1+ H 05/02/18 11:21 Basophilic Stippling Cancelled 01/31/18 11:53 Anisocytosis 3+ H 05/09/18 11:16 Microcytosis Cancelled 01/31/18 11:53 Macrocytosis 1+ H 04/17/18 10:29 Spherocytes Cancelled 01/31/18 11:53 Pappenheimer Bodies Cancelled 01/31/18 11:53 Sickle Cells Cancelled 01/31/18 11:53 Target Cells Cancelled 01/31/18 11:53 Tear Drop Cells Cancelled 01/31/18 11:53 Ovalocytes Cancelled 01/31/18 11:53 Stomatocytes Cancelled 01/31/18 11:53 Helmet Cells Cancelled 01/31/18 11:53 [place] Bodies Cancelled 01/31/18 11:53 [place] Rings Cancelled 01/31/18 11:53 Tiffanie Cells Cancelled 01/31/18 11:53 Acanthocytes (Spur) Cancelled 01/31/18 11:53 Rouleaux 1+ H 04/25/18 11:02 Schistocytes Cancelled 01/31/18 11:53 Smear Path Review 01/25/18 11:30 ESR 66 MM/HR (0-20) H 01/05/18 14:22 Percent Retic 3.4 % (1.06-2.63) H 01/25/18 11:30 Haptoglobin 251 mg/dL (43-212) H 01/05/18 14:22 Sodium 136 mmol/L (137-145) L 04/04/19 13:11 Potassium 4.0 mmol/L (3.4-5.1) 04/04/19 13:11 Chloride 98 mmol/L (98-107) 04/04/19 13:11 Carbon Dioxide 28 mmol/L (22-32) 04/04/19 13:11 BUN 25 mg/dL (7-17) H 04/04/19 13:11 Creatinine 0.90 mg/dL (0.52-1.04) 04/04/19 13:11 Estimated GFR > 60.0 mL/min (>60) 04/04/19 13:11 BUN/Creatinine Ratio 27.8 (6-22) H 04/04/19 13:11 Glucose 112 mg/dL (80-110) H 04/04/19 13:11 Calcium 9.4 mg/dL (8.4-10.2) 04/04/19 13:11 Iron 42 ug/dL (37-170) 12/30/17 14:54 TIBC 247 ug/dL (265-497) L 12/30/17 14:54 % Saturation 17 % (15-50) 12/30/17 14:54 Transferrin 177 mg/dL (206-381) L 12/30/17 14:54 Ferritin 745.0 ng/mL (11.1-264) H 12/30/17 14:54 Total Bilirubin 0.5 mg/dL (0.2-1.3) 04/04/19 13:11 AST 23 IU/L (14-36) 04/04/19 13:11 ALT 9 IU/L (9-52) 04/04/19 13:11 Alkaline Phosphatase 81 U/L (38-126) 04/04/19 13:11 Lactate Dehydrogenase 344 U/L (313-618) 01/25/18 11:30 Total Protein 8.9 g/dL (6.3-8.2) H 04/04/19 13:11 Albumin 4.4 g/dL (3.5-5.0) 04/04/19 13:11 Globulin 4.5 g/dL (1.7-4.1) H 04/04/19 13:11 Albumin/Globulin Ratio 1.0 (1.0-2.8) 04/04/19 13:11 Prealbumin 17.8 mg/dL (17.6-36.0) 01/25/18 11:30 Triglycerides 100 mg/dL (35-150) 05/09/18 11:20 Cholesterol 125 mg/dL (140-199) L 05/09/18 11:20 LDL Cholesterol, Calc 67 mg/dL (<100) 05/09/18 11:20 HDL Cholesterol 38 mg/dL (40-60) L 05/09/18 11:20 Carcinoembryonic Ag 4.9 ng/mL (0.1-3.0) H 01/05/18 14:22 Breast Carcino Assoc Ag 25 U/mL (< 32) 11/01/18 12:06 CA 15-3 Antigen 50 U/mL (< 32) H 04/04/19 13:11 Vitamin B12 964 pg/mL (239-931) H 01/20/18 11:02 Folate > 20.0 ng/mL (2.76-20.0) H 01/20/18 11:02 TSH 1.22 uIU/mL (0.47-4.68) 05/09/18 11:20 Specimen Hemolysis Cancelled 11/01/18 12:06 Rheumatoid Factor 19 01/25/18 11:30 LEYDA Screen Negative 01/25/18 11:30 SS-A Antibody <1.0 neg 01/25/18 11:30 SS-B Antibody <1.0 neg 01/25/18 11:30 SM/CONFIGURATION MANAGEMENT ANALYST Antibody <1.0 neg 01/25/18 11:30 Scl-70 Scleroderma Ab <1.0 neg 01/25/18 11:30 Anti-ds DNA (Crithidia) <1.0 neg 01/25/18 11:30 Anti-Smooth Muscle Ab <1.0 neg 01/25/18 11:30 Blood Type A Negative 05/09/18 11:16 Antibody Screen Positive 05/09/18 11:16 Antibody Identification Anti-K 05/09/18 11:16 Antigen Identification Cancelled 12/30/17 16:45 Direct Antiglob Test Negative 01/25/18 11:30 Crossmatch See Detail 05/09/18 11:16 Assessment and Plan (1) Anemia Problem details: An 83-year-old woman with a 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 She has had normalization in her blood counts and is doing well with hormone therapy. Her CT scan and bone scan did not show any measurable disease. Her red cell count has normalized. She will continue with her Xgeva and letrozole. She will return to clinic in 2 months for follow-up. Current visit: No Status: Acute Due to metastatic breast cancer which was identified on a bone marrow biopsy in February of 2018. Anemia has improved since initiating treatment with letrozole also February of 2018.
--- NOTE | 2019-06-06 11:25 | ONC.MSW ---
Description: Financial Assistance Activity: Met with pt to discuss her concerns indicated on her distress screening today (DS-5) re: transportation and financial concerns. Discussed the availability of the [facility] Medical [facility] Fund to assist. Pt will bring a receipt for reimbursement within the next few weeks.
[2019-06-06] MEDS: DENOSUMAB 120 MG/1.7 ML VIAL SUBCUT (12:01)
[2019-07-03 11:24] VITALS: BP 178/78; PULSE 68; RESP 18; TEMP 37.1; O2SAT 98
[2019-07-03] MEDS: DENOSUMAB 120 MG/1.7 ML VIAL SUBCUT (11:27)
[2019-07-03 11:34] VITALS: BP 139/62
[2019-08-14 10:47] LABS: Add Manual Diff / Slide Review NO; Basophils Absolute Auto 100 /uL (0-100); Basophils Percent Auto 1.2 % (0-2); Eosinophils Absolute Auto 400 /uL (0-450); Eosinophils Percent Auto 4.9 % (2-4); Hematocrit 37.3 % (36-46); Hemoglobin 12.8 g/dL (12.0-16.0); Lymphocytes Absolute Auto 2600 /uL (1100-4500); Lymphocytes Percent Auto 30.7 % (25-40); Mean Corpuscular HGB Conc 34.3 % (30-36); Mean Corpuscular Hemoglobin 31.5 PG (26-34); Mean Corpuscular Volume 91.9 fL (80-100); Monocytes Absolute Auto 1100 /uL (0-900); Monocytes Percent Auto 12.9 % (3-14); Neutrophils Absolute Auto 4200 /uL (1500-7000); Neutrophils Percent Auto 50.3 % (50-75); Platelet Count 290 X10^3/uL (150-400); Red Blood Cell Count 4.05 X10^6/uL (4.0-5.2); Red Cell Distribution Width 14.1 % (11.6-14.8); White Blood Cell Count 8.4 X10^3/uL (4.5-11.0)
[2019-08-14 11:03] LABS: Alanine Aminotransferase 17 IU/L (<35); Albumin 4.5 g/dL (3.5-5.0); Alkaline Phosphatase 80 U/L (38-126); Aspartate Aminotransferase 23 IU/L (14-36); BUN Creatinine Ratio 27.5 (6-22); Bilirubin Total 0.5 mg/dL (0.2-1.3); Blood Urea Nitrogen 22 mg/dL (7-17); Calcium 9.1 mg/dL (8.4-10.2); Carbon Dioxide 24 mmol/L (22-32); Chloride 101 mmol/L (98-107); Estimated Glomerular Filt Rate > 60.0 mL/min (>60); Globulin 4.5 g/dL (1.7-4.1); Glucose 131 mg/dL (80-110); HEMOLYSIS < 15 (0-50); Potassium 4.2 mmol/L (3.4-5.1); Sodium 135 mmol/L (137-145)
[2019-08-14 11:14] VITALS: BP 164/78; PULSE 72; RESP 18; TEMP 36.7; O2SAT 98
--- NOTE | 2019-08-14 11:28 | ONC.PN ---
PN -Subjective Interval history: ID/CC : 83 year old with ER positive metastatic breast cancer Oncology History: Lainey is an 83 year old female. She was diagnosed with right breast cancer in 1999. She had a lumpectomy and sn lymph node biopsy, followed by chemotherapy, followed by radiation therapy and then tamoxifen. In 11/2017, she developed severe anemia with HGB 6.7, requiring blood transfusion. 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 She was then started on treatment with letrazole in 02/2018 and Xgeva in 03/2018. Interim Events: She is now taking Letrazole 2.5 mg daily and Xgeva injection once a month. She tolerated well. She has gained 4 lbs since last time. Her daughter Miranda thought Teressa is getting stronger, and is moving around more, and is doing some basic stuff at home, much better than a year ago. She does not have any pain, just achiness all over. She thought that is normal for her age. She is taking multiple vitamin one a day. She is in wheel chair in the clinic because of lot of walking. She is not using wheelchair at home. - Patient Self-Reported Symptoms SR Constitution: Weight loss/gain, Fatigue/Malaise SR Cardiovascular issues: Dizzy/lightheaded SR Musculoskeletal issues: Joint pain or swelling, Muscle weakness, Bone pain SR Neuro issues: Difficulty balancing SR Hematologic issues: Bleeding/bruising SR Endocrine issues: Heat intolerance, Hot flashes - Additional ROS All systems PM: reviewed and no additional remarkable complaints except as stated Home Medications and Allergies Home Medications Medication Instructions Recorded Confirmed Type Combigan 1 drp OPHTHALMIC (EYE) BID 11/25/17 08/14/19 History Flovent HFA 3 puff INHALATION BID PRN 11/25/17 08/14/19 History albuterol sulfate 2 puff INHALATION Q4H PRN 11/25/17 08/14/19 History bimatoprost 1 drp OPHTHALMIC (EYE) QPM PRN 11/25/17 08/14/19 History levothyroxine 1 tab PO DAILY 11/25/17 08/14/19 History zolpidem 5 - 10 mg PO BEDTIME PRN 11/25/17 08/14/19 History multivitamin [Multiple Vitamins] 1 tab PO DAILY 12/06/17 08/14/19 History citalopram 20 mg PO DAILY 01/17/19 08/14/19 History letrozole 2.5 mg PO DAILY #90 tab 05/08/19 08/14/19 Rx hydrocodone-acetaminophen 1 tab PO Q12H PRN #60 tab 06/06/19 08/14/19 Rx Allergies Allergy/AdvReac Type Severity Reaction Status Date / Time meperidine Allergy Unknown Verified 11/25/17 18:09 Sulfa (Sulfonamide Allergy Unknown Verified 11/25/17 18:09 Antibiotics) Exam Vital signs: Vital Signs Temp Pulse Resp BP Pulse Ox 08/14/19 11:14 98.1 F 72 18 164/78 H 98 Intake and Output 08/13/19 08/14/19 08/14/19 23:59 07:59 15:59 Other: Weight 60.3 kg Patient Weight 08/14/19 23:59 Weight 60.3 kg Narrative: ECOG 1 Gen: WDWN, NAD, pleasant and cooperative. HEENT: NCAT, EOMI, PERRLA, anicteric sclera. Neck: Supple, No palpable thyromegaly or lymphadenopathy. Respiratory: CTAB, no wheezes audible. No JVD Cardiovascular: RRR, S1 and S2 normal, 4/6 SM aortic valve Abdomen: Soft, NTND, BS normal, no palpable organomegaly Extremities: No LE pitting edema. Lymphatic: no palpable lymph nodes in the neck, axillae Neurological: AOx3, CN II-XII grossly intact. No focal motor or sensory deficit. Psychiatric: Good judgment and insight; normal affect; normal thought process; no depression, no anxiety. Results - Labs Laboratory Last Values WBC 8.4 X10^3/uL (4.5-11.0) 08/14/19 10:33 RBC 4.05 X10^6/uL (4.0-5.2) 08/14/19 10:33 Hgb 12.8 g/dL (12.0-16.0) 08/14/19 10:33 Hct 37.3 % (36-46) 08/14/19 10:33 MCV 91.9 fL (80-100) 08/14/19 10:33 MCH 31.5 PG (26-34) 08/14/19 10:33 MCHC 34.3 % (30-36) 08/14/19 10:33 RDW 14.1 % (11.6-14.8) 08/14/19 10:33 Plt Count 290 X10^3/uL (150-400) 08/14/19 10:33 Neut % (Auto) 50.3 % (50-75) 08/14/19 10:33 Lymph % (Auto) 30.7 % (25-40) 08/14/19 10:33 [place] % (Auto) 12.9 % (3-14) 08/14/19 10:33 Eos % (Auto) 4.9 % (2-4) H 08/14/19 10:33 Baso % (Auto) 1.2 % (0-2) 08/14/19 10:33 Neut # (Auto) 4200 /uL (6518-9399) 08/14/19 10:33 Lymph # (Auto) 2600 /uL (9750-5917) 08/14/19 10:33 [place] # (Auto) 1100 /uL (0-900) H 08/14/19 10:33 Eos # (Auto) 400 /uL (0-450) 08/14/19 10:33 Baso # (Auto) 100 /uL (0-100) 08/14/19 10:33 Total Counted 100 01/20/18 11:02 Seg Neutrophils % 73.0 % (38-70) H 01/20/18 11:02 Lymphocytes % (Manual) 23.0 % (25-45) L 01/20/18 11:02 Monocytes % (Manual) 4.0 % (2-11) 01/20/18 11:02 Neutrophils # (Manual) 7446 /uL (9450-1312) H 01/20/18 11:02 Nucleated RBCs Cancelled 01/31/18 11:53 Hypersegmented Neuts Cancelled 01/31/18 11:53 Hypogranular Neuts Cancelled 01/31/18 11:53 Reactive Lymphocytes Cancelled 01/31/18 11:53 Smudge Cells Cancelled 01/31/18 11:53 Other Cell Type Cancelled 01/31/18 11:53 Toxic Granulation Cancelled 01/31/18 11:53 Toxic Vacuolation Cancelled 01/31/18 11:53 Dohle Bodies Cancelled 01/31/18 11:53 Keyonna Rods Cancelled 01/31/18 11:53 WBC Morphology Comment Cancelled 01/31/18 11:53 Platelet Estimate Cancelled 01/31/18 11:53 Clumped Platelets Cancelled 01/31/18 11:53 Plt Morphology Comment Cancelled 01/31/18 11:53 RBC Morphology Not Reportable 05/09/18 11:16 Dimorphic RBCs Cancelled 01/31/18 11:53 Polychromasia 1+ H 05/09/18 11:16 Hypochromasia 1+ H 05/09/18 11:16 Poikilocytosis 1+ H 05/02/18 11:21 Basophilic Stippling Cancelled 01/31/18 11:53 Anisocytosis 3+ H 05/09/18 11:16 Microcytosis Cancelled 01/31/18 11:53 Macrocytosis 1+ H 04/17/18 10:29 Spherocytes Cancelled 01/31/18 11:53 Pappenheimer Bodies Cancelled 01/31/18 11:53 Sickle Cells Cancelled 01/31/18 11:53 Target Cells Cancelled 01/31/18 11:53 Tear Drop Cells Cancelled 01/31/18 11:53 Ovalocytes Cancelled 01/31/18 11:53 Stomatocytes Cancelled 01/31/18 11:53 Helmet Cells Cancelled 01/31/18 11:53 [place] Bodies Cancelled 01/31/18 11:53 [place] Rings Cancelled 01/31/18 11:53 Tiffanie Cells Cancelled 01/31/18 11:53 Acanthocytes (Spur) Cancelled 01/31/18 11:53 Rouleaux 1+ H 04/25/18 11:02 Schistocytes Cancelled 01/31/18 11:53 Smear Path Review 01/25/18 11:30 ESR 66 MM/HR (0-20) H 01/05/18 14:22 Percent Retic 3.4 % (1.06-2.63) H 01/25/18 11:30 Haptoglobin 251 mg/dL (43-212) H 01/05/18 14:22 Sodium 135 mmol/L (137-145) L 08/14/19 10:33 Potassium 4.2 mmol/L (3.4-5.1) 08/14/19 10:33 Chloride 101 mmol/L (98-107) 08/14/19 10:33 Carbon Dioxide 24 mmol/L (22-32) 08/14/19 10:33 BUN 22 mg/dL (7-17) H 08/14/19 10:33 Creatinine 0.80 mg/dL (0.52-1.04) 08/14/19 10:33 Estimated GFR > 60.0 mL/min (>60) 08/14/19 10:33 BUN/Creatinine Ratio 27.5 (6-22) H 08/14/19 10:33 Glucose 131 mg/dL (80-110) H 08/14/19 10:33 Calcium 9.1 mg/dL (8.4-10.2) 08/14/19 10:33 Iron 42 ug/dL (37-170) 12/30/17 14:54 TIBC 247 ug/dL (265-497) L 12/30/17 14:54 % Saturation 17 % (15-50) 12/30/17 14:54 Transferrin 177 mg/dL (206-381) L 12/30/17 14:54 Ferritin 745.0 ng/mL (11.1-264) H 12/30/17 14:54 Total Bilirubin 0.5 mg/dL (0.2-1.3) 08/14/19 10:33 AST 23 IU/L (14-36) 08/14/19 10:33 ALT 17 IU/L (<35) 08/14/19 10:33 Alkaline Phosphatase 80 U/L (38-126) 08/14/19 10:33 Lactate Dehydrogenase 344 U/L (313-618) 01/25/18 11:30 Total Protein 9.0 g/dL (6.3-8.2) H 08/14/19 10:33 Albumin 4.5 g/dL (3.5-5.0) 08/14/19 10:33 Globulin 4.5 g/dL (1.7-4.1) H 08/14/19 10:33 Albumin/Globulin Ratio 1.0 (1.0-2.8) 08/14/19 10:33 Prealbumin 17.8 mg/dL (17.6-36.0) 01/25/18 11:30 Triglycerides 100 mg/dL (35-150) 05/09/18 11:20 Cholesterol 125 mg/dL (140-199) L 05/09/18 11:20 LDL Cholesterol, Calc 67 mg/dL (<100) 05/09/18 11:20 HDL Cholesterol 38 mg/dL (40-60) L 05/09/18 11:20 Carcinoembryonic Ag 4.9 ng/mL (0.1-3.0) H 01/05/18 14:22 Breast Car[employer] Assoc Ag 25 U/mL (< 32) 11/01/18 12:06 CA 15-3 Antigen 50 U/mL (< 32) H 04/04/19 13:11 Vitamin B12 964 pg/mL (239-931) H 01/20/18 11:02 Folate > 20.0 ng/mL (2.76-20.0) H 01/20/18 11:02 TSH 1.22 uIU/mL (0.47-4.68) 05/09/18 11:20 Specimen Hemolysis Cancelled 11/01/18 12:06 Rheumatoid Factor 19 01/25/18 11:30 LEYDA Screen Negative 01/25/18 11:30 SS-A Antibody <1.0 neg 01/25/18 11:30 SS-B Antibody <1.0 neg 01/25/18 11:30 SM/[employer]ER Antibody <1.0 neg 01/25/18 11:30 Scl-70 Scleroderma Ab <1.0 neg 01/25/18 11:30 Anti-ds DNA (Crithidia) <1.0 neg 01/25/18 11:30 Anti-Smooth Muscle Ab <1.0 neg 01/25/18 11:30 Blood Type A Negative 05/09/18 11:16 Antibody Screen Positive 05/09/18 11:16 Antibody Identification Anti-K 05/09/18 11:16 Antigen Identification Cancelled 12/30/17 16:45 Direct Antiglob Test Negative 01/25/18 11:30 Crossmatch See Detail 05/09/18 11:16 Assessment and Plan (1) Anemia Overview: Lainey is an 83 year old female with history of right breast cancer in 1999, status post lumpectomy and sn lymph node biopsy, adjuvant chemotherapy, radiation therapy and tamoxifen. She was diagnosed with metastatic ER+ breast cancer involving bone marrow only after BMA/Bx on 03/07/2018 for work-up of severe anemia. Her CT scan and bone scan did not show any measurable disease. She was then started on treatment with letrazole in 02/2018 and Xgeva in 03/2018. Her red cell count has normalized. Assessment: I reviewed the imaging studies from May of [address] chest abdomen pelvis, bone scan, and brain MRI. All showed no evidence of disease progression or metastasis. Clinically, patient has felt much better than a year ago. The lab showed no anemia which was severe in 2018 when she was diagnosed with recurrent breast cancer. I talked with her and her daughter Miranda that she has responded beautifully to treatment with letrozole. I will continue without any changes. I talked with her that given the bone involvement, we will continue the Xgeva injection once a month. I would like to check labs once a month. I will see the patient in 3 months. I talked with them that if there are any new concerns or new signs, she needs to call us for an sooner follow-up. Plan: 1. Continue Letrozole 2.5 mg daily 2. Continue monthly Xgeva 120 mg subQ, CBC, CMP, CA15.3 3. RTC in 3 months for followup visit.
[2019-08-14] MEDS: DENOSUMAB 120 MG/1.7 ML VIAL SUBCUT (11:51)
[2019-08-16 15:21] LABS: CA 15-3 38 U/mL (< 32)
[2019-09-11 11:33] LABS: Add Manual Diff / Slide Review NO; Basophils Absolute Auto 100 /uL (0-100); Eosinophils Absolute Auto 100 /uL (0-450); Eosinophils Percent Auto 0.7 % (2-4); Hematocrit 34.7 % (36-46); Hemoglobin 11.6 g/dL (12.0-16.0); Lymphocytes Absolute Auto 2400 /uL (1100-4500); Lymphocytes Percent Auto 23.7 % (25-40); Mean Corpuscular HGB Conc 33.3 % (30-36); Mean Corpuscular Hemoglobin 30.1 PG (26-34); Mean Corpuscular Volume 90.3 fL (80-100); Monocytes Absolute Auto 1100 /uL (0-900); Monocytes Percent Auto 10.8 % (3-14); Neutrophils Absolute Auto 6400 /uL (1500-7000); Neutrophils Percent Auto 63.8 % (50-75); Platelet Count 385 X10^3/uL (150-400); Red Blood Cell Count 3.84 X10^6/uL (4.0-5.2)
[2019-09-11 11:46] LABS: Alanine Aminotransferase 13 IU/L (<35); Albumin 4.4 g/dL (3.5-5.0); Alkaline Phosphatase 78 U/L (38-126); Aspartate Aminotransferase 17 IU/L (14-36); Bilirubin Total 0.5 mg/dL (0.2-1.3); Blood Urea Nitrogen 20 mg/dL (7-17); Calcium 9.7 mg/dL (8.4-10.2); Carbon Dioxide 24 mmol/L (22-32); Chloride 104 mmol/L (98-107); Estimated Glomerular Filt Rate > 60.0 mL/min (>60); Globulin 4.5 g/dL (1.7-4.1); Glucose 123 mg/dL (80-110); HEMOLYSIS < 15 (0-50); Potassium 4.4 mmol/L (3.4-5.1); Sodium 136 mmol/L (137-145); Total Protein 8.9 g/dL (6.3-8.2)
[2019-09-11] MEDS: DENOSUMAB 120 MG/1.7 ML VIAL SUBCUT (12:08)
[2019-09-11 12:13] VITALS: BP 170/75; PULSE 74; RESP 16; TEMP 36.9; O2SAT 99
[2019-10-09 11:27] LABS: Add Manual Diff / Slide Review NO; Basophils Absolute Auto 100 /uL (0-100); Basophils Percent Auto 0.9 % (0-2); Eosinophils Absolute Auto 200 /uL (0-450); Eosinophils Percent Auto 1.9 % (2-4); Hematocrit 33.8 % (36-46); Hemoglobin 11.2 g/dL (12.0-16.0); Lymphocytes Absolute Auto 2700 /uL (1100-4500); Lymphocytes Percent Auto 34.6 % (25-40); Mean Corpuscular Hemoglobin 28.9 PG (26-34); Mean Corpuscular Volume 87.6 fL (80-100); Monocytes Absolute Auto 800 /uL (0-900); Monocytes Percent Auto 10.6 % (3-14); Neutrophils Absolute Auto 4100 /uL (1500-7000); Platelet Count 422 X10^3/uL (150-400); Red Blood Cell Count 3.86 X10^6/uL (4.0-5.2); Red Cell Distribution Width 15.3 % (11.6-14.8); White Blood Cell Count 7.9 X10^3/uL (4.5-11.0)
[2019-10-09 11:32] VITALS: BP 135/62; PULSE 74; RESP 16; TEMP 36.9; O2SAT 98
[2019-10-09] MEDS: DENOSUMAB 120 MG/1.7 ML VIAL SUBCUT (11:34)
[2019-10-09 11:40] LABS: Alanine Aminotransferase 17 IU/L (<35); Albumin 4.4 g/dL (3.5-5.0); Alkaline Phosphatase 87 U/L (38-126); Aspartate Aminotransferase 24 IU/L (14-36); BUN Creatinine Ratio 21.9 (6-22); Bilirubin Total 0.4 mg/dL (0.2-1.3); Blood Urea Nitrogen 21 mg/dL (7-17); Calcium 9.3 mg/dL (8.4-10.2); Carbon Dioxide 22 mmol/L (22-32); Chloride 100 mmol/L (98-107); Estimated Glomerular Filt Rate 55.8 mL/min (>60); Globulin 4.5 g/dL (1.7-4.1); Glucose 128 mg/dL (80-110); HEMOLYSIS < 15 (0-50); Potassium 4.5 mmol/L (3.4-5.1); Sodium 133 mmol/L (137-145); Total Protein 8.9 g/dL (6.3-8.2)
[2019-11-06 10:28] LABS: Add Manual Diff / Slide Review NO; Basophils Absolute Auto 100 /uL (0-100); Basophils Percent Auto 0.6 % (0-2); Eosinophils Absolute Auto 300 /uL (0-450); Eosinophils Percent Auto 2.4 % (2-4); Hematocrit 34.9 % (36-46); Hemoglobin 11.4 g/dL (12.0-16.0); Lymphocytes Absolute Auto 3400 /uL (1100-4500); Lymphocytes Percent Auto 30.8 % (25-40); Mean Corpuscular HGB Conc 32.6 % (30-36); Mean Corpuscular Hemoglobin 28.9 PG (26-34); Mean Corpuscular Volume 88.6 fL (80-100); Monocytes Absolute Auto 1200 /uL (0-900); Monocytes Percent Auto 10.9 % (3-14); Neutrophils Absolute Auto 6200 /uL (1500-7000); Neutrophils Percent Auto 55.3 % (50-75); Platelet Count 398 X10^3/uL (150-400); Red Blood Cell Count 3.94 X10^6/uL (4.0-5.2); Red Cell Distribution Width 17.1 % (11.6-14.8); White Blood Cell Count 11.1 X10^3/uL (4.5-11.0)
[2019-11-06 10:43] LABS: Alanine Aminotransferase 15 IU/L (<35); Albumin 4.4 g/dL (3.5-5.0); Alkaline Phosphatase 78 U/L (38-126); Aspartate Aminotransferase 29 IU/L (14-36); BUN Creatinine Ratio 40.8 (6-22); Bilirubin Total 0.5 mg/dL (0.2-1.3); Blood Urea Nitrogen 31 mg/dL (7-17); Calcium 9.4 mg/dL (8.4-10.2); Carbon Dioxide 21 mmol/L (22-32); Chloride 102 mmol/L (98-107); Estimated Glomerular Filt Rate > 60.0 mL/min (>60); Globulin 4.5 g/dL (1.7-4.1); Glucose 143 mg/dL (80-110); HEMOLYSIS < 15 (0-50); Potassium 3.9 mmol/L (3.4-5.1); Sodium 134 mmol/L (137-145); Total Protein 8.9 g/dL (6.3-8.2)
[2019-11-06 11:12] VITALS: BP 123/70; PULSE 78; RESP 16; TEMP 37.1; O2SAT 97
--- NOTE | 2019-11-06 11:16 | ONC.PN ---
PN -Subjective Interval history: ID/CC : 84 year old with ER positive metastatic breast cancer Oncology History: Lainey is an 84 year old female. She was diagnosed with right breast cancer in 1999. She had a lumpectomy and sn lymph node biopsy, followed by chemotherapy, followed by radiation therapy and then tamoxifen. In 11/2017, she developed severe anemia with HGB 6.7, requiring blood transfusion. 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 She was then started on treatment with letrazole in 02/2018 and Xgeva in 03/2018. Interim Events: She is now taking Letrazole 2.5 mg daily and Xgeva injection once a month. Her son is on the speaker phone. Patient reported good energy and good appetite. Overall she said everything has been about the same. She denies any new pain problems. She denies dizziness. She denies shortness of breath or chest pain. She denies abdominal pain, diarrhea or constipation. - Patient Self-Reported Symptoms SR Constitution: Weight loss/gain, Fatigue/Malaise SR Cardiovascular issues: Dizzy/lightheaded SR Musculoskeletal issues: Joint pain or swelling, Muscle weakness, Bone pain SR Neuro issues: Difficulty balancing SR Hematologic issues: Bleeding/bruising SR Endocrine issues: Heat intolerance, Hot flashes - Additional ROS All systems PM: reviewed and no additional remarkable complaints except as stated (Those mentioned in HIstory of Present Illness, Interval History and Patient Self-Reported Symptoms.) Home Medications and Allergies Home Medications Medication Instructions Recorded Confirmed Type Combigan 1 drp OPHTHALMIC (EYE) BID 11/25/17 11/06/19 History Flovent HFA 3 puff INHALATION BID PRN 11/25/17 11/06/19 History albuterol sulfate 2 puff INHALATION Q4H PRN 11/25/17 11/06/19 History bimatoprost 1 drp OPHTHALMIC (EYE) QPM PRN 11/25/17 11/06/19 History levothyroxine 1 tab PO DAILY 11/25/17 11/06/19 History zolpidem 5 - 10 mg PO BEDTIME PRN 11/25/17 11/06/19 History multivitamin [Multiple Vitamins] 1 tab PO DAILY 12/06/17 11/06/19 History citalopram 20 mg PO DAILY 01/17/19 11/06/19 History hydrocodone-acetaminophen 1 tab PO Q12H PRN #60 tab 06/06/19 11/06/19 Rx letrozole 2.5 mg PO DAILY #90 tab 10/08/19 11/06/19 Rx Allergies Allergy/AdvReac Type Severity Reaction Status Date / Time meperidine Allergy Unknown Verified 11/25/17 18:09 Sulfa (Sulfonamide Allergy Unknown Verified 11/25/17 18:09 Antibiotics) Exam Vital signs: Vital Signs Temp Pulse Resp BP Pulse Ox 11/06/19 11:12 98.7 F 78 16 123/70 97 Intake and Output 11/05/19 11/06/19 11/06/19 23:59 07:59 15:59 Other: Weight 57.4 kg Patient Weight 11/06/19 23:59 Weight 57.4 kg Narrative: ECOG 1 Gen: WDWN, NAD, pleasant and cooperative. HEENT: NCAT, EOMI, PERRLA, anicteric sclera. Neck: Supple, No palpable thyromegaly or lymphadenopathy. Respiratory: CTAB, no wheezes audible. No JVD Cardiovascular: RRR, S1 and S2 normal, 4/6 SM aortic valve Abdomen: Soft, NTND, BS normal, no palpable organomegaly Extremities: No LE pitting edema. Lymphatic: no palpable lymph nodes in the neck, axillae Neurological: AOx3, CN II-XII grossly intact. No focal motor or sensory deficit. Psychiatric: Good judgment and insight; normal affect; normal thought process; no depression, no anxiety. Breast exam: deferred. Results - Labs Laboratory Last Values WBC 11.1 X10^3/uL (4.5-11.0) H 11/06/19 10:15 RBC 3.94 X10^6/uL (4.0-5.2) L 11/06/19 10:15 Hgb 11.4 g/dL (12.0-16.0) L 11/06/19 10:15 Hct 34.9 % (36-46) L 11/06/19 10:15 MCV 88.6 fL (80-100) 11/06/19 10:15 MCH 28.9 PG (26-34) 11/06/19 10:15 MCHC 32.6 % (30-36) 11/06/19 10:15 RDW 17.1 % (11.6-14.8) H 11/06/19 10:15 Plt Count 398 X10^3/uL (150-400) 11/06/19 10:15 Neut % (Auto) 55.3 % (50-75) 11/06/19 10:15 Lymph % (Auto) 30.8 % (25-40) 11/06/19 10:15 Spalding % (Auto) 10.9 % (3-14) 11/06/19 10:15 Eos % (Auto) 2.4 % (2-4) 11/06/19 10:15 Baso % (Auto) 0.6 % (0-2) 11/06/19 10:15 Neut # (Auto) 6200 /uL (7336-7898) 11/06/19 10:15 Lymph # (Auto) 3400 /uL (5692-8792) 11/06/19 10:15 Spalding # (Auto) 1200 /uL (0-900) H 11/06/19 10:15 Eos # (Auto) 300 /uL (0-450) 11/06/19 10:15 Baso # (Auto) 100 /uL (0-100) 11/06/19 10:15 Total Counted 100 01/20/18 11:02 Seg Neutrophils % 73.0 % (38-70) H 01/20/18 11:02 Lymphocytes % (Manual) 23.0 % (25-45) L 01/20/18 11:02 Monocytes % (Manual) 4.0 % (2-11) 01/20/18 11:02 Neutrophils # (Manual) 7446 /uL (1945-9570) H 01/20/18 11:02 Nucleated RBCs Cancelled 01/31/18 11:53 Hypersegmented Neuts Cancelled 01/31/18 11:53 Hypogranular Neuts Cancelled 01/31/18 11:53 Reactive Lymphocytes Cancelled 01/31/18 11:53 Smudge Cells Cancelled 01/31/18 11:53 Other Cell Type Cancelled 01/31/18 11:53 Toxic Granulation Cancelled 01/31/18 11:53 Toxic Vacuolation Cancelled 01/31/18 11:53 Dohle Bodies Cancelled 01/31/18 11:53 Keyonna Rods Cancelled 01/31/18 11:53 WBC Morphology Comment Cancelled 01/31/18 11:53 Platelet Estimate Cancelled 01/31/18 11:53 Clumped Platelets Cancelled 01/31/18 11:53 Plt Morphology Comment Cancelled 01/31/18 11:53 RBC Morphology Not Reportable 05/09/18 11:16 Dimorphic RBCs Cancelled 01/31/18 11:53 Polychromasia 1+ H 05/09/18 11:16 Hypochromasia 1+ H 05/09/18 11:16 Poikilocytosis 1+ H 05/02/18 11:21 Basophilic Stippling Cancelled 01/31/18 11:53 Anisocytosis 3+ H 05/09/18 11:16 Microcytosis Cancelled 01/31/18 11:53 Macrocytosis 1+ H 04/17/18 10:29 Spherocytes Cancelled 01/31/18 11:53 Pappenheimer Bodies Cancelled 01/31/18 11:53 Sickle Cells Cancelled 01/31/18 11:53 Target Cells Cancelled 01/31/18 11:53 Tear Drop Cells Cancelled 01/31/18 11:53 Ovalocytes Cancelled 01/31/18 11:53 Stomatocytes Cancelled 01/31/18 11:53 Helmet Cells Cancelled 01/31/18 11:53 [place] Bodies Cancelled 01/31/18 11:53 [place] Rings Cancelled 01/31/18 11:53 Tiffanie Cells Cancelled 01/31/18 11:53 Acanthocytes (Spur) Cancelled 01/31/18 11:53 Rouleaux 1+ H 04/25/18 11:02 Schistocytes Cancelled 01/31/18 11:53 Smear Path Review 01/25/18 11:30 ESR 66 MM/HR (0-20) H 01/05/18 14:22 Percent Retic 3.4 % (1.06-2.63) H 01/25/18 11:30 Haptoglobin 251 mg/dL (43-212) H 01/05/18 14:22 Sodium 134 mmol/L (137-145) L 11/06/19 10:20 Potassium 3.9 mmol/L (3.4-5.1) 11/06/19 10:20 Chloride 102 mmol/L (98-107) 11/06/19 10:20 Carbon Dioxide 21 mmol/L (22-32) L 11/06/19 10:20 BUN 31 mg/dL (7-17) H 11/06/19 10:20 Creatinine 0.76 mg/dL (0.52-1.04) 11/06/19 10:20 Estimated GFR > 60.0 mL/min (>60) 11/06/19 10:20 BUN/Creatinine Ratio 40.8 (6-22) H 11/06/19 10:20 Glucose 143 mg/dL (80-110) H 11/06/19 10:20 Calcium 9.4 mg/dL (8.4-10.2) 11/06/19 10:20 Iron 42 ug/dL (37-170) 12/30/17 14:54 TIBC 247 ug/dL (265-497) L 12/30/17 14:54 % Saturation 17 % (15-50) 12/30/17 14:54 Transferrin 177 mg/dL (206-381) L 12/30/17 14:54 Ferritin 745.0 ng/mL (11.1-264) H 12/30/17 14:54 Total Bilirubin 0.5 mg/dL (0.2-1.3) 11/06/19 10:20 AST 29 IU/L (14-36) 11/06/19 10:20 ALT 15 IU/L (<35) 11/06/19 10:20 Alkaline Phosphatase 78 U/L (38-126) 11/06/19 10:20 Lactate Dehydrogenase 344 U/L (313-618) 01/25/18 11:30 Prealbumin 17.8 mg/dL (17.6-36.0) 01/25/18 11:30 Total Protein 8.9 g/dL (6.3-8.2) H 11/06/19 10:20 Albumin 4.4 g/dL (3.5-5.0) 11/06/19 10:20 Globulin 4.5 g/dL (1.7-4.1) H 11/06/19 10:20 Albumin/Globulin Ratio 1.0 (1.0-2.8) 11/06/19 10:20 Triglycerides 100 mg/dL (35-150) 05/09/18 11:20 Cholesterol 125 mg/dL (140-199) L 05/09/18 11:20 LDL Cholesterol, Calc 67 mg/dL (<100) 05/09/18 11:20 HDL Cholesterol 38 mg/dL (40-60) L 05/09/18 11:20 Carcinoembryonic Ag 4.9 ng/mL (0.1-3.0) H 01/05/18 14:22 Breast Carcino Assoc Ag 25 U/mL (< 32) 11/01/18 12:06 CA 15-3 Antigen 25.0 U/mL (0.0-25.0) 09/11/19 11:25 Vitamin B12 964 pg/mL (239-931) H 01/20/18 11:02 Folate > 20.0 ng/mL (2.76-20.0) H 01/20/18 11:02 TSH 1.22 uIU/mL (0.47-4.68) 05/09/18 11:20 Specimen Hemolysis Cancelled 11/01/18 12:06 Rheumatoid Factor 19 01/25/18 11:30 LEYDA Screen Negative 01/25/18 11:30 SS-A Antibody <1.0 neg 01/25/18 11:30 SS-B Antibody <1.0 neg 01/25/18 11:30 SM/WIND UP WORKER Antibody <1.0 neg 01/25/18 11:30 Scl-70 Scleroderma Ab <1.0 neg 01/25/18 11:30 Anti-ds DNA (Crithidia) <1.0 neg 01/25/18 11:30 Anti-Smooth Muscle Ab <1.0 neg 01/25/18 11:30 Blood Type A Negative 05/09/18 11:16 Antibody Screen Positive 05/09/18 11:16 Antibody Identification Anti-K 05/09/18 11:16 Antigen Identification Cancelled 12/30/17 16:45 Direct Antiglob Test Negative 01/25/18 11:30 Crossmatch See Detail 05/09/18 11:16 Assessment and Plan (1) Anemia Overview: Lainey is an 84 year old female with history of right breast cancer in 1999, status post lumpectomy and sn lymph node biopsy, adjuvant chemotherapy, radiation therapy and tamoxifen. She was diagnosed with metastatic ER+ breast cancer involving bone marrow only after BMA/Bx on 03/07/2018 for work-up of severe anemia. Her CT scan and bone scan did not show any measurable disease. She was then started on treatment with letrazole in 02/2018 and Xgeva in 03/2018. Her red cell count has normalized. Assessment: Today, I reviewed the lab results with patient. Patient's hemoglobin level is about 11. WBC and platelet counts are within the normal range. Patient's CMP are normal. Talked with the patient that I will proceed with scheduled Xgeva injection. Overall I think she has responded to the treatment and has tolerated the treatment with letrozole and Xgeva well. Will continue monthly injection of the Xgeva and will continue letrozole. I will see the patient in about 3 months. Plan: 1. Continue Letrozole 2.5 mg daily 2. Continue monthly Xgeva 120 mg subQ, CBC, CMP, CA15.3 3. RTC in 3 months for followup visit.
[2019-11-06] MEDS: DENOSUMAB 120 MG/1.7 ML VIAL SUBCUT (11:44)
[2019-11-13 08:19] LABS: CA 15-3 30.3 U/mL (0.0-25.0)
[2019-12-04 11:31] VITALS: BP 129/67; PULSE 78; RESP 18; TEMP 36.8; O2SAT 97
[2019-12-04] MEDS: DENOSUMAB 120 MG/1.7 ML VIAL SUBCUT (11:38)
[2020-01-03] MEDS: DENOSUMAB 120 MG/1.7 ML VIAL SUBCUT (12:04)
[2020-01-03 12:07] VITALS: BP 135/71; PULSE 78; RESP 16; TEMP 36.9; O2SAT 98
--- NOTE | 2020-01-23 10:02 | ONC.SCHED ---
I faxed over a request for medical records from [facility] for this patient to be faxed to us. Request faxed 01/23/20 by Johanna Munguia
--- NOTE | 2020-01-24 13:10 | PC.NURSE ---
NARCOTIC RX RELAY TESTER WAS OK'D BY DAUGHTER, WU KAT, TO BE DONE BY CAREGIVER MELANIE MURRY TODAY AND FOR ALL FUTURE PAPER NARCOTIC PRESCRIPTIONS. MELANIE INFORMED BY TELEPHONE THAT PRESCRIPTION IS READY FOR RELAY TESTER TODAY.
--- NOTE | 2020-01-29 08:53 | PC.NURSE ---
Dr. Dodson requested that we contact her primary care doc to see if they are managing pt's blood pressure and medications r/t BP as a refill request came in for lisinopril. This RN contact Liana Kirby's office to inquire about the patient's current treatment plan. Awaiting a call back.
[2020-01-29 13:19] LABS: Add Manual Diff / Slide Review NO; Basophils Absolute Auto 100 /uL (0-100); Basophils Percent Auto 0.9 % (0-2); Eosinophils Absolute Auto 200 /uL (0-450); Eosinophils Percent Auto 2.4 % (2-4); Hematocrit 36.4 % (36-46); Hemoglobin 12.1 g/dL (12.0-16.0); Lymphocytes Absolute Auto 2900 /uL (1100-4500); Mean Corpuscular HGB Conc 33.3 % (30-36); Mean Corpuscular Hemoglobin 29.2 PG (26-34); Mean Corpuscular Volume 87.9 fL (80-100); Monocytes Absolute Auto 900 /uL (0-900); Monocytes Percent Auto 9.6 % (3-14); Neutrophils Absolute Auto 5500 /uL (1500-7000); Neutrophils Percent Auto 57.1 % (50-75); Platelet Count 320 X10^3/uL (150-400); Red Blood Cell Count 4.15 X10^6/uL (4.0-5.2); Red Cell Distribution Width 14.9 % (11.6-14.8); White Blood Cell Count 9.7 X10^3/uL (4.5-11.0)
[2020-01-29 13:27] LABS: Alanine Aminotransferase 15 IU/L (<35); Albumin 4.4 g/dL (3.5-5.0); Albumin Globulin Ratio 1.1 (1.0-2.8); Alkaline Phosphatase 76 U/L (38-126); Aspartate Aminotransferase 21 IU/L (14-36); BUN Creatinine Ratio 16.7 (6-22); Bilirubin Total 0.4 mg/dL (0.2-1.3); Blood Urea Nitrogen 17 mg/dL (7-17); Calcium 9.1 mg/dL (8.4-10.2); Carbon Dioxide 24 mmol/L (22-32); Chloride 100 mmol/L (98-107); Estimated Glomerular Filt Rate 51.9 mL/min (>60); Globulin 4.1 g/dL (1.7-4.1); Glucose 157 mg/dL (80-110); HEMOLYSIS < 15 (0-50); Potassium 4.1 mmol/L (3.4-5.1); Sodium 134 mmol/L (137-145); Total Protein 8.5 g/dL (6.3-8.2)
[2020-01-30 14:41] VITALS: BP 140/77; PULSE 80; RESP 16; TEMP 37.3; O2SAT 98
[2020-01-30] MEDS: DENOSUMAB 120 MG/1.7 ML VIAL SUBCUT (15:10)
--- NOTE | 2020-01-30 16:36 | P.PNONC_ITS ---
PN -Subjective Interval history: ID/CC : 84 year old with ER positive metastatic breast cancer. She originally presented in 1999 with a right-sided breast cancer treated with lumpectomy, chemotherapy, radiation therapy followed by tamoxifen. In November of 2017 she presented with severe anemia with a hemoglobin of 6.7. She require blood transfusion support. Bone marrow examination showed hormone receptor positive metastatic breast cancer and 3/[address] scan and bone scan were negative. In February of 2018 she started on letrozole which she has continued to take. In March of 2018 she started on monthly Xgeva which she has continued to take. She was last in for follow-up about 3 months ago and doing well. She recently developed postmenopausal bleeding. She had a pelvic ultrasound done on December 17 that showed a complex ovarian cyst as well as a thickened endometrial lining. These findings were new compared with a CT scan of April 2019. She was seen on January [address] Brown and an attempt was made to obtain an in office endometrial biopsy. However, the attempt failed due to a stenotic cervix. She was subsequently referred to [facility] On[facility]. She agreed to this referral at the time of that office visit on January 01. However, she subsequently has decided she does not want to do any further assessment for this. She comes today for a three-month follow-up visit for her metastatic breast cancer. She has on going bone pain which is generally relieved by Aleve. She takes an occasional Vicodin for this. She denies other pain, bleeding, localized weakness, fever, chills, nausea, vomiting, cough or shortness of breath. All other systems are negative. Past medical history 1. Geriatric status: She has ongoing issues with her memory. She is and lives with her . They have a belt worker. She does some cooking but does not go to the grocery store. Her daughter handles their finances. She is independent with her ADLs but not her IADLs. She had a fall about a month ago when she was moving a ladder in the garage. She has had several other less traumatic falls. None of them resulted in an emergency room visit. She is in a wheelchair in the office today. Overall she has a frail geriatric status 2. She does not tolerate meperidine or sulfa 3. Medications are reviewed and are as noted in the chart 4. History of asthma 5. DJD 6. Dyslipidemia 7. History of uterine fibroids 8. High blood pressure 9. Hypothyroidism, on replacement therapy 10. History of mitral regurgitation 11. Previous surgeries include a nasal septoplasty and her breast cancer surgery 12. She is a previous 40 year smoker and occasional drinker. She is . She is accompanied in the office today by her daughter. 13. Family history is negative for malignancy 14. She had a colonoscopy in 2018 - Patient Self-Reported Symptoms SR Constitution: Weight loss/gain, Fatigue/Malaise SR Cardiovascular issues: Dizzy/lightheaded SR Musculoskeletal issues: Bone pain SR Neuro issues: Difficulty balancing SR Hematologic issues: Bleeding/bruising SR Endocrine issues: Heat intolerance, Hot flashes Home Medications and Allergies Home Medications Medication Instructions Recorded Confirmed Type Combigan 1 drp OPHTHALMIC (EYE) BID 11/25/17 01/02/20 History Flovent HFA 3 puff INHALATION BID PRN 11/25/17 01/02/20 History albuterol sulfate 2 puff INHALATION Q4H PRN 11/25/17 01/02/20 History bimatoprost 1 drp OPHTHALMIC (EYE) QPM PRN 11/25/17 01/02/20 History levothyroxine 1 tab PO DAILY 11/25/17 01/02/20 History zolpidem 5 - 10 mg PO BEDTIME PRN 11/25/17 01/02/20 History multivitamin [Multiple Vitamins] 1 tab PO DAILY 12/06/17 01/02/20 History citalopram 20 mg PO DAILY 01/17/19 01/02/20 History letrozole 2.5 mg PO DAILY #90 tab 10/08/19 01/02/20 Rx hydrocodone-acetaminophen 1 tab PO Q12H PRN #60 tab 01/24/20 Rx Allergies Allergy/AdvReac Type Severity Reaction Status Date / Time meperidine Allergy Unknown Verified 01/02/20 14:24 Sulfa (Sulfonamide Allergy Unknown Verified 01/02/20 14:24 Antibiotics) Exam Vital signs: Vital Signs Temp Pulse Resp BP Pulse Ox 01/30/20 14:41 99.1 F 80 16 140/77 98 Intake and Output 01/30/20 01/30/20 01/30/20 07:59 15:59 23:59 Other: Weight 58.2 kg Patient Weight 01/30/20 23:59 Weight 58.2 kg Narrative: She was awake, alert and oriented. She was in a wheelchair. She was able to get out of the wheelchair to the examination table with some assistance. There was no lymphadenopathy in the cervical, supraclavicular axillary regions. Lungs were clear without wheezes or rales. Heart showed regular rate and rhythm without murmur, gallop or rub. The abdomen is soft and nontender without any palpable enlargement of liver or spleen. There was no evidence of phlebitis in the lower extremities. There were no palpable breast masses on either side. Results - Labs Laboratory Last Values WBC 9.7 X10^3/uL (4.5-11.0) 01/29/20 13:05 RBC 4.15 X10^6/uL (4.0-5.2) 01/29/20 13:05 Hgb 12.1 g/dL (12.0-16.0) 01/29/20 13:05 Hct 36.4 % (36-46) 01/29/20 13:05 MCV 87.9 fL (80-100) 01/29/20 13:05 MCH 29.2 PG (26-34) 01/29/20 13:05 MCHC 33.3 % (30-36) 01/29/20 13:05 RDW 14.9 % (11.6-14.8) H 01/29/20 13:05 Plt Count 320 X10^3/uL (150-400) 01/29/20 13:05 Neut % (Auto) 57.1 % (50-75) 01/29/20 13:05 Lymph % (Auto) 30.0 % (25-40) 01/29/20 13:05 [place] % (Auto) 9.6 % (3-14) 01/29/20 13:05 Eos % (Auto) 2.4 % (2-4) 01/29/20 13:05 Baso % (Auto) 0.9 % (0-2) 01/29/20 13:05 Neut # (Auto) 5500 /uL (5877-3176) 01/29/20 13:05 Lymph # (Auto) 2900 /uL (3582-4471) 01/29/20 13:05 [place] # (Auto) 900 /uL (0-900) 01/29/20 13:05 Eos # (Auto) 200 /uL (0-450) 01/29/20 13:05 Baso # (Auto) 100 /uL (0-100) 01/29/20 13:05 Total Counted 100 01/20/18 11:02 Seg Neutrophils % 73.0 % (38-70) H 01/20/18 11:02 Lymphocytes % (Manual) 23.0 % (25-45) L 01/20/18 11:02 Monocytes % (Manual) 4.0 % (2-11) 01/20/18 11:02 Neutrophils # (Manual) 7446 /uL (3763-0810) H 01/20/18 11:02 Nucleated RBCs Cancelled 01/31/18 11:53 Hypersegmented Neuts Cancelled 01/31/18 11:53 Hypogranular Neuts Cancelled 01/31/18 11:53 Reactive Lymphocytes Cancelled 01/31/18 11:53 Smudge Cells Cancelled 01/31/18 11:53 Other Cell Type Cancelled 01/31/18 11:53 Toxic Granulation Cancelled 01/31/18 11:53 Toxic Vacuolation Cancelled 01/31/18 11:53 Dohle Bodies Cancelled 01/31/18 11:53 Keyonna Rods Cancelled 01/31/18 11:53 WBC Morphology Comment Cancelled 01/31/18 11:53 Platelet Estimate Cancelled 01/31/18 11:53 Clumped Platelets Cancelled 01/31/18 11:53 Plt Morphology Comment Cancelled 01/31/18 11:53 RBC Morphology Not Reportable 05/09/18 11:16 Dimorphic RBCs Cancelled 01/31/18 11:53 Polychromasia 1+ H 05/09/18 11:16 Hypochromasia 1+ H 05/09/18 11:16 Poikilocytosis 1+ H 05/02/18 11:21 Basophilic Stippling Cancelled 01/31/18 11:53 Anisocytosis 3+ H 05/09/18 11:16 Microcytosis Cancelled 01/31/18 11:53 Macrocytosis 1+ H 04/17/18 10:29 Spherocytes Cancelled 01/31/18 11:53 Pappenheimer Bodies Cancelled 01/31/18 11:53 Sickle Cells Cancelled 01/31/18 11:53 Target Cells Cancelled 01/31/18 11:53 Tear Drop Cells Cancelled 01/31/18 11:53 Ovalocytes Cancelled 01/31/18 11:53 Stomatocytes Cancelled 01/31/18 11:53 Helmet Cells Cancelled 01/31/18 11:53 Welch-Inman Bodies Cancelled 01/31/18 11:53 Micanopy Rings Cancelled 01/31/18 11:53 Tiffanie Cells Cancelled 01/31/18 11:53 Acanthocytes (Spur) Cancelled 01/31/18 11:53 Rouleaux 1+ H 04/25/18 11:02 Schistocytes Cancelled 01/31/18 11:53 Smear Path Review 01/25/18 11:30 ESR 66 MM/HR (0-20) H 01/05/18 14:22 Percent Retic 3.4 % (1.06-2.63) H 01/25/18 11:30 Haptoglobin 251 mg/dL (43-212) H 01/05/18 14:22 Sodium 134 mmol/L (137-145) L 01/29/20 13:05 Potassium 4.1 mmol/L (3.4-5.1) 01/29/20 13:05 Chloride 100 mmol/L (98-107) 01/29/20 13:05 Carbon Dioxide 24 mmol/L (22-32) 01/29/20 13:05 BUN 17 mg/dL (7-17) 01/29/20 13:05 Creatinine 1.02 mg/dL (0.52-1.04) 01/29/20 13:05 Estimated GFR 51.9 mL/min (>60) L 01/29/20 13:05 BUN/Creatinine Ratio 16.7 (6-22) 01/29/20 13:05 Glucose 157 mg/dL (80-110) H 01/29/20 13:05 Calcium 9.1 mg/dL (8.4-10.2) 01/29/20 13:05 Iron 42 ug/dL (37-170) 12/30/17 14:54 TIBC 247 ug/dL (265-497) L 12/30/17 14:54 % Saturation 17 % (15-50) 12/30/17 14:54 Transferrin 177 mg/dL (206-381) L 12/30/17 14:54 Ferritin 745.0 ng/mL (11.1-264) H 12/30/17 14:54 Total Bilirubin 0.4 mg/dL (0.2-1.3) 01/29/20 13:05 AST 21 IU/L (14-36) 01/29/20 13:05 ALT 15 IU/L (<35) 01/29/20 13:05 Alkaline Phosphatase 76 U/L (38-126) 01/29/20 13:05 Lactate Dehydrogenase 344 U/L (313-618) 01/25/18 11:30 Prealbumin 17.8 mg/dL (17.6-36.0) 01/25/18 11:30 Total Protein 8.5 g/dL (6.3-8.2) H 01/29/20 13:05 Albumin 4.4 g/dL (3.5-5.0) 01/29/20 13:05 Globulin 4.1 g/dL (1.7-4.1) 01/29/20 13:05 Albumin/Globulin Ratio 1.1 (1.0-2.8) 01/29/20 13:05 Triglycerides 100 mg/dL (35-150) 05/09/18 11:20 Cholesterol 125 mg/dL (140-199) L 05/09/18 11:20 LDL Cholesterol, Calc 67 mg/dL (<100) 05/09/18 11:20 HDL Cholesterol 38 mg/dL (40-60) L 05/09/18 11:20 Carcinoembryonic Ag 4.9 ng/mL (0.1-3.0) H 01/05/18 14:22 Breast [facility] Assoc Ag 25 U/mL (< 32) 11/01/18 12:06 CA 15-3 Antigen 24.0 U/mL (0.0-25.0) 01/29/20 13:05 Vitamin B12 964 pg/mL (239-931) H 01/20/18 11:02 Folate > 20.0 ng/mL (2.76-20.0) H 01/20/18 11:02 TSH 1.22 uIU/mL (0.47-4.68) 05/09/18 11:20 Specimen Hemolysis Cancelled 11/01/18 12:06 Rheumatoid Factor 19 01/25/18 11:30 LEYDA Screen Negative 01/25/18 11:30 SS-A Antibody <1.0 neg 01/25/18 11:30 SS-B Antibody <1.0 neg 01/25/18 11:30 SM/REGISTERED NURSE NURSERY Antibody <1.0 neg 01/25/18 11:30 Scl-70 Scleroderma Ab <1.0 neg 01/25/18 11:30 Anti-ds DNA (Crithidia) <1.0 neg 01/25/18 11:30 Anti-Smooth Muscle Ab <1.0 neg 01/25/18 11:30 Blood Type A Negative 05/09/18 11:16 Antibody Screen Positive 05/09/18 11:16 Antibody Identification Anti-K 05/09/18 11:16 Antigen Identification Cancelled 12/30/17 16:45 Direct Antiglob Test Negative 01/25/18 11:30 Crossmatch See Detail 05/09/18 11:16 Assessment and Plan (1) Anemia Ms. Garcia is doing well with regard to her metastatic breast cancer. Her transfusion dependent anemia has completely resolved. She is on letrozole which she appears to be tolerating well. Will continue with this medication. She is also on monthly Xgeva injections. She is comfortable continuing these. I think we could decrease the frequency in the future if her office visits become more difficult. I explained that the letrozole is not cured her cancer but the plan would be to leave her on the drug unless she shows evidence of clinically significant disease progression in the future. Given her good response to first-line hormone therapy, she would be likely to respond to second-line hormone treatment if a change in her program were necessary. She also has new gynecologic findings. She has vaginal bleeding, thickening of the endometrial lining and a pelvic mass. We discussed the rationale for the referral that was placed to [facility]. The patient has decided that she does not want to leave [facility] to assess this further. I explained that if she had a diagnosis of a gynecologic malignancy, this would typically be treated with surgery, and this would be most appropriately done by a gynecologic oncologist. She is not sure if she would want to pursue that. She initially stated that she did want to have any further workup of this. I explained that no matter what is going on if we know the diagnosis we can make better plans for the future whether she wants treatment or not. She was agreeable to another visit with an in [facility] director index and bone with will be referred to Dr. Carmen Chaparro for Dr. Chaparro assessment of the situation in an effort to establish a diagnosis. She also had a recent fall. I reviewed her situation with our neonatal social worker department. It would appear that she would qualify for in-home physical therapy and that referral was placed. We discussed the rationale for physical therapy after a fall. I explained that if she has had 1 fall she is at risk of another. Falls could have devastating consequences in individuals in her age group. The 1 intervention that is been shown to consistently reduce the rate of additional falls is physical therapy. The patient and her daughter were in agreement with this approach and the referral was made today. New Will plan to get her back here for follow-up in about 2 months rather than 3 months. I would be happy to see her any time if I could be of assistance in her care or help with any aspect of her treatment. In the meantime she will continue on her letrozole and monthly Xgeva injections. She will call if any other problems should develop. I personally spent 41 minutes in today's teoz-ea-voet visit with greater than 50% of the time spent in counseling regarding the issues outlined above. Impression: 1. Original diagnosis of right breast cancer in 1999 treated with lumpectomy, chemotherapy, radiation and tamoxifen 2. 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 Letrozole since symptom 2017, monthly Xgeva since March of 2018 with excellent response and normal CBC on current testing 4. Recent vaginal bleeding with endometrial thickening and adnexal mass noted on ultrasound, status post unsuccessful attempt at in office endometrial biopsy 5. Frail geriatric status 6. Recent fall Recommendations: 1. Continue letrozole and Xgeva 2. Physical therapy referral, in-home, with recent fall history 3. Referral to Dr. Chaparro in attempt to establish a gynecologic diagnosis without patients having to leave town 4. Return in 2 months for follow-up, sooner if issues arise
--- NOTE | 2020-01-31 11:35 | ONC.MSW ---
Description: Home Health Referral Activity: Faxed HH referral to [facility], per pt/Dr. Dumont's request.
--- NOTE | 2020-02-04 11:34 | ONC.SCHED ---
Faxed referral to Dr. Chaparro.
[2020-02-12 12:36] LABS: Add Manual Diff / Slide Review NO; Basophils Absolute Auto 100 /uL (0-100); Eosinophils Absolute Auto 200 /uL (0-450); Eosinophils Percent Auto 2.1 % (2-4); Hematocrit 35.8 % (36-46); Lymphocytes Absolute Auto 3100 /uL (1100-4500); Lymphocytes Percent Auto 30.4 % (25-40); Mean Corpuscular HGB Conc 33.4 % (30-36); Mean Corpuscular Hemoglobin 29.3 PG (26-34); Mean Corpuscular Volume 87.6 fL (80-100); Monocytes Absolute Auto 1200 /uL (0-900); Monocytes Percent Auto 11.6 % (3-14); Neutrophils Absolute Auto 5600 /uL (1500-7000); Neutrophils Percent Auto 54.9 % (50-75); Platelet Count 337 X10^3/uL (150-400); Red Blood Cell Count 4.08 X10^6/uL (4.0-5.2); Red Cell Distribution Width 14.5 % (11.6-14.8); White Blood Cell Count 10.2 X10^3/uL (4.5-11.0)
[2020-02-12 12:51] LABS: Alanine Aminotransferase 17 IU/L (<35); Albumin 4.4 g/dL (3.5-5.0); Alkaline Phosphatase 84 U/L (38-126); Aspartate Aminotransferase 25 IU/L (14-36); BUN Creatinine Ratio 25.3 (6-22); Bilirubin Total 0.5 mg/dL (0.2-1.3); Blood Urea Nitrogen 19 mg/dL (7-17); Carbon Dioxide 21 mmol/L (22-32); Chloride 102 mmol/L (98-107); Estimated Glomerular Filt Rate > 60.0 mL/min (>60); Globulin 4.5 g/dL (1.7-4.1); Glucose 97 mg/dL (80-110); HEMOLYSIS < 15 (0-50); Potassium 4.6 mmol/L (3.4-5.1); Sodium 134 mmol/L (137-145); Total Protein 8.9 g/dL (6.3-8.2)
--- NOTE | 2020-02-20 13:37 | ONC.SCHED ---
Re: following up on referral sent to Dr. Chaparro's office on 02/04/2020. Per Laquita, they will call patient and get her scheduled WILLOW.
[2020-02-26] MEDS: DENOSUMAB 120 MG/1.7 ML VIAL SUBCUT (11:44)
[2020-02-26 11:48] LABS: Add Manual Diff / Slide Review NO; Basophils Absolute Auto 100 /uL (0-100); Basophils Percent Auto 0.7 % (0-2); Eosinophils Absolute Auto 200 /uL (0-450); Eosinophils Percent Auto 2.6 % (2-4); Hematocrit 35.8 % (36-46); Hemoglobin 11.8 g/dL (12.0-16.0); Lymphocytes Absolute Auto 2600 /uL (1100-4500); Lymphocytes Percent Auto 29.2 % (25-40); Mean Corpuscular Hemoglobin 29.1 PG (26-34); Mean Corpuscular Volume 88.2 fL (80-100); Monocytes Absolute Auto 1100 /uL (0-900); Monocytes Percent Auto 12.9 % (3-14); Neutrophils Absolute Auto 4800 /uL (1500-7000); Neutrophils Percent Auto 54.6 % (50-75); Platelet Count 311 X10^3/uL (150-400); Red Blood Cell Count 4.06 X10^6/uL (4.0-5.2); Red Cell Distribution Width 14.4 % (11.6-14.8); White Blood Cell Count 8.8 X10^3/uL (4.5-11.0)
[2020-02-26 11:55] VITALS: BP 142/71; PULSE 75; RESP 18; TEMP 36.9; O2SAT 97
[2020-02-26 12:02] LABS: Alanine Aminotransferase 17 IU/L (<35); Albumin 4.2 g/dL (3.5-5.0); Alkaline Phosphatase 88 U/L (38-126); Aspartate Aminotransferase 25 IU/L (14-36); BUN Creatinine Ratio 27.6 (6-22); Bilirubin Total 0.5 mg/dL (0.2-1.3); Blood Urea Nitrogen 21 mg/dL (7-17); Calcium 8.8 mg/dL (8.4-10.2); Carbon Dioxide 21 mmol/L (22-32); Chloride 103 mmol/L (98-107); Estimated Glomerular Filt Rate > 60.0 mL/min (>60); Globulin 4.4 g/dL (1.7-4.1); Glucose 98 mg/dL (80-110); HEMOLYSIS < 15 (0-50); Potassium 4.5 mmol/L (3.4-5.1); Sodium 134 mmol/L (137-145); Total Protein 8.6 g/dL (6.3-8.2)
[2020-02-27 06:36] LABS: CA 15-3 26.5 U/mL (0.0-25.0)
[2020-02-27 09:43] LABS: Cancer Antigen 125 6.7 U/mL (0-35)
[2020-03-24 13:46] LABS: Add Manual Diff / Slide Review NO; Basophils Absolute Auto 100 /uL (0-100); Basophils Percent Auto 0.8 % (0-2); Eosinophils Absolute Auto 200 /uL (0-450); Eosinophils Percent Auto 2.4 % (2-4); Hematocrit 40.1 % (36-46); Hemoglobin 13.2 g/dL (12.0-16.0); Lymphocytes Absolute Auto 2600 /uL (1100-4500); Lymphocytes Percent Auto 28.5 % (25-40); Mean Corpuscular HGB Conc 32.9 % (30-36); Monocytes Absolute Auto 1000 /uL (0-900); Monocytes Percent Auto 10.9 % (3-14); Neutrophils Absolute Auto 5200 /uL (1500-7000); Neutrophils Percent Auto 57.4 % (50-75); Platelet Count 372 X10^3/uL (150-400); Red Blood Cell Count 4.56 X10^6/uL (4.0-5.2); Red Cell Distribution Width 14.4 % (11.6-14.8)
[2020-03-24 14:02] LABS: Alanine Aminotransferase 21 IU/L (<35); Albumin 4.5 g/dL (3.5-5.0); Alkaline Phosphatase 79 U/L (38-126); Aspartate Aminotransferase 29 IU/L (14-36); BUN Creatinine Ratio 20.8 (6-22); Bilirubin Total 0.4 mg/dL (0.2-1.3); Blood Urea Nitrogen 15 mg/dL (7-17); Calcium 9.1 mg/dL (8.4-10.2); Carbon Dioxide 22 mmol/L (22-32); Chloride 104 mmol/L (98-107); Estimated Glomerular Filt Rate > 60.0 mL/min (>60); Globulin 4.7 g/dL (1.7-4.1); Glucose 89 mg/dL (80-110); HEMOLYSIS < 15 (0-50); Potassium 4.6 mmol/L (3.4-5.1); Sodium 136 mmol/L (137-145); Total Protein 9.2 g/dL (6.3-8.2)
[2020-03-25 13:31] VITALS: BP 139/75; PULSE 83; RESP 16; TEMP 37.2; O2SAT 96
--- NOTE | 2020-03-25 13:57 | ONC.PN ---
PN -Subjective Interval history: ID/CC : 84 year old with ER positive metastatic breast cancer. She originally presented in 1999 with a right-sided breast cancer treated with lumpectomy, chemotherapy, radiation therapy followed by tamoxifen. In November of 2017 she presented with severe anemia with a hemoglobin of 6.7. She require blood transfusion support. Bone marrow examination showed hormone receptor positive metastatic breast cancer and 3/[address] scan and bone scan were negative. In February of 2018 she started on letrozole which she has continued to take. In March of 2018 she started on monthly Xgeva which she has continued to take. She was last in for follow-up about 3 months ago and doing well. She recently developed postmenopausal bleeding. She had a pelvic ultrasound done on December 17 that showed a complex ovarian cyst as well as a thickened endometrial lining. These findings were new compared with a CT scan of April 2019. She was seen on January [address] Brown and an attempt was made to obtain an in office endometrial biopsy. However, the attempt failed due to a stenotic cervix. She was subsequently referred to forest fire officer Oncology. She agreed to this referral at the time of that office visit on January 01. However, she subsequently has decided she does not want to do any further assessment for this. She was seen last month for a 3 month follow-up visit for her metastatic breast cancer. At that time she was referred to Dr. Chaparro for her forest fire officer issues and comes today for a follow-up visit. She has on going bone pain which is generally relieved by Aleve. Her neck pain is gotten worse and she is requesting more pain medicine. She has not had any for a other assessment for this. She takes an occasional Vicodin for this. She denies other pain, bleeding, localized weakness, fever, chills, nausea, vomiting, cough or shortness of breath. All other systems are negative. Past medical history 1. Geriatric status: She has ongoing issues with her memory. She is and lives with her . They have a printed circuit board reworker. She does some cooking but does not go to the grocery store. Her daughter handles their finances. She is independent with her ADLs but not her IADLs. She had a fall about a month ago when she was moving a ladder in the garage. She has had several other less traumatic falls. None of them resulted in an emergency room visit. She is in a wheelchair in the office today. Overall she has a frail geriatric status 2. She does not tolerate meperidine or sulfa 3. Medications are reviewed and are as noted in the chart 4. History of asthma 5. DJD 6. Dyslipidemia 7. History of uterine fibroids 8. High blood pressure 9. Hypothyroidism, on replacement therapy 10. History of mitral regurgitation 11. Previous surgeries include a nasal septoplasty and her breast cancer surgery 12. She is a previous 40 year smoker and occasional drinker. She is . She is accompanied in the office today by her daughter. 13. Family history is negative for malignancy 14. She had a colonoscopy in 2018 - Patient Self-Reported Symptoms SR Constitution: Weight loss/gain, Fatigue/Malaise SR Cardiovascular issues: Dizzy/lightheaded SR Musculoskeletal issues: Bone pain SR Neuro issues: Difficulty balancing SR Hematologic issues: Bleeding/bruising SR Endocrine issues: Heat intolerance, Hot flashes Home Medications and Allergies Home Medications Medication Instructions Recorded Confirmed Type Combigan 1 drp OPHTHALMIC (EYE) BID 11/25/17 01/02/20 History Flovent HFA 3 puff INHALATION BID PRN 11/25/17 01/02/20 History albuterol sulfate 2 puff INHALATION Q4H PRN 11/25/17 01/02/20 History bimatoprost 1 drp OPHTHALMIC (EYE) QPM PRN 11/25/17 01/02/20 History levothyroxine 1 tab PO DAILY 11/25/17 01/02/20 History zolpidem 5 - 10 mg PO BEDTIME PRN 11/25/17 01/02/20 History multivitamin [Multiple Vitamins] 1 tab PO DAILY 12/06/17 01/02/20 History citalopram 20 mg PO DAILY 01/17/19 01/02/20 History letrozole 2.5 mg PO DAILY #90 tab 10/08/19 01/02/20 Rx hydrocodone-acetaminophen 1 tab PO Q12H PRN #60 tab 03/19/20 Rx Allergies Allergy/AdvReac Type Severity Reaction Status Date / Time meperidine Allergy Unknown Verified 01/02/20 14:24 Sulfa (Sulfonamide Allergy Unknown Verified 01/02/20 14:24 Antibiotics) Exam Vital signs: Vital Signs Temp Pulse Resp BP Pulse Ox 03/25/20 13:31 98.9 F 83 16 139/75 96 Intake and Output 03/24/20 03/25/20 03/25/20 23:59 07:59 15:59 Other: Weight 56.7 kg Patient Weight 03/25/20 23:59 Weight 56.7 kg Narrative: She was awake, alert and oriented. She was in a wheelchair. Results - Labs Laboratory Last Values WBC 9.0 X10^3/uL (4.5-11.0) 03/24/20 12:45 RBC 4.56 X10^6/uL (4.0-5.2) 03/24/20 12:45 Hgb 13.2 g/dL (12.0-16.0) 03/24/20 12:45 Hct 40.1 % (36-46) 03/24/20 12:45 MCV 88.0 fL (80-100) 03/24/20 12:45 MCH 29.0 PG (26-34) 03/24/20 12:45 MCHC 32.9 % (30-36) 03/24/20 12:45 RDW 14.4 % (11.6-14.8) 03/24/20 12:45 Plt Count 372 X10^3/uL (150-400) 03/24/20 12:45 Neut % (Auto) 57.4 % (50-75) 03/24/20 12:45 Lymph % (Auto) 28.5 % (25-40) 03/24/20 12:45 Childress % (Auto) 10.9 % (3-14) 03/24/20 12:45 Eos % (Auto) 2.4 % (2-4) 03/24/20 12:45 Baso % (Auto) 0.8 % (0-2) 03/24/20 12:45 Neut # (Auto) 5200 /uL (5403-8926) 03/24/20 12:45 Lymph # (Auto) 2600 /uL (1629-4310) 03/24/20 12:45 Childress # (Auto) 1000 /uL (0-900) H 03/24/20 12:45 Eos # (Auto) 200 /uL (0-450) 03/24/20 12:45 Baso # (Auto) 100 /uL (0-100) 03/24/20 12:45 Total Counted 100 01/20/18 11:02 Seg Neutrophils % 73.0 % (38-70) H 01/20/18 11:02 Lymphocytes % (Manual) 23.0 % (25-45) L 01/20/18 11:02 Monocytes % (Manual) 4.0 % (2-11) 01/20/18 11:02 Neutrophils # (Manual) 7446 /uL (1809-0293) H 01/20/18 11:02 Nucleated RBCs Cancelled 01/31/18 11:53 Hypersegmented Neuts Cancelled 01/31/18 11:53 Hypogranular Neuts Cancelled 01/31/18 11:53 Reactive Lymphocytes Cancelled 01/31/18 11:53 Smudge Cells Cancelled 01/31/18 11:53 Other Cell Type Cancelled 01/31/18 11:53 Toxic Granulation Cancelled 01/31/18 11:53 Toxic Vacuolation Cancelled 01/31/18 11:53 Dohle Bodies Cancelled 01/31/18 11:53 Keyonna Rods Cancelled 01/31/18 11:53 WBC Morphology Comment Cancelled 01/31/18 11:53 Platelet Estimate Cancelled 01/31/18 11:53 Clumped Platelets Cancelled 01/31/18 11:53 Plt Morphology Comment Cancelled 01/31/18 11:53 RBC Morphology Not Reportable 05/09/18 11:16 Dimorphic RBCs Cancelled 01/31/18 11:53 Polychromasia 1+ H 05/09/18 11:16 Hypochromasia 1+ H 05/09/18 11:16 Poikilocytosis 1+ H 05/02/18 11:21 Basophilic Stippling Cancelled 01/31/18 11:53 Anisocytosis 3+ H 05/09/18 11:16 Microcytosis Cancelled 01/31/18 11:53 Macrocytosis 1+ H 04/17/18 10:29 Spherocytes Cancelled 01/31/18 11:53 Pappenheimer Bodies Cancelled 01/31/18 11:53 Sickle Cells Cancelled 01/31/18 11:53 Target Cells Cancelled 01/31/18 11:53 Tear Drop Cells Cancelled 01/31/18 11:53 Ovalocytes Cancelled 01/31/18 11:53 Stomatocytes Cancelled 01/31/18 11:53 Helmet Cells Cancelled 01/31/18 11:53 [place] Bodies Cancelled 01/31/18 11:53 [place] Rings Cancelled 01/31/18 11:53 Tiffanie Cells Cancelled 01/31/18 11:53 Acanthocytes (Spur) Cancelled 01/31/18 11:53 Rouleaux 1+ H 04/25/18 11:02 Schistocytes Cancelled 01/31/18 11:53 Smear Path Review 01/25/18 11:30 ESR 66 MM/HR (0-20) H 01/05/18 14:22 Percent Retic 3.4 % (1.06-2.63) H 01/25/18 11:30 Haptoglobin 251 mg/dL (43-212) H 01/05/18 14:22 Sodium 136 mmol/L (137-145) L 03/24/20 12:45 Potassium 4.6 mmol/L (3.4-5.1) 03/24/20 12:45 Chloride 104 mmol/L (98-107) 03/24/20 12:45 Carbon Dioxide 22 mmol/L (22-32) 03/24/20 12:45 BUN 15 mg/dL (7-17) 03/24/20 12:45 Creatinine 0.72 mg/dL (0.52-1.04) 03/24/20 12:45 Estimated GFR > 60.0 mL/min (>60) 03/24/20 12:45 BUN/Creatinine Ratio 20.8 (6-22) 03/24/20 12:45 Glucose 89 mg/dL (80-110) 03/24/20 12:45 Calcium 9.1 mg/dL (8.4-10.2) 03/24/20 12:45 Iron 42 ug/dL (37-170) 12/30/17 14:54 TIBC 247 ug/dL (265-497) L 12/30/17 14:54 % Saturation 17 % (15-50) 12/30/17 14:54 Transferrin 177 mg/dL (206-381) L 12/30/17 14:54 Ferritin 745.0 ng/mL (11.1-264) H 12/30/17 14:54 Total Bilirubin 0.4 mg/dL (0.2-1.3) 03/24/20 12:45 AST 29 IU/L (14-36) 03/24/20 12:45 ALT 21 IU/L (<35) 03/24/20 12:45 Alkaline Phosphatase 79 U/L (38-126) 03/24/20 12:45 Lactate Dehydrogenase 344 U/L (313-618) 01/25/18 11:30 Prealbumin 17.8 mg/dL (17.6-36.0) 01/25/18 11:30 Total Protein 9.2 g/dL (6.3-8.2) H 03/24/20 12:45 Albumin 4.5 g/dL (3.5-5.0) 03/24/20 12:45 Globulin 4.7 g/dL (1.7-4.1) H 03/24/20 12:45 Albumin/Globulin Ratio 1.0 (1.0-2.8) 03/24/20 12:45 Triglycerides 100 mg/dL (35-150) 05/09/18 11:20 Cholesterol 125 mg/dL (140-199) L 05/09/18 11:20 LDL Cholesterol, Calc 67 mg/dL (<100) 05/09/18 11:20 HDL Cholesterol 38 mg/dL (40-60) L 05/09/18 11:20 Carcinoembryonic Ag 4.9 ng/mL (0.1-3.0) H 01/05/18 14:22 Breast [facility] Assoc Ag 25 U/mL (< 32) 11/01/18 12:06 CA 15-3 Antigen 26.5 U/mL (0.0-25.0) H 02/26/20 00:00 CA 125 Antigen 6.7 U/mL (0-35) 02/26/20 11:07 Hum Epididymis Prot 4 157.0 pmol/L (0.0-96.9) H 02/26/20 11:07 Vitamin B12 964 pg/mL (239-931) H 01/20/18 11:02 Folate > 20.0 ng/mL (2.76-20.0) H 01/20/18 11:02 TSH 1.22 uIU/mL (0.47-4.68) 05/09/18 11:20 Specimen Hemolysis Cancelled 11/01/18 12:06 Rheumatoid Factor 19 01/25/18 11:30 LEYDA Screen Negative 01/25/18 11:30 SS-A Antibody <1.0 neg 01/25/18 11:30 SS-B Antibody <1.0 neg 01/25/18 11:30 SM/SHIPPING AND RECEIVING SPECIALIST Antibody <1.0 neg 01/25/18 11:30 Scl-70 Scleroderma Ab <1.0 neg 01/25/18 11:30 Anti-ds DNA (Crithidia) <1.0 neg 01/25/18 11:30 Anti-Smooth Muscle Ab <1.0 neg 01/25/18 11:30 Blood Type A Negative 05/09/18 11:16 Antibody Screen Positive 05/09/18 11:16 Antibody Identification Anti-K 05/09/18 11:16 Antigen Identification Cancelled 12/30/17 16:45 Direct Antiglob Test Negative 01/25/18 11:30 Crossmatch See Detail 05/09/18 11:16 Assessment and Plan (1) Anemia Ms. Garcia is doing well with regard to her metastatic breast cancer. Her transfusion dependent anemia has completely resolved. She is on letrozole which she appears to be tolerating well. Will continue with this medication. She is also on monthly Xgeva injections. She is comfortable continuing these. I think we could decrease the frequency in the future if her office visits become more difficult. I explained that the letrozole is not cured her cancer but the plan would be to leave her on the drug unless she shows evidence of clinically significant disease progression in the future. Given her good response to first-line hormone therapy, she would be likely to respond to second-line hormone treatment if a change in her program were necessary. She is having some increase in neck pain and will have cervical spine films done today. Her pain meds will be renewed. We can investigate this further should the symptoms persist and the x-rays are negative. She also has new gynecologic findings. She has been seen by Dr. Chaparro. Dr. Chaparro has recommended a D&C and the patient is considering whether not she wants to pursue this. She also had a recent fall. She received home physical therapy for this. Will plan to get her back here for follow-up in about 2 months rather than 3 months. I would be happy to see her any time if I could be of assistance in her care or help with any aspect of her treatment. In the meantime she will continue on her letrozole and monthly Xgeva injections. She will call if any other problems should develop. I personally spent 26 minutes in today's [id number] visit with greater than 50% of the time spent in counseling regarding the issues outlined above. Impression: 1. Original diagnosis of right breast cancer in 1999 treated with lumpectomy, chemotherapy, radiation and tamoxifen 2. 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 Letrozole since symptom 2017, monthly Xgeva since March of 2018 with excellent response and normal CBC on current testing 4. Recent vaginal bleeding with endometrial thickening and adnexal mass noted on ultrasound, status post unsuccessful attempt at in office endometrial biopsy 5. Frail geriatric status 6. Recent fall Recommendations: 1. Continue letrozole and Xgeva 2. Physical therapy referral, in-home, with recent fall history 3. Follow-up with Dr. Chaparro about her recommendations 4. Return in 2 months for follow-up, sooner if issues arise
[2020-03-25] MEDS: DENOSUMAB 120 MG/1.7 ML VIAL SUBCUT (14:16)
--- NOTE | 2020-04-21 14:43 | PC.NURSE ---
Talked to Pt's daughter Miranda and she relayed that her mother is not interested in seeing Dr. Chaparro at this time.
--- NOTE | 2020-04-23 14:23 | ONC.SCHED ---
Per Heriberto's note, no need to send the referral to Dr. Chaparro.
[2020-04-24 12:13] VITALS: PULSE 77; RESP 16; TEMP 36.7; O2SAT 100
[2020-04-24 12:35] LABS: Add Manual Diff / Slide Review NO; Basophils Absolute Auto 100 /uL (0-100); Basophils Percent Auto 0.7 % (0-2); Eosinophils Absolute Auto 100 /uL (0-450); Eosinophils Percent Auto 1.5 % (2-4); Hematocrit 36.3 % (36-46); Hemoglobin 11.8 g/dL (12.0-16.0); Lymphocytes Absolute Auto 2600 /uL (1100-4500); Lymphocytes Percent Auto 26.4 % (25-40); Mean Corpuscular HGB Conc 32.4 % (30-36); Mean Corpuscular Hemoglobin 28.3 PG (26-34); Mean Corpuscular Volume 87.3 fL (80-100); Monocytes Absolute Auto 1000 /uL (0-900); Monocytes Percent Auto 10.1 % (3-14); Neutrophils Absolute Auto 5900 /uL (1500-7000); Neutrophils Percent Auto 61.3 % (50-75); Platelet Count 332 X10^3/uL (150-400); Red Blood Cell Count 4.16 X10^6/uL (4.0-5.2); Red Cell Distribution Width 14.1 % (11.6-14.8); White Blood Cell Count 9.7 X10^3/uL (4.5-11.0)
[2020-04-24 12:58] LABS: Alanine Aminotransferase 19 IU/L (<35); Albumin 4.1 g/dL (3.5-5.0); Albumin Globulin Ratio 0.9 (1.0-2.8); Alkaline Phosphatase 81 U/L (38-126); Aspartate Aminotransferase 28 IU/L (14-36); BUN Creatinine Ratio 27.3 (6-22); Bilirubin Total 0.6 mg/dL (0.2-1.3); Blood Urea Nitrogen 18 mg/dL (7-17); Calcium 8.4 mg/dL (8.4-10.2); Carbon Dioxide 25 mmol/L (22-32); Chloride 105 mmol/L (98-107); Estimated Glomerular Filt Rate > 60.0 mL/min (>60); Globulin 4.4 g/dL (1.7-4.1); Glucose 103 mg/dL (80-110); HEMOLYSIS < 15 (0-50); Potassium 4.5 mmol/L (3.4-5.1); Sodium 135 mmol/L (137-145); Total Protein 8.5 g/dL (6.3-8.2)
[2020-04-24] MEDS: DENOSUMAB 120 MG/1.7 ML VIAL SUBCUT (13:12)
[2020-05-21 13:00] VITALS: BP 90/56; PULSE 130; RESP 20; TEMP 36.2; O2SAT 89
--- NOTE | 2020-05-21 13:17 | P.PNONC_ITS ---
PN -Subjective Interval history: ID/CC : 84 year old with ER positive metastatic breast cancer. She originally presented in 1999 with a right-sided breast cancer treated with lumpectomy, chemotherapy, radiation therapy followed by tamoxifen. In November of 2017 she presented with severe anemia with a hemoglobin of 6.7. She require blood transfusion support. Bone marrow examination showed hormone receptor positive metastatic breast cancer and 3/[address] scan and bone scan were negative. In February of 2018 she started on letrozole which she has continued to take. In March of 2018 she started on monthly Xgeva which she has continued to take. She was last in for follow-up about 2 months ago. She developed postmenopausal bleeding. She had a pelvic ultrasound done on December 17 that showed a complex ovarian cyst as well as a thickened endometrial lining. These findings were new compared with a CT scan of April 2019. She was seen on January [address] Brown and an attempt was made to obtain an in office endometrial biopsy. However, the attempt failed due to a stenotic cervix. She was subsequently referred to [facility]. She agreed to this referral at the time of that office visit on January 01. However, she subsequently has decided she does not want to do any further assessment for this. She was seen by Dr. Chaparro who talked to her and her family about options for managing what appeared to be a malignant process in the pelvis the but the patient declined any further workup on this. She presents today for a follow-up visit. She is having ongoing anorexia, loose stools, trouble swallowing, shortness of breath, cough productive of mucus, memory loss and confusion. She is having pain in her neck and back. She has ongoing weight loss of about 20 lb over the past month with fatigue and malaise. She has not had fevers, chills, bleeding. She comes today for a follow-up assessment. Past medical history 1. Geriatric status is frail 2. She does not tolerate meperidine or sulfa 3. Medications are reviewed and are as noted in the chart 4. History of asthma 5. DJD 6. Dyslipidemia 7. History of uterine fibroids 8. High blood pressure 9. Hypothyroidism, on replacement therapy 10. History of mitral regurgitation 11. Previous surgeries include a nasal septoplasty and her breast cancer surgery 12. She is a previous 40 year smoker and occasional drinker. She is . She is accompanied in the office today by her daughter. 13. Family history is negative for malignancy 14. She had a colonoscopy in 2018 - Patient Self-Reported Symptoms SR Constitution: Weight loss/gain, Fatigue/Malaise SR ears, nose, mouth, throat issues: Difficulty swallowing SR respiratory issues: Difficulty breathing, Mucous SR Cardiovascular issues: Dizzy/lightheaded SR Gastrointestinal issues: Poor or no appetite, Change in bowel pattern, Diarrhea SR Musculoskeletal issues: Muscle weakness, Back or neck pain, Cold hands or feet, Difficulty walking SR Neuro issues: Difficulty balancing SR Hematologic issues: Bleeding/bruising SR Endocrine issues: Heat intolerance, Hot flashes Home Medications and Allergies Home Medications Medication Instructions Recorded Confirmed Type Combigan 1 drp OPHTHALMIC (EYE) BID 11/25/17 01/02/20 History Flovent HFA 3 puff INHALATION BID PRN 11/25/17 01/02/20 History albuterol sulfate 2 puff INHALATION Q4H PRN 11/25/17 01/02/20 History bimatoprost 1 drp OPHTHALMIC (EYE) QPM PRN 11/25/17 01/02/20 History levothyroxine 1 tab PO DAILY 11/25/17 01/02/20 History zolpidem 5 - 10 mg PO BEDTIME PRN 11/25/17 01/02/20 History multivitamin [Multiple Vitamins] 1 tab PO DAILY 12/06/17 01/02/20 History citalopram 20 mg PO DAILY 01/17/19 01/02/20 History letrozole 2.5 mg PO DAILY #90 tab 10/08/19 01/02/20 Rx hydrocodone-acetaminophen 1 tab PO Q12H PRN #60 tab 03/19/20 Rx hydrocodone-acetaminophen 1 tab PO Q6H PRN #120 tab 03/25/20 Rx Allergies Allergy/AdvReac Type Severity Reaction Status Date / Time meperidine Allergy Unknown Verified 01/02/20 14:24 Sulfa (Sulfonamide Allergy Unknown Verified 01/02/20 14:24 Antibiotics) Exam Vital signs: Vital Signs Temp Pulse Resp BP Pulse Ox 05/21/20 13:00 97.1 F L 130 H 20 90/56 L 89 L Intake and Output 05/20/20 05/21/20 05/21/20 23:59 07:59 15:59 Other: Weight 46.4 kg Patient Weight 05/21/20 23:59 Weight 46.4 kg Narrative: She was awake, alert and oriented. She was in a wheelchair. She did not engage me much during the visit but did state her desire to go home. Results - Labs Laboratory Last Values WBC 9.7 X10^3/uL (4.5-11.0) 04/24/20 11:49 RBC 4.16 X10^6/uL (4.0-5.2) 04/24/20 11:49 Hgb 11.8 g/dL (12.0-16.0) L 04/24/20 11:49 Hct 36.3 % (36-46) 04/24/20 11:49 MCV 87.3 fL (80-100) 04/24/20 11:49 MCH 28.3 PG (26-34) 04/24/20 11:49 MCHC 32.4 % (30-36) 04/24/20 11:49 RDW 14.1 % (11.6-14.8) 04/24/20 11:49 Plt Count 332 X10^3/uL (150-400) 04/24/20 11:49 Neut % (Auto) 61.3 % (50-75) 04/24/20 11:49 Lymph % (Auto) 26.4 % (25-40) 04/24/20 11:49 Hodgeman % (Auto) 10.1 % (3-14) 04/24/20 11:49 Eos % (Auto) 1.5 % (2-4) L 04/24/20 11:49 Baso % (Auto) 0.7 % (0-2) 04/24/20 11:49 Neut # (Auto) 5900 /uL (1577-5190) 04/24/20 11:49 Lymph # (Auto) 2600 /uL (4023-9103) 04/24/20 11:49 Hodgeman # (Auto) 1000 /uL (0-900) H 04/24/20 11:49 Eos # (Auto) 100 /uL (0-450) 04/24/20 11:49 Baso # (Auto) 100 /uL (0-100) 04/24/20 11:49 Total Counted 100 01/20/18 11:02 Seg Neutrophils % 73.0 % (38-70) H 01/20/18 11:02 Lymphocytes % (Manual) 23.0 % (25-45) L 01/20/18 11:02 Monocytes % (Manual) 4.0 % (2-11) 01/20/18 11:02 Neutrophils # (Manual) 7446 /uL (1327-8742) H 01/20/18 11:02 Nucleated RBCs Cancelled 01/31/18 11:53 Hypersegmented Neuts Cancelled 01/31/18 11:53 Hypogranular Neuts Cancelled 01/31/18 11:53 Reactive Lymphocytes Cancelled 01/31/18 11:53 Smudge Cells Cancelled 01/31/18 11:53 Other Cell Type Cancelled 01/31/18 11:53 Toxic Granulation Cancelled 01/31/18 11:53 Toxic Vacuolation Cancelled 01/31/18 11:53 Dohle Bodies Cancelled 01/31/18 11:53 Keyonna Rods Cancelled 01/31/18 11:53 WBC Morphology Comment Cancelled 01/31/18 11:53 Platelet Estimate Cancelled 01/31/18 11:53 Clumped Platelets Cancelled 01/31/18 11:53 Plt Morphology Comment Cancelled 01/31/18 11:53 RBC Morphology Not Reportable 05/09/18 11:16 Dimorphic RBCs Cancelled 01/31/18 11:53 Polychromasia 1+ H 05/09/18 11:16 Hypochromasia 1+ H 05/09/18 11:16 Poikilocytosis 1+ H 05/02/18 11:21 Basophilic Stippling Cancelled 01/31/18 11:53 Anisocytosis 3+ H 05/09/18 11:16 Microcytosis Cancelled 01/31/18 11:53 Macrocytosis 1+ H 04/17/18 10:29 Spherocytes Cancelled 01/31/18 11:53 Pappenheimer Bodies Cancelled 01/31/18 11:53 Sickle Cells Cancelled 01/31/18 11:53 Target Cells Cancelled 01/31/18 11:53 Tear Drop Cells Cancelled 01/31/18 11:53 Ovalocytes Cancelled 01/31/18 11:53 Stomatocytes Cancelled 01/31/18 11:53 Helmet Cells Cancelled 01/31/18 11:53 Welch-Formoso Bodies Cancelled 01/31/18 11:53 [place] Rings Cancelled 01/31/18 11:53 Tiffanie Cells Cancelled 01/31/18 11:53 Acanthocytes (Spur) Cancelled 01/31/18 11:53 Rouleaux 1+ H 04/25/18 11:02 Schistocytes Cancelled 01/31/18 11:53 Smear Path Review 01/25/18 11:30 ESR 66 MM/HR (0-20) H 01/05/18 14:22 Percent Retic 3.4 % (1.06-2.63) H 01/25/18 11:30 Haptoglobin 251 mg/dL (43-212) H 01/05/18 14:22 Sodium 135 mmol/L (137-145) L 04/24/20 11:49 Potassium 4.5 mmol/L (3.4-5.1) 04/24/20 11:49 Chloride 105 mmol/L (98-107) 04/24/20 11:49 Carbon Dioxide 25 mmol/L (22-32) 04/24/20 11:49 BUN 18 mg/dL (7-17) H 04/24/20 11:49 Creatinine 0.66 mg/dL (0.52-1.04) 04/24/20 11:49 Estimated GFR > 60.0 mL/min (>60) 04/24/20 11:49 BUN/Creatinine Ratio 27.3 (6-22) H 04/24/20 11:49 Glucose 103 mg/dL (80-110) 04/24/20 11:49 Calcium 8.4 mg/dL (8.4-10.2) 04/24/20 11:49 Iron 42 ug/dL (37-170) 12/30/17 14:54 TIBC 247 ug/dL (265-497) L 12/30/17 14:54 % Saturation 17 % (15-50) 12/30/17 14:54 Transferrin 177 mg/dL (206-381) L 12/30/17 14:54 Ferritin 745.0 ng/mL (11.1-264) H 12/30/17 14:54 Total Bilirubin 0.6 mg/dL (0.2-1.3) 04/24/20 11:49 AST 28 IU/L (14-36) 04/24/20 11:49 ALT 19 IU/L (<35) 04/24/20 11:49 Alkaline Phosphatase 81 U/L (38-126) 04/24/20 11:49 Lactate Dehydrogenase 344 U/L (313-618) 01/25/18 11:30 Prealbumin 17.8 mg/dL (17.6-36.0) 01/25/18 11:30 Total Protein 8.5 g/dL (6.3-8.2) H 04/24/20 11:49 Albumin 4.1 g/dL (3.5-5.0) 04/24/20 11:49 Globulin 4.4 g/dL (1.7-4.1) H 04/24/20 11:49 Albumin/Globulin Ratio 0.9 (1.0-2.8) L 04/24/20 11:49 Triglycerides 100 mg/dL (35-150) 05/09/18 11:20 Cholesterol 125 mg/dL (140-199) L 05/09/18 11:20 LDL Cholesterol, Calc 67 mg/dL (<100) 05/09/18 11:20 HDL Cholesterol 38 mg/dL (40-60) L 05/09/18 11:20 Carcinoembryonic Ag 4.9 ng/mL (0.1-3.0) H 01/05/18 14:22 Breast Carcino Assoc Ag 25 U/mL (< 32) 11/01/18 12:06 CA 15-3 Antigen 26.5 U/mL (0.0-25.0) H 02/26/20 00:00 CA 125 Antigen 6.7 U/mL (0-35) 02/26/20 11:07 Hum Epididymis Prot 4 157.0 pmol/L (0.0-96.9) H 02/26/20 11:07 Vitamin B12 964 pg/mL (239-931) H 01/20/18 11:02 Folate > 20.0 ng/mL (2.76-20.0) H 01/20/18 11:02 TSH 1.22 uIU/mL (0.47-4.68) 05/09/18 11:20 Specimen Hemolysis Cancelled 11/01/18 12:06 Rheumatoid Factor 19 01/25/18 11:30 LEYDA Screen Negative 01/25/18 11:30 SS-A Antibody <1.0 neg 01/25/18 11:30 SS-B Antibody <1.0 neg 01/25/18 11:30 SM/CLIENT APPLICATION SUPPORT SPECIALIST Antibody <1.0 neg 01/25/18 11:30 Scl-70 Scleroderma Ab <1.0 neg 01/25/18 11:30 Anti-ds DNA (Crithidia) <1.0 neg 01/25/18 11:30 Anti-Smooth Muscle Ab <1.0 neg 01/25/18 11:30 Blood Type A Negative 05/09/18 11:16 Antibody Screen Positive 05/09/18 11:16 Antibody Identification Anti-K 05/09/18 11:16 Antigen Identification Cancelled 12/30/17 16:45 Direct Antiglob Test Negative 01/25/18 11:30 Crossmatch See Detail 05/09/18 11:16 Assessment and Plan (1) Breast cancer metastasized to bone Onset Date: ~2017 Status: Acute 82-year-old female with a diagnosis of metastatic breast cancer which was identified on a bone marrow biopsy February of 2018. Her anemia has gone away on letrozole and I do not think this represents an active problem for her. She does have a malignant appearing pelvic mass for which she has declined further workup. Her functional status has deteriorated markedly over the last 2 months. They she currently has about 10 hours of caregiving at home where she lives with her who is also functioning poorly. I explained to the patient and her daughters that it would be appropriate to refer her to hospice. Her goals of care are to try to be comfortable, and stay at home. She does not like coming to the doctor's office or hospital. In addition, with her frail functional status, I do not think she is a candidate for any anticancer interventions. We reviewed the components of the Medicare hospice benefit and its intent to support her and her family and allows to [facility] care at home as opposed to the doctor's office or hospital. She and her family were agreeable to a hospice referral and that will be made today. She was also advised to talk to her [employer] worker to try to get increased hours at home. We discussed the fact that hospice is not provide 24 hour in-home care but I think she could get more hours through [employer]. We will not schedule a specific return appointment in this office. I would be happy to see her any time or be involved in her care in any way that might be helpful in the future. Impression: 1. Metastatic breast cancer with bone marrow involvement and transfusion depend ent anemia, currently doing well on letrozole 2. Malignant appearing pelvic mass for which she has declined further workup 3. Progressive constitutional symptoms with 20 lb weight loss, worsening appe tite, worsening weakness, likely secondary to her malignant pelvic mass Recommendation: 1. Patient is hospice appropriate based on her goals of care and expected life expectancy of less than 6 months 2. Will make a hospice referral today 3. Will leave at her appointment here open-ended but would be happy to see her again at any time in the future 4. She and her family will look into getting increased colts coverage (1) Breast cancer metastasized to bone Qualifiers: Laterality: right Qualified Code(s): C50.911 - Malignant neoplasm of unspecified site of right female breast
--- NOTE | 2020-05-26 10:28 | ONC.MSW ---
Description: Bereavement Call Activity: [employer] called and spoke with pt's dtr, Miranda, after hearing of her sudden passing. Pt was just here in clinic last Tuesday, seen jointly by Dr. Dumont and this [employer], together with her dtr, Miranda. According to Miranda, pt about 4:45am the next day, having experienced a sudden, rapid decline after they got home from their ONC appt. [employer] offered bereavement support, as well as clarified any further needs of the family. Miranda states that [facility] was waiting on Dr. Dumont to sign off on the certificate, and that they have not been able to get a hold of him. [employer] assured family that we would take care of this. [employer] C[employer]TER called Dr. Dumont, relayed the need for him to call [facility], which he promptly did. [employer] will send family our ONC bereavement card.
== END ==
PROVIDERS: Internal Medicine Hematology & Oncology; Nurse Practitioner Gerontology; PCP Physician Assistant; Visit Provider Internal Medicine
DX: C50.911 Malignant neoplasm of unspecified site of right female breast (principal); C79.52 Secondary malignant neoplasm of bone marrow; R19.00 Intra-abdominal and pelvic swelling, mass and lump, unspecified site; R63.0 Anorexia; R63.4 Abnormal weight loss; R13.10 Dysphagia, unspecified; R06.02 Shortness of breath; M54.2 Cervicalgia; M54.9 Dorsalgia, unspecified; I10 Essential (primary) hypertension; E78.5 Hyperlipidemia, unspecified; E03.9 Hypothyroidism, unspecified; Z17.0 Estrogen receptor positive status [ER+]; Z79.811 Long term (current) use of aromatase inhibitors
CPT/HCPCS: 36415; 36430; 38222; 80053; 80061; 82378; 82607; 82728; 82746; 83010; 83540; 83550; 83615; 84134; 84443; 85025; 85045; 85060; 85097; 85651; 86038; 86300; 86304; 86305; 86430; 86850; 86870; 86880; 86900; 86901; 86902; 88305; 88311; 88313; 88341; 88342; 90471; 90656; 96372; 99000; 99205; 99214; 99215; P9016; J0897; Q2038